=== PATIENT | male | born 1945 | race Caucasian/White ===

== ENCOUNTER → 2019-01-09 | Outpatient (CLI) | payer MEDICARE ==
--- NOTE | 2019-01-09 13:00 | CT ---
EXAMINATION TYPE: CT chest wo con DATE OF EXAM: 01/09/2019 COMPARISON: Chest x-ray December 17, 2018 HISTORY: thoracic aneurysm, cough, abnormal x-ray. CT DLP: 427.2 mGycm. Automated Exposure Control for Dose Reduction was Utilized. TECHNIQUE: CT scan of the thorax is performed without IV contrast. FINDINGS: LUNGS: There is some left basilar linear scarring just above diaphragm. No suspicious peripheral reti culation or fibrosis. No honeycombing. No concerning nodules or masses. No pleural effusion or pneumo thorax. Slightly elevated left hemidiaphragm. No suspicious consolidation. MEDIASTINUM: Lack of IV contrast is noted to limit evaluation for mediastinal and especially hilar a denopathy. There are no definitive greater than 1 cm hilar or mediastinal lymph nodes. No pericardi al effusion is seen. Heart size is upper limits of normal. Main pulmonary artery measures 3.1 cm at b ifurcation axial image 22. CT findings suggesting underlying pulmonary hypertension. Adjacent ascendi ng aorta measures up to 3.5 cm in diameter. Mild calcified plaque in the aortic arch is present. Ther e is fairly moderate to severe three-vessel coronary artery calcification which is noted marked under lying coronary artery disease. OTHER: No additional significant abnormality is seen. IMPRESSION: 1. Slightly elevated left hemidiaphragm with mild to moderate left basilar linear scarring. No additi onal significant fibrosis or acute pulmonary process. 2. Some ectasia to the ascending aorta up to 3.5 cm. No greater than 4.0 cm aneurysmal change. Underl john pulmonary hypertension may be present. Coronary artery calcification is noted.
== END | disposition home or self-care (01) ==
LOC: RADCTMAIN 11:26
PROVIDERS: ATTEND Internal Medicine
DX: I25.10 Atherosclerotic heart disease of native coronary artery without angina pectoris (principal)
CPT/HCPCS: 71250

== ENCOUNTER → 2019-05-05 | Outpatient (CLI) | payer MEDICARE ==
--- NOTE | 2019-05-05 14:41 | XR ---
EXAMINATION TYPE: XR chest 2V DATE OF EXAM: 05/05/2019 COMPARISON: 12/17/2018 HISTORY: 73-year-old male cough and shortness of breath TECHNIQUE: Frontal and lateral views FINDINGS: Heart normal size. Elongation/ectasia of the thoracic aorta. Mild patchy left basilar opacity. No oth er consolidation or pleural effusion. IMPRESSION: 1. Similar tortuous versus ectatic thoracic aorta. 2. Mild patchy left basilar atelectasis versus early infiltrate.
== END | disposition home or self-care (01) ==
LOC: RADXRYALE 10:42
PROVIDERS: ATTEND Physician Assistant Medical
DX: R05 Cough (principal); R06.02 Shortness of breath
CPT/HCPCS: 71046

== ENCOUNTER 2020-05-04 09:24 | Day surgery (SDC) | payer MEDICARE ==
[2020-05-03 09:19] VITALS: BMI 29.0
[~2020-05-04 09:24] MED LIST: ALPRAZolam 0.25 MG TAB PO PRN; ALPRAZolam 0.5 MG TAB PO PRN; ASPIRIN 325 MG TAB PO STA; ATORVASTATIN 80 MG TAB PO STA; NITROGLYCERIN SL TABS 0.4 MG TAB SUBLINGUAL PRN; SODIUM CHLORIDE 0.9% 1,000 ML in EMPTY BAG 1 BAG IV ONE
[2020-05-04 09:58] VITALS: RESP 18; TEMP 97.9
[2020-05-04] MEDS ORDERED: ASPIRIN 81 MG ONE (10:08)
[2020-05-04] MEDS ORDERED: MIDAZOLAM 2 MG/2 ML VIAL IVP ONE (10:41)
[2020-05-04] MEDS ORDERED: LIDOCAINE 1% INJ 10MG/ML (20 ML MDV) SQ ONE (10:46)
[2020-05-04] MEDS ORDERED: BIVALIRUDIN BOLUS 250 MG/50 ML IV ONE (10:54)
[2020-05-04] MEDS ORDERED: BIVALIRUDIN 250 MG in SODIUM CHLORIDE 0.9% 50 ML IV ONE (10:55)
[2020-05-04] MEDS: NITROGLYCERIN 1000MCG/10ML SYRINGE INTRACORON ONE ×2 (11:07→11:21)
[2020-05-04] MEDS ORDERED: CLOPIDOGREL 75 MG TAB PO ONE (11:16)
[2020-05-04] MEDS ORDERED: IOPAMIDOL-370 100ML BTL INJ ONE ×2 (11:16→11:38)
[2020-05-04] MEDS ORDERED: ADENOSINE 90 MG in SODIUM CHLORIDE 0.9% 60 ML IVP ONE (11:33)
[2020-05-04] MEDS ORDERED: HYDROmorphone 1 MG/ML 1 ML SYRINGE IVP ONE (11:35)
[2020-05-04] MEDS ORDERED: SODIUM CHLORIDE 0.9% 1,000 ML IV SCH (12:30)
--- NOTE | 2020-05-04 12:46 | PTCA ---
PERCUTANEOUSTRANS CORORONARY ANGIOGRAPHY TITLE OF PROCEDURE: PTCA and FFR Procedure. 1. PTCA and stenting of mid LAD with a drug-eluting stent. 2. Fractional flow reserve assessment of a circumflex marginal lesion. PERFORMED BY: Dr. Behzad Ramos. Moderate conscious sedation time was 56 minutes. Patient was administered Versed. Oxygen saturation, hemodynamics and EKG were monitored closely. CLINICAL INFORMATION: Mr. Noriega is a 74-year-old gentleman with history of hyperlipidemia, who was recently seen by me with abnormal stress test. Cardiac cath performed at [facility] on 04/26/2020 revealed a mid LAD lesion of about 80%-90% eccentric, calcified. There was also a moderate lesion in the circumflex marginal. Right coronary artery was a dominant vessel, tortuous, no significant disease. He was advised stenting of mid LAD with a drug-eluting stent and assessment of circumflex lesion by FFR and brought in for the procedure electively. PROCEDURE NOTE: Under local anesthesia and strict aseptic precautions, a 6-Khmer introducer was placed in the right femoral artery. A JL3.5 guide catheter was used to cannulate the left coronary artery. I used a run-through wire to cross the lesion. Predilatation was performed with a 2.5 caliber 12 mm NC Trek balloon. The mid LAD was then stented with a 3.25 caliber Xience stent of 12 mm length. Patient did not have much chest discomfort but had precordial ST-segment elevation. Excellent angiographic result without complication was achieved. The attention was then turned to the circumflex vessel. Using a Verrata short wire, after appropriate balancing and normalization, this was advanced and positioned in the circumflex marginal. IFR was obtained. The initial IFR was 0.95. FFR was then obtained as per protocol with adenosine infusion. The patient's FFR on 2 occasion was 0.89 and 0.84. This was considered to be normal and not significant. Details were discussed with the patient. The wire and the guide catheter were taken out. The sheath was taken out and a Perclose device used to secure hemostasis. A FemoStop was applied because of mild amount of oozing. Patient received Angiomax bolus and infusion as per protocol. He also received 600 mg of Plavix. Excellent angiographic result without complication was achieved. The details were discussed with the patient as well as his . I expect he will be discharged later this evening and I will see him in the office on Sunday. MMSTEVE / SHERMANN: [id number] /
[2020-05-04 17:13] VITALS: BP 132/68; PULSE 56
== END 2020-05-04 17:43 | disposition home or self-care (01) ==
LOC: CATHCVL 09:24
PROVIDERS: ATTEND Internal Medicine Interventional Cardiology
DX: I25.10 Atherosclerotic heart disease of native coronary artery without angina pectoris (principal); I10 Essential (primary) hypertension; I35.1 Nonrheumatic aortic (valve) insufficiency; E78.2 Mixed hyperlipidemia; Z79.82 Long term (current) use of aspirin; Z79.899 Other long term (current) drug therapy
CPT/HCPCS: 93571; C9600; C1769 ×4; C1887; C1725; C1894; C1760; C1874; J2250; J2001; J1170; J0583; J0153; Q9967

== ENCOUNTER → 2021-05-24 | Outpatient (CLI) | payer MEDICARE ==
--- NOTE | 2021-05-24 22:33 | XR ---
EXAMINATION TYPE: XR chest 2V DATE OF EXAM: 05/24/2021 COMPARISON: 05/05/2019 INDICATION: Shortness breath, cough TECHNIQUE: Frontal and lateral views of the chest are obtained. FINDINGS: The heart size is mildly prominent. The pulmonary vasculature is normal. Suggestion of minimal linear markings at the cardiac apex remaining present. Atelectasis or scarring could be considered.. IMPRESSION: 1. Consistent mild cardiac apex lung markings could be related atelectasis or scarring. Consider foll ow-up in 3 months.
== END | disposition home or self-care (01) ==
LOC: RADXRYALE 15:59
PROVIDERS: ATTEND Family Medicine
DX: J44.1 Chronic obstructive pulmonary disease with (acute) exacerbation (principal); R06.2 Wheezing
CPT/HCPCS: 71046

== ENCOUNTER → 2021-06-28 | Outpatient (CLI) | payer MEDICARE ==
--- NOTE | 2021-06-28 10:02 | MR ---
EXAMINATION TYPE: MR brain wo/w con DATE OF EXAM: 06/28/2021 COMPARISON: None HISTORY: Mild cognitive impairment TECHNIQUE: Multiplanar, multisequence images of the brain and brainstem is performed without and with IV contras t, utilizing 7.5 mL intravenous Gadavist . FINDINGS: Diffusion weighted images demonstrate no evidence of a recent infarct or other diffusion ab normality. There is mild to moderate generalized degenerative change. There are numerous areas of ab normal signal scattered throughout the white matter bilaterally which are nonspecific but most typica l remote white matter ischemia. No midline shift or mass effect. Midline structures demonstrate normal morphology. The craniocervical junction appears within normal limits. Post contrast images demonstrate no abnormal enhancement. The dural venous sinuses appear pa tent. The visualized sinuses are clear and the globes are intact. IMPRESSION: 1. Inha-lr-btsmbesa degenerative change with more diffuse nonspecific white matter findings most typi frank multifocal remote white matter ischemia.
== END | disposition home or self-care (01) ==
LOC: RADMRIMAIN 08:08
PROVIDERS: ATTEND Family Medicine
DX: G31.84 Mild cognitive impairment of uncertain or unknown etiology (principal)
CPT/HCPCS: 70553; A9585

== ENCOUNTER 2021-11-18 07:24 | Day surgery (SDC) | payer MEDICARE ==
[2021-11-17 09:51] VITALS: BMI 26.6
[~2021-11-18 07:24] MED LIST changes: -ALPRAZolam 0.25 MG TAB PO PRN; -ALPRAZolam 0.5 MG TAB PO PRN; -ASPIRIN 325 MG TAB PO STA; -ATORVASTATIN 80 MG TAB PO STA; +LACTATED RINGERS 1,000 ML IV SCH; -NITROGLYCERIN SL TABS 0.4 MG TAB SUBLINGUAL PRN; -SODIUM CHLORIDE 0.9% 1,000 ML in EMPTY BAG 1 BAG IV ONE
[2021-11-18 08:07] VITALS: TEMP 96.8
[2021-11-18] MEDS ORDERED: PROPOFOL 10 MG/ML 20 ML VIAL IV ONE (08:54)
--- NOTE | 2021-11-18 09:17 | P.PCN ---
Date of Procedure: 11/18/21 Procedure(s) Performed: BRIEF HISTORY: Patient is a 76-year-old pleasant white male scheduled for an elective colonoscopy as a part of evaluation of prior history of colon polyps. Last colonoscopy was 5 years ago. PROCEDURE PERFORMED: Colonoscopy with biopsy. PREOPERATIVE DIAGNOSIS: History of colon polyps. IV sedation per Anesthesia. PROCEDURE: After informed consent was obtained, the patient, was brought into the endoscopy unit. IV sedation was administered by Anesthesia under continuous monitoring. Digital rectal examination was normal. Initially the Olympus CF-160 flexible video colonoscope was then inserted in the rectum, gradually advanced into the cecum without any difficulty. Careful examination was performed as the scope was gradually being withdrawn. Ileocecal valve and the appendiceal orifice were visualized and appeared normal. Prep was excellent. Mucosa of the cecum, ascending colon, transverse colon, descending colon, sigmoid colon, appeared normal. In the rectum there were linear areas of erythema with normal-appearing intervening mucosa and biopsies were done from this area. Scattered sigmoid diverticulosis. Retroflexion was performed in the rectum and no lesions were seen. The patient tolerated the procedure well. IMPRESSION: Scattered sigmoid diverticulosis Linear areas of erythema in the distal rectum status post biopsy to rule out proctitis RECOMMENDATIONS: Findings of this examination were discussed with the patient as well as his family. He was advised to follow with the biopsy results. Recommend repeat colonoscopy in 5 years.
[2021-11-18] MEDS ORDERED: IV FLUID CONTINUATION 750 ML IV ONE (09:19)
[2021-11-18 09:39] VITALS: BP 124/60; PULSE 60; RESP 20
== END 2021-11-18 09:49 | disposition home or self-care (01) ==
LOC: ORWHC2ENDO 07:24
PROVIDERS: ATTEND Internal Medicine Gastroenterology
DX: Z12.11 Encounter for screening for malignant neoplasm of colon (principal); K57.30 Diverticulosis of large intestine without perforation or abscess without bleeding; K62.89 Other specified diseases of anus and rectum; Z86.010 Personal history of colon polyps; I25.10 Atherosclerotic heart disease of native coronary artery without angina pectoris; Z95.5 Presence of coronary angioplasty implant and graft; K21.9 Gastro-esophageal reflux disease without esophagitis; Z96.652 Presence of left artificial knee joint; Z98.890 Other specified postprocedural states; Z79.82 Long term (current) use of aspirin; Z79.02 Long term (current) use of antithrombotics/antiplatelets; Z79.51 Long term (current) use of inhaled steroids; Z79.899 Other long term (current) drug therapy
CPT/HCPCS: 88305; J2704; G0105

== ENCOUNTER → 2023-06-04 | Outpatient (CLI) | payer MEDICARE ==
[2023-06-04 15:36] LABS: T4, Free (Free Thyroxine) 1.26 ng/dL (0.80-1.80)
== END | disposition home or self-care (01) ==
LOC: LABWHC1 08:23
PROVIDERS: ATTEND Internal Medicine Interventional Cardiology
DX: E03.9 Hypothyroidism, unspecified (principal)
CPT/HCPCS: 36415; 84439; 84443

== ENCOUNTER 2023-12-07 06:07 | Day surgery (SDC) | payer MEDICARE ==
[~2023-12-07 06:07] MED LIST changes: +ALPRAZolam 0.25 MG TAB PO PRN; +ALPRAZolam 0.5 MG TAB PO PRN; +HEPARIN SODIUM,PORCINE (1 ML) 2,500 UNIT in SODIUM CHLORIDE 0.9% 250 ML IRRIGATION PRN; +HEPARIN SODIUM,PORCINE 10,000 UNIT in SODIUM CHLORIDE 0.9% 1,000 ML IRRIGATION PRN; -LACTATED RINGERS 1,000 ML IV SCH; +NITROGLYCERIN SL TABS 0.4 MG TAB SUBLINGUAL PRN; +SODIUM CHLORIDE 0.9% 1,000 ML in EMPTY BAG 1 BAG IV SCH
[2023-12-07] MEDS: SODIUM CHLORIDE 0.9% 1,000 ML IV ONE (06:47)
[2023-12-07] MEDS ORDERED: ASPIRIN 325 MG TAB PO ONE (07:00)
[2023-12-07] MEDS ORDERED: ATORVASTATIN 80 MG TAB PO ONE (07:00)
[2023-12-07 07:01] VITALS: RESP 16; TEMP 97.2
[2023-12-07] MEDS: MIDAZOLAM 2 MG/2 ML VIAL IVP ONE (07:28)
[2023-12-07] MEDS: BENZOCAINE SPRAY 1 CAN TOPICAL ONE (07:28)
[2023-12-07] MEDS: fentaNYL (PF) 50 MCG/ML 2 ML AMP IVP ONE (07:28)
[2023-12-07 07:33] LABS: Basophils # (A) 0.1 k/uL (0-0.2); Basophils % (A) 1 %; Eosinophils # (A) 0.3 k/uL (0-0.7); Eosinophils % (A) 5 %; HCT 46.6 % (39.0-53.0); HGB 15.1 gm/dL (13.0-17.5); Lymphocytes # (A) 1.6 k/uL (1.0-4.8); Lymphocytes % (A) 26 %; MCH 29.3 pg (25.0-35.0); MCHC 32.4 g/dL (31.0-37.0); MCV 90.3 fL (80.0-100.0); Mean Platelet Volume 7.5; Monocytes # (A) 0.4 k/uL (0-1.0); Monocytes % (A) 7 %; Neutrophils # (A) 3.5 k/uL (1.3-7.7); Neutrophils % (A) 58 %; Platelet Count 147 k/uL (150-450); RBC 5.16 m/uL (4.30-5.90); RDW 13.4 % (11.5-15.5)
[2023-12-07] MEDS: IV FLUID CONTINUATION 500 ML IV ONE (07:33)
[2023-12-07] MEDS: IV FLUID CONTINUATION 1,000 ML IV ONE (07:33)
--- NOTE | 2023-12-07 07:47 | P.PCN ---
Date of Procedure: 12/07/23 Operative Findings: TRANSESOPHAGEAL ECHOCARDIOGRAM LEADERSHIP PROGRAM INTERNSHIP: GARO ZENDEJAS MD, RPVI INDICATION: Aortic insufficiency SEDATION: Conscious sedation COMPLICATION: None LEVEL OF SEDATION Moderate to sedation length of the 12 minutes PROCEDURE DESCRIPTION: After obtaining an informed consent, the patient was brought to transesophageal echocardiogram room. Pulse oximetry and heart monitors were attached to the patient. The patient throat was sprayed using lidocaine. The patient was turned into le ft lateral position. After that a bite guard was placed. After an appropriate conscious sedation was initiated, the transesophageal echocardiogram was advanced through a bite guard into the mid esophagus. A 2-D echocardiogram images, color Doppler images, continuous wave images, pulse-wave images, of various cardiac structure were performed. After that the transesophageal echocardiogram probe was advanced into the stomach and fixed to obtain transgastric view was. The probe was brought into the mid esophagus. Inter-atrial septum was interrogated using 2D images, color Doppler images, and then contrast study. After that transesophageal echocardiogram was withdrawn out and upon withdrawing the descending thoracic aorta all the way up to the arch was evaluated. CONCLUSION: 1. Mildly impaired LV function with a EF between 40 to 45% and the LV appears to be dilated as well 2. Normal right ventricular dimension and systolic function 3. Thickened and trileaflet aortic valve with evidence of failure of coaptation and severe aortic insufficiency with eccentric jet. There was evidence of reversal of flow in the descending aorta 4. Thickened anterior and posterior mitral leaflet with moderate mitral regurgitation 5. Moderate tricuspid regurgitation 6. Intact left atrial appendage and intact interatrial septum
[2023-12-07 08:29] LABS: O2 Sat Blood Gas 69.8 %
[2023-12-07 08:30] LABS: O2 Sat Blood Gas 70.1 %
[2023-12-07] MEDS: IOPAMIDOL-370 100ML BTL INJ ONE (08:31)
[2023-12-07 08:32] LABS: O2 Sat Blood Gas 99.4 %
[2023-12-07] MEDS: IOPAMIDOL-370 200ML BTL INJ ONE (08:42)
[2023-12-07] MEDS ORDERED: SODIUM CHLORIDE 0.9% 1,000 ML IV SCH (09:00)
--- NOTE | 2023-12-07 09:05 | P.CARDCATH ---
Date of Procedure: 12/07/23 Description of Procedure: History: Patient was referred for cardiac catheterization to evaluate for CAD and valvular disease. This is a 78-year-old gentleman with a known history of CAD with prior stenting of mid LAD performed in April 2020. He also has hypertension hyperlipidemia. He has a decent functional capacity. He has developed progressively worsening aortic regurgitation with a last echo in October revealing ejection fraction in the 35 to 40% with severe aortic regurg. He was brought in for elective coronary angiogram as well as transesophageal echo. At the time I performed a stenting of mid LAD in April 2020, he also had a 55% circumflex marginal lesion which was unremarkable by FFR. Therefore he was treated medically. He is does have exertional shortness of breath but the pattern has been reasonably stable with the recent change that made it more frequent and less activity makes him short of breath. Risk benefits options and rationale were explained. Transesophageal echo revealed severe aortic regurgitation with a trileaflet aortic valve no significant dilatation of the ascending aorta and no shunt or thrombus. Procedure: Right and left heart catheterization, aortography and coronary angiography Procedure Details: The risks, benefits, complications, treatment options, and expected outcomes were discussed with the patient. The patient and/or family concurred with the proposed plan, giving informed consent. Patient was brought to the seed analysis laboratory assistant after IV hydration was begun and oral premedication was given. Procedure was performed right after transesophageal echo patient was already sedated. Patient was prepped and draped in the usual manner. Under strict aseptic precautions and local anesthesia a 6 Greek introducer was placed in the right femoral artery and another 6 Greek introducer in the right femoral vein. Micropuncture needle technique was used. Right heart catheterization was performed with a 6 Greek balloontipped catheter. Saturations and hemodynamics were obtained. Thermodilution cardiac output was obtained. Subsequently coronary angiography was performed using standard Asim catheters and the pigtail catheter was used to check LV pressures and then LV gram was performed in the AUSTRIAN projection. Patient tolerated procedure well without complication. The arterial sheath was taken out an Angio-Seal device used to secure hemostasis. The venous sheath will be pulled manually. Moderate conscious sedation time was 55 minutes. Patient's oxygen saturation hemodynamics and EKG were monitored closely. Findings: Hemodynamics: The right atrial pressure was 7 mmHg, right ventricular pressure was 34/7, pulmonary arterial pressure was 34/12 with a mean of 21. Pulmonary capillary wedge pressure was 10 mmHg. Thermodilution cardiac output was 4.74 L/min, Cristine cardiac output was 5.5 L/min. The femoral arterial saturation was 98% and pulmonary arterial saturation was 70% with no step up. The left ventricle end-diastolic pressure was 15 mmHg without any gradient across the aortic valve Left Main: Patent vessel no significant disease bifurcates into LAD and circumflex LAD: This is a good caliber vessel that was stented in the midportion right after the diagonal branch. The stented area is widely patent with a residual stenosis of less than 25%. Remarkably good flow with rest of the LAD showing minor irregularities, diagonal and septal branches scarves over the apex to supply a fair amount of distal inferoapical area CIRC: Nondominant vessel has a mid lesion of about 55% unchanged from the previous angiogram of April 2020. This lesion at that time had an FFR of 0.95. RCA: Dominant vessel tortuous no significant disease distally bifurcates into PDA and PLV both of which supply a fair amount of myocardium. Minor irregularities no significant disease LV: Not performed Aortogram was performed in AUSTRIAN 30 degree projection revealed severe aortic regurgitation almost 4+. No significant enlargement of the aortic root Closure Device: Angio seal Complications: None Estimated Blood Loss: Minimal Impression: This patient has no significant pulmonary hypertension, fairly normal LV end-diastolic pressure, severe aortic regurgitation, right dominant system with widely patent mid LAD and 55% circumflex lesion. No significant disease in left main or RCA. Pre Procedure Diagnosis: Severe aortic regurgitation with CAD Final Post Procedure Diagnosis: Severe aortic regurgitation with CAD Recommendation: Based on his angiographic picture and clinical picture I will refer him to for cardiac surgery for aortic valve replacement and single-vessel graft to circumflex marginal. The LAD is widely patent at nearly 3-1/2 years and may not need to be grafted. I will however seek input from cardiac surgeon. Dr. Navarrete will hopefully see the patient today a consult has been placed. Discussed my thoughts in detail with the patient as well as his family specifically his . Complications: None; patient tolerated the procedure well. Disposition: Pacu - hemodynamically stable. Condition: Stable Discharge Disposition: Discharge patient home later on today.
--- NOTE | 2023-12-07 12:34 | US ---
EXAMINATION TYPE: US carotid duplex BILAT DATE OF EXAM: 12/07/2023 COMPARISON: NONE CLINICAL INDICATION: Male, 78 years old with history of preop cardiac surgery; open heart TECHNIQUE: Carotid duplex ultrasound examination. Indirect Doppler criteria was utilized. FINDINGS: EXAM MEASUREMENTS: RIGHT: Peak Systolic Velocity (PSV) cm/sec ----- Right CCA: 72.5 ----- Right ICA: 143.8 ----- Right ECA: 98.2 ICA/CCA ratio: 2.0 RIGHT: End Diastole cm/sec ----- Right CCA: 7.9 ----- Right ICA: 13.7 ----- Right ECA: 5.0 LEFT: Peak Systolic Velocity (PSV) cm/sec ----- Left CCA: 98.4 ----- Left ICA: 89.2 ----- Left ECA: 48.7 ICA/CCA ratio: 0.9 LEFT: End Diastole cm/sec ----- Left CCA: 0.0 ----- Left ICA: 11.5 ----- Left ECA: 7.7 VERTEBRALS (direction of flow): Right Vertebral: Antegrade Left Vertebral: Antegrade Rhythm: Arrhythmia MUSHROOM CUTTER NOTES: heavy plaque bilaterally. elevated right ICA/CCA ratio. Elevated velocity right mi d ICA IMPRESSION: 1. Less than 50% stenosis of the left carotid bifurcation. 2. 50-69% stenosis right carotid bifurcation by peak systolic velocity. Criteria for Assigning % of Stenosis / Diameter reduction (Estimation based on the indirect measurements of the internal carotid artery velocities (ICA PSV). 1. Normal (no stenosis)=ICA PSV < 125 cm/s: ratio < 2.0: ICA EDV<40 cm/s. 2. Less than 50% stenosis=ICA PSV < 125 cm/s: ratio < 2.0: ICA EDV<40 cm/s. 3. 50 to 69% stenosis=ICA PSV of 125 to 230 cm/s: ration 2.0 ? 4.0: ICA EDV 40-100 cm/s. 4. Greater than 70% stenosis to near occlusion= ICA PSV > 230 cm/s: ratio > 4.0: ICA EDV > 100 cm/s. 5. Near occlusion= ICA PSV velocities may be low or undetectable: variable ratio and ICA EDV. 6. Total occlusion=unable to detect flow.
--- NOTE | 2023-12-07 12:35 | US ---
EXAMINATION TYPE: US vein mapping BIL DATE OF EXAM: 12/07/2023 12:00 PM COMPARISON: NONE CLINICAL INDICATION: Male, 78 years old with history of preop cardiac surgery; open heart SIDE PERFORMED: Bilateral TECHNIQUE: Lower extremity saphenous vein is examined and measured utilizing real time linear array sonography. Patient History: Smoker: No Heart Disease: No Previous DVT: No Vascular Surgery: No Discoloration: No Hypertension: on meds Diabetes: No Paralysis: No Varicosities: Yes Edema: No DUPLEX FINDINGS: Greater Saphenous: Color flow seen Measurements in mm: Right Greater Saphenous: Groin: 5.4x6.3 mm High Thigh: 3.0x3.5 mm Mid Thigh: 3.5x4.0 mm Above Knee: 2.9x3.7 mm Knee: 2.3x3.0 mm Below Knee: 1.1x1.3 mm Mid Calf: 2.5x2.9 mm At Ankle: 2.4x2.9 mm Left Greater Saphenous: Groin: 4.1x3.9 mm High Thigh: 2.9x3.8 mm Mid Thigh: 3.0x3.2 mm Above Knee: 2.9x3.4 mm Knee: 2.9x3.1 mm Below Knee: 2.3x2.4 mm Mid Calf: 2.6x3.1 mm At Ankle: 2.1x2.1 mm IMPRESSION: 1. Bilateral GSV measurements listed above. 2. Performing surgeon to determine viability as conduit.
--- NOTE | 2023-12-07 13:17 | CT ---
EXAMINATION TYPE: CT chest wo con DATE OF EXAM: 12/07/2023 COMPARISON: None HISTORY: eval aorta for open heart CT DLP: [address] of the chest was performed with lung and mediastinal window settings submitted. The la ck of contrast limits evaluation of the vascular, mediastinal and parenchymal structures including th e upper abdomen. LUNGS: The lungs are clear and free of infiltrate. No atelectasis. No pulmonary nodule or mass is de tected. No pleural effusion. No CT evidence of interstitial lung disease. MEDIASTINUM/JUAREZ: There is evidence of cardiomegaly. Consultations are seen of the mitral valve. The ascending thoracic aorta measures maximal AP dimension of 3.7 cm while the aortic arch measures 3.3 c m and the descending thoracic aorta 2.9 cm. Proximal abdominal aorta is of normal caliber. Mild scatt ered atheromatous changes seen. Coronary artery calcifications and/or stents. No evidence for mediast inal mass. No lymph nodes greater than 1cm. UPPER ABDOMEN: No significant abnormality is seen. OTHER: No significant other abnormality. IMPRESSION: 1. As above.
[2023-12-07 14:55] LABS: INR 1.2 (<1.2); Partial Thromboplastin Time 26.1 sec (22.0-30.0); Prothrombin Time 12.8 sec (10.0-12.5)
[2023-12-07 14:58] LABS: ALT 29 U/L (4-49); AST 32 U/L (17-59); African American GFR (CKD) 87 (>60 ml/min/1.73 sqM); Albumin 3.6 g/dL (3.5-5.0); Alkaline Phosphatase 39 U/L (38-126); Anion Gap 5 mmol/L; Blood Urea Nitrogen 17 mg/dL (9-20); Calcium 8.7 mg/dL (8.4-10.2); Carbon Dioxide 25 mmol/L (22-30); Chloride 102 mmol/L (98-107); Glucose 86 mg/dL (74-99); Non-African American GFR(CKD) 75 (>60 ml/min/1.73 sqM); Potassium 4.2 mmol/L (3.5-5.1); Sodium 132 mmol/L (137-145); Total Bilirubin 1.9 mg/dL (0.2-1.3); Total Protein 5.8 g/dL (6.3-8.2)
[2023-12-07 15:04] LABS: NT-Pro-B-Type Natriuretic Pept 1090 pg/mL
[2023-12-07 15:14] VITALS: BP 129/69; PULSE 63
--- NOTE | 2023-12-07 15:24 | P.GSCN ---
History of Present Illness Consult date: 12/07/23 Reason for Consult: Severe aortic insufficiency, single-vessel CAD Requesting physician: Keith Ramos History of present illness: This is a 78-year-old gentleman who follows with Dr. Saldivar for primary care and Dr. RADHA Ramos for cardiology. He has a previous medical history of coronary artery disease with previous PCI to the mid LAD in April 2020, hypertension, hyperlipidemia, asthma, BPH, occasional marijuana use, and lifelong non-smoker. This is an active gentleman who has been experiencing exertional dyspnea, denies chest pain, denies dizziness or syncope. He had a transthoracic echocardiogram completed at [facility] in October 2023 demonstrating reduced left ventricular systolic function with EF 35 to 40%, grade 2 diastolic dysfunction, severe aortic regurgitation with enlarged aortic root (4.3 cm) and ascending aorta (3.9 cm), moderate mitral regurgitation with mild MAC, and moderate tricuspid regurgitation. Due to this finding he was recommended to undergo heart catheterization and WELLINGTON which were completed today. Heart catheterization was completed by Dr. Ramos which revealed patent mid LAD stent, and circumflex lesion in the range of 55% which is unchanged from previous heart catheterization. Transthoracic echocardiogram was completed by Dr. Britt revealing impaired left ventricular systolic function with EF 40 to 45%, trileaflet aortic valve with evidence of failure of coaptation, severe aortic insufficiency with eccentric jet, evidence of reversal of flow in the descending aorta, thickened anterior and posterior mitral leaflet with moderate mitral regurgitation as well as moderate tricuspid regurgitation. Due to these findings consultation was placed to Dr. Red from cardiothoracic surgery for treatment recommendations. Review of Systems Review of systems was completed and was negative except as noted - Cardiovascular Reports dyspnea on exertion, Reports shortness of breath Past Medical History Past Medical History: Coronary Artery Disease (CAD), COPD, Hyperlipidemia, Hypertension, Prostate Disorder Additional Past Medical History / Comment(s): BPH; severe aortic insufficiency, moderate mitral and tricuspid regurgitation History of Any Multi-Drug Resistant Organisms: None Reported Past Surgical History: Heart Catheterization With Stent, Joint Replacement, Orthopedic Surgery Additional Past Surgical History / Comment(s): neisha shoulder rotator cuff, left knee replacement, rt knee arthrosocpy, one cardiac stent Past Anesthesia/Blood Transfusion Reactions: No Reported Reaction Date of Last Stent Placement:: 2019 Past Psychological History: No Psychological Hx Reported Smoking Status: Never smoker Past Alcohol Use History: None Reported Past Drug Use History: None Reported - Past Family History Mother Family Medical History: No Reported History Medications and Allergies Home Medications Medication Instructions Recorded Confirmed Type Aspirin [Adult Low Dose Aspirin EC] 81 mg PO DAILY 05/03/20 12/07/23 History Atorvastatin [Lipitor] 40 mg PO HS 05/03/20 12/07/23 History Budesonide-Formot 160-4.5 Mcg 2 puff INHALATION BID PRN 05/03/20 12/07/23 History [Symbicort 160-4.5 Mcg Inhaler] Cholecalciferol [Vitamin D3 (25 2,000 unit PO QAM 05/03/20 12/07/23 History Mcg = 1000 Iu)] Losartan [Cozaar] 25 mg PO HS 05/03/20 12/07/23 History Metoprolol Tartrate 12.5 mg PO BID 05/03/20 12/05/23 History Tamsulosin HCl [Flomax] 0.4 mg PO DAILY 12/05/23 12/05/23 History Unk Multi Vitamin 1 tab PO DAILY 12/05/23 12/07/23 History Allergies Allergy/AdvReac Type Severity Reaction Status Date / Time No Known Allergies Allergy Verified 12/07/23 06:57 Surgical - Exam Vital Signs Temp Pulse Resp BP Pulse Ox 97.2 F L 58 L 16 164/72 97 12/07/23 06:59 12/07/23 06:59 12/07/23 06:59 12/07/23 06:59 12/07/23 06:59 CONSTITUTIONAL: Awake and alert, appears comfortable, cooperative, well- developed, well-nourished, no pain, no acute distress EYES: Pupils equal, round, reactive to light, normal ocular movement ENT: Moist mucous membranes without oral lesions present NECK: No masses, no bruits, trachea midline RESPIRATORY: Lungs sounds clear to auscultation bilaterally. Respirations even, nonlabored. Currently on room air with oxygen saturation 94%. Strong cough. No chest wall deformities. No clubbing or cyanosis present CARDIOVASCULAR: S1, S2 present. Regular rate and rhythm, sinus bradycardia on telemetry. Palpable peripheral pulses bilaterally. No edema present. No calf pain or tenderness noted GASTROINTESTINAL: Abdomen soft, nontender, nondistended without masses or organomegaly noted. There is no rebound or guarding present. Active bowel sounds present 4 quadrants. GENITOURINARY: Deferred INTEGUMENTARY: Skin is warm and dry with evidence of good perfusion. NEUROLOGIC: Cranial nerves II through XII intact, normal coordination, no obvio us motor or sensory deficits, speech is normal MUSKULOSKELETAL: Able to move all extremities, strength equal bilaterally, normal posture PSYCHIATRIC: Alert and oriented to person place and time, appropriate affect, intact judgment and insight CLINICAL FRAILTY SCORE 4 Results - Labs 12/07/23 06:50 12/07/23 13:58 Abnormal Lab Results - Last 24 Hours (Table) 12/07/23 Range/Units 06:50 Plt Count 147 L (150-450) k/uL - Imaging Additional studies: Heart catheterization and WELLINGTON results received with Dr. Navarrete Assessment and Plan Assessment: Severe aortic regurgitation with enlarged aortic root (4.3 cm) and ascending aorta (3.9 cm), evidence of failure of coaptation Moderate mitral regurgitation with mild MAC Moderate tricuspid regurgitation Coronary artery disease with previous PCI to the mid LAD in April 2020, patent mid LAD stent and circumflex lesion in the range of 55% on today's heart catheterization Hypertension Hyperlipidemia Asthma BPH Occasional marijuana use Lifelong non-smoker Plan: The patient was seen and examined at the bedside with Dr. Navarrete as he was on[facility]. Chart/diagnostics reviewed, heart cath and echocardiogram films were reviewed. The usual perioperative course of open-heart surgery was discussed in detail with the patient and his , risk and benefits reviewed, all questions were answered. We did just set up the patient to see Dr. Red in the office per Dr. Ramos's wishes on Sunday, December 10, 2023 to further discuss surgical plans. Preoperative testing was initiated. We did discuss the need for dental clearance, patient does see a dentist on a regular basis. Continue current medication therapy. More recommendations to follow. Thank you Dr. Ramos for this consult, we look forward to working with you in the care of this patient. I have personally seen and examined the patient, performed the documentation and the assessment and plan as written. Number of minutes spent on the visit: 30. JUNIOR Canales The patient was seen and examined with the nurse practitioner, I agree with the assessment and plan as documented. The patient is scheduled to follow up with Dr. Red in the office Sunday. Number of minutes spent on visit: 35. Joe Navarrete MD
== END 2023-12-07 15:07 | disposition home or self-care (01) ==
LOC: CATHCVL 06:07
PROVIDERS: ATTEND Internal Medicine Interventional Cardiology
DX: I35.1 Nonrheumatic aortic (valve) insufficiency (principal); I25.10 Atherosclerotic heart disease of native coronary artery without angina pectoris; Z95.5 Presence of coronary angioplasty implant and graft; Z79.51 Long term (current) use of inhaled steroids; N40.0 Benign prostatic hyperplasia without lower urinary tract symptoms; I10 Essential (primary) hypertension; E78.5 Hyperlipidemia, unspecified
CPT/HCPCS: 94150; 93312; 93320; 93325; 83880; 80053; 85018; 82810; 85025; 85610; 85730; 87070; 83036; 93970; 93880; 71250; 93460; J2250; J3010; Q9967 ×2; 93461; 93567

== ENCOUNTER → 2023-12-18 | Outpatient (CLI) | payer MEDICARE ==
--- NOTE | 2023-12-18 11:46 | XR ---
EXAMINATION TYPE: XR chest 2V DATE OF EXAM: 12/18/2023 COMPARISON: 05/24/2021 HISTORY: 78-year-old male preoperative evaluation for tap or TECHNIQUE: Frontal and lateral views FINDINGS: Heart borderline in size. Ectatic/tortuous thoracic aorta. Bilateral nipple shadows. No consolidation or pleural effusion. IMPRESSION: Borderline cardiomegaly and tortuous/ectatic thoracic aorta. No acute process seen. Bilateral nipple shadows.
[2023-12-18 15:26] LABS: Appearance,Urine Clear (Clear); Bilirubin,Urine Negative (Negative); Blood,Urine Negative (Negative); Color,Urine Dark Yellow (Yellow); Ketones,Urine Negative (Negative); Nitrite,Urine Negative (Negative); PH, Urine 6.5
[2023-12-18 15:28] LABS: ALT 33 U/L (10-49); AST 32 U/L (14-35); Albumin 4.3 g/dL (3.8-4.9); Albumin/Globulin Ratio 2.15 Ratio (1.60-3.17); Alkaline Phosphatase 42 U/L (41-126); BUN/Creat Ratio 11.58 Ratio (12.00-20.00); Blood Urea Nitrogen 13.9 mg/dL (9.0-27.0); Calcium 9.8 mg/dL (8.7-10.3); Carbon Dioxide 24.2 mmol/L (21.6-31.8); Chloride 98 mmol/L (96-109); Glucose 109 mg/dL (70-110); Magnesium 1.6 mg/dL (1.5-2.4); Potassium 5.6 mmol/L (3.5-5.5); Sodium 132 mmol/L (135-145); Total Bilirubin 1.8 mg/dL (0.3-1.2); Total Protein 6.3 g/dL (6.2-8.2)
[2023-12-18 15:40] LABS: Hepatitis A Antibody IgM Nonreactive (Nonreactive); Hepatitis B Core IgM Nonreactive (Nonreactive); Hepatitis B Surface Antigen Nonreactive (Nonreactive); Hepatitis C IgG Antibody Nonreactive (Nonreactive)
== END | disposition home or self-care (01) ==
LOC: LABWHC1 10:11
PROVIDERS: ATTEND Thoracic Surgery (Cardiothoracic Vascular Surgery)
DX: Z01.818 Encounter for other preprocedural examination (principal); I51.7 Cardiomegaly; I35.0 Nonrheumatic aortic (valve) stenosis; I25.10 Atherosclerotic heart disease of native coronary artery without angina pectoris
CPT/HCPCS: 36415; 71046; 80053; 80074; 81003; 83735; 86850; 86900; 86901; 86920; 87086

== ENCOUNTER 2023-12-24 05:34 | Inpatient (IN) | payer MEDICARE ==
[2023-12-24] MEDS: IV FLUID CONTINUATION 1,000 ML IV ONE (07:03)
[2023-12-24] MEDS: LACTATED RINGERS 1,000 ML IV ONE (07:08)
[2023-12-24] MEDS ORDERED: WATER FOR INJECTION, STERILE 10 ML VIAL IV ONE (07:50)
[2023-12-24] MEDS ORDERED: PROTAMINE SULFATE 10 MG/ML 25 ML VIAL IV ONE (07:50)
[2023-12-24] MEDS ORDERED: TRANEXAMIC 1,000 MG/100ML-NACL PREMIX BAG ONE (07:50)
[2023-12-24] MEDS ORDERED: MIDAZOLAM HCL 10 MG/10 ML VIAL ONE (07:50)
[2023-12-24] MEDS ORDERED: HEPARIN SODIUM,PORCINE 5,000 UNIT/ML 1 ML VIAL ONE (07:50)
[2023-12-24] MEDS ORDERED: ePHEDrine 50 MG/ML 1 ML VIAL ONE (07:50)
[2023-12-24] MEDS ORDERED: PROPOFOL 10 MG/ML 20 ML VIAL IV ONE (07:50)
[2023-12-24] MEDS ORDERED: VECURONIUM 10 MG VIAL IV ONE (07:50)
[2023-12-24] MEDS ORDERED: HEPARIN SODIUM,PORCINE 10,000 UNIT/ML 1 ML VIAL ONE (07:50)
[2023-12-24] MEDS ORDERED: fentaNYL (PF) 50 MCG/ML 50 ML VIAL ONE (07:50)
[2023-12-24] MEDS ORDERED: CALCIUM CHLORIDE 100 MG/ML 10 ML SYRINGE ONE (07:50)
[2023-12-24 08:40] LABS: ABG Glucose Whole Blood 105 mg/dL (75-99); ABG HCO3 25 mmol/L (21-25); ABG Hematocrit 35 % (34.0-46.0); ABG Ionized Calcium 4.8 mg/dL (4.5-5.3); ABG Lactic Acid Whole Blood 1.2 mmol/L (0.5-1.6); ABG Oxygen Saturation >99.4 % (94-97); ABG PCO2 43 mmHg (35-45); ABG PH 7.36 (7.35-7.45); ABG Potassium Whole Blood 4.7 mmol/L (3.4-4.5); ABG Sodium Whole Blood 133 mmol/L (135-146)
[2023-12-24 09:43] LABS: ABG Base Excess -1.4 mmol/L; ABG Glucose Whole Blood 124 mg/dL (75-99); ABG HCO3 23 mmol/L (21-25); ABG Hematocrit 33 % (34.0-46.0); ABG Ionized Calcium 4.7 mg/dL (4.5-5.3); ABG Oxygen Saturation 98.9 % (94-97); ABG PCO2 37 mmHg (35-45); ABG PH 7.41 (7.35-7.45); ABG PO2 174 mmHg (83-108); ABG Potassium Whole Blood 4.8 mmol/L (3.4-4.5); ABG Sodium Whole Blood 131 mmol/L (135-146); ABG TCO2 21 mmol/L (19-24)
[2023-12-24] MEDS: ceFAZolin 1,000 MG in SODIUM CHLORIDE 0.9% 1,000 ML IRRIGATION ONE (09:56)
[2023-12-24] MEDS: SODIUM CHLORIDE 0.9% 500 ML 500 ML with HEPARIN SODIUM,PORCINE (1 ML) 5,000 UNIT IV ONE (09:56)
[2023-12-24] MEDS: PAPAVERINE 360 MG in SODIUM CHLORIDE 0.9% 90 ML IV ONE (09:56)
[2023-12-24 10:20] LABS: ABG Base Excess -2.4 mmol/L; ABG Glucose Whole Blood 80 mg/dL (75-99); ABG HCO3 20 mmol/L (21-25); ABG Ionized Calcium 3.6 mg/dL (4.5-5.3); ABG Lactic Acid Whole Blood 1.9 mmol/L (0.5-1.6); ABG Oxygen Saturation >99.4 % (94-97); ABG PCO2 24 mmHg (35-45); ABG PH 7.53 (7.35-7.45); ABG Potassium Whole Blood 5.1 mmol/L (3.4-4.5); ABG Sodium Whole Blood 132 mmol/L (135-146)
[2023-12-24 10:34] LABS: ABG PO2 >420 mmHg (83-108)
[2023-12-24 10:35] LABS: ABG Lactic Acid Whole Blood 2.2 mmol/L (0.5-1.6)
[2023-12-24 10:36] LABS: ABG Hematocrit 21 % (34.0-46.0); ABG PO2 >420 mmHg (83-108)
[2023-12-24 10:46] LABS: ABG Base Excess -1.1 mmol/L; ABG Glucose Whole Blood 112 mg/dL (75-99); ABG HCO3 23 mmol/L (21-25); ABG Hematocrit 27 % (34.0-46.0); ABG Ionized Calcium 4.3 mg/dL (4.5-5.3); ABG Oxygen Saturation >99.4 % (94-97); ABG PCO2 33 mmHg (35-45); ABG PH 7.45 (7.35-7.45); ABG Potassium Whole Blood 4.5 mmol/L (3.4-4.5); ABG Sodium Whole Blood 132 mmol/L (135-146)
[2023-12-24 11:03] LABS: ABG Base Excess -1.3 mmol/L; ABG Glucose Whole Blood 119 mg/dL (75-99); ABG HCO3 23 mmol/L (21-25); ABG Hematocrit 26 % (34.0-46.0); ABG Ionized Calcium 4.3 mg/dL (4.5-5.3); ABG Oxygen Saturation >99.4 % (94-97); ABG PCO2 34 mmHg (35-45); ABG PH 7.43 (7.35-7.45); ABG Potassium Whole Blood 4.5 mmol/L (3.4-4.5); ABG Sodium Whole Blood 132 mmol/L (135-146)
[2023-12-24 12:08] LABS: ABG TCO2 22 mmol/L (19-24)
[2023-12-24 12:08] LABS: ABG Lactic Acid Whole Blood 3.2 mmol/L (0.5-1.6); ABG PO2 >420 mmHg (83-108)
[2023-12-24 12:09] LABS: ABG Lactic Acid Whole Blood 3.4 mmol/L (0.5-1.6); ABG PO2 >420 mmHg (83-108)
[2023-12-24] MEDS ORDERED: CALCIUM GLUCONATE IN NACL 2 GM in SALINE 1 100ML.BAG IVPB PRN (12:21)
[2023-12-24] MEDS ORDERED: hydrALAZINE HCL 20 MG/ML 1 ML VIAL IVP PRN (12:21)
[2023-12-24] MEDS ORDERED: Magnesium Replacement Protocol 1 EACH MISC MISCELLANE PRN (12:21)
[2023-12-24] MEDS ORDERED: Potassium Replacement Protocol 1 EACH MISC MISCELLANE PRN (12:21)
[2023-12-24] MEDS ORDERED: DEXMEDETOMIDINE/0.9% NACL(PMX) 400 MCG in EMPTY BAG 1 BAG IV SCH (12:21)
[2023-12-24] MEDS ORDERED: DEXTROSE 50% SYRINGE 50 ML IVP PRN ×2 (12:21)
[2023-12-24] MEDS ORDERED: METOCLOPRAMIDE 5 MG/ML 2 ML VIAL IVP PRN (12:21)
[2023-12-24] MEDS ORDERED: BENZOCAINE/MENTHOL LOZENG 1 EACH LOZENGE MUCOUS MEM PRN (12:21)
--- NOTE | 2023-12-24 12:28 | P.OP ---
Date of Procedure: 12/24/23 Preoperative Diagnosis: Aortic valvular insufficiency, coronary artery disease, declining left ventricular ejection fraction on serial echocardiography. Postoperative Diagnosis: Same Procedure(s) Performed: Aortic valve replacement with 27 mm Medtronic Avallis bovine pericardial valve prosthesis, CABG x 2 with GOETZ to LAD and saphenous vein graft to obtuse marginal, endovascular vein harvest greater saphenous vein from the left thigh, ligation of the left atrial appendage with 35mm AtriCure clip, WELLINGTON by anesthesia. Implants: 27 mm Medtronic Avalis OB and pericardial valve prosthesis, 35 mm AtriCure clip. Anesthesia: GETA Surgeon: Darren Red Frame Expander #1: Joe Navarrete Frame Expander #2: Mateus Woods Estimated Blood Loss (ml): 200 IV fluids (ml): 1,800 Urine output (ml): 300 Pathology: other (Aortic valve) Condition: stable Disposition: ICU Indications for Procedure: 78-year-old male with known aortic insufficiency and declining left ventricular ejection fraction on serial echocardiograms. EF went from 55 a year ago to 45 last fall to 35 this spring. Cardiac catheterization demonstrated significant blockages in both the LAD and circumflex. Patient was referred by Dr. Ramos for consideration of aortic valve replacement and coronary bypass grafting. Patient was seen in the office, elective surgery was scheduled and informed consent was obtained. Operative Findings: Saphenous vein was adequate. GOETZ was good. LVEF was diminished. It improved after revascularization and valve replacement. Aortic valve was tricuspid with essentially no calcifications. There were extensive calcifications in the sinotubular junction and root of the aorta. WELLINGTON at completion of the procedure demonstrated no evidence of valvular insufficiency. Left ventricular function was significantly improved. Description of Procedure: Patient was brought to the OR and placed supine on the operating table. General anesthesia was induced and WELLINGTON was placed. Patient was appropriately positioned in the anterior torso and bilateral lower extremities sterilely prepped and draped. Greater saphenous vein was harvested from the left thigh using endoscopic vein harvest technique. On completion of the procedure the leg was closed with layers of Vicryl suture. The vein was prepared on the back table. It was of somewhat inconsistent diameter but otherwise highly appropriate for coronary bypass conduit. Simultaneous sternotomy was performed. The left hemisternum was retracted upwards. The left internal mammary artery was harvested on a vascularized pedicle and left intact on its origin from the subclavian artery. The left pleural space was drained with a 32 [place] chest tube. Standard sternal retractor was placed. The pericardium was opened in the midline. Heart was exposed with pericardial sutures. Patient was systemically heparinized and cannulated for cardiopulmonary bypass with a 7 mm soft flow cannula in the distal ascending aorta, two-stage venous cannula through the right atrium into the inferior vena cava. Antegrade and retrograde cardioplegia lines were placed in standard fashion. Patient was placed on cardiopulmonary bypass and stabilized. 35 mm AtriCure clip was applied to the base of the left atrial appendage. Pursestring was placed in the right superior pulmonary vein. Aorta was crossclamped and the heart was arrested with cold crystalloid antegrade cardioplegia followed by retrograde cardioplegia. Left atrial vent was placed in the right superior pulmonary vein through the pursestring. The lateral wall of the heart was exposed and the major marginal branch identified. It was opened and easily excepted a 1.5 mm probe proximally and distally. Saphenous vein was anastomosed in end-to-side fashion with running 7- 0 Prolene suture. On completion of the anastomosis it was flushed with cold blood cardioplegia and noted to be hemostatic. The heart was lowered in anatomic position. The vein was of more than adequate length to reach the ascending aorta and was trimmed appropriately. The GOETZ was tunneled the pleural space through the pleura into the pericardium. LAD was anastomosed in its midportion. Calcific lesion was palpable proximally. On opening the vessel, it easily excepted a 2 mm probe to near the apex. GOETZ to the LAD was not anastomosed in a running fashion with 8-0 Prolene suture. On completion of the anastomosis it was probed and noted to be patent. Suture was tied with good result and hemostasis. Inflow was opened briefly and the GOETZ was noted to fill the vessel nicely. Bulldog clamp was reapplied to the GOETZ. The aorta was opened transversely just above the sinotubular junction. There was a fair amount of calcium in this region of the aorta and it was debrided somewhat. The aortic valve was exposed and excised. Circumferential valve sutures of 2-0 Tycron with pledgets on the ventricular side were placed. The annulus was sized and a 27 mm Medtronic Avalis moving the pericardial valve was chosen, washed and brought up on the field. Sutures were placed through the sewing ring of the valve and it was seated without difficulty. Sutures were tied and the valve was noted to seat well. Copious irrigation of the aortic root had been performed during debridement, following valve excision, and now following valve implantation. Aorta was closed with a 2 layer running closure of 4-0 Prolene suture. This was reinforced with some CoSeal. Proximal anastomosis of the vein off the aorta was performed to a 4 mm punch hole with running 6-0 Prolene suture. Left atrial vent was removed and the pursestring tied. The patient was placed in steep Trendelenburg and cross-clamp was removed. The vein graft was de-aired with needle holes in the inflow open. The inflow was opened to the GOETZ to the LAD. Distal anastomoses were checked and noted to be hemostatic. Atrial and ventricular pacing wires were placed. The patient did return to a spontaneous sinus rhythm. Retrograde cardioplegia line was removed. Heart was de-aired under WELLINGTON guidance using a 16-gauge Angiocath in the apex of the left ventricle. The site was closed with a 6-0 Prolene suture. Patient was weaned from cardiopulmonary bypass without the use of inotropic support. He easily. WELLINGTON demonstrated excellent function of the valve with no evidence of paravalvular leak. Left ventricular function appeared significantly improved from preop. Heparin was reversed with protamine and the patient was decannulated in standard fashion. The aortic cannulation site was reinforced with a 4-0 pledgeted Prolene suture. After assuring good hemostasis, 36 [place] straight chest tube was placed in the pericardium and a 32 [place] in the left pleural space. These were brought out through separate stab incisions and secured with 0 Ethibond sutures. Chest was irrigated with antibiotic solution and the sternum closed with 8 sternal wires. Fascia was closed with 0 Ethibond. Subcutaneous and subcuticular layers were closed with layers of Vicryl suture. Skin glue and dry sterile dressings were applied. The patient was transferred to the ICU in stable hemodynamic condition on no inotropic support and having received no blood transfusions.
[2023-12-24] MEDS: NITROGLYCERIN-D5W PMX 50 MG in DEXTROSE/WATER 1 250ML.BAG IV SCH (12:40)
[2023-12-24] MEDS: SODIUM CHLORIDE 0.9% 1,000 ML IV SCH (12:40)
[2023-12-24 12:46] LABS: Glucose,Whole Blood 100 mg/dL (70-110)
[2023-12-24 13:05] LABS: ABG Base Excess -1.8 mmol/L; ABG HCO3 24 mmol/L (21-25); ABG Oxygen Saturation 100.3 % (94-97); ABG PCO2 42 mmHg (35-45); ABG PH 7.36 (7.35-7.45); ABG PO2 267 mmHg (83-108); ABG TCO2 25 mmol/L (19-24); Allen Test Performed? Yes
[2023-12-24 13:07] LABS: Ionized Calcium 4.4 mg/dL (4.5-5.3)
[2023-12-24] MEDS: IPRATROPIUM-ALBUTEROL 3 ML NEB INHALATION SCH ×2 (13:15→20:15)
[2023-12-24 13:20] LABS: INR 1.7 (<1.2); Partial Thromboplastin Time 37.7 sec (22.0-30.0); Prothrombin Time 16.9 sec (10.0-12.5)
[2023-12-24 13:25] LABS: Basophils % (A) 0 %; Eosinophils # (A) 0.1 k/uL (0-0.7); Eosinophils % (A) 1 %; HCT 24.4 % (39.0-53.0); Lymphocytes # (A) 0.8 k/uL (1.0-4.8); Lymphocytes % (A) 14 %; MCH 31.7 pg (25.0-35.0); MCHC 35.5 g/dL (31.0-37.0); MCV 89.5 fL (80.0-100.0); Mean Platelet Volume 8.2; Monocytes # (A) 0.2 k/uL (0-1.0); Monocytes % (A) 4 %; Neutrophils # (A) 4.8 k/uL (1.3-7.7); Neutrophils % (A) 81 %; RBC 2.72 m/uL (4.30-5.90); RDW 13.3 % (11.5-15.5)
[2023-12-24 13:27] LABS: HGB 8.6 gm/dL (13.0-17.5)
--- NOTE | 2023-12-24 13:42 | XR ---
EXAMINATION TYPE: XR chest 1V portable DATE OF EXAM: 12/24/2023 COMPARISON: 12/18/2023 INDICATION: Postop cardiac surgery TECHNIQUE: Single frontal view of the chest is obtained. FINDINGS: The heart size is enlarged. The pulmonary vasculature is normal. Streak opacities are in the left upper lung field likely atelectasis. There is mild increased opacity in the right upper lung field. Hilar region. Correlate for atelectasis or developing pneumonia. Mccormick-Jeremy catheter is present with the tip in the main pulmonary artery region. Right-sided chest tub e is present. No pneumothorax is evident. Mediastinal tube is present. Endotracheal tube tip is 3.8 c m above the lisbeth. Nasogastric tube transverses the thorax tip in the left upper quadrant of the abd omen. Epicardial leads are present. IMPRESSION: 1. Lines and catheters discussed above. 2. Streak atelectasis left upper lobe. 3. Mild infiltrate right suprahilar region. Correlate for atelectasis or developing pneumonia. 4. Cardiomegaly
[2023-12-24 13:44] LABS: Glucose,Whole Blood 97 mg/dL (70-110)
[2023-12-24] MEDS: AMIODARONE 360 MG in DEXTROSE 5% IN WATER 200 ML IV PRN (13:45)
[2023-12-24 13:54] LABS: ALT 16 U/L (4-49); AST 38 U/L (17-59); African American GFR (CKD) >90 (>60 ml/min/1.73 sqM); Albumin 2.5 g/dL (3.5-5.0); Alkaline Phosphatase <20 U/L (38-126); Anion Gap 4 mmol/L; Blood Urea Nitrogen 10 mg/dL (9-20); Calcium 7.7 mg/dL (8.4-10.2); Carbon Dioxide 22 mmol/L (22-30); Chloride 107 mmol/L (98-107); Glucose 92 mg/dL (74-99); Magnesium 3.4 mg/dL (1.6-2.3); Non-African American GFR(CKD) >90 (>60 ml/min/1.73 sqM); Potassium 4.4 mmol/L (3.5-5.1); Sodium 133 mmol/L (137-145); Total Bilirubin 1.3 mg/dL (0.2-1.3)
[2023-12-24 14:41] LABS: Platelet Count 66 k/uL (150-450)
[2023-12-24 14:42] LABS: Poikilocytosis (M) Present
[2023-12-24] MEDS: ACETAMINOPHEN IV (For NPO) 1,000 MG in EMPTY BAG 1 BAG IVPB SCH (14:58)
[2023-12-24] MEDS: HEPARIN SODIUM,PORCINE 5,000 UNIT/ML 1 ML VIAL SQ SCH (14:59)
[2023-12-24 15:04] LABS: Glucose,Whole Blood 132 mg/dL (70-110)
[2023-12-24] MEDS: INSULIN REGULAR 100 UNIT in SODIUM CHLORIDE 0.9% 100 ML IV SCH (15:24)
[2023-12-24] MEDS ORDERED: fentaNYL (PF) 50 MCG/ML 2 ML AMP IVP PRN (15:51)
[2023-12-24 15:59] LABS: Basophils % (A) 0 %; Eosinophils # (A) 0.1 k/uL (0-0.7); Eosinophils % (A) 1 %; HCT 29.2 % (39.0-53.0); HGB 9.7 gm/dL (13.0-17.5); Lymphocytes # (A) 0.8 k/uL (1.0-4.8); Lymphocytes % (A) 12 %; MCH 30.6 pg (25.0-35.0); MCHC 33.4 g/dL (31.0-37.0); MCV 91.7 fL (80.0-100.0); Mean Platelet Volume 7.6; Monocytes # (A) 0.3 k/uL (0-1.0); Monocytes % (A) 5 %; Neutrophils % (A) 81 %; RBC 3.18 m/uL (4.30-5.90); RDW 13.3 % (11.5-15.5); WBC 6.2 k/uL (3.8-10.6)
[2023-12-24 16:16] LABS: Platelet Count 86 k/uL (150-450)
[2023-12-24 16:18] LABS: ABG Base Excess -1.4 mmol/L; ABG HCO3 24 mmol/L (21-25); ABG Oxygen Saturation 98.8 % (94-97); ABG PCO2 43 mmHg (35-45); ABG PH 7.36 (7.35-7.45); ABG PO2 107 mmHg (83-108); ABG TCO2 25 mmol/L (19-24); Allen Test Performed? Yes; Glucose,Whole Blood 155 mg/dL (70-110)
[2023-12-24] MEDS: ALBUMIN HUMAN 5% 250 ML in EMPTY BAG 1 BAG IVPB PRN (16:37)
[2023-12-24 17:13] LABS: Glucose,Whole Blood 149 mg/dL (70-110)
[2023-12-24] MEDS: CLEVIDIPINE BUTYRATE 25 MG in EMPTY BAG 1 BAG IV SCH (17:15)
--- NOTE | 2023-12-24 17:48 | P.ANPRN ---
Procedure Note - Anesthesia - Invasive Line Right Central Line Time Out Performed: Yes Date of Procedure: 12/24/23 Time of Procedure: 07:45 Location of Patient: PreOp Preparation: Sterile Prep, Sterile Dressing Central Line Location: Internal Jugular Ultrasound Used: No Purpose - Visualization and Identification of Vasculature: No Image Stored and Saved: No Narrative: Invasive line placement per sterile protocol utilized.
--- NOTE | 2023-12-24 17:49 | P.ANPRN ---
Procedure Note - Anesthesia - Invasive Line Right [place] Jeremy Time Out Performed: Yes Date of Procedure: 12/24/23 Time of Procedure: 07:49 Location of Patient: PreOp Preparation: Sterile Prep, Sterile Dressing Arterial Line Location: Radial Central Line Location: Internal Jugular Ultrasound Used: No Purpose - Visualization and Identification of Vasculature: No Image Stored and Saved: No Narrative: Invasive line placement per sterile protocol utilized.
--- NOTE | 2023-12-24 18:02 | P.CNPUL ---
History of Present Illness Consult date: 12/24/23 Requesting physician: Darren Red Reason for consult: other (Mechanical ventilator/critical care management) Chief complaint: Exertional dyspnea History of present illness: This is a 78-year-old male patient with a known history of coronary artery disease with previous PCI to the mid LAD, hypertension, hyperlipidemia, benign prostatic hyperplasia, non-smoker. He was also recently found to have severe aortic regurgitation with moderate mitral regurgitation, coronary artery disease and declining left ventricular ejection fraction. He was brought in today electively for surgery. He had undergone aortic valve replacement with a Medtronic Avallis bovine pericardial valve prosthesis, CABG x 2 with a GOETZ to the LAD and SVG to the obtuse marginal. He is seen today in the postoperative period in the intensive care unit. He is not abated on the mechanical ventilator and assist-control mode at a rate of 12, tidal volume 400, FiO2 50% and a PEEP of 5. Arterial blood gases revealed a PaO2 of 267, pCO2 of 42 and a pH of 7.36 on 100% FiO2. White count 6.2. Hemoglobin 9.7. Platelets 86,000. Sodium 133. Potassium 4.4. Bicarb 22. BUN 10. Creatinine 0.69. Glucose 132. Albumin 2.5. He did receive albumin. He is on an insulin drip at 1.5 units/h. Nitroglycerin drip at 5 mcg/min and currently off propofol. He has been transitioned to pressure support of 5 and a PEEP of 5. Will plan for early extubation protocol as tolerated. PA pressures 32/14, CVP of 6 cardiac output 4.4. Cardiac index 2.3. Chest x-ray reveals streaky opacities in the left upper lung field likely atelectasis. Mild increased opacity in the right upper lung field. [place] catheter is present in the main pulmonary artery. Right- sided chest tube present. No evidence of pneumothorax. Mediastinal tube is present. Endotracheal tube and nasogastric tubes in position. Epicardial leads are present. Review of Systems ROS unobtainable: due to endotracheal tube Past Medical History Past Medical History: Coronary Artery Disease (CAD), COPD, Hyperlipidemia, Hypertension, Prostate Disorder Additional Past Medical History / Comment(s): Aortic Valve Regurgitation, BPH History of Any Multi-Drug Resistant Organisms: None Reported Past Surgical History: Heart Catheterization With Stent, Joint Replacement, Orthopedic Surgery Additional Past Surgical History / Comment(s): neisha shoulder rotator cuff, left knee replacement, rt knee arthrosocpy, one cardiac stent Past Anesthesia/Blood Transfusion Reactions: No Reported Reaction Additional Past Anesthesia/Blood Transfusion Reaction / Comment(s): no hx blood transfusions Date of Last Stent Placement:: 2019 Past Psychological History: No Psychological Hx Reported Smoking Status: Never smoker Past Alcohol Use History: Rare Past Drug Use History: Marijuana Additional Drug Use History / Comment(s): gummie occasionally, pt aware not to use 24 hr before procedure - Past Family History Mother Family Medical History: No Reported History Medications and Allergies Home Medications Medication Instructions Recorded Confirmed Type Aspirin [Adult Low Dose Aspirin EC] 81 mg PO DAILY 05/03/20 12/24/23 History Atorvastatin [Lipitor] 40 mg PO HS 05/03/20 12/24/23 History Cholecalciferol [Vitamin D3 (25 2,000 unit PO QAM 05/03/20 12/24/23 History Mcg = 1000 Iu)] Losartan [Cozaar] 25 mg PO HS 05/03/20 12/24/23 History Metoprolol Tartrate 12.5 mg PO BID 05/03/20 12/24/23 History Tamsulosin HCl [Flomax] 0.4 mg PO QAM 12/05/23 12/24/23 History Allergies Allergy/AdvReac Type Severity Reaction Status Date / Time No Known Allergies Allergy Verified 12/24/23 06:13 Physical Exam Vitals: Vital Signs Temp Pulse Pulse Resp BP BP BP 12/24/23 17:00 72 11 L 118/74 12/24/23 16:35 12/24/23 16:30 65 12 118/74 12/24/23 16:02 66 12/24/23 16:00 97.7 F 68 13 113/78 12/24/23 15:52 70 12/24/23 15:48 12/24/23 15:30 67 13 12/24/23 15:15 67 12 113/78 12/24/23 15:00 70 12 105/71 12/24/23 14:45 74 12 12/24/23 14:30 78 12 12/24/23 14:15 80 12 105/71 12/24/23 14:00 80 12 12/24/23 13:45 80 12 12/24/23 13:30 80 12 12/24/23 13:26 79 12/24/23 13:18 80 12/24/23 13:15 79 12 12/24/23 13:00 95.2 F L 80 12 12/24/23 12:52 12/24/23 12:45 26 H 12/24/23 07:03 170/75 12/24/23 07:00 97.2 F L 62 16 182/82 Pulse Ox FiO2 12/24/23 17:00 97 12/24/23 16:35 50 12/24/23 16:30 98 12/24/23 16:02 12/24/23 16:00 99 50 12/24/23 15:52 12/24/23 15:48 50 12/24/23 15:30 99 12/24/23 15:15 97 12/24/23 15:00 100 60 12/24/23 14:45 99 12/24/23 14:30 98 12/24/23 14:15 98 12/24/23 14:00 98 60 12/24/23 13:45 98 12/24/23 13:30 98 12/24/23 13:26 12/24/23 13:18 12/24/23 13:15 98 12/24/23 13:00 100 100 12/24/23 12:52 100 12/24/23 12:45 12/24/23 07:03 12/24/23 07:00 98 Intake and Output 12/24/23 12/24/23 12/24/23 06:59 14:59 22:59 Intake Total 187.950 184.071 Output Total 2405 590 Balance -2217.050 -405.929 Intake: IV 164.0 181.5 Cardiac Output (0.9 40 sodium chloride) Nitroglycerin-D5w Pmx 50 3.0 4.5 mg In Dextrose/Water 1 250ml.bag @ 5 MCG/MIN 1.5 mls/hr IV .Q24H [facility] Rx#: [id number] Pressure Bag (0.9 sodium 18 27 chloride Sodium Chloride 0.9% 1, 100 150 000 ml @ 50 mls/hr IV . Q20H [facility] Rx#:[id number] Intake, IV Titration 23.950 2.571 Amount Insulin Regular 100 unit 0.774 In Sodium Chloride 0.9% 100 ml @ Per Protocol IV .Q0M [facility] Rx#:[id number] propofoL 1,000 mg In 23.950 1.797 Empty Bag 1 bag @ Titrate IV .Q0M [facility] Rx#: [id number] Output: Chest Tube Drainage 420 200 Chest Tube Left Anterior 170 100 Chest Chest Tube Mediastinal 250 100 Urine 1485 390 Estimated Blood Loss 500 Other: Voiding Method Indwelling Catheter Indwelling Catheter Weight 79.83 kg ABP, PAP, CO, CI - Last 8 Hours Arterial Blood Pressure 116/57 Arterial Blood Pressure 118/56 Arterial Blood Pressure 121/61 Arterial Blood Pressure 124/76 Arterial Blood Pressure 118/68 Arterial Blood Pressure 116/67 Arterial Blood Pressure 112/62 Arterial Blood Pressure 109/60 Arterial Blood Pressure 111/62 Arterial Blood Pressure 116/63 Arterial Blood Pressure 122/64 Arterial Blood Pressure 125/65 Arterial Blood Pressure 119/60 Arterial Blood Pressure 118/61 Pulmonary Artery Pressure 32/4 Pulmonary Artery Pressure 35/13 Pulmonary Artery Pressure 35/13 Pulmonary Artery Pressure 38/18 Pulmonary Artery Pressure 43/22 Pulmonary Artery Pressure 38/19 Pulmonary Artery Pressure 36/16 Pulmonary Artery Pressure 35/17 Pulmonary Artery Pressure 32/15 Pulmonary Artery Pressure 35/17 Pulmonary Artery Pressure 36/18 Pulmonary Artery Pressure 35/18 Pulmonary Artery Pressure 37/16 Pulmonary Artery Pressure 43/19 Pulmonary Artery Pressure 37/18 Cardiac Output 4.4 Cardiac Output 4.6 Cardiac Output 4.6 Cardiac Output 4.6 Cardiac Output 4.6 Cardiac Output 6.9 Cardiac Index 2.3 Cardiac Index 2.4 Cardiac Index 2.4 Cardiac Index 2.4 Cardiac Index 2.4 Cardiac Index 3.6 GENERAL EXAM: Intubated, sedated 78-year-old male patient on the mechanical ventilator, in no apparent distress. HEAD: Normocephalic. EYES: Sluggish reaction of pupils, equal size. NOSE: Clear with pink turbinates. THROAT: Oral endotracheal and gastric tube secured in place. No erythema or exudates. NECK: Right IJ [place] catheter in place. No masses, no JVD. CHEST: Sternal dressing dry and intact. Mediastinal and right chest tubes in place. Pacer wires in place. LUNGS: Equal air entry with no crackles, wheeze, rhonchi or dullness. CVS: S1 and S2 normal with no audible murmur, regular rhythm. ABDOMEN: No hepatosplenomegaly, normal bowel sounds, no guarding or rigidity. SPINE: No scoliosis or deformity SKIN: No rashes CENTRAL NERVOUS SYSTEM: Sedated, tone is normal in all 4 extremities. EXTREMITIES: Arterial line in place. SCDs in place. There is no peripheral ed faye. Peripheral pulses are intact. Results - Laboratory Findings CBC and BMP: 12/24/23 15:30 12/24/23 12:18 ABG ABG pH 7.36 (7.35-7.45) 12/24/23 16:17 ABG pCO2 43 mmHg (35-45) 12/24/23 16:17 ABG pO2 107 mmHg (83-108) 12/24/23 16:17 ABG O2 Saturation 98.8 % (94-97) H 12/24/23 16:17 PT/INR, D-dimer PT 16.9 sec (10.0-12.5) H 12/24/23 12:18 INR 1.7 (<1.2) H 12/24/23 12:18 Abnormal lab findings: Abnormal Labs 12/18/23 12/24/23 12/24/23 10:44 08:41 09:45 RBC Hgb Hct Plt Count Lymphocytes # PT INR APTT ABG pH ABG pCO2 ABG pO2 >420 H 174 H ABG HCO3 ABG Total CO2 ABG O2 Saturation >99.4 H 98.9 H ABG Hematocrit 33 L ABG Sodium 133 L 131 L ABG Potassium 4.7 H 4.8 H ABG Ionized Calcium ABG Glucose 105 H 124 H ABG Lactic Acid 2.2 H* Hemoglobin 11.5 L 10.7 L Sodium POC Glucose (mg/dL) Calcium Ionized Calcium Joe Magnesium Alkaline Phosphatase Total Protein Albumin Arterial Blood Potassium 4.7 H 4.8 H Arterial Blood Glucose 105 H 124 H Crossmatch See Detail 12/24/23 12/24/23 12/24/23 10:22 10:49 11:06 RBC Hgb Hct Plt Count Lymphocytes # PT INR APTT ABG pH 7.53 H ABG pCO2 24 L 33 L 34 L ABG pO2 >420 H >420 H >420 H ABG HCO3 20 L ABG Total CO2 ABG O2 Saturation >99.4 H >99.4 H >99.4 H ABG Hematocrit 21 L 27 L 26 L ABG Sodium 132 L 132 L 132 L ABG Potassium 5.1 H ABG Ionized Calcium 3.6 L 4.3 L 4.3 L ABG Glucose 112 H 119 H ABG Lactic Acid 1.9 H 3.2 H* 3.4 H* Hemoglobin 6.8 L* 8.7 L 8.6 L Sodium POC Glucose (mg/dL) Calcium Ionized Calcium Joe Magnesium Alkaline Phosphatase Total Protein Albumin Arterial Blood Potassium 5.1 H Arterial Blood Glucose 112 H 119 H Crossmatch 12/24/23 12/24/23 12/24/23 12:18 12:18 12:18 RBC 2.72 L Hgb 8.6 L D Hct 24.4 L Plt Count 66 L D Lymphocytes # 0.8 L PT 16.9 H INR 1.7 H APTT 37.7 H ABG pH ABG pCO2 ABG pO2 ABG HCO3 ABG Total CO2 ABG O2 Saturation ABG Hematocrit ABG Sodium ABG Potassium ABG Ionized Calcium ABG Glucose ABG Lactic Acid Hemoglobin Sodium 133 L POC Glucose (mg/dL) Calcium 7.7 L Ionized Calcium Joe 4.4 L Magnesium 3.4 H Alkaline Phosphatase <20 L Total Protein 4.0 L Albumin 2.5 L Arterial Blood Potassium Arterial Blood Glucose Crossmatch 12/24/23 12/24/23 12/24/23 13:04 15:03 15:30 RBC 3.18 L Hgb 9.7 L Hct 29.2 L Plt Count 86 L Lymphocytes # 0.8 L PT INR APTT ABG pH ABG pCO2 ABG pO2 267 H ABG HCO3 ABG Total CO2 25 H ABG O2 Saturation 100.3 H ABG Hematocrit ABG Sodium ABG Potassium ABG Ionized Calcium ABG Glucose ABG Lactic Acid Hemoglobin Sodium POC Glucose (mg/dL) 132 H Calcium Ionized Calcium Joe Magnesium Alkaline Phosphatase Total Protein Albumin Arterial Blood Potassium Arterial Blood Glucose Crossmatch 12/24/23 12/24/23 12/24/23 16:17 16:17 17:13 RBC Hgb Hct Plt Count Lymphocytes # PT INR APTT ABG pH ABG pCO2 ABG pO2 ABG HCO3 ABG Total CO2 25 H ABG O2 Saturation 98.8 H ABG Hematocrit ABG Sodium ABG Potassium ABG Ionized Calcium ABG Glucose ABG Lactic Acid Hemoglobin Sodium POC Glucose (mg/dL) 155 H 149 H Calcium Ionized Calcium Joe Magnesium Alkaline Phosphatase Total Protein Albumin Arterial Blood Potassium Arterial Blood Glucose Crossmatch - Diagnostic Findings Chest x-ray: image reviewed Assessment and Plan Assessment: Aortic valvular insufficiency, coronary artery disease, declining left ventricular ejection fraction. Status post aortic valve replacement with 27 mm Medtronic Avallis bovine pericardial valve prosthesis, CABG x 2 with a GOETZ to the LAD and an SVG to the obtuse marginal. Left atrial appendage ligation with a 35 mm AtriCure clip. Postoperative day #0 Progressive dyspnea on exertion secondary to above History of coronary artery disease with previous stent placement to the LAD Hypertension Hyperlipidemia Benign prostatic hyperplasia Lifelong non-smoker Plan: The patient was seen and evaluated Chest x-ray, ABGs, labs and medications reviewed Will plan for early extubation protocol as tolerated Will encourage the increased use of the incentive spirometer Titrate the FiO2 as tolerated Continue bronchodilators Heparin for DVT prophylaxis We will continue to follow and make further recommendations based on his clinical status I have personally seen and examined the patient, performed the documentation and the assessment and plan as written. Number of minutes spent on the visit: 20.
[2023-12-24 18:07] LABS: Glucose,Whole Blood 159 mg/dL (70-110)
--- NOTE | 2023-12-24 18:30 | P.CONS ---
History of Present Illness - Reason for Consult Consult date: 12/24/23 - Chief Complaint Medical management - History of Present Illness 78-year-old male with medical history of CAD with previous PCI to the mid LAD, hypertension, hyperlipidemia, BPH, severe aortic regurgitation who underwent surgical aortic valve replacement with CABG. Medicine was consulted for medical management. Patient is doing well post intubation, he is stable at this time. Blood pressure is 116/57, pulmonary artery pressures 32/4, central venous pressure is 45, he is 97% on 2 L nasal cannula. CBC shows a hemoglobin of 9.7, platelets of 86. ABG shows a pH of 7.36, pCO2 of 43, pO2 of 107. Blood sugars have been 132-159 on insulin drip. The patient is receiving cefazolin, nitrogly cerin drip, IV fluids at 50 cc/h. He has 2 chest tubes and 1 mediastinal tube draining sanguinous fluid. Postoperative chest x-ray shows mild fluid overload, PA catheter, ventilator, OG tube, chest tubes. Review of systems cannot be completed due to patient's medical condition. General: In no apparent distress HEENT: normocephalic, atraumatic, no tracheal deviation Respiratory: symmetric chest rise, no cyanosis, ventilator dependent CVS: perfusing all extremities, no distal gangrene, bilateral pitting edema GI: soft, ND : no SPT, no CVAT, gray is present Neuro: No motor weakness Assessment/plan: Prediabetes with hyperglycemia -Continue insulin drip with strict sugar control, target blood glucose less than 160 and greater than 100 -Every hour glucose checks -A1c from 11/2023 is 6.1% CAD status post PCI and CABG (postop day 0) Hypertension Hyperlipidemia BPH Aortic regurgitation status post aortic valve replacement (postop day 0) -Home medications reviewed and reconciled -Predominantly management primary team, cardiology, ICU consultation Patient is full code Past Medical History Past Medical History: Coronary Artery Disease (CAD), COPD, Hyperlipidemia, Hypertension, Prostate Disorder Additional Past Medical History / Comment(s): Aortic Valve Regurgitation, BPH History of Any Multi-Drug Resistant Organisms: None Reported Past Surgical History: Heart Catheterization With Stent, Joint Replacement, Orthopedic Surgery Additional Past Surgical History / Comment(s): neisha shoulder rotator cuff, left knee replacement, rt knee arthrosocpy, one cardiac stent Past Anesthesia/Blood Transfusion Reactions: No Reported Reaction Additional Past Anesthesia/Blood Transfusion Reaction / Comm: no hx blood transfusions Date of Last Stent Placement:: 2019 Past Psychological History: No Psychological Hx Reported Smoking Status: Never smoker Past Alcohol Use History: Rare Past Drug Use History: Marijuana Additional Drug Use History / Comment(s): gummie occasionally, pt aware not to use 24 hr before procedure - Past Family History Mother Family Medical History: No Reported History Medications and Allergies Home Medications Medication Instructions Recorded Confirmed Type Aspirin [Adult Low Dose Aspirin EC] 81 mg PO DAILY 05/03/20 12/24/23 History Atorvastatin [Lipitor] 40 mg PO HS 05/03/20 12/24/23 History Cholecalciferol [Vitamin D3 (25 2,000 unit PO QAM 05/03/20 12/24/23 History Mcg = 1000 Iu)] Losartan [Cozaar] 25 mg PO HS 05/03/20 12/24/23 History Metoprolol Tartrate 12.5 mg PO BID 05/03/20 12/24/23 History Tamsulosin HCl [Flomax] 0.4 mg PO QAM 12/05/23 12/24/23 History Allergies Allergy/AdvReac Type Severity Reaction Status Date / Time No Known Allergies Allergy Verified 12/24/23 06:13 Physical Exam Osteopathic Statement: *. No significant issues noted on an osteopathic structural exam other than those noted in the History and Physical/Consult. Vitals: Vital Signs Temp Pulse Pulse Resp BP BP BP 12/24/23 17:00 72 11 L 118/74 12/24/23 16:35 12/24/23 16:30 65 12 118/74 12/24/23 16:02 66 12/24/23 16:00 97.7 F 68 13 113/78 12/24/23 15:52 70 12/24/23 15:48 12/24/23 15:30 67 13 12/24/23 15:15 67 12 113/78 12/24/23 15:00 70 12 105/71 12/24/23 14:45 74 12 12/24/23 14:30 78 12 12/24/23 14:15 80 12 105/71 12/24/23 14:00 80 12 12/24/23 13:45 80 12 12/24/23 13:30 80 12 12/24/23 13:26 79 12/24/23 13:18 80 12/24/23 13:15 79 12 12/24/23 13:00 95.2 F L 80 12 12/24/23 12:52 12/24/23 12:45 26 H 12/24/23 07:03 170/75 12/24/23 07:00 97.2 F L 62 16 182/82 Pulse Ox FiO2 12/24/23 17:00 97 12/24/23 16:35 50 12/24/23 16:30 98 12/24/23 16:02 12/24/23 16:00 99 50 12/24/23 15:52 12/24/23 15:48 50 12/24/23 15:30 99 12/24/23 15:15 97 12/24/23 15:00 100 60 12/24/23 14:45 99 12/24/23 14:30 98 12/24/23 14:15 98 12/24/23 14:00 98 60 12/24/23 13:45 98 12/24/23 13:30 98 12/24/23 13:26 12/24/23 13:18 12/24/23 13:15 98 12/24/23 13:00 100 100 12/24/23 12:52 100 12/24/23 12:45 12/24/23 07:03 12/24/23 07:00 98 Intake and Output 12/24/23 12/24/23 12/24/23 06:59 14:59 22:59 Intake Total 187.950 187.000 Output Total 2405 590 Balance -2217.050 -403.000 Intake: IV 164.0 181.5 Cardiac Output (0.9 40 sodium chloride) Nitroglycerin-D5w Pmx 50 3.0 4.5 mg In Dextrose/Water 1 250ml.bag @ 5 MCG/MIN 1.5 mls/hr IV .Q24H [facility] Rx#: [id number] Pressure Bag (0.9 sodium 18 27 chloride Sodium Chloride 0.9% 1, 100 150 000 ml @ 50 mls/hr IV . Q20H [facility]IN Rx#:[id number] Intake, IV Titration 23.950 5.500 Amount Insulin Regular 100 unit 3.703 In Sodium Chloride 0.9% 100 ml @ Per Protocol IV .Q0M JUSTIN Rx#:[id number] propofoL 1,000 mg In 23.950 1.797 Empty Bag 1 bag @ Titrate IV .Q0M [facility] Rx#: [id number] Output: Chest Tube Drainage 420 200 Chest Tube Left Anterior 170 100 Chest Chest Tube Mediastinal 250 100 Urine 1485 390 Estimated Blood Loss 500 Other: Voiding Method Indwelling Catheter Indwelling Catheter Weight 79.83 kg ABP, PAP, CO, CI - Last 8 Hours Arterial Blood Pressure 116/57 Arterial Blood Pressure 118/56 Arterial Blood Pressure 121/61 Arterial Blood Pressure 124/76 Arterial Blood Pressure 118/68 Arterial Blood Pressure 116/67 Arterial Blood Pressure 112/62 Arterial Blood Pressure 109/60 Arterial Blood Pressure 111/62 Arterial Blood Pressure 116/63 Arterial Blood Pressure 122/64 Arterial Blood Pressure 125/65 Arterial Blood Pressure 119/60 Arterial Blood Pressure 118/61 Pulmonary Artery Pressure 32/4 Pulmonary Artery Pressure 35/13 Pulmonary Artery Pressure 35/13 Pulmonary Artery Pressure 38/18 Pulmonary Artery Pressure 43/22 Pulmonary Artery Pressure 38/19 Pulmonary Artery Pressure 36/16 Pulmonary Artery Pressure 35/17 Pulmonary Artery Pressure 32/15 Pulmonary Artery Pressure 35/17 Pulmonary Artery Pressure 36/18 Pulmonary Artery Pressure 35/18 Pulmonary Artery Pressure 37/16 Pulmonary Artery Pressure 43/19 Pulmonary Artery Pressure 37/18 Cardiac Output 4.4 Cardiac Output 4.6 Cardiac Output 4.6 Cardiac Output 4.6 Cardiac Output 4.6 Cardiac Output 6.9 Cardiac Index 2.3 Cardiac Index 2.4 Cardiac Index 2.4 Cardiac Index 2.4 Cardiac Index 2.4 Cardiac Index 3.6 Results CBC & Chem 7: 12/24/23 15:30 12/24/23 12:18 Labs: Abnormal Lab Results - Last 24 Hours (Table) 12/18/23 12/24/23 12/24/23 Range/Units 10:44 08:41 09:45 RBC (4.30-5.90) m/uL Hgb (13.0-17.5) gm/dL Hct (39.0-53.0) % Plt Count (150-450) k/uL Lymphocytes # (1.0-4.8) k/uL PT (10.0-12.5) sec INR (<1.2) APTT (22.0-30.0) sec ABG pH (7.35-7.45) ABG pCO2 (35-45) mmHg ABG pO2 >420 H 174 H (83-108) mmHg ABG HCO3 (21-25) mmol/L ABG Total CO2 (19-24) mmol/L ABG O2 Saturation >99.4 H 98.9 H (94-97) % ABG Hematocrit 33 L (34.0-46.0) % ABG Sodium 133 L 131 L (135-146) mmol/L ABG Potassium 4.7 H 4.8 H (3.4-4.5) mmol/L ABG Ionized Calcium (4.5-5.3) mg/dL ABG Glucose 105 H 124 H (75-99) mg/dL ABG Lactic Acid 2.2 H* (0.5-1.6) mmol/L Hemoglobin 11.5 L 10.7 L (13.0-17.5) gm/dL Sodium (137-145) mmol/L POC Glucose (mg/dL) (70-110) mg/dL Calcium (8.4-10.2) mg/dL Ionized Calcium Joe (4.5-5.3) mg/dL Magnesium (1.6-2.3) mg/dL Alkaline Phosphatase (38-126) U/L Total Protein (6.3-8.2) g/dL Albumin (3.5-5.0) g/dL Arterial Blood Potassium 4.7 H 4.8 H (3.4-4.5) mmol/L Arterial Blood Glucose 105 H 124 H (75-99) mg/dL Crossmatch See Detail 12/24/23 12/24/23 12/24/23 Range/Units 10:22 10:49 11:06 RBC (4.30-5.90) m/uL Hgb (13.0-17.5) gm/dL Hct (39.0-53.0) % Plt Count (150-450) k/uL Lymphocytes # (1.0-4.8) k/uL PT (10.0-12.5) sec INR (<1.2) APTT (22.0-30.0) sec ABG pH 7.53 H (7.35-7.45) ABG pCO2 24 L 33 L 34 L (35-45) mmHg ABG pO2 >420 H >420 H >420 H (83-108) mmHg ABG HCO3 20 L (21-25) mmol/L ABG Total CO2 (19-24) mmol/L ABG O2 Saturation >99.4 H >99.4 H >99.4 H (94-97) % ABG Hematocrit 21 L 27 L 26 L (34.0-46.0) % ABG Sodium 132 L 132 L 132 L (135-146) mmol/L ABG Potassium 5.1 H (3.4-4.5) mmol/L ABG Ionized Calcium 3.6 L 4.3 L 4.3 L (4.5-5.3) mg/dL ABG Glucose 112 H 119 H (75-99) mg/dL ABG Lactic Acid 1.9 H 3.2 H* 3.4 H* (0.5-1.6) mmol/L Hemoglobin 6.8 L* 8.7 L 8.6 L (13.0-17.5) gm/dL Sodium (137-145) mmol/L POC Glucose (mg/dL) (70-110) mg/dL Calcium (8.4-10.2) mg/dL Ionized Calcium Joe (4.5-5.3) mg/dL Magnesium (1.6-2.3) mg/dL Alkaline Phosphatase (38-126) U/L Total Protein (6.3-8.2) g/dL Albumin (3.5-5.0) g/dL Arterial Blood Potassium 5.1 H (3.4-4.5) mmol/L Arterial Blood Glucose 112 H 119 H (75-99) mg/dL Crossmatch 12/24/23 12/24/23 12/24/23 Range/Units 12:18 12:18 12:18 RBC 2.72 L (4.30-5.90) m/uL Hgb 8.6 L D (13.0-17.5) gm/dL Hct 24.4 L (39.0-53.0) % Plt Count 66 L D (150-450) k/uL Lymphocytes # 0.8 L (1.0-4.8) k/uL PT 16.9 H (10.0-12.5) sec INR 1.7 H (<1.2) APTT 37.7 H (22.0-30.0) sec ABG pH (7.35-7.45) ABG pCO2 (35-45) mmHg ABG pO2 (83-108) mmHg ABG HCO3 (21-25) mmol/L ABG Total CO2 (19-24) mmol/L ABG O2 Saturation (94-97) % ABG Hematocrit (34.0-46.0) % ABG Sodium (135-146) mmol/L ABG Potassium (3.4-4.5) mmol/L ABG Ionized Calcium (4.5-5.3) mg/dL ABG Glucose (75-99) mg/dL ABG Lactic Acid (0.5-1.6) mmol/L Hemoglobin (13.0-17.5) gm/dL Sodium 133 L (137-145) mmol/L POC Glucose (mg/dL) (70-110) mg/dL Calcium 7.7 L (8.4-10.2) mg/dL Ionized Calcium Joe 4.4 L (4.5-5.3) mg/dL Magnesium 3.4 H (1.6-2.3) mg/dL Alkaline Phosphatase <20 L (38-126) U/L Total Protein 4.0 L (6.3-8.2) g/dL Albumin 2.5 L (3.5-5.0) g/dL Arterial Blood Potassium (3.4-4.5) mmol/L Arterial Blood Glucose (75-99) mg/dL Crossmatch 12/24/23 12/24/23 12/24/23 Range/Units 13:04 15:03 15:30 RBC 3.18 L (4.30-5.90) m/uL Hgb 9.7 L (13.0-17.5) gm/dL Hct 29.2 L (39.0-53.0) % Plt Count 86 L (150-450) k/uL Lymphocytes # 0.8 L (1.0-4.8) k/uL PT (10.0-12.5) sec INR (<1.2) APTT (22.0-30.0) sec ABG pH (7.35-7.45) ABG pCO2 (35-45) mmHg ABG pO2 267 H (83-108) mmHg ABG HCO3 (21-25) mmol/L ABG Total CO2 25 H (19-24) mmol/L ABG O2 Saturation 100.3 H (94-97) % ABG Hematocrit (34.0-46.0) % ABG Sodium (135-146) mmol/L ABG Potassium (3.4-4.5) mmol/L ABG Ionized Calcium (4.5-5.3) mg/dL ABG Glucose (75-99) mg/dL ABG Lactic Acid (0.5-1.6) mmol/L Hemoglobin (13.0-17.5) gm/dL Sodium (137-145) mmol/L POC Glucose (mg/dL) 132 H (70-110) mg/dL Calcium (8.4-10.2) mg/dL Ionized Calcium Joe (4.5-5.3) mg/dL Magnesium (1.6-2.3) mg/dL Alkaline Phosphatase (38-126) U/L Total Protein (6.3-8.2) g/dL Albumin (3.5-5.0) g/dL Arterial Blood Potassium (3.4-4.5) mmol/L Arterial Blood Glucose (75-99) mg/dL Crossmatch 12/24/23 12/24/23 12/24/23 Range/Units 16:17 16:17 17:13 RBC (4.30-5.90) m/uL Hgb (13.0-17.5) gm/dL Hct (39.0-53.0) % Plt Count (150-450) k/uL Lymphocytes # (1.0-4.8) k/uL PT (10.0-12.5) sec INR (<1.2) APTT (22.0-30.0) sec ABG pH (7.35-7.45) ABG pCO2 (35-45) mmHg ABG pO2 (83-108) mmHg ABG HCO3 (21-25) mmol/L ABG Total CO2 25 H (19-24) mmol/L ABG O2 Saturation 98.8 H (94-97) % ABG Hematocrit (34.0-46.0) % ABG Sodium (135-146) mmol/L ABG Potassium (3.4-4.5) mmol/L ABG Ionized Calcium (4.5-5.3) mg/dL ABG Glucose (75-99) mg/dL ABG Lactic Acid (0.5-1.6) mmol/L Hemoglobin (13.0-17.5) gm/dL Sodium (137-145) mmol/L POC Glucose (mg/dL) 155 H 149 H (70-110) mg/dL Calcium (8.4-10.2) mg/dL Ionized Calcium Joe (4.5-5.3) mg/dL Magnesium (1.6-2.3) mg/dL Alkaline Phosphatase (38-126) U/L Total Protein (6.3-8.2) g/dL Albumin (3.5-5.0) g/dL Arterial Blood Potassium (3.4-4.5) mmol/L Arterial Blood Glucose (75-99) mg/dL Crossmatch 12/24/23 Range/Units 18:04 RBC (4.30-5.90) m/uL Hgb (13.0-17.5) gm/dL Hct (39.0-53.0) % Plt Count (150-450) k/uL Lymphocytes # (1.0-4.8) k/uL PT (10.0-12.5) sec INR (<1.2) APTT (22.0-30.0) sec ABG pH (7.35-7.45) ABG pCO2 (35-45) mmHg ABG pO2 (83-108) mmHg ABG HCO3 (21-25) mmol/L ABG Total CO2 (19-24) mmol/L ABG O2 Saturation (94-97) % ABG Hematocrit (34.0-46.0) % ABG Sodium (135-146) mmol/L ABG Potassium (3.4-4.5) mmol/L ABG Ionized Calcium (4.5-5.3) mg/dL ABG Glucose (75-99) mg/dL ABG Lactic Acid (0.5-1.6) mmol/L Hemoglobin (13.0-17.5) gm/dL Sodium (137-145) mmol/L POC Glucose (mg/dL) 159 H (70-110) mg/dL Calcium (8.4-10.2) mg/dL Ionized Calcium Joe (4.5-5.3) mg/dL Magnesium (1.6-2.3) mg/dL Alkaline Phosphatase (38-126) U/L Total Protein (6.3-8.2) g/dL Albumin (3.5-5.0) g/dL Arterial Blood Potassium (3.4-4.5) mmol/L Arterial Blood Glucose (75-99) mg/dL Crossmatch
[2023-12-24 19:02] LABS: Glucose,Whole Blood 164 mg/dL (70-110)
[2023-12-24 19:13] LABS: Basophils % (A) 0 %; Eosinophils # (A) 0.1 k/uL (0-0.7); Eosinophils % (A) 1 %; HCT 28.3 % (39.0-53.0); HGB 9.3 gm/dL (13.0-17.5); Lymphocytes # (A) 0.5 k/uL (1.0-4.8); Lymphocytes % (A) 6 %; MCHC 32.9 g/dL (31.0-37.0); MCV 91.2 fL (80.0-100.0); Mean Platelet Volume 7.6; Monocytes # (A) 0.4 k/uL (0-1.0); Monocytes % (A) 5 %; Neutrophils # (A) 7.3 k/uL (1.3-7.7); Neutrophils % (A) 88 %; RDW 13.2 % (11.5-15.5); WBC 8.3 k/uL (3.8-10.6)
[2023-12-24 19:18] LABS: Platelet Count 96 k/uL (150-450)
[2023-12-24] MEDS: AMIODARONE 450 MG in DEXTROSE 5% IN WATER 250 ML IV PRN (19:34)
[2023-12-24 20:01] LABS: Glucose,Whole Blood 168 mg/dL (70-110)
[2023-12-24] MEDS: ATORVASTATIN 40 MG TAB PO SCH (20:01)
[2023-12-24] MEDS: SENNOSIDES-DOCUSATE SODIUM 1 EACH TAB PO SCH (20:01)
[2023-12-24 20:52] LABS: Glucose,Whole Blood 154 mg/dL (70-110)
[2023-12-24 22:02] LABS: Glucose,Whole Blood 144 mg/dL (70-110)
[2023-12-24 22:17] LABS: Basophils % (A) 0 %; Eosinophils # (A) 0.1 k/uL (0-0.7); Eosinophils % (A) 1 %; HCT 25.4 % (39.0-53.0); HGB 8.5 gm/dL (13.0-17.5); Lymphocytes # (A) 0.3 k/uL (1.0-4.8); Lymphocytes % (A) 4 %; MCH 30.1 pg (25.0-35.0); MCHC 33.2 g/dL (31.0-37.0); MCV 90.5 fL (80.0-100.0); Mean Platelet Volume 9.8; Monocytes # (A) 0.4 k/uL (0-1.0); Monocytes % (A) 5 %; Neutrophils # (A) 6.4 k/uL (1.3-7.7); Neutrophils % (A) 89 %; RBC 2.81 m/uL (4.30-5.90); RDW 13.6 % (11.5-15.5); WBC 7.1 k/uL (3.8-10.6)
[2023-12-24 22:19] LABS: Ionized Calcium 4.6 mg/dL (4.5-5.3)
[2023-12-24 22:29] LABS: African American GFR (CKD) >90 (>60 ml/min/1.73 sqM); Anion Gap 7 mmol/L; Blood Urea Nitrogen 11 mg/dL (9-20); Calcium 7.8 mg/dL (8.4-10.2); Carbon Dioxide 20 mmol/L (22-30); Chloride 106 mmol/L (98-107); Glucose 133 mg/dL (74-99); Non-African American GFR(CKD) >90 (>60 ml/min/1.73 sqM); Potassium 4.9 mmol/L (3.5-5.1); Sodium 133 mmol/L (137-145)
[2023-12-24 23:10] LABS: Platelet Count 72 k/uL (150-450)
[2023-12-24 23:49] LABS: Glucose,Whole Blood 141 mg/dL (70-110)
[2023-12-25 00:57] LABS: Glucose,Whole Blood 143 mg/dL (70-110)
[2023-12-25 01:55] LABS: Glucose,Whole Blood 141 mg/dL (70-110)
[2023-12-25] MEDS: ONDANSETRON 4 MG/2 ML VIAL IVP PRN (02:02)
[2023-12-25 02:45] LABS: Glucose,Whole Blood 141 mg/dL (70-110)
[2023-12-25 03:59] LABS: Glucose,Whole Blood 140 mg/dL (70-110)
[2023-12-25 04:25] LABS: Basophils % (A) 0 %; Eosinophils % (A) 0 %; HCT 22.5 % (39.0-53.0); HGB 7.4 gm/dL (13.0-17.5); Lymphocytes # (A) 0.4 k/uL (1.0-4.8); Lymphocytes % (A) 6 %; MCH 30.1 pg (25.0-35.0); MCHC 32.8 g/dL (31.0-37.0); MCV 91.8 fL (80.0-100.0); Monocytes # (A) 0.3 k/uL (0-1.0); Monocytes % (A) 4 %; Neutrophils # (A) 5.9 k/uL (1.3-7.7); Neutrophils % (A) 89 %; RBC 2.46 m/uL (4.30-5.90); RDW 13.5 % (11.5-15.5); WBC 6.6 k/uL (3.8-10.6)
[2023-12-25 04:27] LABS: Platelet Count 85 k/uL (150-450)
[2023-12-25 04:36] LABS: Ionized Calcium 4.6 mg/dL (4.5-5.3)
[2023-12-25 04:48] LABS: ALT 16 U/L (4-49); AST 57 U/L (17-59); African American GFR (CKD) >90 (>60 ml/min/1.73 sqM); Albumin 3.1 g/dL (3.5-5.0); Alkaline Phosphatase <20 U/L (38-126); Anion Gap 7 mmol/L; Blood Urea Nitrogen 13 mg/dL (9-20); Carbon Dioxide 21 mmol/L (22-30); Chloride 104 mmol/L (98-107); Glucose 125 mg/dL (74-99); Magnesium 2.5 mg/dL (1.6-2.3); Non-African American GFR(CKD) 90 (>60 ml/min/1.73 sqM); Sodium 132 mmol/L (137-145); Total Bilirubin 1.7 mg/dL (0.2-1.3); Total Protein 4.6 g/dL (6.3-8.2)
[2023-12-25 05:48] LABS: Glucose,Whole Blood 133 mg/dL (70-110)
[2023-12-25 07:02] LABS: Glucose,Whole Blood 138 mg/dL (70-110)
--- NOTE | 2023-12-25 08:02 | XR ---
EXAMINATION TYPE: XR chest 1V portable DATE OF EXAM: 12/25/2023 COMPARISON: 12/24/2023 INDICATION: Postop cardiac surgery TECHNIQUE: Single frontal view of the chest is obtained. FINDINGS: The heart size is enlarged. The pulmonary vasculature is normal. There is increased opacity over the right lung base. Atelectasis and pleural effusion could be consid ered. [place] catheter tip is in the main pulmonary artery region. Endotracheal tube and nasogastric tube removed. Mediastinal tube is in the midline. Left-sided chest tube is present. No pneumothorax is ev ident. IMPRESSION: 1. Increasing lung opacity on the right. Correlate for atelectasis or pleural effusion.
[2023-12-25] MEDS: PANTOPRAZOLE 40 MG/10 ML VIAL IVP SCH (08:46)
[2023-12-25] MEDS: ASPIRIN 81 MG PO SCH (08:47)
[2023-12-25] MEDS: CHOLECALCIFEROL 25 MCG (1000 IU) TABLET PO SCH (08:47)
[2023-12-25] MEDS: METOPROLOL TARTRATE 12.5 MG TAB PO SCH (08:48)
[2023-12-25] MEDS: CLOPIDOGREL 75 MG TAB PO SCH (08:48)
[2023-12-25] MEDS ORDERED: ASPIRIN 325 MG TAB PO SCH (09:00)
[2023-12-25 09:04] LABS: Glucose,Whole Blood 117 mg/dL (70-110)
[2023-12-25 10:03] LABS: Glucose,Whole Blood 148 mg/dL (70-110)
--- NOTE | 2023-12-25 10:17 | P.PN ---
Subjective Progress Note Date: 12/25/23 No new complaints. Pt denies pain. He has been stable. Mediastinal tube is still pulling out sanguinous fluid, but otherwise patient has been progressing well post-op. Plan is to ambulate today. Sugars well controlled. General: In no apparent distress HEENT: normocephalic, atraumatic, no tracheal deviation Respiratory: symmetric chest rise, no cyanosis, ventilator dependent CVS: perfusing all extremities, no distal gangrene, bilateral pitting edema GI: soft, ND : no SPT, no CVAT, gray is present Neuro: No motor weakness Hospital Course: 78-year-old male with medical history of CAD with previous PCI to the mid LAD, hypertension, hyperlipidemia, BPH, severe aortic regurgitation who underwent surgical aortic valve replacement with CABG. Medicine was consulted for medical management. Patient is doing well post intubation, he is stable at this time. Blood pressure is 116/57, pulmonary artery pressures 32/4, central venous pressure is 45, he is 97% on 2 L nasal cannula. CBC shows a hemoglobin of 9.7, platelets of 86. ABG shows a pH of 7.36, pCO2 of 43, pO2 of 107. Blood sugars have been 132-159 on insulin drip. The patient is receiving cefazolin, nitroglycerin drip, IV fluids at 50 cc/h. He has 2 chest tubes and 1 mediastinal tube draining sanguinous fluid. Postoperative chest x-ray shows mild fluid overload, PA catheter, ventilator, OG tube, chest tubes. Assessment/plan: Prediabetes with hyperglycemia -Continue insulin drip with strict sugar control, target blood glucose less than 160 and greater than 100 -Every hour glucose checks -A1c from 11/2023 is 6.1% Acute Blood Loss Anemia, expected outcome of surgery -start daily oral iron CAD status post PCI and CABG (postop day 0) Hypertension Hyperlipidemia BPH Aortic regurgitation status post aortic valve replacement (postop day 0) -Home medications reviewed and reconciled -Predominantly management primary team, cardiology, ICU consultation Patient is full code Objective - Vital Signs Vital signs: Vital Signs Temp 97.9 F 12/25/23 04:00 Pulse 80 12/25/23 09:08 Resp 16 12/25/23 08:58 BP 114/64 12/25/23 08:00 Pulse Ox 96 12/25/23 08:58 FiO2 50 12/24/23 16:35 Intake & Output 12/24/23 12/25/23 12/25/23 18:59 06:59 18:59 Intake Total 277.785 0792.514 149.716 Output Total 3120 1370 135 Balance -2434.550 121.514 14.716 Weight 79.83 kg 81.6 kg Intake: IV 656.0 1459.5 138 Albumin Human 5% 250 ml 250 750 In Empty Bag 1 bag @ 250 mls/hr IVPB Q1HR PRN Rx#: [id number] Cardiac Output (0.9 40 20 sodium chloride) Nitroglycerin-D5w Pmx 50 9.0 1.5 mg In Dextrose/Water 1 250ml.bag @ 5 MCG/MIN 1.5 mls/hr IV .Q24H JUSTIN Rx#: [id number] Pressure Bag (0.9 sodium 54 108 18 chloride Sodium Chloride 0.9% 1, 300 600 100 000 ml @ 50 mls/hr IV . Q20H JUSTIN Rx#:[id number] Intake, IV Titration 29.450 32.014 11.716 Amount Insulin Regular 100 unit 3.703 32.014 11.716 In Sodium Chloride 0.9% 100 ml @ Per Protocol IV .Q0M JUSTIN Rx#:[id number] propofoL 1,000 mg In 25.747 Empty Bag 1 bag @ Titrate IV .Q0M JUSTIN Rx#: [id number] Output: Chest Tube Drainage 670 750 90 Chest Tube Left Anterior 290 290 70 Chest Chest Tube Mediastinal 380 460 20 Urine 1950 620 45 Estimated Blood Loss 500 Other: Voiding Method Indwelling Catheter Indwelling Catheter ABP, PAP, CO, CI - Last Documented Arterial Blood Pressure 114/65 Pulmonary Artery Pressure 32/19 Cardiac Output 4.4 Cardiac Index 2.3 - Labs CBC & Chem 7: 12/25/23 04:00 12/25/23 04:00 Labs: Abnormal Lab Results - Last 24 Hours (Table) 12/18/23 12/24/23 12/24/23 Range/Units 10:44 08:41 09:45 RBC (4.30-5.90) m/uL Hgb (13.0-17.5) gm/dL Hct (39.0-53.0) % Plt Count (150-450) k/uL Lymphocytes # (1.0-4.8) k/uL PT (10.0-12.5) sec INR (<1.2) APTT (22.0-30.0) sec ABG pH (7.35-7.45) ABG pCO2 (35-45) mmHg ABG pO2 >420 H 174 H (83-108) mmHg ABG HCO3 (21-25) mmol/L ABG Total CO2 (19-24) mmol/L ABG O2 Saturation >99.4 H 98.9 H (94-97) % ABG Hematocrit 33 L (34.0-46.0) % ABG Sodium 133 L 131 L (135-146) mmol/L ABG Potassium 4.7 H 4.8 H (3.4-4.5) mmol/L ABG Ionized Calcium (4.5-5.3) mg/dL ABG Glucose 105 H 124 H (75-99) mg/dL ABG Lactic Acid 2.2 H* (0.5-1.6) mmol/L Hemoglobin 11.5 L 10.7 L (13.0-17.5) gm/dL Sodium (137-145) mmol/L Carbon Dioxide (22-30) mmol/L Glucose (74-99) mg/dL POC Glucose (mg/dL) (70-110) mg/dL Calcium (8.4-10.2) mg/dL Ionized Calcium Joe (4.5-5.3) mg/dL Magnesium (1.6-2.3) mg/dL Total Bilirubin (0.2-1.3) mg/dL Alkaline Phosphatase (38-126) U/L Total Protein (6.3-8.2) g/dL Albumin (3.5-5.0) g/dL Arterial Blood Potassium 4.7 H 4.8 H (3.4-4.5) mmol/L Arterial Blood Glucose 105 H 124 H (75-99) mg/dL Crossmatch See Detail 12/24/23 12/24/23 12/24/23 Range/Units 10:22 10:49 11:06 RBC (4.30-5.90) m/uL Hgb (13.0-17.5) gm/dL Hct (39.0-53.0) % Plt Count (150-450) k/uL Lymphocytes # (1.0-4.8) k/uL PT (10.0-12.5) sec INR (<1.2) APTT (22.0-30.0) sec ABG pH 7.53 H (7.35-7.45) ABG pCO2 24 L 33 L 34 L (35-45) mmHg ABG pO2 >420 H >420 H >420 H (83-108) mmHg ABG HCO3 20 L (21-25) mmol/L ABG Total CO2 (19-24) mmol/L ABG O2 Saturation >99.4 H >99.4 H >99.4 H (94-97) % ABG Hematocrit 21 L 27 L 26 L (34.0-46.0) % ABG Sodium 132 L 132 L 132 L (135-146) mmol/L ABG Potassium 5.1 H (3.4-4.5) mmol/L ABG Ionized Calcium 3.6 L 4.3 L 4.3 L (4.5-5.3) mg/dL ABG Glucose 112 H 119 H (75-99) mg/dL ABG Lactic Acid 1.9 H 3.2 H* 3.4 H* (0.5-1.6) mmol/L Hemoglobin 6.8 L* 8.7 L 8.6 L (13.0-17.5) gm/dL Sodium (137-145) mmol/L Carbon Dioxide (22-30) mmol/L Glucose (74-99) mg/dL POC Glucose (mg/dL) (70-110) mg/dL Calcium (8.4-10.2) mg/dL Ionized Calcium Joe (4.5-5.3) mg/dL Magnesium (1.6-2.3) mg/dL Total Bilirubin (0.2-1.3) mg/dL Alkaline Phosphatase (38-126) U/L Total Protein (6.3-8.2) g/dL Albumin (3.5-5.0) g/dL Arterial Blood Potassium 5.1 H (3.4-4.5) mmol/L Arterial Blood Glucose 112 H 119 H (75-99) mg/dL Crossmatch 12/24/23 12/24/23 12/24/23 Range/Units 12:18 12:18 12:18 RBC 2.72 L (4.30-5.90) m/uL Hgb 8.6 L D (13.0-17.5) gm/dL Hct 24.4 L (39.0-53.0) % Plt Count 66 L D (150-450) k/uL Lymphocytes # 0.8 L (1.0-4.8) k/uL PT 16.9 H (10.0-12.5) sec INR 1.7 H (<1.2) APTT 37.7 H (22.0-30.0) sec ABG pH (7.35-7.45) ABG pCO2 (35-45) mmHg ABG pO2 (83-108) mmHg ABG HCO3 (21-25) mmol/L ABG Total CO2 (19-24) mmol/L ABG O2 Saturation (94-97) % ABG Hematocrit (34.0-46.0) % ABG Sodium (135-146) mmol/L ABG Potassium (3.4-4.5) mmol/L ABG Ionized Calcium (4.5-5.3) mg/dL ABG Glucose (75-99) mg/dL ABG Lactic Acid (0.5-1.6) mmol/L Hemoglobin (13.0-17.5) gm/dL Sodium 133 L (137-145) mmol/L Carbon Dioxide (22-30) mmol/L Glucose (74-99) mg/dL POC Glucose (mg/dL) (70-110) mg/dL Calcium 7.7 L (8.4-10.2) mg/dL Ionized Calcium Joe 4.4 L (4.5-5.3) mg/dL Magnesium 3.4 H (1.6-2.3) mg/dL Total Bilirubin (0.2-1.3) mg/dL Alkaline Phosphatase <20 L (38-126) U/L Total Protein 4.0 L (6.3-8.2) g/dL Albumin 2.5 L (3.5-5.0) g/dL Arterial Blood Potassium (3.4-4.5) mmol/L Arterial Blood Glucose (75-99) mg/dL Crossmatch 12/24/23 12/24/23 12/24/23 Range/Units 13:04 15:03 15:30 RBC 3.18 L (4.30-5.90) m/uL Hgb 9.7 L (13.0-17.5) gm/dL Hct 29.2 L (39.0-53.0) % Plt Count 86 L (150-450) k/uL Lymphocytes # 0.8 L (1.0-4.8) k/uL PT (10.0-12.5) sec INR (<1.2) APTT (22.0-30.0) sec ABG pH (7.35-7.45) ABG pCO2 (35-45) mmHg ABG pO2 267 H (83-108) mmHg ABG HCO3 (21-25) mmol/L ABG Total CO2 25 H (19-24) mmol/L ABG O2 Saturation 100.3 H (94-97) % ABG Hematocrit (34.0-46.0) % ABG Sodium (135-146) mmol/L ABG Potassium (3.4-4.5) mmol/L ABG Ionized Calcium (4.5-5.3) mg/dL ABG Glucose (75-99) mg/dL ABG Lactic Acid (0.5-1.6) mmol/L Hemoglobin (13.0-17.5) gm/dL Sodium (137-145) mmol/L Carbon Dioxide (22-30) mmol/L Glucose (74-99) mg/dL POC Glucose (mg/dL) 132 H (70-110) mg/dL Calcium (8.4-10.2) mg/dL Ionized Calcium Joe (4.5-5.3) mg/dL Magnesium (1.6-2.3) mg/dL Total Bilirubin (0.2-1.3) mg/dL Alkaline Phosphatase (38-126) U/L Total Protein (6.3-8.2) g/dL Albumin (3.5-5.0) g/dL Arterial Blood Potassium (3.4-4.5) mmol/L Arterial Blood Glucose (75-99) mg/dL Crossmatch 12/24/23 12/24/23 12/24/23 Range/Units 16:17 16:17 17:13 RBC (4.30-5.90) m/uL Hgb (13.0-17.5) gm/dL Hct (39.0-53.0) % Plt Count (150-450) k/uL Lymphocytes # (1.0-4.8) k/uL PT (10.0-12.5) sec INR (<1.2) APTT (22.0-30.0) sec ABG pH (7.35-7.45) ABG pCO2 (35-45) mmHg ABG pO2 (83-108) mmHg ABG HCO3 (21-25) mmol/L ABG Total CO2 25 H (19-24) mmol/L ABG O2 Saturation 98.8 H (94-97) % ABG Hematocrit (34.0-46.0) % ABG Sodium (135-146) mmol/L ABG Potassium (3.4-4.5) mmol/L ABG Ionized Calcium (4.5-5.3) mg/dL ABG Glucose (75-99) mg/dL ABG Lactic Acid (0.5-1.6) mmol/L Hemoglobin (13.0-17.5) gm/dL Sodium (137-145) mmol/L Carbon Dioxide (22-30) mmol/L Glucose (74-99) mg/dL POC Glucose (mg/dL) 155 H 149 H (70-110) mg/dL Calcium (8.4-10.2) mg/dL Ionized Calcium Joe (4.5-5.3) mg/dL Magnesium (1.6-2.3) mg/dL Total Bilirubin (0.2-1.3) mg/dL Alkaline Phosphatase (38-126) U/L Total Protein (6.3-8.2) g/dL Albumin (3.5-5.0) g/dL Arterial Blood Potassium (3.4-4.5) mmol/L Arterial Blood Glucose (75-99) mg/dL Crossmatch 12/24/23 12/24/23 12/24/23 Range/Units 18:04 18:30 19:01 RBC 3.10 L (4.30-5.90) m/uL Hgb 9.3 L (13.0-17.5) gm/dL Hct 28.3 L (39.0-53.0) % Plt Count 96 L (150-450) k/uL Lymphocytes # 0.5 L (1.0-4.8) k/uL PT (10.0-12.5) sec INR (<1.2) APTT (22.0-30.0) sec ABG pH (7.35-7.45) ABG pCO2 (35-45) mmHg ABG pO2 (83-108) mmHg ABG HCO3 (21-25) mmol/L ABG Total CO2 (19-24) mmol/L ABG O2 Saturation (94-97) % ABG Hematocrit (34.0-46.0) % ABG Sodium (135-146) mmol/L ABG Potassium (3.4-4.5) mmol/L ABG Ionized Calcium (4.5-5.3) mg/dL ABG Glucose (75-99) mg/dL ABG Lactic Acid (0.5-1.6) mmol/L Hemoglobin (13.0-17.5) gm/dL Sodium (137-145) mmol/L Carbon Dioxide (22-30) mmol/L Glucose (74-99) mg/dL POC Glucose (mg/dL) 159 H 164 H (70-110) mg/dL Calcium (8.4-10.2) mg/dL Ionized Calcium Joe (4.5-5.3) mg/dL Magnesium (1.6-2.3) mg/dL Total Bilirubin (0.2-1.3) mg/dL Alkaline Phosphatase (38-126) U/L Total Protein (6.3-8.2) g/dL Albumin (3.5-5.0) g/dL Arterial Blood Potassium (3.4-4.5) mmol/L Arterial Blood Glucose (75-99) mg/dL Crossmatch 12/24/23 12/24/23 12/24/23 Range/Units 19:59 20:51 22:01 RBC (4.30-5.90) m/uL Hgb (13.0-17.5) gm/dL Hct (39.0-53.0) % Plt Count (150-450) k/uL Lymphocytes # (1.0-4.8) k/uL PT (10.0-12.5) sec INR (<1.2) APTT (22.0-30.0) sec ABG pH (7.35-7.45) ABG pCO2 (35-45) mmHg ABG pO2 (83-108) mmHg ABG HCO3 (21-25) mmol/L ABG Total CO2 (19-24) mmol/L ABG O2 Saturation (94-97) % ABG Hematocrit (34.0-46.0) % ABG Sodium (135-146) mmol/L ABG Potassium (3.4-4.5) mmol/L ABG Ionized Calcium (4.5-5.3) mg/dL ABG Glucose (75-99) mg/dL ABG Lactic Acid (0.5-1.6) mmol/L Hemoglobin (13.0-17.5) gm/dL Sodium (137-145) mmol/L Carbon Dioxide (22-30) mmol/L Glucose (74-99) mg/dL POC Glucose (mg/dL) 168 H 154 H 144 H (70-110) mg/dL Calcium (8.4-10.2) mg/dL Ionized Calcium Joe (4.5-5.3) mg/dL Magnesium (1.6-2.3) mg/dL Total Bilirubin (0.2-1.3) mg/dL Alkaline Phosphatase (38-126) U/L Total Protein (6.3-8.2) g/dL Albumin (3.5-5.0) g/dL Arterial Blood Potassium (3.4-4.5) mmol/L Arterial Blood Glucose (75-99) mg/dL Crossmatch 12/24/23 12/24/23 12/24/23 Range/Units 22:07 22:07 22:37 RBC 2.81 L (4.30-5.90) m/uL Hgb 8.5 L (13.0-17.5) gm/dL Hct 25.4 L (39.0-53.0) % Plt Count 72 L (150-450) k/uL Lymphocytes # 0.3 L (1.0-4.8) k/uL PT (10.0-12.5) sec INR (<1.2) APTT (22.0-30.0) sec ABG pH (7.35-7.45) ABG pCO2 (35-45) mmHg ABG pO2 (83-108) mmHg ABG HCO3 (21-25) mmol/L ABG Total CO2 (19-24) mmol/L ABG O2 Saturation (94-97) % ABG Hematocrit (34.0-46.0) % ABG Sodium (135-146) mmol/L ABG Potassium (3.4-4.5) mmol/L ABG Ionized Calcium (4.5-5.3) mg/dL ABG Glucose (75-99) mg/dL ABG Lactic Acid (0.5-1.6) mmol/L Hemoglobin (13.0-17.5) gm/dL Sodium 133 L (137-145) mmol/L Carbon Dioxide 20 L (22-30) mmol/L Glucose 133 H (74-99) mg/dL POC Glucose (mg/dL) (70-110) mg/dL Calcium 7.8 L (8.4-10.2) mg/dL Ionized Calcium Joe (4.5-5.3) mg/dL Magnesium 2.6 H (1.6-2.3) mg/dL Total Bilirubin (0.2-1.3) mg/dL Alkaline Phosphatase (38-126) U/L Total Protein (6.3-8.2) g/dL Albumin (3.5-5.0) g/dL Arterial Blood Potassium (3.4-4.5) mmol/L Arterial Blood Glucose (75-99) mg/dL Crossmatch 12/24/23 12/25/23 12/25/23 Range/Units 23:47 00:54 01:54 RBC (4.30-5.90) m/uL Hgb (13.0-17.5) gm/dL Hct (39.0-53.0) % Plt Count (150-450) k/uL Lymphocytes # (1.0-4.8) k/uL PT (10.0-12.5) sec INR (<1.2) APTT (22.0-30.0) sec ABG pH (7.35-7.45) ABG pCO2 (35-45) mmHg ABG pO2 (83-108) mmHg ABG HCO3 (21-25) mmol/L ABG Total CO2 (19-24) mmol/L ABG O2 Saturation (94-97) % ABG Hematocrit (34.0-46.0) % ABG Sodium (135-146) mmol/L ABG Potassium (3.4-4.5) mmol/L ABG Ionized Calcium (4.5-5.3) mg/dL ABG Glucose (75-99) mg/dL ABG Lactic Acid (0.5-1.6) mmol/L Hemoglobin (13.0-17.5) gm/dL Sodium (137-145) mmol/L Carbon Dioxide (22-30) mmol/L Glucose (74-99) mg/dL POC Glucose (mg/dL) 141 H 143 H 141 H (70-110) mg/dL Calcium (8.4-10.2) mg/dL Ionized Calcium Joe (4.5-5.3) mg/dL Magnesium (1.6-2.3) mg/dL Total Bilirubin (0.2-1.3) mg/dL Alkaline Phosphatase (38-126) U/L Total Protein (6.3-8.2) g/dL Albumin (3.5-5.0) g/dL Arterial Blood Potassium (3.4-4.5) mmol/L Arterial Blood Glucose (75-99) mg/dL Crossmatch 12/25/23 12/25/23 12/25/23 Range/Units 02:43 03:57 04:00 RBC 2.46 L (4.30-5.90) m/uL Hgb 7.4 L (13.0-17.5) gm/dL Hct 22.5 L (39.0-53.0) % Plt Count 85 L (150-450) k/uL Lymphocytes # 0.4 L (1.0-4.8) k/uL PT (10.0-12.5) sec INR (<1.2) APTT (22.0-30.0) sec ABG pH (7.35-7.45) ABG pCO2 (35-45) mmHg ABG pO2 (83-108) mmHg ABG HCO3 (21-25) mmol/L ABG Total CO2 (19-24) mmol/L ABG O2 Saturation (94-97) % ABG Hematocrit (34.0-46.0) % ABG Sodium (135-146) mmol/L ABG Potassium (3.4-4.5) mmol/L ABG Ionized Calcium (4.5-5.3) mg/dL ABG Glucose (75-99) mg/dL ABG Lactic Acid (0.5-1.6) mmol/L Hemoglobin (13.0-17.5) gm/dL Sodium (137-145) mmol/L Carbon Dioxide (22-30) mmol/L Glucose (74-99) mg/dL POC Glucose (mg/dL) 141 H 140 H (70-110) mg/dL Calcium (8.4-10.2) mg/dL Ionized Calcium Joe (4.5-5.3) mg/dL Magnesium (1.6-2.3) mg/dL Total Bilirubin (0.2-1.3) mg/dL Alkaline Phosphatase (38-126) U/L Total Protein (6.3-8.2) g/dL Albumin (3.5-5.0) g/dL Arterial Blood Potassium (3.4-4.5) mmol/L Arterial Blood Glucose (75-99) mg/dL Crossmatch 12/25/23 12/25/23 12/25/23 Range/Units 04:00 05:47 07:01 RBC (4.30-5.90) m/uL Hgb (13.0-17.5) gm/dL Hct (39.0-53.0) % Plt Count (150-450) k/uL Lymphocytes # (1.0-4.8) k/uL PT (10.0-12.5) sec INR (<1.2) APTT (22.0-30.0) sec ABG pH (7.35-7.45) ABG pCO2 (35-45) mmHg ABG pO2 (83-108) mmHg ABG HCO3 (21-25) mmol/L ABG Total CO2 (19-24) mmol/L ABG O2 Saturation (94-97) % ABG Hematocrit (34.0-46.0) % ABG Sodium (135-146) mmol/L ABG Potassium (3.4-4.5) mmol/L ABG Ionized Calcium (4.5-5.3) mg/dL ABG Glucose (75-99) mg/dL ABG Lactic Acid (0.5-1.6) mmol/L Hemoglobin (13.0-17.5) gm/dL Sodium 132 L (137-145) mmol/L Carbon Dioxide 21 L (22-30) mmol/L Glucose 125 H (74-99) mg/dL POC Glucose (mg/dL) 133 H 138 H (70-110) mg/dL Calcium 8.0 L (8.4-10.2) mg/dL Ionized Calcium Joe (4.5-5.3) mg/dL Magnesium 2.5 H (1.6-2.3) mg/dL Total Bilirubin 1.7 H (0.2-1.3) mg/dL Alkaline Phosphatase <20 L (38-126) U/L Total Protein 4.6 L (6.3-8.2) g/dL Albumin 3.1 L (3.5-5.0) g/dL Arterial Blood Potassium (3.4-4.5) mmol/L Arterial Blood Glucose (75-99) mg/dL Crossmatch 12/25/23 12/25/23 Range/Units 09:03 10:01 RBC (4.30-5.90) m/uL Hgb (13.0-17.5) gm/dL Hct (39.0-53.0) % Plt Count (150-450) k/uL Lymphocytes # (1.0-4.8) k/uL PT (10.0-12.5) sec INR (<1.2) APTT (22.0-30.0) sec ABG pH (7.35-7.45) ABG pCO2 (35-45) mmHg ABG pO2 (83-108) mmHg ABG HCO3 (21-25) mmol/L ABG Total CO2 (19-24) mmol/L ABG O2 Saturation (94-97) % ABG Hematocrit (34.0-46.0) % ABG Sodium (135-146) mmol/L ABG Potassium (3.4-4.5) mmol/L ABG Ionized Calcium (4.5-5.3) mg/dL ABG Glucose (75-99) mg/dL ABG Lactic Acid (0.5-1.6) mmol/L Hemoglobin (13.0-17.5) gm/dL Sodium (137-145) mmol/L Carbon Dioxide (22-30) mmol/L Glucose (74-99) mg/dL POC Glucose (mg/dL) 117 H 148 H (70-110) mg/dL Calcium (8.4-10.2) mg/dL Ionized Calcium Joe (4.5-5.3) mg/dL Magnesium (1.6-2.3) mg/dL Total Bilirubin (0.2-1.3) mg/dL Alkaline Phosphatase (38-126) U/L Total Protein (6.3-8.2) g/dL Albumin (3.5-5.0) g/dL Arterial Blood Potassium (3.4-4.5) mmol/L Arterial Blood Glucose (75-99) mg/dL Crossmatch
[2023-12-25 11:11] LABS: Glucose,Whole Blood 123 mg/dL (70-110)
--- NOTE | 2023-12-25 11:32 | P.PN ---
Subjective Progress Note Date: 12/25/23 Principal diagnosis: Aortic valvular insufficiency, coronary artery disease, declining left ventricular ejection fraction on serial echocardiography. Past medical history significant for coronary artery disease with previous PCI to his mid LAD in April 2020, hypertension, hyperlipidemia, asthma with a preoperative FEV1 2.05 which is a predicted value of 75%, benign prostatic hypertrophy, osteoarthritis, occasional marijuana use and is a lifetime non-smoker. POD #1 Aortic valve replacement with 27 mm Medtronic Avalus bovine pericardial valve prosthesis, CABG x 2 with GOETZ to LAD and saphenous vein graft to obtuse marginal, endovascular vein harvest greater saphenous vein from the left thigh, ligation of the left atrial appendage with 35mm AtriCure clip, WELLINGTON by julian manzanares. Postoperative acute blood loss anemia and thrombocytopenia, expected given hemodilution, cardiopulmonary bypass and his preoperative thrombocytopenia. The patient was seen and examined in follow-up today December 25, 2023 at his bedside in the intensive care unit. He was successfully extubated at 4:35 PM yesterday, is currently sitting up to the bedside chair, is awake, alert, oriented x 3 and is in no acute apparent distress. Oxygen saturations are 97% on 2 L nasal cannula and he is achieving 1000 mL on his incentive spirometry with encouragement. Bedside telemetry is showing atrial paced rhythm heart rate 80 bpm with occasional PVC, underlying rhythm is showing sinus bradycardia with first-degree heart block heart rate 56 bpm. Right IJ cordis and [employer]Jeremy catheter remains in place with current hemodynamics showing a cardiac output of 5.1, cardiac index 2.7, PA pressures 29/12, CVP 6 mmHg and an SVR of 1191. Mediastinal and left pleural chest tubes remain in place to low continuous wall suction -20 cm H2O. No air leak is present. Draining thin serosanguineous drainage. Mediastinal chest tube drained 310 mL output in the last 8 hours and 850 mL since surgery. Left pleural chest tube drained 210 mL output in the last 8 hours and 550 mL output since surgery. The patient remains on amiodarone protocol at 0.5 mg/min. Nitroglycerin remains infusing at 5 mcg/min. L aboratory and chest x-ray results reviewed. Objective - Vital Signs Vital signs: Vital Signs Temp 97.9 F 12/25/23 04:00 Pulse 71 12/25/23 06:30 Resp 14 12/25/23 06:30 BP 132/81 12/25/23 06:30 Pulse Ox 96 12/25/23 06:30 FiO2 50 12/24/23 16:35 Intake & Output 12/24/23 12/25/23 12/25/23 18:59 06:59 18:59 Intake Total 198.058 0875.514 Output Total 3120 1370 Balance -2434.550 121.514 Weight 79.83 kg 81.6 kg Intake: IV 656.0 1459.5 Albumin Human 5% 250 ml 250 750 In Empty Bag 1 bag @ 250 mls/hr IVPB Q1HR PRN Rx#: [id number] Cardiac Output (0.9 40 sodium chloride) Nitroglycerin-D5w Pmx 50 9.0 1.5 mg In Dextrose/Water 1 250ml.bag @ 5 MCG/MIN 1.5 mls/hr IV .Q24H JUSTIN Rx#: [id number] Pressure Bag (0.9 sodium 54 108 chloride Sodium Chloride 0.9% 1, 300 600 000 ml @ 50 mls/hr IV . Q20H JUSTIN Rx#:[id number] Intake, IV Titration 29.450 32.014 Amount Insulin Regular 100 unit 3.703 32.014 In Sodium Chloride 0.9% 100 ml @ Per Protocol IV .Q0M JUSTIN Rx#:[id number] propofoL 1,000 mg In 25.747 Empty Bag 1 bag @ Titrate IV .Q0M JUSTIN Rx#: [id number] Output: Chest Tube Drainage 670 750 Chest Tube Left Anterior 290 290 Chest Chest Tube Mediastinal 380 460 Urine 1950 620 Estimated Blood Loss 500 Other: Voiding Method Indwelling Catheter Indwelling Catheter ABP, PAP, CO, CI - Last Documented Arterial Blood Pressure 107/45 Pulmonary Artery Pressure 29/5 Cardiac Output 4.8 Cardiac Index 2.5 - Exam CONSTITUTIONAL: Sitting up to the bedside chair in the intensive care unit, appe ars comfortable, cooperative, no apparent acute distress. HEENT: Neck is supple, no JVD, no lymphadenopathy. Right IJ Cordis and [employer] Jeremy catheter in place and functioning. RESPIRATORY: Lungs sounds essentially clear throughout, diminished to his bilateral bases, right greater than left. Respirations are symmetrical and nonlabored. Currently on 2 L nasal cannula with oxygen saturations 97%. Able to achieve 1000 mL on his incentive spirometry. Strong cough. CARDIOVASCULAR: Regular rhythm and rate. S1 and S2 present, negative for S3, gallop or murmur. Bedside telemetry is showing atrial paced rhythm heart rate 80 bpm with occasional PVCs, underlying rhythm is sinus bradycardia heart rate 56 bpm with a first-degree heart block. Sternum is stable. Palpable peripheral pulses bilaterally. No calf pain or tenderness noted. Heart hugger in place with patient demonstrating appropriate use. Knee-high FAITH hose and sequential compression devices in place to his bilateral lower extremities. GASTROINTESTINAL: Abdomen soft, nontender, nondistended. Hypoactive bowel sounds present 4 quadrants. Tolerating clear liquid diet. Denies passing flatus. No guarding or rigidity. GENITOURINARY: Kramer present draining clear, yellow urine. Urine output 400 mL in the last 8 hours. INTEGUMENTARY: Skin is warm and dry with no evidence of clubbing or cyanosis. Midline sternal incision clean dry and well approximated, covered with dry intact dressing. Left lower extremity EVH sites well approximated without redness or drainage. NEUROLOGIC: Cranial nerves II through XII intact. No focal deficits. MUSKULOSKELETAL: Able to move all extremities, strength equal bilaterally, gene ralized weakness. PSYCHIATRIC: Alert and oriented to person place and time, appropriate affect, intact judgment and insight. INVASIVE LINES AND TUBES: Mediastinal/left pleural chest tubes present and connected to low continuous wall suction, no air leaks present. Mediastinal tube with 310 mL of thin serosanguineous drainage overnight, 850 mL output in the last 24 hours. Left pleural chest tube with 210 mL of thin serosanguineous drainage overnight, 550 mL output in the last 24 hours. Atrial and ventricular epicardial pacemaker wires present, connected to generator, AAI mode of 80 bpm. Right internal jugular [employer]/Cordis, right radial arterial line present. Last CO 5.1, CI 2.7, PA 29/12, CVP 6 mmHg and SVR 1191. - Allied health notes Allied health notes reviewed: nursing - Labs CBC & Chem 7: 12/25/23 04:00 12/25/23 04:00 Labs: Abnormal Lab Results - Last 24 Hours (Table) 12/18/23 12/24/23 12/24/23 Range/Units 10:44 08:41 09:45 RBC (4.30-5.90) m/uL Hgb (13.0-17.5) gm/dL Hct (39.0-53.0) % Plt Count (150-450) k/uL Lymphocytes # (1.0-4.8) k/uL PT (10.0-12.5) sec INR (<1.2) APTT (22.0-30.0) sec ABG pH (7.35-7.45) ABG pCO2 (35-45) mmHg ABG pO2 >420 H 174 H (83-108) mmHg ABG HCO3 (21-25) mmol/L ABG Total CO2 (19-24) mmol/L ABG O2 Saturation >99.4 H 98.9 H (94-97) % ABG Hematocrit 33 L (34.0-46.0) % ABG Sodium 133 L 131 L (135-146) mmol/L ABG Potassium 4.7 H 4.8 H (3.4-4.5) mmol/L ABG Ionized Calcium (4.5-5.3) mg/dL ABG Glucose 105 H 124 H (75-99) mg/dL ABG Lactic Acid 2.2 H* (0.5-1.6) mmol/L Hemoglobin 11.5 L 10.7 L (13.0-17.5) gm/dL Sodium (137-145) mmol/L Carbon Dioxide (22-30) mmol/L Glucose (74-99) mg/dL POC Glucose (mg/dL) (70-110) mg/dL Calcium (8.4-10.2) mg/dL Ionized Calcium Joe (4.5-5.3) mg/dL Magnesium (1.6-2.3) mg/dL Total Bilirubin (0.2-1.3) mg/dL Alkaline Phosphatase (38-126) U/L Total Protein (6.3-8.2) g/dL Albumin (3.5-5.0) g/dL Arterial Blood Potassium 4.7 H 4.8 H (3.4-4.5) mmol/L Arterial Blood Glucose 105 H 124 H (75-99) mg/dL Crossmatch See Detail 12/24/23 12/24/23 12/24/23 Range/Units 10:22 10:49 11:06 RBC (4.30-5.90) m/uL Hgb (13.0-17.5) gm/dL Hct (39.0-53.0) % Plt Count (150-450) k/uL Lymphocytes # (1.0-4.8) k/uL PT (10.0-12.5) sec INR (<1.2) APTT (22.0-30.0) sec ABG pH 7.53 H (7.35-7.45) ABG pCO2 24 L 33 L 34 L (35-45) mmHg ABG pO2 >420 H >420 H >420 H (83-108) mmHg ABG HCO3 20 L (21-25) mmol/L ABG Total CO2 (19-24) mmol/L ABG O2 Saturation >99.4 H >99.4 H >99.4 H (94-97) % ABG Hematocrit 21 L 27 L 26 L (34.0-46.0) % ABG Sodium 132 L 132 L 132 L (135-146) mmol/L ABG Potassium 5.1 H (3.4-4.5) mmol/L ABG Ionized Calcium 3.6 L 4.3 L 4.3 L (4.5-5.3) mg/dL ABG Glucose 112 H 119 H (75-99) mg/dL ABG Lactic Acid 1.9 H 3.2 H* 3.4 H* (0.5-1.6) mmol/L Hemoglobin 6.8 L* 8.7 L 8.6 L (13.0-17.5) gm/dL Sodium (137-145) mmol/L Carbon Dioxide (22-30) mmol/L Glucose (74-99) mg/dL POC Glucose (mg/dL) (70-110) mg/dL Calcium (8.4-10.2) mg/dL Ionized Calcium Joe (4.5-5.3) mg/dL Magnesium (1.6-2.3) mg/dL Total Bilirubin (0.2-1.3) mg/dL Alkaline Phosphatase (38-126) U/L Total Protein (6.3-8.2) g/dL Albumin (3.5-5.0) g/dL Arterial Blood Potassium 5.1 H (3.4-4.5) mmol/L Arterial Blood Glucose 112 H 119 H (75-99) mg/dL Crossmatch 12/24/23 12/24/23 12/24/23 Range/Units 12:18 12:18 12:18 RBC 2.72 L (4.30-5.90) m/uL Hgb 8.6 L D (13.0-17.5) gm/dL Hct 24.4 L (39.0-53.0) % Plt Count 66 L D (150-450) k/uL Lymphocytes # 0.8 L (1.0-4.8) k/uL PT 16.9 H (10.0-12.5) sec INR 1.7 H (<1.2) APTT 37.7 H (22.0-30.0) sec ABG pH (7.35-7.45) ABG pCO2 (35-45) mmHg ABG pO2 (83-108) mmHg ABG HCO3 (21-25) mmol/L ABG Total CO2 (19-24) mmol/L ABG O2 Saturation (94-97) % ABG Hematocrit (34.0-46.0) % ABG Sodium (135-146) mmol/L ABG Potassium (3.4-4.5) mmol/L ABG Ionized Calcium (4.5-5.3) mg/dL ABG Glucose (75-99) mg/dL ABG Lactic Acid (0.5-1.6) mmol/L Hemoglobin (13.0-17.5) gm/dL Sodium 133 L (137-145) mmol/L Carbon Dioxide (22-30) mmol/L Glucose (74-99) mg/dL POC Glucose (mg/dL) (70-110) mg/dL Calcium 7.7 L (8.4-10.2) mg/dL Ionized Calcium Joe 4.4 L (4.5-5.3) mg/dL Magnesium 3.4 H (1.6-2.3) mg/dL Total Bilirubin (0.2-1.3) mg/dL Alkaline Phosphatase <20 L (38-126) U/L Total Protein 4.0 L (6.3-8.2) g/dL Albumin 2.5 L (3.5-5.0) g/dL Arterial Blood Potassium (3.4-4.5) mmol/L Arterial Blood Glucose (75-99) mg/dL Crossmatch 12/24/23 12/24/23 12/24/23 Range/Units 13:04 15:03 15:30 RBC 3.18 L (4.30-5.90) m/uL Hgb 9.7 L (13.0-17.5) gm/dL Hct 29.2 L (39.0-53.0) % Plt Count 86 L (150-450) k/uL Lymphocytes # 0.8 L (1.0-4.8) k/uL PT (10.0-12.5) sec INR (<1.2) APTT (22.0-30.0) sec ABG pH (7.35-7.45) ABG pCO2 (35-45) mmHg ABG pO2 267 H (83-108) mmHg ABG HCO3 (21-25) mmol/L ABG Total CO2 25 H (19-24) mmol/L ABG O2 Saturation 100.3 H (94-97) % ABG Hematocrit (34.0-46.0) % ABG Sodium (135-146) mmol/L ABG Potassium (3.4-4.5) mmol/L ABG Ionized Calcium (4.5-5.3) mg/dL ABG Glucose (75-99) mg/dL ABG Lactic Acid (0.5-1.6) mmol/L Hemoglobin (13.0-17.5) gm/dL Sodium (137-145) mmol/L Carbon Dioxide (22-30) mmol/L Glucose (74-99) mg/dL POC Glucose (mg/dL) 132 H (70-110) mg/dL Calcium (8.4-10.2) mg/dL Ionized Calcium Joe (4.5-5.3) mg/dL Magnesium (1.6-2.3) mg/dL Total Bilirubin (0.2-1.3) mg/dL Alkaline Phosphatase (38-126) U/L Total Protein (6.3-8.2) g/dL Albumin (3.5-5.0) g/dL Arterial Blood Potassium (3.4-4.5) mmol/L Arterial Blood Glucose (75-99) mg/dL Crossmatch 12/24/23 12/24/23 12/24/23 Range/Units 16:17 16:17 17:13 RBC (4.30-5.90) m/uL Hgb (13.0-17.5) gm/dL Hct (39.0-53.0) % Plt Count (150-450) k/uL Lymphocytes # (1.0-4.8) k/uL PT (10.0-12.5) sec INR (<1.2) APTT (22.0-30.0) sec ABG pH (7.35-7.45) ABG pCO2 (35-45) mmHg ABG pO2 (83-108) mmHg ABG HCO3 (21-25) mmol/L ABG Total CO2 25 H (19-24) mmol/L ABG O2 Saturation 98.8 H (94-97) % ABG Hematocrit (34.0-46.0) % ABG Sodium (135-146) mmol/L ABG Potassium (3.4-4.5) mmol/L ABG Ionized Calcium (4.5-5.3) mg/dL ABG Glucose (75-99) mg/dL ABG Lactic Acid (0.5-1.6) mmol/L Hemoglobin (13.0-17.5) gm/dL Sodium (137-145) mmol/L Carbon Dioxide (22-30) mmol/L Glucose (74-99) mg/dL POC Glucose (mg/dL) 155 H 149 H (70-110) mg/dL Calcium (8.4-10.2) mg/dL Ionized Calcium Joe (4.5-5.3) mg/dL Magnesium (1.6-2.3) mg/dL Total Bilirubin (0.2-1.3) mg/dL Alkaline Phosphatase (38-126) U/L Total Protein (6.3-8.2) g/dL Albumin (3.5-5.0) g/dL Arterial Blood Potassium (3.4-4.5) mmol/L Arterial Blood Glucose (75-99) mg/dL Crossmatch 12/24/23 12/24/23 12/24/23 Range/Units 18:04 18:30 19:01 RBC 3.10 L (4.30-5.90) m/uL Hgb 9.3 L (13.0-17.5) gm/dL Hct 28.3 L (39.0-53.0) % Plt Count 96 L (150-450) k/uL Lymphocytes # 0.5 L (1.0-4.8) k/uL PT (10.0-12.5) sec INR (<1.2) APTT (22.0-30.0) sec ABG pH (7.35-7.45) ABG pCO2 (35-45) mmHg ABG pO2 (83-108) mmHg ABG HCO3 (21-25) mmol/L ABG Total CO2 (19-24) mmol/L ABG O2 Saturation (94-97) % ABG Hematocrit (34.0-46.0) % ABG Sodium (135-146) mmol/L ABG Potassium (3.4-4.5) mmol/L ABG Ionized Calcium (4.5-5.3) mg/dL ABG Glucose (75-99) mg/dL ABG Lactic Acid (0.5-1.6) mmol/L Hemoglobin (13.0-17.5) gm/dL Sodium (137-145) mmol/L Carbon Dioxide (22-30) mmol/L Glucose (74-99) mg/dL POC Glucose (mg/dL) 159 H 164 H (70-110) mg/dL Calcium (8.4-10.2) mg/dL Ionized Calcium Joe (4.5-5.3) mg/dL Magnesium (1.6-2.3) mg/dL Total Bilirubin (0.2-1.3) mg/dL Alkaline Phosphatase (38-126) U/L Total Protein (6.3-8.2) g/dL Albumin (3.5-5.0) g/dL Arterial Blood Potassium (3.4-4.5) mmol/L Arterial Blood Glucose (75-99) mg/dL Crossmatch 12/24/23 12/24/23 12/24/23 Range/Units 19:59 20:51 22:01 RBC (4.30-5.90) m/uL Hgb (13.0-17.5) gm/dL Hct (39.0-53.0) % Plt Count (150-450) k/uL Lymphocytes # (1.0-4.8) k/uL PT (10.0-12.5) sec INR (<1.2) APTT (22.0-30.0) sec ABG pH (7.35-7.45) ABG pCO2 (35-45) mmHg ABG pO2 (83-108) mmHg ABG HCO3 (21-25) mmol/L ABG Total CO2 (19-24) mmol/L ABG O2 Saturation (94-97) % ABG Hematocrit (34.0-46.0) % ABG Sodium (135-146) mmol/L ABG Potassium (3.4-4.5) mmol/L ABG Ionized Calcium (4.5-5.3) mg/dL ABG Glucose (75-99) mg/dL ABG Lactic Acid (0.5-1.6) mmol/L Hemoglobin (13.0-17.5) gm/dL Sodium (137-145) mmol/L Carbon Dioxide (22-30) mmol/L Glucose (74-99) mg/dL POC Glucose (mg/dL) 168 H 154 H 144 H (70-110) mg/dL Calcium (8.4-10.2) mg/dL Ionized Calcium Joe (4.5-5.3) mg/dL Magnesium (1.6-2.3) mg/dL Total Bilirubin (0.2-1.3) mg/dL Alkaline Phosphatase (38-126) U/L Total Protein (6.3-8.2) g/dL Albumin (3.5-5.0) g/dL Arterial Blood Potassium (3.4-4.5) mmol/L Arterial Blood Glucose (75-99) mg/dL Crossmatch 12/24/23 12/24/23 12/24/23 Range/Units 22:07 22:07 22:37 RBC 2.81 L (4.30-5.90) m/uL Hgb 8.5 L (13.0-17.5) gm/dL Hct 25.4 L (39.0-53.0) % Plt Count 72 L (150-450) k/uL Lymphocytes # 0.3 L (1.0-4.8) k/uL PT (10.0-12.5) sec INR (<1.2) APTT (22.0-30.0) sec ABG pH (7.35-7.45) ABG pCO2 (35-45) mmHg ABG pO2 (83-108) mmHg ABG HCO3 (21-25) mmol/L ABG Total CO2 (19-24) mmol/L ABG O2 Saturation (94-97) % ABG Hematocrit (34.0-46.0) % ABG Sodium (135-146) mmol/L ABG Potassium (3.4-4.5) mmol/L ABG Ionized Calcium (4.5-5.3) mg/dL ABG Glucose (75-99) mg/dL ABG Lactic Acid (0.5-1.6) mmol/L Hemoglobin (13.0-17.5) gm/dL Sodium 133 L (137-145) mmol/L Carbon Dioxide 20 L (22-30) mmol/L Glucose 133 H (74-99) mg/dL POC Glucose (mg/dL) (70-110) mg/dL Calcium 7.8 L (8.4-10.2) mg/dL Ionized Calcium Joe (4.5-5.3) mg/dL Magnesium 2.6 H (1.6-2.3) mg/dL Total Bilirubin (0.2-1.3) mg/dL Alkaline Phosphatase (38-126) U/L Total Protein (6.3-8.2) g/dL Albumin (3.5-5.0) g/dL Arterial Blood Potassium (3.4-4.5) mmol/L Arterial Blood Glucose (75-99) mg/dL Crossmatch 12/24/23 12/25/23 12/25/23 Range/Units 23:47 00:54 01:54 RBC (4.30-5.90) m/uL Hgb (13.0-17.5) gm/dL Hct (39.0-53.0) % Plt Count (150-450) k/uL Lymphocytes # (1.0-4.8) k/uL PT (10.0-12.5) sec INR (<1.2) APTT (22.0-30.0) sec ABG pH (7.35-7.45) ABG pCO2 (35-45) mmHg ABG pO2 (83-108) mmHg ABG HCO3 (21-25) mmol/L ABG Total CO2 (19-24) mmol/L ABG O2 Saturation (94-97) % ABG Hematocrit (34.0-46.0) % ABG Sodium (135-146) mmol/L ABG Potassium (3.4-4.5) mmol/L ABG Ionized Calcium (4.5-5.3) mg/dL ABG Glucose (75-99) mg/dL ABG Lactic Acid (0.5-1.6) mmol/L Hemoglobin (13.0-17.5) gm/dL Sodium (137-145) mmol/L Carbon Dioxide (22-30) mmol/L Glucose (74-99) mg/dL POC Glucose (mg/dL) 141 H 143 H 141 H (70-110) mg/dL Calcium (8.4-10.2) mg/dL Ionized Calcium Joe (4.5-5.3) mg/dL Magnesium (1.6-2.3) mg/dL Total Bilirubin (0.2-1.3) mg/dL Alkaline Phosphatase (38-126) U/L Total Protein (6.3-8.2) g/dL Albumin (3.5-5.0) g/dL Arterial Blood Potassium (3.4-4.5) mmol/L Arterial Blood Glucose (75-99) mg/dL Crossmatch 12/25/23 12/25/23 12/25/23 Range/Units 02:43 03:57 04:00 RBC 2.46 L (4.30-5.90) m/uL Hgb 7.4 L (13.0-17.5) gm/dL Hct 22.5 L (39.0-53.0) % Plt Count 85 L (150-450) k/uL Lymphocytes # 0.4 L (1.0-4.8) k/uL PT (10.0-12.5) sec INR (<1.2) APTT (22.0-30.0) sec ABG pH (7.35-7.45) ABG pCO2 (35-45) mmHg ABG pO2 (83-108) mmHg ABG HCO3 (21-25) mmol/L ABG Total CO2 (19-24) mmol/L ABG O2 Saturation (94-97) % ABG Hematocrit (34.0-46.0) % ABG Sodium (135-146) mmol/L ABG Potassium (3.4-4.5) mmol/L ABG Ionized Calcium (4.5-5.3) mg/dL ABG Glucose (75-99) mg/dL ABG Lactic Acid (0.5-1.6) mmol/L Hemoglobin (13.0-17.5) gm/dL Sodium (137-145) mmol/L Carbon Dioxide (22-30) mmol/L Glucose (74-99) mg/dL POC Glucose (mg/dL) 141 H 140 H (70-110) mg/dL Calcium (8.4-10.2) mg/dL Ionized Calcium Joe (4.5-5.3) mg/dL Magnesium (1.6-2.3) mg/dL Total Bilirubin (0.2-1.3) mg/dL Alkaline Phosphatase (38-126) U/L Total Protein (6.3-8.2) g/dL Albumin (3.5-5.0) g/dL Arterial Blood Potassium (3.4-4.5) mmol/L Arterial Blood Glucose (75-99) mg/dL Crossmatch 12/25/23 12/25/23 12/25/23 Range/Units 04:00 05:47 07:01 RBC (4.30-5.90) m/uL Hgb (13.0-17.5) gm/dL Hct (39.0-53.0) % Plt Count (150-450) k/uL Lymphocytes # (1.0-4.8) k/uL PT (10.0-12.5) sec INR (<1.2) APTT (22.0-30.0) sec ABG pH (7.35-7.45) ABG pCO2 (35-45) mmHg ABG pO2 (83-108) mmHg ABG HCO3 (21-25) mmol/L ABG Total CO2 (19-24) mmol/L ABG O2 Saturation (94-97) % ABG Hematocrit (34.0-46.0) % ABG Sodium (135-146) mmol/L ABG Potassium (3.4-4.5) mmol/L ABG Ionized Calcium (4.5-5.3) mg/dL ABG Glucose (75-99) mg/dL ABG Lactic Acid (0.5-1.6) mmol/L Hemoglobin (13.0-17.5) gm/dL Sodium 132 L (137-145) mmol/L Carbon Dioxide 21 L (22-30) mmol/L Glucose 125 H (74-99) mg/dL POC Glucose (mg/dL) 133 H 138 H (70-110) mg/dL Calcium 8.0 L (8.4-10.2) mg/dL Ionized Calcium Joe (4.5-5.3) mg/dL Magnesium 2.5 H (1.6-2.3) mg/dL Total Bilirubin 1.7 H (0.2-1.3) mg/dL Alkaline Phosphatase <20 L (38-126) U/L Total Protein 4.6 L (6.3-8.2) g/dL Albumin 3.1 L (3.5-5.0) g/dL Arterial Blood Potassium (3.4-4.5) mmol/L Arterial Blood Glucose (75-99) mg/dL Crossmatch - Imaging and Cardiology Chest x-ray: report reviewed, image reviewed Assessment and Plan Assessment: Severe aortic regurgitation status post aortic valve replacement with 27 mm Medtronic Avalus bovine pericardial valve prosthesis Coronary artery disease with previous PCI to the mid LAD in April 2020, patent mid LAD stent and circumflex lesion in the range of 55% on today's heart catheterization, status post coronary artery bypass grafting x 2 vessels, left internal mammary artery to the left anterior descending coronary artery and a saphenous vein graft to the obtuse marginal coronary artery Hypertension Hyperlipidemia, treated preoperative LDL 49.1, HDL 54.0, cholesterol 118 Asthma, with a preoperative FEV1 2.05 75% of predicted value Benign prostatic hypertrophy occasional marijuana use Lifelong non-smoker Postoperative acute blood loss anemia and thrombocytopenia, expected given hemodilution and cardiopulmonary bypass and preoperative thrombocytopenia Plan: Continue to maximize medical therapy with low-dose aspirin, statin, Plavix and beta-aimee. Will increase metoprolol as tolerated with hold parameters. Continue amiodarone drip per protocol for atrial fibrillation prophylaxis. No atrial fibrillation reported, currently running at 0.5 mg/min. Will start amiodarone 200 mg p.o. twice daily. Discontinue nitroglycerin drip. Wean oxygen as tolerated. Bronchodilator management per pulmonary/critical care medicine recommendations. Encourage incentive spirometry use 10 times every hour while awake. Increase activity, ambulate as tolerated. PT/OT/cardiac rehab consulted. Will monitor daily labs and chest x-rays. Electrolyte replacement per protocol. GI/DVT prophylaxis. Insulin management per internal medicine, patient should remain on continuous IV insulin for 48 hours, then may transition to subcutaneous per protocol. The patient is a not diabetic, with a preoperative hemoglobin A1c 6.1% Pain control with current medication regimen. Remove right IJ [employer] Morgan catheter, keep right IJ cordis in place with continuous CVP monitoring, continue arterial line for now. Continue chest tubes for another 24 hours, monitor output. Continue Kramer catheter for another 24 hours, continue to monitor strict accurate intake and output. Home dose of Flomax has been restarted. Continue pacer on a AAI mode of 80 bpm. More recommendations to follow based on patient's clinical course Time with Patient: Greater than 30
[2023-12-25] MEDS: FERROUS SULFATE 325 MG TAB PO SCH (12:12)
[2023-12-25 12:23] LABS: Glucose,Whole Blood 130 mg/dL (70-110)
--- NOTE | 2023-12-25 13:34 | CONS ---
CONSULTATION SUBJECTIVE: This is a 78-year-old gentleman who is status post aortic valve replacement, postop day #1. He has history of coronary artery disease and prior intervention for LAD, hypertension, dyslipidemia, and asthma. His recent evaluation revealed severe aortic regurgitation with enlarged aortic root at 4.3 cm. Ejection fraction of about 35% to 40%, and he underwent Medtronic bovine pericardial aortic valve prosthetic replacement and bypass surgery with GOETZ to LAD and venous graft to OM and also had ligation of the left atrial appendage with an clip. PAST MEDICAL HISTORY: Significant for coronary artery disease and aortic regurgitation with cardiomyopathy. MEDICATIONS: At home included, 1. Flomax. 2. Metoprolol. 3. Cozaar. 4. Lipitor. 5. Aspirin. ALLERGIES: No known drug allergies. FAMILY HISTORY: Negative for premature coronary artery disease. SOCIAL HISTORY: Negative for current smoking issues or drug abuse. REVIEW OF SYSTEMS: HEENT: Unremarkable. CARDIAC: As described above. RESPIRATORY: Negative. GI: Negative. GENITOURINARY: Negative. ALLERGY/IMMUNOLOGY: Negative. SKIN: Negative. MUSCULOSKELETAL: Negative for arthritis. PSYCHOSOCIAL: Negative. DERM: Negative. CONSTITUTIONAL: Negative. Rest of the system review is not relevant. PHYSICAL EXAMINATION: GENERAL: Comfortable at rest. VITAL SIGNS: Stable. CHEST: Reveals diminished air entry at the bases. HEART: Reveals first and second heart sounds. No gallop, no murmur. ABDOMEN: Soft. EXTREMITIES: Did not reveal any edema. Peripheral pulses are felt. LABORATORY DATA: Show that potassium is 5, creatinine is 0.7, hemoglobin is 7.4. His baseline hemoglobin was 15. ASSESSMENT: Aortic regurgitation, status post aortic valve replacement, coronary artery disease status post CABG with GOETZ to LAD and venous graft to OM. PLAN: Continue with supportive care. The patient has been doing well so far. Remains in sinus rhythm, extubated, making good progress. MMODL / IJN: [id number] /
--- NOTE | 2023-12-25 13:48 | P.PN ---
Subjective Progress Note Date: 12/25/23 Principal diagnosis: POD #1 Aortic valve replacement with 27 mm Medtronic Avalus bovine pericardial valve prosthesis, CABG x 2 with GOETZ to LAD and saphenous vein graft to obtuse marginal, endovascular vein harvest greater saphenous vein from the left thigh, ligation of the left atrial appendage with 35mm AtriCure clip, WELLINGTON by anesthesia. This is a 78-year-old male patient with a known history of coronary artery disease with previous PCI to the mid LAD, hypertension, hyperlipidemia, benign prostatic hyperplasia, non-smoker. He was also recently found to have severe aortic regurgitation with moderate mitral regurgitation, coronary artery disease and declining left ventricular ejection fraction. He was brought in today electively for surgery. He had undergone aortic valve replacement with a Medtronic Avallis bovine pericardial valve prosthesis, CABG x 2 with a GOETZ to the LAD and SVG to the obtuse marginal. He is seen today in the postoperative period in the intensive care unit. He is not abated on the mechanical ventilator and assist-control mode at a rate of 12, tidal volume 400, FiO2 50% and a PEEP of 5. Arterial blood gases revealed a PaO2 of 267, pCO2 of 42 and a pH of 7.36 on 100% FiO2. White count 6.2. Hemoglobin 9.7. Platelets 86,000. Sodium 133. Potassium 4.4. Bicarb 22. BUN 10. Creatinine 0.69. Glucose 132. Albumin 2.5. He did receive albumin. He is on an insulin drip at 1.5 units/h. Nitroglycerin drip at 5 mcg/min and currently off propofol. He has been transitioned to pressure support of 5 and a PEEP of 5. Will plan for early extubation protocol as tolerated. PA pressures 32/14, CVP of 6 cardiac output 4.4. Cardiac index 2.3. Chest x-ray reveals streaky opacities in the left upper lung field likely atelectasis. Mild increased opacity in the right upper lung field. Man-Jeremy catheter is present in the main pulmonary artery. Right- sided chest tube present. No evidence of pneumothorax. Mediastinal tube is p resent. Endotracheal tube and nasogastric tubes in position. Epicardial leads are present. Patient was evaluated today on 12/25/2023, patient is on 2 L nasal cannula, extubated yesterday at 4:35 PM, tolerated the extubation well. Patient is now on 2 L nasal cannula, he is on amiodarone at 0.5 mg/min, he is also on insulin at 1.5 units/h, IV fluid 0.9 normal saline at 50 cc/h. Patient is sitting at the bedside chair, awake oriented x 3, not in any distress, not requiring any pressors not requiring any inotropes. Cardiac output is 5.1 cardiac index is 2.7 PA pressure 29/12 CVP is 6 SVR is 1191. Mediastinal and left pleural chest tubes remain in place to low suction. No air leak noted and no evidence of pneumothorax on the chest x-ray, there is evidence however of right basilar atelectasis.WBC count is 6.6 hemoglobin 7.4. Basic metabolic profile is normal renal profile is normal Objective - Vital Signs Vital signs: Vital Signs Temp 97.7 F 12/25/23 12:00 Pulse 80 12/25/23 13:00 Resp 13 12/25/23 13:00 BP 120/72 12/25/23 12:30 Pulse Ox 96 12/25/23 13:00 FiO2 50 12/24/23 16:35 Intake & Output 12/24/23 12/25/23 12/25/23 18:59 06:59 18:59 Intake Total 388.704 9172.514 328.522 Output Total 3120 1370 345 Balance -2434.550 121.514 -16.478 Weight 79.83 kg 81.6 kg 81.6 kg Intake: IV 656.0 1459.5 312 Albumin Human 5% 250 ml 250 750 In Empty Bag 1 bag @ 250 mls/hr IVPB Q1HR PRN Rx#: [id number] Cardiac Output (0.9 40 20 sodium chloride) Nitroglycerin-D5w Pmx 50 9.0 1.5 mg In Dextrose/Water 1 250ml.bag @ 5 MCG/MIN 1.5 mls/hr IV .Q24H JUSTIN Rx#: [id number] Pressure Bag (0.9 sodium 54 108 42 chloride Sodium Chloride 0.9% 1, 300 600 250 000 ml @ 50 mls/hr IV . Q20H JUSTIN Rx#:[id number] Intake, IV Titration 29.450 32.014 16.522 Amount Insulin Regular 100 unit 3.703 32.014 16.522 In Sodium Chloride 0.9% 100 ml @ Per Protocol IV .Q0M JUSTIN Rx#:[id number] propofoL 1,000 mg In 25.747 Empty Bag 1 bag @ Titrate IV .Q0M JUSTIN Rx#: [id number] Output: Chest Tube Drainage 670 750 200 Chest Tube Left Anterior 290 290 170 Chest Chest Tube Mediastinal 380 460 30 Urine 1950 620 145 Estimated Blood Loss 500 Other: Voiding Method Indwelling Catheter Indwelling Catheter Indwelling Catheter ABP, PAP, CO, CI - Last Documented Arterial Blood Pressure 116/55 Pulmonary Artery Pressure 41/7 Cardiac Output 4.4 Cardiac Index 2.3 - Exam CONSTITUTIONAL: 78-year-old in no apparent distress on 2 L nasal cannula HEENT: Right IJ Cordis and Man-Jeremy catheter in place RESPIRATORY: Diminished breath sound bilaterally no crackles rhonchi or wheezes CARDIOVASCULAR: Normal S1-S2, 2/6 systolic murmur throughout the precordium, positive pericardial rub GASTROINTESTINAL: Soft nontender no megaly no rebound no guarding. INTEGUMENTARY: No rashes NEUROLOGIC: Alert oriented x 3 no gross focal deficit MUSKULOSKELETAL: No deformities and no limitation range of motion PSYCHIATRIC: Normal mood affect and no mental status examination - Labs CBC & Chem 7: 12/25/23 04:00 12/25/23 04:00 Labs: Abnormal Lab Results - Last 24 Hours (Table) 12/18/23 12/24/23 12/24/23 Range/Units 10:44 12:18 12:18 RBC (4.30-5.90) m/uL Hgb (13.0-17.5) gm/dL Hct (39.0-53.0) % Plt Count 66 L D (150-450) k/uL Lymphocytes # 0.8 L (1.0-4.8) k/uL ABG Total CO2 (19-24) mmol/L ABG O2 Saturation (94-97) % Sodium 133 L (137-145) mmol/L Carbon Dioxide (22-30) mmol/L Glucose (74-99) mg/dL POC Glucose (mg/dL) (70-110) mg/dL Calcium 7.7 L (8.4-10.2) mg/dL Magnesium 3.4 H (1.6-2.3) mg/dL Total Bilirubin (0.2-1.3) mg/dL Alkaline Phosphatase <20 L (38-126) U/L Total Protein 4.0 L (6.3-8.2) g/dL Albumin 2.5 L (3.5-5.0) g/dL Crossmatch See Detail 12/24/23 12/24/23 12/24/23 Range/Units 15:03 15:30 16:17 RBC 3.18 L (4.30-5.90) m/uL Hgb 9.7 L (13.0-17.5) gm/dL Hct 29.2 L (39.0-53.0) % Plt Count 86 L (150-450) k/uL Lymphocytes # 0.8 L (1.0-4.8) k/uL ABG Total CO2 25 H (19-24) mmol/L ABG O2 Saturation 98.8 H (94-97) % Sodium (137-145) mmol/L Carbon Dioxide (22-30) mmol/L Glucose (74-99) mg/dL POC Glucose (mg/dL) 132 H (70-110) mg/dL Calcium (8.4-10.2) mg/dL Magnesium (1.6-2.3) mg/dL Total Bilirubin (0.2-1.3) mg/dL Alkaline Phosphatase (38-126) U/L Total Protein (6.3-8.2) g/dL Albumin (3.5-5.0) g/dL Crossmatch 12/24/23 12/24/23 12/24/23 Range/Units 16:17 17:13 18:04 RBC (4.30-5.90) m/uL Hgb (13.0-17.5) gm/dL Hct (39.0-53.0) % Plt Count (150-450) k/uL Lymphocytes # (1.0-4.8) k/uL ABG Total CO2 (19-24) mmol/L ABG O2 Saturation (94-97) % Sodium (137-145) mmol/L Carbon Dioxide (22-30) mmol/L Glucose (74-99) mg/dL POC Glucose (mg/dL) 155 H 149 H 159 H (70-110) mg/dL Calcium (8.4-10.2) mg/dL Magnesium (1.6-2.3) mg/dL Total Bilirubin (0.2-1.3) mg/dL Alkaline Phosphatase (38-126) U/L Total Protein (6.3-8.2) g/dL Albumin (3.5-5.0) g/dL Crossmatch 12/24/23 12/24/23 12/24/23 Range/Units 18:30 19:01 19:59 RBC 3.10 L (4.30-5.90) m/uL Hgb 9.3 L (13.0-17.5) gm/dL Hct 28.3 L (39.0-53.0) % Plt Count 96 L (150-450) k/uL Lymphocytes # 0.5 L (1.0-4.8) k/uL ABG Total CO2 (19-24) mmol/L ABG O2 Saturation (94-97) % Sodium (137-145) mmol/L Carbon Dioxide (22-30) mmol/L Glucose (74-99) mg/dL POC Glucose (mg/dL) 164 H 168 H (70-110) mg/dL Calcium (8.4-10.2) mg/dL Magnesium (1.6-2.3) mg/dL Total Bilirubin (0.2-1.3) mg/dL Alkaline Phosphatase (38-126) U/L Total Protein (6.3-8.2) g/dL Albumin (3.5-5.0) g/dL Crossmatch 12/24/23 12/24/23 12/24/23 Range/Units 20:51 22:01 22:07 RBC 2.81 L (4.30-5.90) m/uL Hgb 8.5 L (13.0-17.5) gm/dL Hct 25.4 L (39.0-53.0) % Plt Count 72 L (150-450) k/uL Lymphocytes # 0.3 L (1.0-4.8) k/uL ABG Total CO2 (19-24) mmol/L ABG O2 Saturation (94-97) % Sodium (137-145) mmol/L Carbon Dioxide (22-30) mmol/L Glucose (74-99) mg/dL POC Glucose (mg/dL) 154 H 144 H (70-110) mg/dL Calcium (8.4-10.2) mg/dL Magnesium (1.6-2.3) mg/dL Total Bilirubin (0.2-1.3) mg/dL Alkaline Phosphatase (38-126) U/L Total Protein (6.3-8.2) g/dL Albumin (3.5-5.0) g/dL Crossmatch 12/24/23 12/24/23 12/24/23 Range/Units 22:07 22:37 23:47 RBC (4.30-5.90) m/uL Hgb (13.0-17.5) gm/dL Hct (39.0-53.0) % Plt Count (150-450) k/uL Lymphocytes # (1.0-4.8) k/uL ABG Total CO2 (19-24) mmol/L ABG O2 Saturation (94-97) % Sodium 133 L (137-145) mmol/L Carbon Dioxide 20 L (22-30) mmol/L Glucose 133 H (74-99) mg/dL POC Glucose (mg/dL) 141 H (70-110) mg/dL Calcium 7.8 L (8.4-10.2) mg/dL Magnesium 2.6 H (1.6-2.3) mg/dL Total Bilirubin (0.2-1.3) mg/dL Alkaline Phosphatase (38-126) U/L Total Protein (6.3-8.2) g/dL Albumin (3.5-5.0) g/dL Crossmatch 12/25/23 12/25/23 12/25/23 Range/Units 00:54 01:54 02:43 RBC (4.30-5.90) m/uL Hgb (13.0-17.5) gm/dL Hct (39.0-53.0) % Plt Count (150-450) k/uL Lymphocytes # (1.0-4.8) k/uL ABG Total CO2 (19-24) mmol/L ABG O2 Saturation (94-97) % Sodium (137-145) mmol/L Carbon Dioxide (22-30) mmol/L Glucose (74-99) mg/dL POC Glucose (mg/dL) 143 H 141 H 141 H (70-110) mg/dL Calcium (8.4-10.2) mg/dL Magnesium (1.6-2.3) mg/dL Total Bilirubin (0.2-1.3) mg/dL Alkaline Phosphatase (38-126) U/L Total Protein (6.3-8.2) g/dL Albumin (3.5-5.0) g/dL Crossmatch 12/25/23 12/25/23 12/25/23 Range/Units 03:57 04:00 04:00 RBC 2.46 L (4.30-5.90) m/uL Hgb 7.4 L (13.0-17.5) gm/dL Hct 22.5 L (39.0-53.0) % Plt Count 85 L (150-450) k/uL Lymphocytes # 0.4 L (1.0-4.8) k/uL ABG Total CO2 (19-24) mmol/L ABG O2 Saturation (94-97) % Sodium 132 L (137-145) mmol/L Carbon Dioxide 21 L (22-30) mmol/L Glucose 125 H (74-99) mg/dL POC Glucose (mg/dL) 140 H (70-110) mg/dL Calcium 8.0 L (8.4-10.2) mg/dL Magnesium 2.5 H (1.6-2.3) mg/dL Total Bilirubin 1.7 H (0.2-1.3) mg/dL Alkaline Phosphatase <20 L (38-126) U/L Total Protein 4.6 L (6.3-8.2) g/dL Albumin 3.1 L (3.5-5.0) g/dL Crossmatch 12/25/23 12/25/23 12/25/23 Range/Units 05:47 07:01 09:03 RBC (4.30-5.90) m/uL Hgb (13.0-17.5) gm/dL Hct (39.0-53.0) % Plt Count (150-450) k/uL Lymphocytes # (1.0-4.8) k/uL ABG Total CO2 (19-24) mmol/L ABG O2 Saturation (94-97) % Sodium (137-145) mmol/L Carbon Dioxide (22-30) mmol/L Glucose (74-99) mg/dL POC Glucose (mg/dL) 133 H 138 H 117 H (70-110) mg/dL Calcium (8.4-10.2) mg/dL Magnesium (1.6-2.3) mg/dL Total Bilirubin (0.2-1.3) mg/dL Alkaline Phosphatase (38-126) U/L Total Protein (6.3-8.2) g/dL Albumin (3.5-5.0) g/dL Crossmatch 12/25/23 12/25/23 12/25/23 Range/Units 10:01 11:09 12:20 RBC (4.30-5.90) m/uL Hgb (13.0-17.5) gm/dL Hct (39.0-53.0) % Plt Count (150-450) k/uL Lymphocytes # (1.0-4.8) k/uL ABG Total CO2 (19-24) mmol/L ABG O2 Saturation (94-97) % Sodium (137-145) mmol/L Carbon Dioxide (22-30) mmol/L Glucose (74-99) mg/dL POC Glucose (mg/dL) 148 H 123 H 130 H (70-110) mg/dL Calcium (8.4-10.2) mg/dL Magnesium (1.6-2.3) mg/dL Total Bilirubin (0.2-1.3) mg/dL Alkaline Phosphatase (38-126) U/L Total Protein (6.3-8.2) g/dL Albumin (3.5-5.0) g/dL Crossmatch Assessment and Plan Assessment: Impression: Severe aortic regurgitation status post aortic valve replacement with 27 mm Medtronic Avalus bovine pericardial valve prosthesis Coronary artery disease status post coronary artery bypass grafting x 2 vessels, left internal mammary artery to the left anterior descending coronary artery and a saphenous vein graft to the obtuse marginal coronary artery Benign essential hypertension Dyslipidemia History of mild asthma with preoperative FEV1 of 75% BPH Non-smoker Postoperative atelectasis/expected Recommendation: Continue maximal medical therapy including Plavix beta-aimee aspirin and statin Continue amiodarone/atrial fibrillation prophylaxis Incentive spirometry Ambulate Advance diet as tolerated, patient is on ADA diet Continue insulin management as per medicine on the case. Continue pain control Discontinue unnecessary lines and catheters Will continue to follow Time with Patient: Less than 30
[2023-12-25 14:58] LABS: Glucose,Whole Blood 132 mg/dL (70-110)
[2023-12-25 16:20] LABS: Glucose,Whole Blood 131 mg/dL (70-110)
[2023-12-25] MEDS: ACETAMINOPHEN TAB 500 MG TAB PO PRN (16:47)
[2023-12-25 17:05] LABS: Glucose,Whole Blood 150 mg/dL (70-110)
[2023-12-25] MEDS: TAMSULOSIN 0.4 MG CAP.ER.24H PO SCH (18:24)
[2023-12-25 19:05] LABS: Glucose,Whole Blood 138 mg/dL (70-110)
[2023-12-25] MEDS: MELATONIN 5 MG TABLET PO SCH (20:13)
[2023-12-25] MEDS: AMIODARONE 200 MG TAB PO SCH (20:13)
[2023-12-25 20:24] LABS: Glucose,Whole Blood 134 mg/dL (70-110)
[2023-12-25 21:06] LABS: Glucose,Whole Blood 140 mg/dL (70-110)
[2023-12-25 21:52] LABS: Glucose,Whole Blood 134 mg/dL (70-110)
[2023-12-25 23:04] LABS: Glucose,Whole Blood 117 mg/dL (70-110)
[2023-12-25 23:58] LABS: Glucose,Whole Blood 115 mg/dL (70-110)
[2023-12-26] MEDS: IPRATROPIUM-ALBUTEROL 3 ML NEB INHALATION PRN (00:28)
[2023-12-26 01:04] LABS: Glucose,Whole Blood 95 mg/dL (70-110)
[2023-12-26 01:56] LABS: Glucose,Whole Blood 114 mg/dL (70-110)
[2023-12-26 03:00] LABS: Glucose,Whole Blood 96 mg/dL (70-110)
[2023-12-26 04:21] LABS: Ionized Calcium 4.9 mg/dL (4.5-5.3)
[2023-12-26 04:30] LABS: ALT 14 U/L (4-49); AST 58 U/L (17-59); African American GFR (CKD) >90 (>60 ml/min/1.73 sqM); Albumin 3.1 g/dL (3.5-5.0); Alkaline Phosphatase 22 U/L (38-126); Anion Gap 2 mmol/L; Blood Urea Nitrogen 20 mg/dL (9-20); Calcium 8.3 mg/dL (8.4-10.2); Carbon Dioxide 25 mmol/L (22-30); Chloride 102 mmol/L (98-107); Glucose 130 mg/dL (74-99); Non-African American GFR(CKD) 84 (>60 ml/min/1.73 sqM); Potassium 5.5 mmol/L (3.5-5.1); Sodium 129 mmol/L (137-145); Total Bilirubin 2.5 mg/dL (0.2-1.3); Total Protein 4.8 g/dL (6.3-8.2)
[2023-12-26 04:34] LABS: Basophils % (A) 0 %; Eosinophils % (A) 1 %; Lymphocytes # (A) 0.5 k/uL (1.0-4.8); Lymphocytes % (A) 5 %; MCHC 33.5 g/dL (31.0-37.0); MCV 92.4 fL (80.0-100.0); Mean Platelet Volume 8.4; Monocytes # (A) 0.5 k/uL (0-1.0); Monocytes % (A) 5 %; Neutrophils # (A) 7.8 k/uL (1.3-7.7); Neutrophils % (A) 87 %; RBC 2.08 m/uL (4.30-5.90); RDW 13.9 % (11.5-15.5); WBC 8.9 k/uL (3.8-10.6)
[2023-12-26 04:40] LABS: HCT 19.2 % (39.0-53.0); HGB 6.4 gm/dL (13.0-17.5)
[2023-12-26 04:43] LABS: Platelet Count 63 k/uL (150-450)
[2023-12-26 05:09] LABS: Glucose,Whole Blood 145 mg/dL (70-110)
[2023-12-26] MEDS: FUROSEMIDE 10 MG/ML 4 ML VIAL IV STA (05:34)
[2023-12-26 06:11] LABS: Glucose,Whole Blood 142 mg/dL (70-110)
[2023-12-26 07:00] LABS: MCH 31.3 pg (25.0-35.0); MCHC 33.9 g/dL (31.0-37.0); MCV 92.1 fL (80.0-100.0); Mean Platelet Volume 8.6; RBC 2.07 m/uL (4.30-5.90); RDW 13.8 % (11.5-15.5); WBC 9.9 k/uL (3.8-10.6)
[2023-12-26 07:04] LABS: HCT 19.1 % (39.0-53.0); HGB 6.5 gm/dL (13.0-17.5)
[2023-12-26 07:07] LABS: Platelet Count 62 k/uL (150-450)
--- NOTE | 2023-12-26 07:46 | XR ---
EXAMINATION TYPE: XR chest 1V portable DATE OF EXAM: 12/26/2023 COMPARISON: 12/25/2023 INDICATION: Postop cardiac surgery TECHNIQUE: Single frontal view of the chest is obtained. FINDINGS: The heart size is mildly prominent. The pulmonary vasculature is normal. Right lower lobe infiltrate is present. This worsening comparison. Underlying pleural effusion may be present on the right. There is a left-sided chest tube present. No pneumothorax is evident. However, Subcutaneous emphysema is present which is a changed. Mediastinal tube is present. Remaining lines and catheters have been removed. IMPRESSION: 1. Worsening right lower lobe infiltrate and/or pleural effusion. 2. Left-sided chest tube remains present. There is some developing cutaneous seen on the left without visualization of a current pneumothorax.
[2023-12-26] MEDS: PANTOPRAZOLE 40 MG TABLET PO SCH (08:05)
[2023-12-26] MEDS: MAGNESIUM HYDROXIDE 2,400 MG/30 ML CUP PO PRN (08:18)
[2023-12-26 08:41] LABS: Glucose,Whole Blood 161 mg/dL (70-110)
--- NOTE | 2023-12-26 08:49 | P.PN ---
Subjective Progress Note Date: 12/26/23 Principal diagnosis: Aortic valvular insufficiency, coronary artery disease, declining left ventricular ejection fraction on serial echocardiography. Previous medical history of coronary artery disease with previous PCI to the mid LAD in April 2020, hypertension, hyperlipidemia, asthma, benign prostatic hypertrophy, osteoarthritis, occasional marijuana use and lifetime non-smoker POD #2 Aortic valve replacement with 27 mm Medtronic Avalus bovine pericardial valve prosthesis, CABG x 2 with GOETZ to LAD and saphenous vein graft to obtuse marginal, endovascular vein harvest greater saphenous vein from the left thigh, ligation of the left atrial appendage with 35mm AtriCure clip, WELLINGTON by anesthesia. Postoperative acute blood loss anemia and thrombocytopenia, expected given hemodilution, cardiopulmonary bypass and his preoperative thrombocytopenia. The patient was seen and examined this morning with Dr. Red, sitting up in the recliner in no acute distress. Remains in sinus rhythm with PVCs, hemodynamically stable on no inotropes or pressors. He does complain of some post surgical pain which is controlled on current medication regimen, denies shortness of breath. His main complaint is no sleep last night. Currently on 2 LPM nasal cannula with oxygen saturation in the high 90s. CXR/labs reviewed, hemaglobin 6.5 with platelet 63,000. Heparin SQ being held. Anemia felt mostly to be from hemodilution/volume overload as patient is not symptomatic. Given IV lasix, will anie and recheck CBC, no blood transfusion at this time. Right internal jugular cordis, right radial arterial line, mediastinal/left chest tube remain. No other new concerns. Objective - Vital Signs Vital signs: Vital Signs Temp 98.1 F 12/26/23 04:00 Pulse 83 12/26/23 07:00 Resp 14 12/26/23 07:00 BP 134/77 12/26/23 06:00 Pulse Ox 97 12/26/23 07:00 FiO2 50 12/24/23 16:35 Intake & Output 12/25/23 12/26/23 12/26/23 18:59 06:59 18:59 Intake Total 1230.050 468.413 36 Output Total 600 615 20 Balance 630.050 -146.587 16 Weight 81.6 kg 89.7 kg Intake: IV 704 452 36 Cardiac Output (0.9 20 sodium chloride) Pressure Bag (0.9 sodium 84 72 6 chloride Sodium Chloride 0.9% 1, 600 380 30 000 ml @ 20 mls/hr IV . Q24H JUSTIN Rx#:[id number] Intake, IV Titration 26.050 16.413 Amount Insulin Regular 100 unit 26.050 16.413 In Sodium Chloride 0.9% 100 ml @ Per Protocol IV .Q0M JUSTIN Rx#:[id number] Oral 500 Output: Chest Tube Drainage 270 260 20 Chest Tube Left Anterior 220 160 20 Chest Chest Tube Mediastinal 50 100 Urine 330 355 Other: Voiding Method Indwelling Catheter Indwelling Catheter ABP, PAP, CO, CI - Last Documented Arterial Blood Pressure 119/54 Pulmonary Artery Pressure 41/7 Cardiac Output 4.4 Cardiac Index 2.3 - Exam CONSTITUTIONAL: Sitting up in a recliner in the intensive care unit, appears comfortable, cooperative, no apparent acute distress. HEENT: Neck is supple, no JVD, no lymphadenopathy. Right IJ Cordis in place and functioning. RESPIRATORY: Lungs clear but diminished in the bases. Respirations even, nonlabored. Currently on 2 L nasal cannula with oxygen saturations 98%. Able to achieve 500-750 mL on his incentive spirometry. Weak cough. CARDIOVASCULAR: S1 and S2 present, regular rate and rhythm. Sinus rhythm with PVCs on telemetry. Sternum is stable. Palpable peripheral pulses bilaterally, no edema present. No calf pain or tenderness noted. Heart hugger in place with patient demonstrating appropriate use. Antiembolism stockings and SCDs present GASTROINTESTINAL: Abdomen soft, nontender, nondistended. Hypoactive bowel sounds present 4 quadrants. Tolerating minimal diet. Denies passing flatus. GENITOURINARY: Kramer present draining clear, yellow urine. Urine output 10-40 mL overnight, 685 mL in the last 24 hours INTEGUMENTARY: Skin is warm and dry. Midline sternal incision clean dry and well approximated, covered with dry intact dressing. Left lower extremity EVH site well approximated without redness or drainage. NEUROLOGIC: Cranial nerves II through XII intact. No focal deficits. MUSKULOSKELETAL: Able to move all extremities, strength equal bilaterally, generalized weakness. PSYCHIATRIC: Alert and oriented to person place and time, appropriate affect, intact judgment and insight. INVASIVE LINES AND TUBES: Mediastinal/left pleural chest tubes present and connected to low continuous wall suction, no air leaks present. Mediastinal tube with 50 mL serosanguineous drainage overnight, 100 mL output in the last 24 hours. Left pleural chest tube with 140 mL serosanguineous drainage overnight, 550 mL output in the last 24 hours. Atrial and ventricular epicardial pacemaker wires present, connected to generator, AAI mode of 50 bpm. Right internal jugular cordis, right radial arterial line present. - Allied health notes Allied health notes reviewed: nursing - Labs CBC & Chem 7: 12/26/23 06:41 12/26/23 04:00 Labs: Abnormal Lab Results - Last 24 Hours (Table) 12/18/23 12/25/23 12/25/23 Range/Units 10:44 09:03 10:01 RBC (4.30-5.90) m/uL Hgb (13.0-17.5) gm/dL Hct (39.0-53.0) % Plt Count (150-450) k/uL Neutrophils # (1.3-7.7) k/uL Lymphocytes # (1.0-4.8) k/uL Sodium (137-145) mmol/L Potassium (3.5-5.1) mmol/L Glucose (74-99) mg/dL POC Glucose (mg/dL) 117 H 148 H (70-110) mg/dL Calcium (8.4-10.2) mg/dL Total Bilirubin (0.2-1.3) mg/dL Alkaline Phosphatase (38-126) U/L Total Protein (6.3-8.2) g/dL Albumin (3.5-5.0) g/dL Crossmatch See Detail 12/25/23 12/25/23 12/25/23 Range/Units 11:09 12:20 14:57 RBC (4.30-5.90) m/uL Hgb (13.0-17.5) gm/dL Hct (39.0-53.0) % Plt Count (150-450) k/uL Neutrophils # (1.3-7.7) k/uL Lymphocytes # (1.0-4.8) k/uL Sodium (137-145) mmol/L Potassium (3.5-5.1) mmol/L Glucose (74-99) mg/dL POC Glucose (mg/dL) 123 H 130 H 132 H (70-110) mg/dL Calcium (8.4-10.2) mg/dL Total Bilirubin (0.2-1.3) mg/dL Alkaline Phosphatase (38-126) U/L Total Protein (6.3-8.2) g/dL Albumin (3.5-5.0) g/dL Crossmatch 12/25/23 12/25/23 12/25/23 Range/Units 16:19 17:04 19:03 RBC (4.30-5.90) m/uL Hgb (13.0-17.5) gm/dL Hct (39.0-53.0) % Plt Count (150-450) k/uL Neutrophils # (1.3-7.7) k/uL Lymphocytes # (1.0-4.8) k/uL Sodium (137-145) mmol/L Potassium (3.5-5.1) mmol/L Glucose (74-99) mg/dL POC Glucose (mg/dL) 131 H 150 H 138 H (70-110) mg/dL Calcium (8.4-10.2) mg/dL Total Bilirubin (0.2-1.3) mg/dL Alkaline Phosphatase (38-126) U/L Total Protein (6.3-8.2) g/dL Albumin (3.5-5.0) g/dL Crossmatch 12/25/23 12/25/23 12/25/23 Range/Units 20:23 21:02 21:51 RBC (4.30-5.90) m/uL Hgb (13.0-17.5) gm/dL Hct (39.0-53.0) % Plt Count (150-450) k/uL Neutrophils # (1.3-7.7) k/uL Lymphocytes # (1.0-4.8) k/uL Sodium (137-145) mmol/L Potassium (3.5-5.1) mmol/L Glucose (74-99) mg/dL POC Glucose (mg/dL) 134 H 140 H 134 H (70-110) mg/dL Calcium (8.4-10.2) mg/dL Total Bilirubin (0.2-1.3) mg/dL Alkaline Phosphatase (38-126) U/L Total Protein (6.3-8.2) g/dL Albumin (3.5-5.0) g/dL Crossmatch 07/03/1112/25/23 12/26/23 Range/Units 23:03 23:56 01:54 RBC (4.30-5.90) m/uL Hgb (13.0-17.5) gm/dL Hct (39.0-53.0) % Plt Count (150-450) k/uL Neutrophils # (1.3-7.7) k/uL Lymphocytes # (1.0-4.8) k/uL Sodium (137-145) mmol/L Potassium (3.5-5.1) mmol/L Glucose (74-99) mg/dL POC Glucose (mg/dL) 117 H 115 H 114 H (70-110) mg/dL Calcium (8.4-10.2) mg/dL Total Bilirubin (0.2-1.3) mg/dL Alkaline Phosphatase (38-126) U/L Total Protein (6.3-8.2) g/dL Albumin (3.5-5.0) g/dL Crossmatch 12/26/23 12/26/23 12/26/23 Range/Units 04:00 04:00 05:07 RBC 2.08 L (4.30-5.90) m/uL Hgb 6.4 L* (13.0-17.5) gm/dL Hct 19.2 L* (39.0-53.0) % Plt Count 63 L (150-450) k/uL Neutrophils # 7.8 H (1.3-7.7) k/uL Lymphocytes # 0.5 L (1.0-4.8) k/uL Sodium 129 L (137-145) mmol/L Potassium 5.5 H (3.5-5.1) mmol/L Glucose 130 H (74-99) mg/dL POC Glucose (mg/dL) 145 H (70-110) mg/dL Calcium 8.3 L (8.4-10.2) mg/dL Total Bilirubin 2.5 H (0.2-1.3) mg/dL Alkaline Phosphatase 22 L (38-126) U/L Total Protein 4.8 L (6.3-8.2) g/dL Albumin 3.1 L (3.5-5.0) g/dL Crossmatch 12/26/23 12/26/23 Range/Units 06:10 06:41 RBC 2.07 L (4.30-5.90) m/uL Hgb 6.5 L* (13.0-17.5) gm/dL Hct 19.1 L* (39.0-53.0) % Plt Count 62 L (150-450) k/uL Neutrophils # (1.3-7.7) k/uL Lymphocytes # (1.0-4.8) k/uL Sodium (137-145) mmol/L Potassium (3.5-5.1) mmol/L Glucose (74-99) mg/dL POC Glucose (mg/dL) 142 H (70-110) mg/dL Calcium (8.4-10.2) mg/dL Total Bilirubin (0.2-1.3) mg/dL Alkaline Phosphatase (38-126) U/L Total Protein (6.3-8.2) g/dL Albumin (3.5-5.0) g/dL Crossmatch - Imaging and Cardiology Chest x-ray: image reviewed Assessment and Plan Assessment: Severe aortic regurgitation, status post aortic valve replacement Coronary artery disease with previous PCI to the mid LAD in April 2020, status post 2V CABG Hypertension Hyperlipidemia, treated, preoperative LDL 49.1, HDL 54.0, cholesterol 118 Asthma, preoperative FEV1 75% of predicted value Benign prostatic hypertrophy Occasional marijuana use Lifelong non-smoker Postoperative acute blood loss anemia and thrombocytopenia, expected given hemod ilution and cardiopulmonary bypass and preoperative thrombocytopenia Plan: Continue to maximize medical therapy with low-dose aspirin, statin, Plavix and beta-aimee. Will increase metoprolol as tolerated Continue amiodarone per protocol for atrial fibrillation prophylaxis, no atrial fibrillation reported Wean oxygen as tolerated. Encourage incentive spirometry 10x every hour while awake. Bronchodilators per pulmonology Increase activity, ambulate as tolerated. PT/OT/cardiac rehab consulted. Will monitor daily labs and chest x-rays. Electrolyte replacement per protocol. IV lasix given, will redraw CBC, BMP, Mg after diuresis GI/DVT prophylaxis. Insulin management per internal medicine. The patient is a not diabetic, with a preoperative hemoglobin A1c 6.1% Pain control with current medication regimen. Keep right IJ cordis in place with continuous CVP monitoring, continue arterial line for now. Will discontinue mediastinal chest tube, continue left pleural chest tubes for another 24 hours, monitor output. Continue Kramer catheter for another 24 hours, continue to monitor strict accurate intake and output. Continue home dose of Flomax Keep epicardial pacer at backup rate 50 BPM Fluid restrictions placed Will give suppository More recommendations to follow
--- NOTE | 2023-12-26 09:04 | P.PN ---
Subjective Progress Note Date: 12/26/23 Patient reports feeling more fatigued today. Hemoglobin is 6.4, repeat hemoglobin 6.5, patient is going to receive some diuretics and then have a repeat before determining need for blood transfusion. General: In no apparent distress HEENT: normocephalic, atraumatic, no tracheal deviation Respiratory: symmetric chest rise, no cyanosis, ventilator dependent CVS: perfusing all extremities, no distal gangrene, bilateral pitting edema GI: soft, ND : no SPT, no CVAT, gray is present Neuro: No motor weakness Hospital Course: 78-year-old male with medical history of CAD with previous PCI to the mid LAD, hypertension, hyperlipidemia, BPH, severe aortic regurgitation who underwent surgical aortic valve replacement with CABG. Medicine was consulted for medical management. Patient is doing well post intubation, he is stable at this time. Blood pressure is 116/57, pulmonary artery pressures 32/4, central venous pressure is 45, he is 97% on 2 L nasal cannula. CBC shows a hemoglobin of 9.7, platelets of 86. ABG shows a pH of 7.36, pCO2 of 43, pO2 of 107. Blood sugars have been 132-159 on insulin drip. The patient is receiving cefazolin, nitroglycerin drip, IV fluids at 50 cc/h. He has 2 chest tubes and 1 mediastinal tube draining sanguinous fluid. Postoperative chest x-ray shows mild fluid overload, PA catheter, ventilator, OG tube, chest tubes. Assessment/plan: Prediabetes with hyperglycemia -Transition insulin drip to 5 units of Levemir with low-dose sliding scale insulin, on outpatient will need metformin twice daily -Every hour glucose checks -A1c from 11/2023 is 6.1% Acute Blood Loss Anemia, expected outcome of surgery -Continue daily oral iron -Recommend transfusing 1 to 2 units of packed red blood cells per surgery CAD status post PCI and CABG (postop day 1) Hypertension Hyperlipidemia BPH Aortic regurgitation status post aortic valve replacement (postop day 0) -Home medications reviewed and reconciled -Predominantly management primary team, cardiology, ICU consultation Patient is full code Objective - Vital Signs Vital signs: Vital Signs Temp 97.7 F 12/26/23 08:00 Pulse 77 12/26/23 08:30 Resp 16 12/26/23 08:30 BP 134/77 12/26/23 06:00 Pulse Ox 100 12/26/23 08:30 FiO2 50 12/24/23 16:35 Intake & Output 12/25/23 12/26/23 12/26/23 18:59 06:59 18:59 Intake Total 1230.050 468.413 187.609 Output Total 600 615 320 Balance 630.050 -146.587 -132.391 Weight 81.6 kg 89.7 kg Intake: IV 704 452 62 Cardiac Output (0.9 20 sodium chloride) Pressure Bag (0.9 sodium 84 72 12 chloride Sodium Chloride 0.9% 1, 600 380 50 000 ml @ 20 mls/hr IV . Q24H JUSTIN Rx#:[id number] Intake, IV Titration 26.050 16.413 7.609 Amount Insulin Regular 100 unit 26.050 16.413 7.609 In Sodium Chloride 0.9% 100 ml @ Per Protocol IV .Q0M JUSTIN Rx#:[id number] Oral 500 118 Output: Chest Tube Drainage 270 260 20 Chest Tube Left Anterior 220 160 20 Chest Chest Tube Mediastinal 50 100 Urine 330 355 300 Other: Voiding Method Indwelling Catheter Indwelling Catheter ABP, PAP, CO, CI - Last Documented Arterial Blood Pressure 90/40 Pulmonary Artery Pressure 41/7 Cardiac Output 4.4 Cardiac Index 2.3 - Labs CBC & Chem 7: 12/26/23 06:41 12/26/23 04:00 Labs: Abnormal Lab Results - Last 24 Hours (Table) 12/18/23 12/25/23 12/25/23 Range/Units 10:44 09:03 10:01 RBC (4.30-5.90) m/uL Hgb (13.0-17.5) gm/dL Hct (39.0-53.0) % Plt Count (150-450) k/uL Neutrophils # (1.3-7.7) k/uL Lymphocytes # (1.0-4.8) k/uL Sodium (137-145) mmol/L Potassium (3.5-5.1) mmol/L Glucose (74-99) mg/dL POC Glucose (mg/dL) 117 H 148 H (70-110) mg/dL Calcium (8.4-10.2) mg/dL Total Bilirubin (0.2-1.3) mg/dL Alkaline Phosphatase (38-126) U/L Total Protein (6.3-8.2) g/dL Albumin (3.5-5.0) g/dL Crossmatch See Detail 12/25/23 12/25/23 12/25/23 Range/Units 11:09 12:20 14:57 RBC (4.30-5.90) m/uL Hgb (13.0-17.5) gm/dL Hct (39.0-53.0) % Plt Count (150-450) k/uL Neutrophils # (1.3-7.7) k/uL Lymphocytes # (1.0-4.8) k/uL Sodium (137-145) mmol/L Potassium (3.5-5.1) mmol/L Glucose (74-99) mg/dL POC Glucose (mg/dL) 123 H 130 H 132 H (70-110) mg/dL Calcium (8.4-10.2) mg/dL Total Bilirubin (0.2-1.3) mg/dL Alkaline Phosphatase (38-126) U/L Total Protein (6.3-8.2) g/dL Albumin (3.5-5.0) g/dL Crossmatch 12/25/23 12/25/23 12/25/23 Range/Units 16:19 17:04 19:03 RBC (4.30-5.90) m/uL Hgb (13.0-17.5) gm/dL Hct (39.0-53.0) % Plt Count (150-450) k/uL Neutrophils # (1.3-7.7) k/uL Lymphocytes # (1.0-4.8) k/uL Sodium (137-145) mmol/L Potassium (3.5-5.1) mmol/L Glucose (74-99) mg/dL POC Glucose (mg/dL) 131 H 150 H 138 H (70-110) mg/dL Calcium (8.4-10.2) mg/dL Total Bilirubin (0.2-1.3) mg/dL Alkaline Phosphatase (38-126) U/L Total Protein (6.3-8.2) g/dL Albumin (3.5-5.0) g/dL Crossmatch 12/25/23 12/25/23 12/25/23 Range/Units 20:23 21:02 21:51 RBC (4.30-5.90) m/uL Hgb (13.0-17.5) gm/dL Hct (39.0-53.0) % Plt Count (150-450) k/uL Neutrophils # (1.3-7.7) k/uL Lymphocytes # (1.0-4.8) k/uL Sodium (137-145) mmol/L Potassium (3.5-5.1) mmol/L Glucose (74-99) mg/dL POC Glucose (mg/dL) 134 H 140 H 134 H (70-110) mg/dL Calcium (8.4-10.2) mg/dL Total Bilirubin (0.2-1.3) mg/dL Alkaline Phosphatase (38-126) U/L Total Protein (6.3-8.2) g/dL Albumin (3.5-5.0) g/dL Crossmatch 12/25/23 12/25/23 12/26/23 Range/Units 23:03 23:56 01:54 RBC (4.30-5.90) m/uL Hgb (13.0-17.5) gm/dL Hct (39.0-53.0) % Plt Count (150-450) k/uL Neutrophils # (1.3-7.7) k/uL Lymphocytes # (1.0-4.8) k/uL Sodium (137-145) mmol/L Potassium (3.5-5.1) mmol/L Glucose (74-99) mg/dL POC Glucose (mg/dL) 117 H 115 H 114 H (70-110) mg/dL Calcium (8.4-10.2) mg/dL Total Bilirubin (0.2-1.3) mg/dL Alkaline Phosphatase (38-126) U/L Total Protein (6.3-8.2) g/dL Albumin (3.5-5.0) g/dL Crossmatch 12/26/23 12/26/23 12/26/23 Range/Units 04:00 04:00 05:07 RBC 2.08 L (4.30-5.90) m/uL Hgb 6.4 L* (13.0-17.5) gm/dL Hct 19.2 L* (39.0-53.0) % Plt Count 63 L (150-450) k/uL Neutrophils # 7.8 H (1.3-7.7) k/uL Lymphocytes # 0.5 L (1.0-4.8) k/uL Sodium 129 L (137-145) mmol/L Potassium 5.5 H (3.5-5.1) mmol/L Glucose 130 H (74-99) mg/dL POC Glucose (mg/dL) 145 H (70-110) mg/dL Calcium 8.3 L (8.4-10.2) mg/dL Total Bilirubin 2.5 H (0.2-1.3) mg/dL Alkaline Phosphatase 22 L (38-126) U/L Total Protein 4.8 L (6.3-8.2) g/dL Albumin 3.1 L (3.5-5.0) g/dL Crossmatch 12/26/23 12/26/23 12/26/23 Range/Units 06:10 06:41 08:40 RBC 2.07 L (4.30-5.90) m/uL Hgb 6.5 L* (13.0-17.5) gm/dL Hct 19.1 L* (39.0-53.0) % Plt Count 62 L (150-450) k/uL Neutrophils # (1.3-7.7) k/uL Lymphocytes # (1.0-4.8) k/uL Sodium (137-145) mmol/L Potassium (3.5-5.1) mmol/L Glucose (74-99) mg/dL POC Glucose (mg/dL) 142 H 161 H (70-110) mg/dL Calcium (8.4-10.2) mg/dL Total Bilirubin (0.2-1.3) mg/dL Alkaline Phosphatase (38-126) U/L Total Protein (6.3-8.2) g/dL Albumin (3.5-5.0) g/dL Crossmatch
[2023-12-26 09:14] LABS: MCH 31.1 pg (25.0-35.0); MCHC 34.1 g/dL (31.0-37.0); MCV 91.1 fL (80.0-100.0); Mean Platelet Volume 8.4; Platelet Count 61 k/uL (150-450); RBC 2.03 m/uL (4.30-5.90); RDW 14.1 % (11.5-15.5); WBC 10.2 k/uL (3.8-10.6)
[2023-12-26 09:18] LABS: African American GFR (CKD) >90 (>60 ml/min/1.73 sqM); Anion Gap 4 mmol/L; Blood Urea Nitrogen 22 mg/dL (9-20); Calcium 8.6 mg/dL (8.4-10.2); Carbon Dioxide 24 mmol/L (22-30); Chloride 100 mmol/L (98-107); Glucose 139 mg/dL (74-99); Magnesium 1.9 mg/dL (1.6-2.3); Non-African American GFR(CKD) 80 (>60 ml/min/1.73 sqM); Potassium 5.2 mmol/L (3.5-5.1); Sodium 128 mmol/L (137-145)
[2023-12-26 09:19] LABS: HCT 18.5 % (39.0-53.0); HGB 6.3 gm/dL (13.0-17.5)
[2023-12-26] MEDS: INSULIN DETEMIR (LEVEMIR) 100 UNIT/ML SYR SQ SCH (09:55)
[2023-12-26] MEDS: MAGNESIUM SULFATE-D5W PMX 1 GM in DEXTROSE/WATER 1 100ML.BAG IVPB SCH (09:55)
[2023-12-26] MEDS: SODIUM CHLORIDE TAB 1 GM TAB PO SCH (10:05)
[2023-12-26 11:04] LABS: Glucose,Whole Blood 181 mg/dL (70-110)
--- NOTE | 2023-12-26 11:30 | PN ---
PROGRESS NOTE SUBJECTIVE: This is a 78-year-old gentleman who is status post aortic valve replacement and bypass surgery postop day #2. His predominant problem at the moment is severe anemia with a hemoglobin of 6.3 and he has thrombocytopenia with a platelet count of 61. These are currently being addressed by the cardiothoracic surgery. From cardiac standpoint, the patient remains in sinus rhythm, stable hemodynamically. His renal functions are normal. OBJECTIVE: GENERAL: Comfortable at rest. VITAL SIGNS: Stable. CHEST: Reveals diminished air entry bilaterally. HEART: Reveals first and second heart sounds. No gallop. EXTREMITIES: Did not reveal any edema. CURRENT MEDICATIONS: 1. Amiodarone. 2. Lipitor. 3. Aspirin. 4. Lopressor. ASSESSMENT: 1. Aortic regurgitation, status post aortic valve replacement. 2. Coronary artery disease, status post bypass surgery. 3. Severe postoperative anemia with thrombocytopenia. The patient will probably benefit from blood transfusion. PLAN: The patient will work on incentive spirometry. Rest of his medications were continued. Anemia and thrombocytopenia are being addressed by CT surgery. MMODL / IJN: [id number] /
[2023-12-26 12:13] LABS: Glucose,Whole Blood 154 mg/dL (70-110)
[2023-12-26] MEDS: INSULIN ASPART (NovoLOG) 100 UNIT/ML VIAL SQ SCH (12:18)
[2023-12-26] MEDS: FUROSEMIDE 10 MG/ML 2 ML VIAL IV ONE (13:18)
--- NOTE | 2023-12-26 14:55 | P.PN ---
Subjective Progress Note Date: 12/26/23 Principal diagnosis: POD #2 aortic valve replacement with 27 mm Medtronic Avalus bovine pericardial valve prosthesis, CABG x 2 with GOETZ to LAD and saphenous vein graft to obtuse marginal, endovascular vein harvest greater saphenous vein from the left thigh, ligation of the left atrial appendage with 35mm AtriCure clip, [place] by anesthesia. This is a 78-year-old male patient with a known history of coronary artery disease with previous PCI to the mid LAD, hypertension, hyperlipidemia, benign prostatic hyperplasia, non-smoker. He was also recently found to have severe aortic regurgitation with moderate mitral regurgitation, coronary artery disease and declining left ventricular ejection fraction. He was brought in today electively for surgery. He had undergone aortic valve replacement with a Medtronic Avallis bovine pericardial valve prosthesis, CABG x 2 with a GOETZ to the LAD and SVG to the obtuse marginal. He is seen today in the postoperative period in the intensive care unit. He is not abated on the mechanical ventilator and assist-control mode at a rate of 12, tidal volume 400, FiO2 50% and a PEEP of 5. Arterial blood gases revealed a PaO2 of 267, pCO2 of 42 and a pH of 7.36 on 100% FiO2. White count 6.2. Hemoglobin 9.7. Platelets 86,000. Sodium 133. Potassium 4.4. Bicarb 22. BUN 10. Creatinine 0.69. Glucose 132. Albumin 2.5. He did receive albumin. He is on an insulin drip at 1.5 units/h. Nitroglycerin drip at 5 mcg/min and currently off propofol. He has been transitioned to pressure support of 5 and a PEEP of 5. Will plan for early extubation protocol as tolerated. PA pressures 32/14, CVP of 6 cardiac output 4.4. Cardiac index 2.3. Chest x-ray reveals streaky opacities in the left upper lung field likely atelectasis. Mild increased opacity in the right upper lung field. [place]-Jeremy catheter is present in the main pulmonary artery. Right- sided chest tube present. No evidence of pneumothorax. Mediastinal tube is p resent. Endotracheal tube and nasogastric tubes in position. Epicardial leads are present. Patient was evaluated today on 12/25/2023, patient is on 2 L nasal cannula, extubated yesterday at 4:35 PM, tolerated the extubation well. Patient is now on 2 L nasal cannula, he is on amiodarone at 0.5 mg/min, he is also on insulin at 1.5 units/h, IV fluid 0.9 normal saline at 50 cc/h. Patient is sitting at the bedside chair, awake oriented x 3, not in any distress, not requiring any pressors not requiring any inotropes. Cardiac output is 5.1 cardiac index is 2.7 PA pressure 29/12 CVP is 6 SVR is 1191. Mediastinal and left pleural chest tubes remain in place to low suction. No air leak noted and no evidence of pneumothorax on the chest x-ray, there is evidence however of right basilar atelectasis.WBC count is 6.6 hemoglobin 7.4. Basic metabolic profile is normal renal profile is normal Patient was evaluated today on 12/26/2023, patient is now postoperative day #2. Patient is receiving a unit of packed RBCs for low hemoglobin of 6.3, pulmonary casey does not seem to be in any distress, he is on 2 L nasal cannula and his O2 saturation is in the 90s. Chest x-ray is showing evidence of fluid overload/pulmonary edema and pleural effusions, hence the patient is receiving Lasix by thoracic surgery ordered today. Continues to have right internal jugular Cordis with right radial arterial line, mediastinal/left chest tubes remain in place. Clinically the patient is doing well, he is not requiring any inotropes or any pressors. Objective - Vital Signs Vital signs: Vital Signs Temp 98.0 F 12/26/23 12:00 Pulse 86 12/26/23 14:00 Resp 20 12/26/23 14:00 BP 111/55 12/26/23 12:00 Pulse Ox 99 12/26/23 14:00 FiO2 50 12/24/23 16:35 Intake & Output 12/25/23 12/26/23 12/26/23 18:59 06:59 18:59 Intake Total 1230.050 468.413 821.609 Output Total 467 271 0122 Balance 630.050 -146.587 -308.391 Weight 81.6 kg 89.7 kg Intake: IV 704 452 218 Cardiac Output (0.9 20 sodium chloride) Pressure Bag (0.9 sodium 84 72 48 chloride Sodium Chloride 0.9% 1, 600 380 170 000 ml @ 20 mls/hr IV . Q24H [facility] Rx#:[id number] Intake, IV Titration 26.050 16.413 7.609 Amount Insulin Regular 100 unit 26.050 16.413 7.609 In Sodium Chloride 0.9% 100 ml @ Per Protocol IV .Q0M JUSTIN Rx#:[id number] Oral 500 236 Blood Product 310 Rc As-1 Unit 310 [id number] Other 50 Rc As-1 Unit 50 [id number] Output: Chest Tube Drainage 270 260 90 Chest Tube Left Anterior 220 160 80 Chest Chest Tube Mediastinal 50 100 10 Urine 238 527 5809 Other: Voiding Method Indwelling Catheter Indwelling Catheter Indwelling Catheter ABP, PAP, CO, CI - Last Documented Arterial Blood Pressure 112/59 Pulmonary Artery Pressure 41/7 Cardiac Output 4.4 Cardiac Index 2.3 - Exam CONSTITUTIONAL: 78-year-old in no apparent distress on 2 L nasal cannula HEENT: Right IJ Cordis noted in place. RESPIRATORY: Diminished breath sound bilaterally no crackles rhonchi or wheezes CARDIOVASCULAR: Normal S1-S2, 2/6 systolic murmur throughout the precordium, positive pericardial rub GASTROINTESTINAL: Soft nontender no megaly no rebound no guarding. INTEGUMENTARY: No rashes NEUROLOGIC: Alert oriented x 3 no gross focal deficit MUSKULOSKELETAL: No deformities and no limitation range of motion PSYCHIATRIC: Normal mood affect and no mental status examination - Labs CBC & Chem 7: 12/26/23 09:01 12/26/23 09:01 Labs: Abnormal Lab Results - Last 24 Hours (Table) 12/18/23 12/25/23 12/25/23 Range/Units 10:44 14:57 16:19 RBC (4.30-5.90) m/uL Hgb (13.0-17.5) gm/dL Hct (39.0-53.0) % Plt Count (150-450) k/uL Neutrophils # (1.3-7.7) k/uL Lymphocytes # (1.0-4.8) k/uL Sodium (137-145) mmol/L Potassium (3.5-5.1) mmol/L BUN (9-20) mg/dL Glucose (74-99) mg/dL POC Glucose (mg/dL) 132 H 131 H (70-110) mg/dL Calcium (8.4-10.2) mg/dL Total Bilirubin (0.2-1.3) mg/dL Alkaline Phosphatase (38-126) U/L Total Protein (6.3-8.2) g/dL Albumin (3.5-5.0) g/dL Crossmatch See Detail 12/25/23 12/25/23 12/25/23 Range/Units 17:04 19:03 20:23 RBC (4.30-5.90) m/uL Hgb (13.0-17.5) gm/dL Hct (39.0-53.0) % Plt Count (150-450) k/uL Neutrophils # (1.3-7.7) k/uL Lymphocytes # (1.0-4.8) k/uL Sodium (137-145) mmol/L Potassium (3.5-5.1) mmol/L BUN (9-20) mg/dL Glucose (74-99) mg/dL POC Glucose (mg/dL) 150 H 138 H 134 H (70-110) mg/dL Calcium (8.4-10.2) mg/dL Total Bilirubin (0.2-1.3) mg/dL Alkaline Phosphatase (38-126) U/L Total Protein (6.3-8.2) g/dL Albumin (3.5-5.0) g/dL Crossmatch 12/25/23 12/25/23 12/25/23 Range/Units 21:02 21:51 23:03 RBC (4.30-5.90) m/uL Hgb (13.0-17.5) gm/dL Hct (39.0-53.0) % Plt Count (150-450) k/uL Neutrophils # (1.3-7.7) k/uL Lymphocytes # (1.0-4.8) k/uL Sodium (137-145) mmol/L Potassium (3.5-5.1) mmol/L BUN (9-20) mg/dL Glucose (74-99) mg/dL POC Glucose (mg/dL) 140 H 134 H 117 H (70-110) mg/dL Calcium (8.4-10.2) mg/dL Total Bilirubin (0.2-1.3) mg/dL Alkaline Phosphatase (38-126) U/L Total Protein (6.3-8.2) g/dL Albumin (3.5-5.0) g/dL Crossmatch 12/25/23 12/26/23 12/26/23 Range/Units 23:56 01:54 04:00 RBC 2.08 L (4.30-5.90) m/uL Hgb 6.4 L* (13.0-17.5) gm/dL Hct 19.2 L* (39.0-53.0) % Plt Count 63 L (150-450) k/uL Neutrophils # 7.8 H (1.3-7.7) k/uL Lymphocytes # 0.5 L (1.0-4.8) k/uL Sodium (137-145) mmol/L Potassium (3.5-5.1) mmol/L BUN (9-20) mg/dL Glucose (74-99) mg/dL POC Glucose (mg/dL) 115 H 114 H (70-110) mg/dL Calcium (8.4-10.2) mg/dL Total Bilirubin (0.2-1.3) mg/dL Alkaline Phosphatase (38-126) U/L Total Protein (6.3-8.2) g/dL Albumin (3.5-5.0) g/dL Crossmatch 12/26/23 12/26/23 12/26/23 Range/Units 04:00 05:07 06:10 RBC (4.30-5.90) m/uL Hgb (13.0-17.5) gm/dL Hct (39.0-53.0) % Plt Count (150-450) k/uL Neutrophils # (1.3-7.7) k/uL Lymphocytes # (1.0-4.8) k/uL Sodium 129 L (137-145) mmol/L Potassium 5.5 H (3.5-5.1) mmol/L BUN (9-20) mg/dL Glucose 130 H (74-99) mg/dL POC Glucose (mg/dL) 145 H 142 H (70-110) mg/dL Calcium 8.3 L (8.4-10.2) mg/dL Total Bilirubin 2.5 H (0.2-1.3) mg/dL Alkaline Phosphatase 22 L (38-126) U/L Total Protein 4.8 L (6.3-8.2) g/dL Albumin 3.1 L (3.5-5.0) g/dL Crossmatch 12/26/23 12/26/23 12/26/23 Range/Units 06:41 08:40 09:01 RBC 2.07 L 2.03 L (4.30-5.90) m/uL Hgb 6.5 L* 6.3 L* (13.0-17.5) gm/dL Hct 19.1 L* 18.5 L* (39.0-53.0) % Plt Count 62 L 61 L (150-450) k/uL Neutrophils # (1.3-7.7) k/uL Lymphocytes # (1.0-4.8) k/uL Sodium (137-145) mmol/L Potassium (3.5-5.1) mmol/L BUN (9-20) mg/dL Glucose (74-99) mg/dL POC Glucose (mg/dL) 161 H (70-110) mg/dL Calcium (8.4-10.2) mg/dL Total Bilirubin (0.2-1.3) mg/dL Alkaline Phosphatase (38-126) U/L Total Protein (6.3-8.2) g/dL Albumin (3.5-5.0) g/dL Crossmatch 12/26/23 12/26/23 12/26/23 Range/Units 09:01 11:02 12:12 RBC (4.30-5.90) m/uL Hgb (13.0-17.5) gm/dL Hct (39.0-53.0) % Plt Count (150-450) k/uL Neutrophils # (1.3-7.7) k/uL Lymphocytes # (1.0-4.8) k/uL Sodium 128 L (137-145) mmol/L Potassium 5.2 H (3.5-5.1) mmol/L BUN 22 H (9-20) mg/dL Glucose 139 H (74-99) mg/dL POC Glucose (mg/dL) 181 H 154 H (70-110) mg/dL Calcium (8.4-10.2) mg/dL Total Bilirubin (0.2-1.3) mg/dL Alkaline Phosphatase (38-126) U/L Total Protein (6.3-8.2) g/dL Albumin (3.5-5.0) g/dL Crossmatch Assessment and Plan Assessment: Impression: Severe aortic regurgitation status post aortic valve replacement with 27 mm Medtronic Avalus bovine pericardial valve prosthesis Coronary artery disease status post coronary artery bypass grafting x 2 vessels, left internal mammary artery to the left anterior descending coronary artery and a saphenous vein graft to the obtuse marginal coronary artery, postoperative day #2 Benign essential hypertension Dyslipidemia History of mild asthma with preoperative FEV1 of 75% BPH Non-smoker Postoperative atelectasis/expected Acute blood loss anemia requiring a unit of packed RBCs today Acute diastolic congestive heart failure requiring diuretics Recommendation: Continue maximal medical therapy including Plavix beta-aimee aspirin and statin Continue amiodarone/atrial fibrillation prophylaxis Incentive spirometry Ambulate Continue Lasix as ordered by cardiothoracic surgery Continue insulin management Continue pain control Will continue to follow Time with Patient: Less than 30
[2023-12-26 16:29] LABS: Glucose,Whole Blood 137 mg/dL (70-110)
[2023-12-26] MEDS: bisacodyL 10 MG SUPP RECTAL PRN (18:29)
[2023-12-26 20:22] LABS: Glucose,Whole Blood 134 mg/dL (70-110)
[2023-12-27] MEDS: DEXTROSE 5% IN WATER 100 ML with AMIODARONE 150 MG IV PRN
[2023-12-27] MEDS: AMIODARONE 360 MG in DEXTROSE 5% IN WATER 200 ML IV ONE (00:57)
[2023-12-27] MEDS: FUROSEMIDE 10 MG/ML 4 ML VIAL IV STA (00:58)
[2023-12-27 05:21] LABS: Basophils % (A) 0 %; Eosinophils # (A) 0.1 k/uL (0-0.7); Eosinophils % (A) 1 %; HCT 20.8 % (39.0-53.0); HGB 7.3 gm/dL (13.0-17.5); Lymphocytes # (A) 0.7 k/uL (1.0-4.8); Lymphocytes % (A) 7 %; MCH 31.5 pg (25.0-35.0); MCHC 35.3 g/dL (31.0-37.0); MCV 89.2 fL (80.0-100.0); Monocytes # (A) 0.6 k/uL (0-1.0); Monocytes % (A) 6 %; Neutrophils # (A) 8.3 k/uL (1.3-7.7); Neutrophils % (A) 84 %; RBC 2.33 m/uL (4.30-5.90); RDW 14.7 % (11.5-15.5); WBC 9.9 k/uL (3.8-10.6)
[2023-12-27 05:26] LABS: Platelet Count 62 k/uL (150-450)
[2023-12-27 05:34] LABS: ALT 15 U/L (4-49); AST 46 U/L (17-59); African American GFR (CKD) >90 (>60 ml/min/1.73 sqM); Albumin 2.9 g/dL (3.5-5.0); Alkaline Phosphatase 25 U/L (38-126); Anion Gap 4 mmol/L; Blood Urea Nitrogen 23 mg/dL (9-20); Calcium 8.5 mg/dL (8.4-10.2); Carbon Dioxide 25 mmol/L (22-30); Chloride 99 mmol/L (98-107); Glucose 143 mg/dL (74-99); Non-African American GFR(CKD) 83 (>60 ml/min/1.73 sqM); Potassium 4.6 mmol/L (3.5-5.1); Sodium 128 mmol/L (137-145); Total Bilirubin 3.3 mg/dL (0.2-1.3); Total Protein 4.8 g/dL (6.3-8.2)
[2023-12-27 06:12] LABS: Glucose,Whole Blood 54 mg/dL (70-110)
[2023-12-27 06:14] LABS: Glucose,Whole Blood 164 mg/dL (70-110)
[2023-12-27] MEDS: AMIODARONE 450 MG in DEXTROSE 5% IN WATER 250 ML IV SCH (06:16)
[2023-12-27] MEDS: FUROSEMIDE 10 MG/ML 4 ML VIAL IV SCH (08:52)
[2023-12-27] MEDS: AMIODARONE 200 MG TAB PO SCH (08:53)
--- NOTE | 2023-12-27 09:21 | P.PN ---
Subjective Progress Note Date: 12/27/23 Principal diagnosis: Aortic valvular insufficiency, coronary artery disease, declining left ventricular ejection fraction on serial echocardiography. Previous medical history of coronary artery disease with previous PCI to the mid LAD in April 2020, hypertension, hyperlipidemia, asthma, benign prostatic hypertrophy, osteoarthritis, occasional marijuana use and lifetime non-smoker POD #3 Aortic valve replacement with 27 mm Medtronic Avalus bovine pericardial valve prosthesis, CABG x 2 with GOETZ to LAD and saphenous vein graft to obtuse marginal, endovascular vein harvest greater saphenous vein from the left thigh, ligation of the left atrial appendage with 35mm AtriCure clip, [place] by anesthesia. Postoperative acute blood loss anemia and thrombocytopenia, expected given hemodilution, cardiopulmonary bypass and his preoperative thrombocytopenia. Paroxysmal atrial fibrillation, known common occurrence after open heart surgery, not a complication The patient was seen and examined this morning sitting up in the recliner in no acute distress. Patient went into rapid atrial fibrillation last night and was restarted on IV amiodarone, currently in atrial fibrillation with heart rate in the low 100s. Hemodynamically stable. He was also given IV Lasix last night by Dr. Red. He does complain of some post surgical pain which is controlled on current medication regimen, denies shortness of breath. Currently on 2 LPM nasal cannula with oxygen saturation in the high 90s. CXR/labs reviewed, patient did receive 1 unit packed red blood cells yesterday, hemoglobin 7.3 this morning, platelet 62,000. Heparin SQ being held, HIT panel negative. Right internal jugular cordis, right radial arterial line, left chest tube remain. Patient did ambulate in the hallway yesterday with therapy and nursing, tolerated well. No other new concerns. Objective - Vital Signs Vital signs: Vital Signs Temp 98.3 F 12/27/23 04:00 Pulse 112 H 12/27/23 07:00 Resp 16 12/27/23 07:00 BP 101/79 12/27/23 07:00 Pulse Ox 97 12/27/23 07:00 FiO2 50 12/24/23 16:35 Intake & Output 12/26/23 12/27/23 12/27/23 18:59 06:59 18:59 Intake Total 1051.609 312 Output Total 1720 1215 Balance -668.391 -903 Weight 88.9 kg Intake: IV 348 312 Pressure Bag (0.9 sodium 78 72 chloride Sodium Chloride 0.9% 1, 270 240 000 ml @ 20 mls/hr IV . Q24H [facility] Rx#:[id number] Intake, IV Titration 7.609 Amount Insulin Regular 100 unit 7.609 In Sodium Chloride 0.9% 100 ml @ Per Protocol IV .Q0M [facility] Rx#:[id number] Oral 336 Blood Product 310 Rc As-1 Unit 310 [id number] Other 50 Rc As-1 Unit 50 [id number] Output: Chest Tube Drainage 130 240 Chest Tube Left Anterior 120 240 Chest Chest Tube Mediastinal 10 Urine 1590 975 Other: Voiding Method Indwelling Catheter Urinal ABP, PAP, CO, CI - Last Documented Arterial Blood Pressure 109/60 Pulmonary Artery Pressure 41/7 Cardiac Output 4.4 Cardiac Index 2.3 - Exam CONSTITUTIONAL: Appears comfortable, cooperative, no acute distress RESPIRATORY: Lungs sounds diminished in the bases bilaterally. Respirations even, nonlabored. Currently on 2 L nasal cannula with oxygen saturation 97 %. Able to achieve 500-750 mL on incentive spirometry. Weak cough. CARDIOVASCULAR: S1, S2 present. Irregular rate and rhythm, atrial fibrillation on telemetry. Sternum stable. Palpable peripheral pulses bilaterally. Trace generalized edema present. No calf pain or tenderness noted. Heart hugger in place with patient demonstrating appropriate use. Antiembolism stockings, SCDs present. GASTROINTESTINAL: Abdomen soft, nontender, nondistended. Active bowel sounds present 4 quadrants. Tolerating diet. Positive flatus GENITOURINARY: Voiding clear, yellow urine. Output 2565 mL in the last 24 hours INTEGUMENTARY: Skin is warm and dry with evidence of good perfusion. Anterior chest incision well approximated and covered with dry intact dressing. Left lower extremity EVH site well approximated without redness or drainage. NEUROLOGIC: Cranial nerves II through XII intact MUSKULOSKELETAL: Able to move all extremities, strength equal bilaterally, gait normal PSYCHIATRIC: Alert and oriented to person place and time, appropriate affect, intact judgment and insight INVASIVE LINES AND TUBES: Left pleural chest tube present and connected to wall suction, no air leaks present, 140 mL serosanguineous drainage overnight, 300 mL in the last 24 hours. A/V epicardial pacemaker wires present, connected to generator, backup rate 50 bpm. Right internal jugular cordis, right radial arterial line present. - Allied health notes Allied health notes reviewed: nursing - Labs CBC & Chem 7: 12/27/23 04:25 12/27/23 04:25 Labs: Abnormal Lab Results - Last 24 Hours (Table) 12/18/23 12/26/23 12/26/23 Range/Units 10:44 08:40 09:01 RBC 2.03 L (4.30-5.90) m/uL Hgb 6.3 L* (13.0-17.5) gm/dL Hct 18.5 L* (39.0-53.0) % Plt Count 61 L (150-450) k/uL Neutrophils # (1.3-7.7) k/uL Lymphocytes # (1.0-4.8) k/uL Sodium (137-145) mmol/L Potassium (3.5-5.1) mmol/L BUN (9-20) mg/dL Glucose (74-99) mg/dL POC Glucose (mg/dL) 161 H (70-110) mg/dL Total Bilirubin (0.2-1.3) mg/dL Alkaline Phosphatase (38-126) U/L Total Protein (6.3-8.2) g/dL Albumin (3.5-5.0) g/dL Crossmatch See Detail 12/26/23 12/26/23 12/26/23 Range/Units 09:01 11:02 12:12 RBC (4.30-5.90) m/uL Hgb (13.0-17.5) gm/dL Hct (39.0-53.0) % Plt Count (150-450) k/uL Neutrophils # (1.3-7.7) k/uL Lymphocytes # (1.0-4.8) k/uL Sodium 128 L (137-145) mmol/L Potassium 5.2 H (3.5-5.1) mmol/L BUN 22 H (9-20) mg/dL Glucose 139 H (74-99) mg/dL POC Glucose (mg/dL) 181 H 154 H (70-110) mg/dL Total Bilirubin (0.2-1.3) mg/dL Alkaline Phosphatase (38-126) U/L Total Protein (6.3-8.2) g/dL Albumin (3.5-5.0) g/dL Crossmatch 12/26/23 12/26/23 12/27/23 Range/Units 16:28 20:21 04:25 RBC 2.33 L (4.30-5.90) m/uL Hgb 7.3 L (13.0-17.5) gm/dL Hct 20.8 L (39.0-53.0) % Plt Count 62 L (150-450) k/uL Neutrophils # 8.3 H (1.3-7.7) k/uL Lymphocytes # 0.7 L (1.0-4.8) k/uL Sodium (137-145) mmol/L Potassium (3.5-5.1) mmol/L BUN (9-20) mg/dL Glucose (74-99) mg/dL POC Glucose (mg/dL) 137 H 134 H (70-110) mg/dL Total Bilirubin (0.2-1.3) mg/dL Alkaline Phosphatase (38-126) U/L Total Protein (6.3-8.2) g/dL Albumin (3.5-5.0) g/dL Crossmatch 12/27/23 12/27/23 12/27/23 Range/Units 04:25 06:11 06:13 RBC (4.30-5.90) m/uL Hgb (13.0-17.5) gm/dL Hct (39.0-53.0) % Plt Count (150-450) k/uL Neutrophils # (1.3-7.7) k/uL Lymphocytes # (1.0-4.8) k/uL Sodium 128 L (137-145) mmol/L Potassium (3.5-5.1) mmol/L BUN 23 H (9-20) mg/dL Glucose 143 H (74-99) mg/dL POC Glucose (mg/dL) 54 L 164 H (70-110) mg/dL Total Bilirubin 3.3 H (0.2-1.3) mg/dL Alkaline Phosphatase 25 L (38-126) U/L Total Protein 4.8 L (6.3-8.2) g/dL Albumin 2.9 L (3.5-5.0) g/dL Crossmatch - Imaging and Cardiology Chest x-ray: image reviewed Assessment and Plan Assessment: Severe aortic regurgitation, status post aortic valve replacement Coronary artery disease with previous PCI to the mid LAD in April 2020, stat us post 2V CABG Hypertension Hyperlipidemia, treated, preoperative LDL 49.1, HDL 54.0, cholesterol 118 Right internal carotid artery stenosis 50-79% Asthma, preoperative FEV1 75% of predicted value Benign prostatic hypertrophy Occasional marijuana use Lifelong non-smoker Postoperative acute blood loss anemia and thrombocytopenia, expected given hemodilution and cardiopulmonary bypass and preoperative thrombocytopenia Paroxysmal atrial fibrillation, status post ligation of the left atrial appenda ge Plan: Continue to maximize medical therapy with low-dose aspirin, statin, Plavix and beta-aimee. Will increase metoprolol as tolerated, increased to 12.5 mg every 8 hours today Continue amiodarone per protocol for atrial fibrillation prophylaxis, will transition to oral. No anticoagulation unless in atrial fibrillation greater than 24 hours or intermittently going in and out Wean oxygen as tolerated. Encourage incentive spirometry 10x every hour while awake. Bronchodilators per pulmonology Increase activity, ambulate as tolerated. PT/OT/cardiac rehab consulted. Will monitor daily labs and chest x-rays. Electrolyte replacement per protocol. Will give IV Lasix twice daily for 2 days. No blood transfusion today GI/DVT prophylaxis. Insulin management per internal medicine. The patient is a not diabetic, with a preoperative hemoglobin A1c 6.1% Pain control with current medication regimen. DC Cordis, arterial line Will discontinue left pleural chest tube Continue to monitor strict accurate intake and output. Continue home dose of Flomax Keep epicardial pacer at backup rate 50 BPM Continue fluid restrictions Keep in the intensive care unit for another 24 hours due to connection to the epicardial pacemaker More recommendations to follow
[2023-12-27 11:07] LABS: Glucose,Whole Blood 152 mg/dL (70-110)
--- NOTE | 2023-12-27 13:32 | P.PN ---
Subjective Progress Note Date: 12/27/23 Principal diagnosis: POD #3 aortic valve replacement with 27 mm Medtronic Avalus bovine pericardial valve prosthesis, CABG x 2 with GOETZ to LAD and saphenous vein graft to obtuse marginal, endovascular vein harvest greater saphenous vein from the left thigh, ligation of the left atrial appendage with 35mm AtriCure clip, [place] by anesthesia. This is a 78-year-old male patient with a known history of coronary artery disease with previous PCI to the mid LAD, hypertension, hyperlipidemia, benign prostatic hyperplasia, non-smoker. He was also recently found to have severe aortic regurgitation with moderate mitral regurgitation, coronary artery disease and declining left ventricular ejection fraction. He was brought in today electively for surgery. He had undergone aortic valve replacement with a Medtronic Avallis bovine pericardial valve prosthesis, CABG x 2 with a GOETZ to the LAD and SVG to the obtuse marginal. He is seen today in the postoperative period in the intensive care unit. He is not abated on the mechanical ventilator and assist-control mode at a rate of 12, tidal volume 400, FiO2 50% and a PEEP of 5. Arterial blood gases revealed a PaO2 of 267, pCO2 of 42 and a pH of 7.36 on 100% FiO2. White count 6.2. Hemoglobin 9.7. Platelets 86,000. Sodium 133. Potassium 4.4. Bicarb 22. BUN 10. Creatinine 0.69. Glucose 132. Albumin 2.5. He did receive albumin. He is on an insulin drip at 1.5 units/h. Nitroglycerin drip at 5 mcg/min and currently off propofol. He has been transitioned to pressure support of 5 and a PEEP of 5. Will plan for early extubation protocol as tolerated. PA pressures 32/14, CVP of 6 cardiac output 4.4. Cardiac index 2.3. Chest x-ray reveals streaky opacities in the left upper lung field likely atelectasis. Mild increased opacity in the right upper lung field. [place] catheter is present in the main pulmonary artery. Right- sided chest tube present. No evidence of pneumothorax. Mediastinal tube is p resent. Endotracheal tube and nasogastric tubes in position. Epicardial leads are present. Patient was evaluated today on 12/25/2023, patient is on 2 L nasal cannula, extubated yesterday at 4:35 PM, tolerated the extubation well. Patient is now on 2 L nasal cannula, he is on amiodarone at 0.5 mg/min, he is also on insulin at 1.5 units/h, IV fluid 0.9 normal saline at 50 cc/h. Patient is sitting at the bedside chair, awake oriented x 3, not in any distress, not requiring any pressors not requiring any inotropes. Cardiac output is 5.1 cardiac index is 2.7 PA pressure 29/12 CVP is 6 SVR is 1191. Mediastinal and left pleural chest tubes remain in place to low suction. No air leak noted and no evidence of pneumothorax on the chest x-ray, there is evidence however of right basilar atelectasis.WBC count is 6.6 hemoglobin 7.4. Basic metabolic profile is normal renal profile is normal Patient was evaluated today on 12/26/2023, patient is now postoperative day #2. Patient is receiving a unit of packed RBCs for low hemoglobin of 6.3, pulmonary casey does not seem to be in any distress, he is on 2 L nasal cannula and his O2 saturation is in the 90s. Chest x-ray is showing evidence of fluid overload/pulmonary edema and pleural effusions, hence the patient is receiving Lasix by thoracic surgery ordered today. Continues to have right internal jugular Cordis with right radial arterial line, mediastinal/left chest tubes remain in place. Clinically the patient is doing well, he is not requiring any inotropes or any pressors. Patient was evaluated today on 12/27/2023, patient is now postoperative day #3. Patient is comfortable, sitting in a bedside recliner, developed atrial fibr illation with RVR yesterday, and he was restarted on amiodarone, remained hemodynamically stable, patient also developed some mild pulmonary vascular congestion and he received Lasix by surgery. This morning he does not seem to be short of breath, he is on 2 L nasal cannula, not in any distress. Yesterday he did receive 1 unit of packed RBCs for low hemoglobin however his hemoglobin today is 7.3. Chest x-ray continues to show cardiomegaly, right lower lobe atelectasis and possibly a small pleural effusion on the right side Objective - Vital Signs Vital signs: Vital Signs Temp 98.5 F 12/27/23 08:00 Pulse 99 12/27/23 11:00 Resp 14 12/27/23 11:00 BP 107/78 12/27/23 10:00 Pulse Ox 99 12/27/23 09:00 FiO2 50 12/24/23 16:35 Intake & Output 12/26/23 12/27/23 12/27/23 18:59 06:59 18:59 Intake Total 1051.609 312 226 Output Total 1720 1215 700 Balance -668.391 -903 -474 Weight 88.9 kg Intake: IV 348 312 26 Pressure Bag (0.9 sodium 78 72 6 chloride Sodium Chloride 0.9% 1, 270 240 20 000 ml @ 20 mls/hr IV . Q24H [facility] Rx#:[id number] Intake, IV Titration 7.609 Amount Insulin Regular 100 unit 7.609 In Sodium Chloride 0.9% 100 ml @ Per Protocol IV .Q0M [facility] Rx#:[id number] Oral 336 200 Blood Product 310 Rc As-1 Unit 310 [id number] Other 50 Rc As-1 Unit 50 [id number] Output: Chest Tube Drainage 130 240 Chest Tube Left Anterior 120 240 Chest Chest Tube Mediastinal 10 Urine 1590 975 700 Other: Voiding Method Indwelling Catheter Urinal Urinal ABP, PAP, CO, CI - Last Documented Arterial Blood Pressure 98/53 Pulmonary Artery Pressure 41/7 Cardiac Output 4.4 Cardiac Index 2.3 - Exam CONSTITUTIONAL: 78-year-old in no apparent distress on 2 L nasal cannula HEENT: Right IJ Cordis noted in place. RESPIRATORY: Diminished breath sound bilaterally mostly at the right base. No crackles rhonchi or wheezes CARDIOVASCULAR: Regular normal S1-S2, 2/6 systolic murmur throughout the precordium GASTROINTESTINAL: Soft nontender no megaly no rebound no guarding. INTEGUMENTARY: No rashes NEUROLOGIC: Alert oriented x 3 no gross focal deficit MUSKULOSKELETAL: No deformities and no limitation range of motion PSYCHIATRIC: Normal mood affect and no mental status examination - Labs CBC & Chem 7: 12/27/23 04:25 12/27/23 04:25 Labs: Abnormal Lab Results - Last 24 Hours (Table) 12/26/23 12/26/23 12/27/23 Range/Units 16:28 20:21 04:25 RBC 2.33 L (4.30-5.90) m/uL Hgb 7.3 L (13.0-17.5) gm/dL Hct 20.8 L (39.0-53.0) % Plt Count 62 L (150-450) k/uL Neutrophils # 8.3 H (1.3-7.7) k/uL Lymphocytes # 0.7 L (1.0-4.8) k/uL Sodium (137-145) mmol/L BUN (9-20) mg/dL Glucose (74-99) mg/dL POC Glucose (mg/dL) 137 H 134 H (70-110) mg/dL Total Bilirubin (0.2-1.3) mg/dL Alkaline Phosphatase (38-126) U/L Total Protein (6.3-8.2) g/dL Albumin (3.5-5.0) g/dL 12/27/23 12/27/23 12/27/23 Range/Units 04:25 06:11 06:13 RBC (4.30-5.90) m/uL Hgb (13.0-17.5) gm/dL Hct (39.0-53.0) % Plt Count (150-450) k/uL Neutrophils # (1.3-7.7) k/uL Lymphocytes # (1.0-4.8) k/uL Sodium 128 L (137-145) mmol/L BUN 23 H (9-20) mg/dL Glucose 143 H (74-99) mg/dL POC Glucose (mg/dL) 54 L 164 H (70-110) mg/dL Total Bilirubin 3.3 H (0.2-1.3) mg/dL Alkaline Phosphatase 25 L (38-126) U/L Total Protein 4.8 L (6.3-8.2) g/dL Albumin 2.9 L (3.5-5.0) g/dL 12/27/23 Range/Units 11:05 RBC (4.30-5.90) m/uL Hgb (13.0-17.5) gm/dL Hct (39.0-53.0) % Plt Count (150-450) k/uL Neutrophils # (1.3-7.7) k/uL Lymphocytes # (1.0-4.8) k/uL Sodium (137-145) mmol/L BUN (9-20) mg/dL Glucose (74-99) mg/dL POC Glucose (mg/dL) 152 H (70-110) mg/dL Total Bilirubin (0.2-1.3) mg/dL Alkaline Phosphatase (38-126) U/L Total Protein (6.3-8.2) g/dL Albumin (3.5-5.0) g/dL Assessment and Plan Assessment: Impression: Severe aortic regurgitation status post aortic valve replacement with 27 mm Medtronic Avalus bovine pericardial valve prosthesis Coronary artery disease status post coronary artery bypass grafting x 2 vessels, left internal mammary artery to the left anterior descending coronary a rtery and a saphenous vein graft to the obtuse marginal coronary artery, postoperative day #2 Benign essential hypertension Dyslipidemia History of mild asthma with preoperative FEV1 of 75% BPH Non-smoker Postoperative atelectasis/expected Acute blood loss anemia requiring a unit of packed RBCs today Acute diastolic congestive heart failure requiring diuretics Postoperative atrial fibrillation with RVR, expected Recommendation: Continue maximal medical therapy including Plavix beta-aimee aspirin and statin Continue amiodarone Remittent diuresis Incentive spirometry Ambulate Will continue to follow Time with Patient: Less than 30
--- NOTE | 2023-12-27 14:05 | P.PN ---
Subjective Progress Note Date: 12/27/23 Hospital course 78-year-old male with medical history of CAD with previous PCI to the mid LAD, hypertension, hyperlipidemia, BPH, severe aortic regurgitation who underwent surgical aortic valve replacement with CABG. Medicine was consulted for medical management. Subjective Patient this morning was seen in the ICU. He was sitting in the chair. He had no acute complaints. Physical exam General examination - Alert and Oriented 3 in NAD Heart - + S1S2 no murmurs Lungs -bilateral lower lungs trace bilateral pitting edema Abdomen soft NT ND +ve BS Extremities - trace bilateral pitting edema SHOWER MAID - Moving all 4 extremities spontaneously Psych - Calm and cooperative Assessment and plan Diabetes with hyperglycemia Will continue with sliding scale insulin and Levemir 5 units Patient's hemoglobin A1c in November 2023 was 6.1 Will plan to discharge the patient on metformin 500 mg p.o. twice daily Blood glucose range is 134 to 181 Acute blood loss anemia This is expected from surgery Continue with iron supplement. Hemoglobin this morning is at 7.3 Transfuse for hemoglobin less than 7 hypervolemic hyponatremia likely from fluids given during the surgery Sodium this morning is 128 Patient started on IV Lasix 40 mg twice daily Coronary disease status post PCI and CABG Aortic regurgitation status post aortic valve replacement As per your CT surgery management Resume aspirin and Plavix Chronic conditions Hypertension Hyperlipidemia BPH -Continue with home medications DVT prophylaxis: Defer to primary team. Patient is on subcu heparin Objective - Vital Signs Vital signs: Vital Signs Temp 98.5 F 12/27/23 08:00 Pulse 99 12/27/23 11:00 Resp 14 12/27/23 11:00 BP 107/78 12/27/23 10:00 Pulse Ox 99 12/27/23 09:00 FiO2 50 12/24/23 16:35 Intake & Output 12/26/23 12/27/23 12/27/23 18:59 06:59 18:59 Intake Total 1051.609 312 226 Output Total 1720 1215 700 Balance -668.391 -903 -474 Weight 88.9 kg 88.9 kg Intake: IV 348 312 26 Pressure Bag (0.9 sodium 78 72 6 chloride Sodium Chloride 0.9% 1, 270 240 20 000 ml @ 20 mls/hr IV . Q24H [facility] Rx#:[id number] Intake, IV Titration 7.609 Amount Insulin Regular 100 unit 7.609 In Sodium Chloride 0.9% 100 ml @ Per Protocol IV .Q0M [facility] Rx#:[id number] Oral 336 200 Blood Product 310 Rc As-1 Unit 310 [id number] Other 50 Rc As-1 Unit 50 [id number] Output: Chest Tube Drainage 130 240 Chest Tube Left Anterior 120 240 Chest Chest Tube Mediastinal 10 Urine 1590 975 700 Other: Voiding Method Indwelling Catheter Urinal Urinal ABP, PAP, CO, CI - Last Documented Arterial Blood Pressure 98/53 Pulmonary Artery Pressure 41/7 Cardiac Output 4.4 Cardiac Index 2.3 - Labs CBC & Chem 7: 12/27/23 04:25 12/27/23 04:25 Labs: Abnormal Lab Results - Last 24 Hours (Table) 12/26/23 12/26/23 12/27/23 Range/Units 16:28 20:21 04:25 RBC 2.33 L (4.30-5.90) m/uL Hgb 7.3 L (13.0-17.5) gm/dL Hct 20.8 L (39.0-53.0) % Plt Count 62 L (150-450) k/uL Neutrophils # 8.3 H (1.3-7.7) k/uL Lymphocytes # 0.7 L (1.0-4.8) k/uL Sodium (137-145) mmol/L BUN (9-20) mg/dL Glucose (74-99) mg/dL POC Glucose (mg/dL) 137 H 134 H (70-110) mg/dL Total Bilirubin (0.2-1.3) mg/dL Alkaline Phosphatase (38-126) U/L Total Protein (6.3-8.2) g/dL Albumin (3.5-5.0) g/dL 12/27/23 12/27/23 12/27/23 Range/Units 04:25 06:11 06:13 RBC (4.30-5.90) m/uL Hgb (13.0-17.5) gm/dL Hct (39.0-53.0) % Plt Count (150-450) k/uL Neutrophils # (1.3-7.7) k/uL Lymphocytes # (1.0-4.8) k/uL Sodium 128 L (137-145) mmol/L BUN 23 H (9-20) mg/dL Glucose 143 H (74-99) mg/dL POC Glucose (mg/dL) 54 L 164 H (70-110) mg/dL Total Bilirubin 3.3 H (0.2-1.3) mg/dL Alkaline Phosphatase 25 L (38-126) U/L Total Protein 4.8 L (6.3-8.2) g/dL Albumin 2.9 L (3.5-5.0) g/dL 12/27/23 Range/Units 11:05 RBC (4.30-5.90) m/uL Hgb (13.0-17.5) gm/dL Hct (39.0-53.0) % Plt Count (150-450) k/uL Neutrophils # (1.3-7.7) k/uL Lymphocytes # (1.0-4.8) k/uL Sodium (137-145) mmol/L BUN (9-20) mg/dL Glucose (74-99) mg/dL POC Glucose (mg/dL) 152 H (70-110) mg/dL Total Bilirubin (0.2-1.3) mg/dL Alkaline Phosphatase (38-126) U/L Total Protein (6.3-8.2) g/dL Albumin (3.5-5.0) g/dL
[2023-12-27 16:17] LABS: Glucose,Whole Blood 130 mg/dL (70-110)
[2023-12-27] MEDS: METOPROLOL TARTRATE 12.5 MG TAB PO SCH (16:19)
[2023-12-27 19:57] LABS: Glucose,Whole Blood 152 mg/dL (70-110)
--- NOTE | 2023-12-27 21:49 | PN ---
PROGRESS NOTE SUBJECTIVE: Navjot is a 78-year-old gentleman, who is admitted to hospital for aortic valve replacement and bypass surgery. Today is postop day #3. The patient was significantly anemic secondary to postop blood loss and had been transfused. This morning, the hemoglobin is 7.3, platelet count remains low at 62, potassium is 4.6, and creatinine is 0.9. PHYSICAL EXAMINATION: VITAL SIGNS: Heart rate is 96 beats per minute, blood pressure is 107/78, respiratory rate 18. CHEST: Reveals diminished air entry at the bases. HEART: Reveals first and second heart sounds. No gallop. EXTREMITIES: Did not reveal any edema. IMAGING STUDIES: EKG today shows atrial fibrillation. EKG yesterday last night around 11:30 showed atrial fibrillation with rapid ventricular rate and changes probably related to pericarditis. MEDICATIONS: The patient is currently on; 1. Amiodarone. 2. Aspirin. 3. Lipitor. 4. Lasix. 5. Lopressor. ASSESSMENT AND PLAN: 1. Aortic regurgitation, status post aortic valve replacement. 2. Coronary artery disease, status post coronary artery bypass graft. 3. Blood loss anemia, status post blood transfusion. 4. Thrombocytopenia. 5. Postop atrial fibrillation. PLAN: Continue current measures. MMODL / IJN: [id number] /
--- NOTE | 2023-12-27 22:54 | XR ---
EXAMINATION TYPE: XR chest 1V portable DATE OF EXAM: 12/27/2023 COMPARISON: 12/26/2023 INDICATION: Post cardiac surgery TECHNIQUE: Single frontal view of the chest is obtained. FINDINGS: The heart size is enlarged. The pulmonary vasculature is normal. Small to moderate right pleural effusion is present. Left-sided chest tube is present. No pneumothorax is evident. IMPRESSION: 1. Cardiomegaly. 2. Left-sided chest tube. 3. [id number] right pleural effusion
[2023-12-28 05:41] LABS: African American GFR (CKD) >90 (>60 ml/min/1.73 sqM); Anion Gap 2 mmol/L; Blood Urea Nitrogen 32 mg/dL (9-20); Calcium 8.5 mg/dL (8.4-10.2); Carbon Dioxide 28 mmol/L (22-30); Chloride 97 mmol/L (98-107); Glucose 121 mg/dL (74-99); Magnesium 1.8 mg/dL (1.6-2.3); Non-African American GFR(CKD) 84 (>60 ml/min/1.73 sqM); Potassium 4.3 mmol/L (3.5-5.1); Sodium 127 mmol/L (137-145)
[2023-12-28 05:45] LABS: HCT 22.4 % (39.0-53.0); HGB 7.6 gm/dL (13.0-17.5); MCHC 33.9 g/dL (31.0-37.0); MCV 91.6 fL (80.0-100.0); Mean Platelet Volume 7.9; RBC 2.44 m/uL (4.30-5.90); RDW 14.3 % (11.5-15.5); WBC 7.3 k/uL (3.8-10.6)
[2023-12-28 05:50] LABS: Platelet Count 76 k/uL (150-450)
[2023-12-28 05:54] LABS: Glucose,Whole Blood 141 mg/dL (70-110)
[2023-12-28] MEDS: MAGNESIUM SULFATE-D5W PMX 1 GM in DEXTROSE/WATER 1 100ML.BAG IVPB ONE (06:46)
--- NOTE | 2023-12-28 08:29 | XR ---
EXAMINATION TYPE: XR chest 2V DATE OF EXAM: 12/28/2023 COMPARISON: 12/27/2023 INDICATION: Postcardiac surgery TECHNIQUE: Frontal and lateral views of the chest are obtained. FINDINGS: The heart size is prominent. The pulmonary vasculature is normal. There is a moderate right pleural effusion.. Sternotomy wires are present from cardiac surgery. IMPRESSION: 1. Large right pleural effusion
[2023-12-28] MEDS: FONDAPARINUX 2.5 MG/0.5 ML SYRINGE SQ SCH (08:49)
[2023-12-28] MEDS: METOPROLOL TARTRATE 25 MG TAB PO SCH (08:49)
--- NOTE | 2023-12-28 09:15 | P.PN ---
Subjective Progress Note Date: 12/28/23 Principal diagnosis: Aortic valvular insufficiency, coronary artery disease, declining left ventricular ejection fraction on serial echocardiography. Past medical history significant for coronary artery disease with previous PCI to the mid LAD in April 2020, hypertension, hyperlipidemia, asthma, benign prostatic hypertrophy, osteoarthritis, occasional marijuana use and is a lifetime non- smoker. POD #4 Aortic valve replacement with 27 mm Medtronic Avalus bovine pericardial valve prosthesis, CABG x 2 with GOETZ to LAD and saphenous vein graft to obtuse marginal, endovascular vein harvest greater saphenous vein from the left thigh, ligation of the left atrial appendage with 35mm AtriCure clip, [place] by anesthesia. Postoperative acute blood loss anemia and thrombocytopenia, expected given hemodilution, cardiopulmonary bypass and his preoperative thrombocytopenia. Paroxysmal atrial fibrillation, known common occurrence after open heart surgery, not a complication The patient was seen and examined in follow-up today December 28, 2023 at his bedside in the intensive care unit. He is currently sitting up to the bedside chair, is awake, alert, oriented x 3 and is in no acute apparent distress. He denies any complaints of shortness of breath at this time, and states his pain is well-controlled on his current pain medication regimen, currently rating his pain 1-2 out of 10 on the pain scale. Oxygen saturations are 97% on room air and he is achieving 1000 mL on his incentive spirometry with much encouragement. Bedside telemetry is showing atrial fibrillation with a heart rate of 97 bpm. He remains hemodynamically stable and is currently on no inotropic or pressor support. He did receive 1 unit of packed red blood cells on December 26, 2023 for hemoglobin of 6.3, hemoglobin today is 7.6. Atrial and ventricular epicardial pacemaker wires remain in place and connected to backup bedside pacemaker generator on a VVI 50 bpm. He remains on diuretics Lasix 40 mg IV twice daily. Chest x-ray and laboratory results reviewed. Objective - Vital Signs Vital signs: Vital Signs Temp 98.0 F 12/28/23 04:00 Pulse 101 H 12/28/23 08:00 Resp 19 12/28/23 08:00 BP 148/92 12/28/23 07:00 Pulse Ox 98 12/28/23 07:00 FiO2 50 12/24/23 16:35 Intake & Output 12/27/23 12/28/23 12/28/23 18:59 06:59 18:59 Intake Total 226 1590 100 Output Total 1100 800 0 Balance -874 790 100 Weight 88.9 kg 88.4 kg Intake: IV 26 Pressure Bag (0.9 sodium 6 chloride Sodium Chloride 0.9% 1, 20 000 ml @ 20 mls/hr IV . Q24H [facility] Rx#:[id number] Intake, IV Titration 100 Amount Magnesium Sulfate-D5w Pmx 100 1 gm In Dextrose/Water 1 100ml.bag @ 100 mls/hr IVPB ONCE ONE Rx#: [id number] Oral 200 1590 Output: Urine 1100 800 0 Other: Voiding Method Urinal Urinal Urinal # Voids 1 ABP, PAP, CO, CI - Last Documented Arterial Blood Pressure 98/53 Pulmonary Artery Pressure 41/7 Cardiac Output 4.4 Cardiac Index 2.3 - Exam CONSTITUTIONAL: Sitting up to the bedside chair in the intensive care unit, appe ars comfortable, cooperative, no apparent acute distress. HEENT: Neck is supple, no JVD, no lymphadenopathy. RESPIRATORY: Lungs sounds essentially clear throughout, diminished to his bilateral bases, right greater than left. Respirations are symmetrical and nonlabored. Currently on room air with oxygen saturations 97%. Able to achieve 1000 mL on his incentive spirometry. Strong cough. CARDIOVASCULAR: Regular rhythm and rate. S1 and S2 present, negative for S3, gallop or murmur. Bedside telemetry is showing atrial fibrillation heart rate 97 bpm. Sternum is stable. Palpable peripheral pulses bilaterally. No calf pain or tenderness noted. Heart hugger in place with patient demonstrating appropriate use. Knee-high FAITH hose and sequential compression devices in place to his bilateral lower extremities. GASTROINTESTINAL: Abdomen soft, nontender, nondistended. Active bowel sounds present 4 quadrants. Tolerating diet. Passing flatus. No guarding or rigidity. Bowel movement yesterday December 27, 2023. GENITOURINARY: Continues to void. Urine output 400 mL in the last 8 hours. INTEGUMENTARY: Skin is warm and dry with no evidence of clubbing or cyanosis. Midline sternal incision clean dry and well approximated, covered with dry intact dressing. Left lower extremity EVH sites well approximated without redness or drainage. NEUROLOGIC: Cranial nerves II through XII intact. No focal deficits. MUSKULOSKELETAL: Able to move all extremities, strength equal bilaterally, generalized weakness. PSYCHIATRIC: Alert and oriented to person place and time, appropriate affect, intact judgment and insight. INVASIVE LINES AND TUBES: Atrial and ventricular epicardial pacemaker wires present, connected to generator, VVI mode of 50 bpm. - Allied health notes Allied health notes reviewed: nursing - Labs CBC & Chem 7: 12/28/23 04:51 12/28/23 04:51 Labs: Abnormal Lab Results - Last 24 Hours (Table) 12/18/23 12/27/23 12/27/23 Range/Units 10:44 11:05 16:16 RBC (4.30-5.90) m/uL Hgb (13.0-17.5) gm/dL Hct (39.0-53.0) % Plt Count (150-450) k/uL Sodium (137-145) mmol/L Chloride (98-107) mmol/L BUN (9-20) mg/dL Glucose (74-99) mg/dL POC Glucose (mg/dL) 152 H 130 H (70-110) mg/dL Crossmatch See Detail 12/27/23 12/28/23 12/28/23 Range/Units 19:56 04:51 04:51 RBC 2.44 L (4.30-5.90) m/uL Hgb 7.6 L (13.0-17.5) gm/dL Hct 22.4 L (39.0-53.0) % Plt Count 76 L (150-450) k/uL Sodium 127 L (137-145) mmol/L Chloride 97 L (98-107) mmol/L BUN 32 H (9-20) mg/dL Glucose 121 H (74-99) mg/dL POC Glucose (mg/dL) 152 H (70-110) mg/dL Crossmatch 12/28/23 Range/Units 05:52 RBC (4.30-5.90) m/uL Hgb (13.0-17.5) gm/dL Hct (39.0-53.0) % Plt Count (150-450) k/uL Sodium (137-145) mmol/L Chloride (98-107) mmol/L BUN (9-20) mg/dL Glucose (74-99) mg/dL POC Glucose (mg/dL) 141 H (70-110) mg/dL Crossmatch - Imaging and Cardiology Chest x-ray: report reviewed, image reviewed Assessment and Plan Assessment: Severe aortic regurgitation status post aortic valve replacement with 27 mm Me dtronic Avalus bovine pericardial valve prosthesis Coronary artery disease with previous PCI to the mid LAD in April 2020, patent mid LAD stent and circumflex lesion in the range of 55% on today's heart catheterization, status post coronary artery bypass grafting x 2 vessels, left internal mammary artery to the left anterior descending coronary artery and a saphenous vein graft to the obtuse marginal coronary artery Hypertension Hyperlipidemia, treated preoperative LDL 49.1, HDL 54.0, cholesterol 118 Right internal carotid artery stenosis 50-79% Asthma, with a preoperative FEV1 2.05 75% of predicted value Benign prostatic hypertrophy Occasional marijuana use Lifelong non-smoker Postoperative acute blood loss anemia and thrombocytopenia, expected given hemodilution and cardiopulmonary bypass and preoperative thrombocytopenia Paroxysmal atrial fibrillation, status post ligation of the left atrial appendage Plan: Continue to maximize medical therapy with low-dose aspirin, statin, Plavix and beta-aimee. Will increase metoprolol to tartrate to 25 mg p.o. twice daily. Continue amiodarone 400 mg p.o. twice daily. No anticoagulation at this time until epicardial pacemaker wires are removed. Wean oxygen as tolerated. Encourage incentive spirometry 10 times every hour while awake. Bronchodilators per pulmonology. Increase activity, ambulate as tolerated. PT/OT/cardiac rehab following. Will monitor daily labs and chest x-rays. Electrolyte replacement per protocol. Continue Lasix 40 mg twice daily. No blood transfusion today. Continue ferrous sulfate and vitamin C. GI/DVT prophylaxis. Insulin management per internal medicine. The patient is a not diabetic, with a preoperative hemoglobin A1c 6.1% Pain control with current medication regimen. Continue to monitor strict accurate intake and output. Continue home dose of Flomax Keep epicardial pacer at backup rate 50 BPM Continue fluid restrictions. Sodium is 127 today. Keep in the intensive care unit for another 24 hours due to connection to the epicardial pacemaker More recommendations to follow based on patient's clinical course. Time with Patient: Greater than 30
--- NOTE | 2023-12-28 10:08 | US ---
EXAMINATION TYPE: US chest DATE OF EXAM: 12/28/2023 COMPARISON: X-ray 12/28/23 CLINICAL INDICATION: Male, 78 years old with history of Right pleural effusion; rt pleural effusion TECHNIQUE: Targeted ultrasound of the posterior lower right hemithorax EXAM MEASUREMENTS: Right Pleural Effusion pocket size: 4.8 cm Right skin surface to fluid distance: 3.1 cm Right side marked for possible thoracentesis outside the dept. Pulmonologists are able to review the images in the patient?s EMR. IMPRESSIONS: 1. Small right pleural effusion
[2023-12-28 12:21] LABS: Glucose,Whole Blood 171 mg/dL (70-110)
[2023-12-28] MEDS: ASCORBIC ACID 500 MG TAB PO SCH (12:39)
--- NOTE | 2023-12-28 13:31 | PN ---
PROGRESS NOTE SUBJECTIVE: Mr. Noriega is a 78-year-old gentleman, who was admitted to hospital for aortic valve replacement and bypass surgery. Today is postop day #4. His perioperative course is complicated by acute blood loss anemia and need for blood transfusion and also thrombocytopenia. He is in atrial fibrillation with poorly controlled ventricular rate and currently on amiodarone. He is not a candidate for anticoagulation. The patient is currently on amiodarone 400 b.i.d., Lasix 40 IV q.12, Lopressor 25 b.i.d. OBJECTIVE: VITAL SIGNS: Heart rate is 100 beats per minute, blood pressure is 110/70, respiratory rate is 18. CHEST: Reveals diminished air entry at the bases. HEART: Reveals first and second heart sounds. No gallop. No murmur. ABDOMEN: Soft, nontender. EXTREMITIES: Reveals mild edema. Peripheral pulses are felt. ASSESSMENT: 1. Coronary artery disease, status post coronary artery bypass graft. 2. Aortic regurgitation, status post aortic valve replacement. 3. Acute blood loss anemia, status post transfusion, hemoglobin is around 7.6, thrombocytopenia with increasing platelet count. 4. Persistent atrial fibrillation with poorly controlled ventricular rate. PLAN: We will continue the patient on his current medications. We will work on incentive spirometry. MMODL / IJN: [id number] /
--- NOTE | 2023-12-28 13:32 | P.PN ---
Subjective Progress Note Date: 12/28/23 Principal diagnosis: POD #4 aortic valve replacement with 27 mm Medtronic Avalus bovine pericardial valve prosthesis, CABG x 2 with GOETZ to LAD and saphenous vein graft to obtuse marginal, endovascular vein harvest greater saphenous vein from the left thigh, ligation of the left atrial appendage with 35mm AtriCure clip, [place] by anesthesia. This is a 78-year-old male patient with a known history of coronary artery disease with previous PCI to the mid LAD, hypertension, hyperlipidemia, benign prostatic hyperplasia, non-smoker. He was also recently found to have severe aortic regurgitation with moderate mitral regurgitation, coronary artery disease and declining left ventricular ejection fraction. He was brought in today electively for surgery. He had undergone aortic valve replacement with a Medtronic Avallis bovine pericardial valve prosthesis, CABG x 2 with a GOETZ to the LAD and SVG to the obtuse marginal. He is seen today in the postoperative period in the intensive care unit. He is not abated on the mechanical ventilator and assist-control mode at a rate of 12, tidal volume 400, FiO2 50% and a PEEP of 5. Arterial blood gases revealed a PaO2 of 267, pCO2 of 42 and a pH of 7.36 on 100% FiO2. White count 6.2. Hemoglobin 9.7. Platelets 86,000. Sodium 133. Potassium 4.4. Bicarb 22. BUN 10. Creatinine 0.69. Glucose 132. Albumin 2.5. He did receive albumin. He is on an insulin drip at 1.5 units/h. Nitroglycerin drip at 5 mcg/min and currently off propofol. He has been transitioned to pressure support of 5 and a PEEP of 5. Will plan for early extubation protocol as tolerated. PA pressures 32/14, CVP of 6 cardiac output 4.4. Cardiac index 2.3. Chest x-ray reveals streaky opacities in the left upper lung field likely atelectasis. Mild increased opacity in the right upper lung field. Vancourt-Jeremy catheter is present in the main pulmonary artery. Right- sided chest tube present. No evidence of pneumothorax. Mediastinal tube is p resent. Endotracheal tube and nasogastric tubes in position. Epicardial leads are present. Patient was evaluated today on 12/25/2023, patient is on 2 L nasal cannula, extubated yesterday at 4:35 PM, tolerated the extubation well. Patient is now on 2 L nasal cannula, he is on amiodarone at 0.5 mg/min, he is also on insulin at 1.5 units/h, IV fluid 0.9 normal saline at 50 cc/h. Patient is sitting at the bedside chair, awake oriented x 3, not in any distress, not requiring any pressors not requiring any inotropes. Cardiac output is 5.1 cardiac index is 2.7 PA pressure 29/12 CVP is 6 SVR is 1191. Mediastinal and left pleural chest tubes remain in place to low suction. No air leak noted and no evidence of pneumothorax on the chest x-ray, there is evidence however of right basilar atelectasis.WBC count is 6.6 hemoglobin 7.4. Basic metabolic profile is normal renal profile is normal Patient was evaluated today on 12/26/2023, patient is now postoperative day #2. Patient is receiving a unit of packed RBCs for low hemoglobin of 6.3, pulmonary casey does not seem to be in any distress, he is on 2 L nasal cannula and his O2 saturation is in the 90s. Chest x-ray is showing evidence of fluid overload/pulmonary edema and pleural effusions, hence the patient is receiving Lasix by thoracic surgery ordered today. Continues to have right internal jugular Cordis with right radial arterial line, mediastinal/left chest tubes remain in place. Clinically the patient is doing well, he is not requiring any inotropes or any pressors. Patient was evaluated today on 12/27/2023, patient is now postoperative day #3. Patient is comfortable, sitting in a bedside recliner, developed atrial fibr illation with RVR yesterday, and he was restarted on amiodarone, remained hemodynamically stable, patient also developed some mild pulmonary vascular congestion and he received Lasix by surgery. This morning he does not seem to be short of breath, he is on 2 L nasal cannula, not in any distress. Yesterday he did receive 1 unit of packed RBCs for low hemoglobin however his hemoglobin today is 7.3. Chest x-ray continues to show cardiomegaly, right lower lobe atelectasis and possibly a small pleural effusion on the right side Patient elevated today on 12/28/2023, patient is in a bedside recliner, doing fairly well, he has no active symptoms whatsoever. Denies any pain denies any shortness of breath, he had a chest x-ray this morning showing a small right- sided pleural effusion, ultrasound showed a 4.8 cm pocket, hence no plans to perform thoracentesis as the pocket of fluid seems to be relatively small. In the meantime the patient has been receiving diuretics, he is maintaining hemog lobin around 7.6, he did receive 1 unit of packed RBCs back on 12/25. Remains on Lasix 40 mg IV push twice daily, WBC 7.3 hemoglobin 7.6 sodium is a bit low at 127 potassium 4.3 BUN is 32 creatinine 0.87 his hyponatremia is felt to be most likely hypovolemic related hyponatremia Objective - Vital Signs Vital signs: Vital Signs Temp 97.6 F 12/28/23 08:00 Pulse 112 H 12/28/23 11:00 Resp 22 12/28/23 11:00 BP 107/66 12/28/23 11:00 Pulse Ox 93 L 12/28/23 10:00 FiO2 50 12/24/23 16:35 Intake & Output 12/27/23 12/28/23 12/28/23 18:59 06:59 18:59 Intake Total 226 1590 100 Output Total 1100 800 150 Balance -874 790 -50 Weight 88.9 kg 88.4 kg Intake: IV 26 Pressure Bag (0.9 sodium 6 chloride Sodium Chloride 0.9% 1, 20 000 ml @ 20 mls/hr IV . Q24H [facility] Rx#:[id number] Intake, IV Titration 100 Amount Magnesium Sulfate-D5w Pmx 100 1 gm In Dextrose/Water 1 100ml.bag @ 100 mls/hr IVPB ONCE ONE Rx#: [id number] Oral 200 1590 Output: Urine 1100 800 150 Other: Voiding Method Urinal Urinal Urinal # Voids 1 1 ABP, PAP, CO, CI - Last Documented Arterial Blood Pressure 98/53 Pulmonary Artery Pressure 41/7 Cardiac Output 4.4 Cardiac Index 2.3 - Exam CONSTITUTIONAL: 78-year-old in no apparent distress on room air HEENT: Right IJ Cordis noted in place. RESPIRATORY: Diminished breath sound bilaterally mostly at the right base. No crackles rhonchi or wheezes CARDIOVASCULAR: Regular normal S1-S2, 2/6 systolic murmur throughout the precordium GASTROINTESTINAL: Soft nontender no megaly no rebound no guarding. INTEGUMENTARY: No rashes NEUROLOGIC: Alert oriented x 3 no gross focal deficit MUSKULOSKELETAL: No deformities and no limitation range of motion PSYCHIATRIC: Normal mood affect and no mental status examination - Labs CBC & Chem 7: 12/28/23 04:51 12/28/23 04:51 Labs: Abnormal Lab Results - Last 24 Hours (Table) 12/18/23 12/27/23 12/27/23 Range/Units 10:44 16:16 19:56 RBC (4.30-5.90) m/uL Hgb (13.0-17.5) gm/dL Hct (39.0-53.0) % Plt Count (150-450) k/uL Sodium (137-145) mmol/L Chloride (98-107) mmol/L BUN (9-20) mg/dL Glucose (74-99) mg/dL POC Glucose (mg/dL) 130 H 152 H (70-110) mg/dL Crossmatch See Detail 12/28/23 12/28/23 12/28/23 Range/Units 04:51 04:51 05:52 RBC 2.44 L (4.30-5.90) m/uL Hgb 7.6 L (13.0-17.5) gm/dL Hct 22.4 L (39.0-53.0) % Plt Count 76 L (150-450) k/uL Sodium 127 L (137-145) mmol/L Chloride 97 L (98-107) mmol/L BUN 32 H (9-20) mg/dL Glucose 121 H (74-99) mg/dL POC Glucose (mg/dL) 141 H (70-110) mg/dL Crossmatch 12/28/23 Range/Units 12:19 RBC (4.30-5.90) m/uL Hgb (13.0-17.5) gm/dL Hct (39.0-53.0) % Plt Count (150-450) k/uL Sodium (137-145) mmol/L Chloride (98-107) mmol/L BUN (9-20) mg/dL Glucose (74-99) mg/dL POC Glucose (mg/dL) 171 H (70-110) mg/dL Crossmatch Assessment and Plan Assessment: Impression: Severe aortic regurgitation status post aortic valve replacement with 27 mm Medtronic Avalus bovine pericardial valve prosthesis Coronary artery disease status post coronary artery bypass grafting x 2 vessels, left internal mammary artery to the left anterior descending coronary artery and a saphenous vein graft to the obtuse marginal coronary artery, postoperative day #4 Benign essential hypertension Dyslipidemia History of mild asthma with preoperative FEV1 of 75% BPH Non-smoker Postoperative atelectasis/expected Acute blood loss anemia requiring a unit of packed RBCs today Acute diastolic congestive heart failure requiring diuretics Postoperative atrial fibrillation with RVR, expected Right-sided pleural effusion Hypervolemic hyponatremia Recommendation: Reviewed ultrasound of the chest, no need for thoracentesis at this point as the pocket seems to be relatively small Continue maximal medical therapy including Plavix beta-aimee aspirin and statin Continue amiodarone Remittent diuresis Incentive spirometry Ambulate Will continue to follow Time with Patient: Less than 30
--- NOTE | 2023-12-28 15:10 | CA ---
Transthoracic Echo Report Name: Navjot Noriega Age: 78 Gender: M : 1945 Exam Date: 12/27/2023 15:53 Exam Location: [facility] Ht (in): 67 Wt (lb): 195 Ordering Physician: Irina Puri Attending/Referring Phys: [id number], Khushi Senior Financial Portia Lagos RDCS Procedure CPT: Indications: LV function, S/P AVR Cardiac Hx: Technical Quality: Fair Contrast 1: Total Dose (mL): Contrast 2: Total Dose (mL): MEASUREMENTS (Male / Female) Normal Values 2D ECHO LV Diastolic Diameter PLAX 4.2 cm 4.2 - 5.9 / 3.9 - 5.3 cm LV Systolic Diameter PLAX 2.8 cm IVS Diastolic Thickness 1.8 cm 0.6 - 1.0 / 0.6 - 0.9 cm LVPW Diastolic Thickness 1.7 cm 0.6 - 1.0 / 0.6 - 0.9 cm LV Relative Wall Thickness 0.8 DOPPLER AV Peak Velocity 197.5 cm/s AV Peak Gradient 15.6 mmHg AV Mean Velocity 126.1 cm/s AV Mean Gradient 7.8 mmHg AV Velocity Time Integral 34.5 cm FINDINGS Left Ventricle Moderately increased left ventricular wall thickness. Abnormal (paradoxical) septal motion consistent with postoperative state. Left ventricular ejection fraction is estimated at 25-30 %. Right Ventricle Right Atrium Left Atrium Mitral Valve Aortic Valve Normally functioning bioprosthetic aortic valve without stenosis with a peak velocity of 2 m/s, peak gradient 16 mmHg, mean gradient 8 mmHg. No paravalvular aortic regurgitation. No central aortic regurgitation. Tricuspid Valve Pulmonic Valve Pericardium No pericardial effusion. Aorta CONCLUSIONS Paradoxical septal motion Left ventricular ejection fraction 25-30% Moderately increased left ventricular wall thickness Normally functioning bioprosthetic aortic valve Previewed by: Dr. Fantasma Zhang DO (Electronically Signed) Final Date: 28 December 2023 15:09
[2023-12-28 16:37] LABS: Glucose,Whole Blood 149 mg/dL (70-110)
[2023-12-28] MEDS: FUROSEMIDE 10 MG/ML 4 ML VIAL IV SCH (17:15)
--- NOTE | 2023-12-28 17:19 | P.PN ---
Subjective Progress Note Date: 12/28/23 Principal diagnosis: S/p cabg Patient feeling weak, denies any complaints of shortness of breath at this time, and states his pain is well-controlled on his current pain medication regimen, currently rating his pain 1-2 out of 10 on the pain scale. Went into atrial fibrillation with a rapid heart rate, BP ok. Objective - Vital Signs Vital signs: Vital Signs Temp 96.0 F L 12/28/23 12:18 Pulse 93 12/28/23 16:25 Resp 15 12/28/23 15:07 BP 103/61 12/28/23 15:07 Pulse Ox 97 12/28/23 15:58 FiO2 50 12/24/23 16:35 Intake & Output 12/27/23 12/28/23 12/28/23 18:59 06:59 18:59 Intake Total 226 1590 350 Output Total 1100 800 170 Balance -874 790 180 Weight 88.9 kg 88.4 kg 88.4 kg Intake: IV 26 Pressure Bag (0.9 sodium 6 chloride Sodium Chloride 0.9% 1, 20 000 ml @ 20 mls/hr IV . Q24H [facility] Rx#:[id number] Intake, IV Titration 100 Amount Magnesium Sulfate-D5w Pmx 100 1 gm In Dextrose/Water 1 100ml.bag @ 100 mls/hr IVPB ONCE ONE Rx#: [id number] Oral 200 1590 250 Output: Urine 1100 800 170 Other: Voiding Method Urinal Urinal Urinal # Voids 1 1 # Bowel Movements 1 ABP, PAP, CO, CI - Last Documented Arterial Blood Pressure 98/53 Pulmonary Artery Pressure 41/7 Cardiac Output 4.4 Cardiac Index 2.3 - Labs CBC & Chem 7: 12/28/23 04:51 12/28/23 04:51 Labs: Abnormal Lab Results - Last 24 Hours (Table) 12/18/23 12/27/23 12/28/23 Range/Units 10:44 19:56 04:51 RBC 2.44 L (4.30-5.90) m/uL Hgb 7.6 L (13.0-17.5) gm/dL Hct 22.4 L (39.0-53.0) % Plt Count 76 L (150-450) k/uL Sodium (137-145) mmol/L Chloride (98-107) mmol/L BUN (9-20) mg/dL Glucose (74-99) mg/dL POC Glucose (mg/dL) 152 H (70-110) mg/dL Crossmatch See Detail 12/28/23 12/28/23 12/28/23 Range/Units 04:51 05:52 12:19 RBC (4.30-5.90) m/uL Hgb (13.0-17.5) gm/dL Hct (39.0-53.0) % Plt Count (150-450) k/uL Sodium 127 L (137-145) mmol/L Chloride 97 L (98-107) mmol/L BUN 32 H (9-20) mg/dL Glucose 121 H (74-99) mg/dL POC Glucose (mg/dL) 141 H 171 H (70-110) mg/dL Crossmatch 12/28/23 Range/Units 16:35 RBC (4.30-5.90) m/uL Hgb (13.0-17.5) gm/dL Hct (39.0-53.0) % Plt Count (150-450) k/uL Sodium (137-145) mmol/L Chloride (98-107) mmol/L BUN (9-20) mg/dL Glucose (74-99) mg/dL POC Glucose (mg/dL) 149 H (70-110) mg/dL Crossmatch Assessment and Plan Plan: Diabetes with hyperglycemia Will continue with sliding scale insulin and Levemir 5 units Patient's hemoglobin A1c in November 2023 was 6.1 Will plan to discharge the patient on metformin 500 mg p.o. twice daily Blood glucose controlled Atrial fibrillation Expected outcome of surgery Started on amiodarone and lopressor Acute blood loss anemia This is expected from surgery He did receive 1 unit of packed red blood cells on December 26, 2023 for hemoglobin of 6.3, hemoglobin today is 7.6 Continue with iron supplement. hypervolemic hyponatremia likely from fluids given during the surgery Sodium this morning is 127 Patient started on IV Lasix 40 mg twice daily Coronary disease status post PCI and CABG Aortic regurgitation status post aortic valve replacement As per your CT surgery management Resume aspirin and Plavix Chronic conditions Hypertension Hyperlipidemia BPH -Continue with home medications DVT prophylaxis: Defer to primary team. Patient is on subcu heparin
[2023-12-28 19:55] LABS: Glucose,Whole Blood 165 mg/dL (70-110)
[2023-12-29 03:59] LABS: AST 87 U/L (17-59); African American GFR (CKD) 85 (>60 ml/min/1.73 sqM); Albumin 3.1 g/dL (3.5-5.0); Alkaline Phosphatase 32 U/L (38-126); Anion Gap 6 mmol/L; Basophils % (A) 0 %; Blood Urea Nitrogen 37 mg/dL (9-20); Calcium 8.9 mg/dL (8.4-10.2); Carbon Dioxide 27 mmol/L (22-30); Chloride 93 mmol/L (98-107); Eosinophils # (A) 0.1 k/uL (0-0.7); Eosinophils % (A) 2 %; Glucose 117 mg/dL (74-99); HCT 20.5 % (39.0-53.0); HGB 7.2 gm/dL (13.0-17.5); Lymphocytes # (A) 0.7 k/uL (1.0-4.8); Lymphocytes % (A) 12 %; MCH 31.6 pg (25.0-35.0); MCHC 35.2 g/dL (31.0-37.0); MCV 89.7 fL (80.0-100.0); Magnesium 1.9 mg/dL (1.6-2.3); Mean Platelet Volume 8.1; Monocytes # (A) 0.5 k/uL (0-1.0); Monocytes % (A) 8 %; Neutrophils # (A) 4.9 k/uL (1.3-7.7); Neutrophils % (A) 76 %; Non-African American GFR(CKD) 74 (>60 ml/min/1.73 sqM); RBC 2.29 m/uL (4.30-5.90); RDW 15.3 % (11.5-15.5); Sodium 126 mmol/L (137-145); Total Bilirubin 3.4 mg/dL (0.2-1.3); WBC 6.5 k/uL (3.8-10.6)
[2023-12-29 04:01] LABS: ALT 65 U/L (4-49); Platelet Count 85 k/uL (150-450); Potassium 3.9 mmol/L (3.5-5.1)
[2023-12-29 06:37] LABS: Glucose,Whole Blood 154 mg/dL (70-110)
[2023-12-29] MEDS: POTASSIUM BICARBONATE/CIT AC 20 MEQ TABLET.EFF NG-TUBE SCH (06:46)
--- NOTE | 2023-12-29 07:46 | P.PN ---
Subjective Progress Note Date: 12/29/23 Principal diagnosis: Aortic valvular insufficiency, coronary artery disease, declining left ventricular ejection fraction on serial echocardiography. Past medical history significant for coronary artery disease with previous PCI to the mid LAD in April 2020, hypertension, hyperlipidemia, asthma, benign prostatic hypertrophy, osteoarthritis, occasional marijuana use and is a lifetime non- smoker. POD #5 Aortic valve replacement with 27 mm Medtronic Avalus bovine pericardial valve prosthesis, CABG x 2 with GOETZ to LAD and saphenous vein graft to obtuse marginal, endovascular vein harvest greater saphenous vein from the left thigh, ligation of the left atrial appendage with 35mm AtriCure clip, [place] by anesthesia. Postoperative acute blood loss anemia and thrombocytopenia, expected given hemodilution, cardiopulmonary bypass and his preoperative thrombocytopenia. Paroxysmal atrial fibrillation, known common occurrence after open heart surgery, not a complication The patient was seen and examined in follow-up today December 29, 2023 at his bedside in the intensive care unit. He is currently sitting up to the bedside chair, is awake, alert, oriented x 3 and is in no acute apparent distress. Denies any complaints of pain at this time or shortness of breath. He is complaining of some generalized weakness and shortness of breath with activity and ambulation. Oxygen saturations are 96% on room air and he is achieving 1250 mL on his incentive spirometry with encouragement. The patient reports he was up ambulating in the intensive care unit hallway with standby assist from nursing and therapy staff yesterday and tolerated well although had to take several breaks due to his shortness of breath. He remains hemodynamically stable and is currently on no inotropic or pressor support. Bedside telemetry is showing atrial fibrillation heart rate 90 bpm. He remains on metoprolol to tartrate and amiodarone p.o. The patient reports he underwent his first post operative shower yesterday and tolerated well. Laboratory and chest x-ray results reviewed. Atrial and ventricular epicardial pacemaker wires remain in place and are connected to bedside backup pacemaker generator on a VVI of 50 bpm. Objective - Vital Signs Vital signs: Vital Signs Temp 98.3 F 12/29/23 04:00 Pulse 96 12/29/23 07:00 Resp 15 12/29/23 07:00 BP 134/91 12/29/23 07:00 Pulse Ox 98 12/29/23 07:00 FiO2 50 07/08/24 16:35 Intake & Output 12/28/23 12/29/23 12/29/23 18:59 06:59 18:59 Intake Total 350 Output Total 660 475 0 Balance -310 -475 0 Weight 88.4 kg 84.7 kg Intake: Intake, IV Titration 100 Amount Magnesium Sulfate-D5w Pmx 100 1 gm In Dextrose/Water 1 100ml.bag @ 100 mls/hr IVPB ONCE ONE Rx#: [id number] Oral 250 Output: Urine 660 475 0 Straight 475 Other: Voiding Method Urinal Urinal # Voids 1 # Bowel Movements 1 ABP, PAP, CO, CI - Last Documented Arterial Blood Pressure 98/53 Pulmonary Artery Pressure 41/7 Cardiac Output 4.4 Cardiac Index 2.3 - Exam CONSTITUTIONAL: Sitting up to the bedside chair in the intensive care unit, appears comfortable, cooperative, no apparent acute distress. HEENT: Neck is supple, no JVD, no lymphadenopathy. RESPIRATORY: Lungs sounds essentially clear throughout, diminished to his bilateral bases, right greater than left. Respirations are symmetrical and nonl abored. Currently on room air with oxygen saturations 96%. Able to achieve 1250 mL on his incentive spirometry. Strong cough. CARDIOVASCULAR: Regular rhythm and rate. S1 and S2 present, negative for S3, gallop or murmur. Bedside telemetry is showing atrial fibrillation heart rate 90 bpm. Sternum is stable. Palpable peripheral pulses bilaterally. No calf pain or tenderness noted. Heart hugger in place with patient demonstrating appropriate use. Knee-high FAITH hose and sequential compression devices in place to his bilateral lower extremities. GASTROINTESTINAL: Abdomen soft, nontender, nondistended. Active bowel sounds present 4 quadrants. Tolerating diet. Passing flatus. No guarding or rigidity. Bowel movement yesterday December 27, 2023. GENITOURINARY: Continues to void. Urine output 35 mL in the last 8 hours. INTEGUMENTARY: Skin is jaundiced, warm and dry with no evidence of clubbing or cyanosis. Midline sternal incision clean dry and well approximated, covered with dry intact dressing. Left lower extremity EVH sites well approximated without redness or drainage. NEUROLOGIC: Cranial nerves II through XII intact. No focal deficits. MUSKULOSKELETAL: Able to move all extremities, strength equal bilaterally, generalized weakness. PSYCHIATRIC: Alert and oriented to person place and time, appropriate affect, intact judgment and insight. INVASIVE LINES AND TUBES: Atrial and ventricular epicardial pacemaker wires present, connected to generator, VVI mode of 50 bpm. - Allied health notes Allied health notes reviewed: nursing - Labs CBC & Chem 7: 12/29/23 03:03 12/29/23 03:03 Labs: Abnormal Lab Results - Last 24 Hours (Table) 12/28/23 12/28/23 12/28/23 Range/Units 12:19 16:35 19:53 RBC (4.30-5.90) m/uL Hgb (13.0-17.5) gm/dL Hct (39.0-53.0) % Plt Count (150-450) k/uL Lymphocytes # (1.0-4.8) k/uL Sodium (137-145) mmol/L Chloride (98-107) mmol/L BUN (9-20) mg/dL Glucose (74-99) mg/dL POC Glucose (mg/dL) 171 H 149 H 165 H (70-110) mg/dL Total Bilirubin (0.2-1.3) mg/dL AST (17-59) U/L ALT (4-49) U/L Alkaline Phosphatase (38-126) U/L Total Protein (6.3-8.2) g/dL Albumin (3.5-5.0) g/dL 12/29/23 12/29/23 12/29/23 Range/Units 03:03 03:03 06:35 RBC 2.29 L (4.30-5.90) m/uL Hgb 7.2 L (13.0-17.5) gm/dL Hct 20.5 L (39.0-53.0) % Plt Count 85 L (150-450) k/uL Lymphocytes # 0.7 L (1.0-4.8) k/uL Sodium 126 L (137-145) mmol/L Chloride 93 L (98-107) mmol/L BUN 37 H (9-20) mg/dL Glucose 117 H (74-99) mg/dL POC Glucose (mg/dL) 154 H (70-110) mg/dL Total Bilirubin 3.4 H (0.2-1.3) mg/dL AST 87 H (17-59) U/L ALT 65 H (4-49) U/L Alkaline Phosphatase 32 L (38-126) U/L Total Protein 5.0 L (6.3-8.2) g/dL Albumin 3.1 L (3.5-5.0) g/dL - Imaging and Cardiology Chest x-ray: report reviewed, image reviewed Assessment and Plan Assessment: Severe aortic regurgitation status post aortic valve replacement with 27 mm Medtronic Avalus bovine pericardial valve prosthesis Coronary artery disease with previous PCI to the mid LAD in April 2020, patent mid LAD stent and circumflex lesion in the range of 55% on today's heart catheterization, status post coronary artery bypass grafting x 2 vessels, left internal mammary artery to the left anterior descending coronary artery and a saphenous vein graft to the obtuse marginal coronary artery Hypertension Hyperlipidemia, treated preoperative LDL 49.1, HDL 54.0, cholesterol 118 Right internal carotid artery stenosis 50-79% Asthma, with a preoperative FEV1 2.05 75% of predicted value Benign prostatic hypertrophy Occasional marijuana use Lifelong non-smoker Postoperative acute blood loss anemia and thrombocytopenia, expected given hemodilution and cardiopulmonary bypass and preoperative thrombocytopenia Paroxysmal atrial fibrillation, status post ligation of the left atrial appen dage Plan: Continue to maximize medical therapy with low-dose aspirin, statin, Plavix and beta-aimee. Will increase metoprolol tartrate to 50 mg p.o. twice daily. Continue amiodarone 400 mg p.o. twice daily. No anticoagulation at this time until epicardial pacemaker wires are removed. Wean oxygen as tolerated. Encourage incentive spirometry 10 times every hour while awake. Bronchodilators per pulmonology. Increase activity, ambulate as tolerated. PT/OT/cardiac rehab following. Will monitor daily labs and chest x-rays. Electrolyte replacement per protocol. Continue Lasix 40 mg twice daily. No blood transfusion today. Continue ferrous sulfate and vitamin C. GI/DVT prophylaxis. Insulin management per internal medicine. The patient is a not diabetic, with a preoperative hemoglobin A1c 6.1% Pain control with current medication regimen. Continue to monitor strict accurate intake and output. Continue home dose of Flomax. Keep epicardial pacer at backup rate 50 BPM Continue fluid restrictions. Sodium is 126 today. Keep in the intensive care unit for another 24 hours due to connection to the epicardial pacemaker More recommendations to follow based on patient's clinical course. Time with Patient: Greater than 30
--- NOTE | 2023-12-29 08:25 | XR ---
EXAMINATION TYPE: XR chest 2V DATE OF EXAM: 12/29/2023 COMPARISON: 12/28/2023 INDICATION: Post CABG TECHNIQUE: Single frontal view of the chest is obtained. FINDINGS: The heart size is enlarged. The pulmonary vasculature is normal. Moderate right pleural effusion is present. Minimal left pleural effusion is present. IMPRESSION: 1. Moderate minimal left pleural effusions. 2. Cardiomegaly.
[2023-12-29] MEDS: MAGNESIUM SULFATE-D5W PMX 1 GM in DEXTROSE/WATER 1 100ML.BAG IVPB ONE (09:26)
[2023-12-29] MEDS: METOPROLOL TARTRATE 50 MG TAB PO SCH (09:27)
[2023-12-29] MEDS: FUROSEMIDE 10 MG/ML 4 ML VIAL IV STA (09:28)
--- NOTE | 2023-12-29 11:18 | P.NPCON ---
History of Present Illness - Reason for Consult hyponatremia - History of Present Illness Patient reason for consultation: Hyponatremia History of present illness: Patient is a 78-year-old male seen in renal consultation for hyponatremia. Sodium level on admission December 24, 2023 was 133 and is now down to 126. Patient underwent aortic valve replacement as well as CABG on December 24, 2023. Patient's ejection fraction is noted to be 25 to 30%. He has been voiding but small amounts. He did require straight catheterization this admission. No vomiting or diarrhea. Oral intake is just fair. Does not like the food in the hospital. Does have history of prior cardiac stent placement. No gross hematuria or dysuria. Denies history of malignancy. Noted to have pleural effusions. Repeat ultrasound pending. Hemodynamically stable. Hemoglobin did drop down to 6.3 this admission for which she received a unit of blood. No active bleeding. Vital signs are stable. General: No acute distress. HEENT: Head exam is unremarkable. LUNGS: No audible rhonchi or wheezes. HEART: Rate and Rhythm are regular. ABDOMEN: Nontender. EXTREMITITES: No edema. Past Medical History Past Medical History: Coronary Artery Disease (CAD), COPD, Hyperlipidemia, Hypertension, Prostate Disorder Additional Past Medical History / Comment(s): Aortic Valve Regurgitation, BPH History of Any Multi-Drug Resistant Organisms: None Reported Past Surgical History: Heart Catheterization With Stent, Joint Replacement, Orthopedic Surgery Additional Past Surgical History / Comment(s): neisha shoulder rotator cuff, left knee replacement, rt knee arthrosocpy, one cardiac stent Past Anesthesia/Blood Transfusion Reactions: No Reported Reaction Additional Past Anesthesia/Blood Transfusion Reaction / Comment(s): no hx blood transfusions Date of Last Stent Placement:: 2019 Past Psychological History: No Psychological Hx Reported Smoking Status: Never smoker Past Alcohol Use History: Rare Past Drug Use History: Marijuana Additional Drug Use History / Comment(s): gummie occasionally, pt aware not to use 24 hr before procedure - Past Family History Mother Family Medical History: No Reported History Medications and Allergies Home Medications Medication Instructions Recorded Confirmed Type Aspirin [Adult Low Dose Aspirin EC] 81 mg PO DAILY 05/03/20 12/24/23 History Atorvastatin [Lipitor] 40 mg PO HS 05/03/20 12/24/23 History Cholecalciferol [Vitamin D3 (25 2,000 unit PO QAM 05/03/20 12/24/23 History Mcg = 1000 Iu)] Losartan [Cozaar] 25 mg PO HS 05/03/20 12/24/23 History Metoprolol Tartrate 12.5 mg PO BID 05/03/20 12/24/23 History Tamsulosin HCl [Flomax] 0.4 mg PO QAM 12/05/23 12/24/23 History Allergies Allergy/AdvReac Type Severity Reaction Status Date / Time No Known Allergies Allergy Verified 12/24/23 06:13 Physical Exam Vitals: Vital Signs Temp Pulse Pulse Resp BP Pulse Ox 12/29/23 10:00 107 H 11 L 106/88 92 L 12/29/23 09:41 114 H 12/29/23 09:30 114 H 12/29/23 09:00 96.3 F L 96 10 L 134/91 96 12/29/23 08:00 95 13 114/80 94 L 12/29/23 07:00 96 15 134/91 98 12/29/23 06:40 103 H 15 134/91 99 12/29/23 05:00 98 13 104/80 98 12/29/23 04:00 98.3 F 94 20 134/91 97 12/29/23 03:00 89 23 123/60 99 12/29/23 02:00 84 12 112/74 100 12/29/23 01:00 90 15 122/87 99 12/29/23 00:07 97 13 122/87 98 12/29/23 00:00 97.6 F 102 H 17 113/78 100 12/28/23 23:00 104 H 22 112/87 99 12/28/23 22:00 96 16 101/80 100 12/28/23 21:10 96 12/28/23 21:02 97 12/28/23 21:01 97 11 L 101/80 100 12/28/23 20:00 98.0 F 103 H 23 104/75 98 12/28/23 19:00 87 14 116/91 99 12/28/23 18:00 100 15 101/80 98 12/28/23 17:00 93 18 107/69 95 12/28/23 16:25 93 12/28/23 16:00 98.4 F 82 87 21 103/61 100 12/28/23 15:58 97 12/28/23 15:54 89 12/28/23 15:07 96 15 103/61 100 12/28/23 14:00 79 12 105/61 99 12/28/23 13:00 96 13 109/94 12/28/23 12:18 96.0 F L 106 H 14 103/61 Intake and Output 12/28/23 12/29/23 12/29/23 22:59 06:59 14:59 Intake Total 318 Output Total 615 350 50 Balance -615 -350 268 Intake: Oral 318 Output: Urine 615 350 50 Straight 475 Other: Voiding Method Urinal Urinal Weight 88.4 kg 84.7 kg Results - Lab Results Most recent lab results ABG pH 7.36 (7.35-7.45) 12/24/23 16:17 ABG pCO2 43 mmHg (35-45) 12/24/23 16:17 ABG pO2 107 mmHg (83-108) 12/24/23 16:17 ABG HCO3 24 mmol/L (21-25) 12/24/23 16:17 ABG O2 Saturation 98.8 % (94-97) H 12/24/23 16:17 Calcium 8.9 mg/dL (8.4-10.2) 12/29/23 03:03 Magnesium 1.9 mg/dL (1.6-2.3) 12/29/23 03:03 12/29/23 03:03 12/29/23 03:03 Assessment and Plan Plan: Assessment: 1. Hyponatremia, hypervolemic in view of pleural effusions. Sodium level 126 today. 2. Acute systolic CHF ejection fraction of 25 to 30%. 3. Coronary disease status post CABG and aortic valve replacement December 24, 2023. 4. Acute blood loss anemia status post blood transfusion this admission. Hemoglobin 7.2 today. Plan: Maintain IV Lasix. Maintain fluid restriction. Stop sodium chloride tabs. Check serum and urine osmolality and urine sodium level. Check TSH. Repeat labs in the morning. Thank you for the consultation. I will continue to follow the patient with you during his hospital stay.
--- NOTE | 2023-12-29 11:19 | P.PN ---
Subjective Progress Note Date: 12/29/23 Principal diagnosis: POD #5 aortic valve replacement with 27 mm Medtronic Avalus bovine pericardial valve prosthesis, CABG x 2 with GOETZ to LAD and saphenous vein graft to obtuse marginal, endovascular vein harvest greater saphenous vein from the left thigh, ligation of the left atrial appendage with 35mm AtriCure clip, [place] by anesthesia. This is a 78-year-old male patient with a known history of coronary artery disease with previous PCI to the mid LAD, hypertension, hyperlipidemia, benign prostatic hyperplasia, non-smoker. He was also recently found to have severe aortic regurgitation with moderate mitral regurgitation, coronary artery disease and declining left ventricular ejection fraction. He was brought in today electively for surgery. He had undergone aortic valve replacement with a Medtronic Avallis bovine pericardial valve prosthesis, CABG x 2 with a GOETZ to the LAD and SVG to the obtuse marginal. He is seen today in the postoperative period in the intensive care unit. He is not abated on the mechanical ventilator and assist-control mode at a rate of 12, tidal volume 400, FiO2 50% and a PEEP of 5. Arterial blood gases revealed a PaO2 of 267, pCO2 of 42 and a pH of 7.36 on 100% FiO2. White count 6.2. Hemoglobin 9.7. Platelets 86,000. Sodium 133. Potassium 4.4. Bicarb 22. BUN 10. Creatinine 0.69. Glucose 132. Albumin 2.5. He did receive albumin. He is on an insulin drip at 1.5 units/h. Nitroglycerin drip at 5 mcg/min and currently off propofol. He has been transitioned to pressure support of 5 and a PEEP of 5. Will plan for early extubation protocol as tolerated. PA pressures 32/14, CVP of 6 cardiac output 4.4. Cardiac index 2.3. Chest x-ray reveals streaky opacities in the left upper lung field likely atelectasis. Mild increased opacity in the right upper lung field. Tigrett-Jeremy catheter is present in the main pulmonary artery. Right- sided chest tube present. No evidence of pneumothorax. Mediastinal tube is p resent. Endotracheal tube and nasogastric tubes in position. Epicardial leads are present. Patient was evaluated today on 12/25/2023, patient is on 2 L nasal cannula, extubated yesterday at 4:35 PM, tolerated the extubation well. Patient is now on 2 L nasal cannula, he is on amiodarone at 0.5 mg/min, he is also on insulin at 1.5 units/h, IV fluid 0.9 normal saline at 50 cc/h. Patient is sitting at the bedside chair, awake oriented x 3, not in any distress, not requiring any pressors not requiring any inotropes. Cardiac output is 5.1 cardiac index is 2.7 PA pressure 29/12 CVP is 6 SVR is 1191. Mediastinal and left pleural chest tubes remain in place to low suction. No air leak noted and no evidence of pneumothorax on the chest x-ray, there is evidence however of right basilar atelectasis.WBC count is 6.6 hemoglobin 7.4. Basic metabolic profile is normal renal profile is normal Patient was evaluated today on 12/26/2023, patient is now postoperative day #2. Patient is receiving a unit of packed RBCs for low hemoglobin of 6.3, pulmonary casey does not seem to be in any distress, he is on 2 L nasal cannula and his O2 saturation is in the 90s. Chest x-ray is showing evidence of fluid overload/pulmonary edema and pleural effusions, hence the patient is receiving Lasix by thoracic surgery ordered today. Continues to have right internal jugular Cordis with right radial arterial line, mediastinal/left chest tubes remain in place. Clinically the patient is doing well, he is not requiring any inotropes or any pressors. Patient was evaluated today on 12/27/2023, patient is now postoperative day #3. Patient is comfortable, sitting in a bedside recliner, developed atrial fibr illation with RVR yesterday, and he was restarted on amiodarone, remained hemodynamically stable, patient also developed some mild pulmonary vascular congestion and he received Lasix by surgery. This morning he does not seem to be short of breath, he is on 2 L nasal cannula, not in any distress. Yesterday he did receive 1 unit of packed RBCs for low hemoglobin however his hemoglobin today is 7.3. Chest x-ray continues to show cardiomegaly, right lower lobe atelectasis and possibly a small pleural effusion on the right side Patient elevated today on 12/28/2023, patient is in a bedside recliner, doing fairly well, he has no active symptoms whatsoever. Denies any pain denies any shortness of breath, he had a chest x-ray this morning showing a small right- sided pleural effusion, ultrasound showed a 4.8 cm pocket, hence no plans to perform thoracentesis as the pocket of fluid seems to be relatively small. In the meantime the patient has been receiving diuretics, he is maintaining hemog lobin around 7.6, he did receive 1 unit of packed RBCs back on 12/25. Remains on Lasix 40 mg IV push twice daily, WBC 7.3 hemoglobin 7.6 sodium is a bit low at 127 potassium 4.3 BUN is 32 creatinine 0.87 his hyponatremia is felt to be most likely hypovolemic related hyponatremia Patient was evaluated today on 12/29/2023, doing well, relatively asymptomatic. Patient is receiving sodium tabs for his low sodium is also on fluid restriction 1200 cc/day, sodium today is 126 chest x-ray is basically about the same showing small right-sided pleural effusion not large enough to consider safe thoracen tesis WBC count is 6.5 hemoglobin 7.2 sodium 126 BUN 37 creatinine 0.99. Patient is generally weak. Achieving 1250 cc on his incentive spirometry. He is in atrial fibrillation with controlled rate 90 bpm. Objective - Vital Signs Vital signs: Vital Signs Temp 96.3 F L 12/29/23 09:00 Pulse 107 H 12/29/23 10:00 Resp 11 L 12/29/23 10:00 BP 106/88 12/29/23 10:00 Pulse Ox 92 L 12/29/23 10:00 FiO2 50 12/24/23 16:35 Intake & Output 12/28/23 12/29/23 12/29/23 18:59 06:59 18:59 Intake Total 350 318 Output Total 660 475 275 Balance -310 -475 43 Weight 88.4 kg 84.7 kg Intake: Intake, IV Titration 100 Amount Magnesium Sulfate-D5w Pmx 100 1 gm In Dextrose/Water 1 100ml.bag @ 100 mls/hr IVPB ONCE ONE Rx#: [id number] Oral 250 318 Output: Urine 660 475 275 Straight 475 Other: Voiding Method Urinal Urinal # Voids 1 3 # Bowel Movements 1 ABP, PAP, CO, CI - Last Documented Arterial Blood Pressure 98/53 Pulmonary Artery Pressure 41/7 Cardiac Output 4.4 Cardiac Index 2.3 - Exam CONSTITUTIONAL: 78-year-old in no apparent distress on room air HEENT: Right IJ Cordis noted in place. RESPIRATORY: Diminished breath sound bilaterally mostly at the right base. No crackles rhonchi or wheezes CARDIOVASCULAR: Regular normal S1-S2, 2/6 systolic murmur throughout the precordium GASTROINTESTINAL: Soft nontender no megaly no rebound no guarding. INTEGUMENTARY: No rashes NEUROLOGIC: Alert oriented x 3 no gross focal deficit MUSKULOSKELETAL: No deformities and no limitation range of motion PSYCHIATRIC: Normal mood affect and no mental status examination - Labs CBC & Chem 7: 12/29/23 03:03 12/29/23 03:03 Labs: Abnormal Lab Results - Last 24 Hours (Table) 12/28/23 12/28/23 12/28/23 Range/Units 12:19 16:35 19:53 RBC (4.30-5.90) m/uL Hgb (13.0-17.5) gm/dL Hct (39.0-53.0) % Plt Count (150-450) k/uL Lymphocytes # (1.0-4.8) k/uL Sodium (137-145) mmol/L Chloride (98-107) mmol/L BUN (9-20) mg/dL Glucose (74-99) mg/dL POC Glucose (mg/dL) 171 H 149 H 165 H (70-110) mg/dL Total Bilirubin (0.2-1.3) mg/dL AST (17-59) U/L ALT (4-49) U/L Alkaline Phosphatase (38-126) U/L Total Protein (6.3-8.2) g/dL Albumin (3.5-5.0) g/dL 12/29/23 12/29/23 12/29/23 Range/Units 03:03 03:03 06:35 RBC 2.29 L (4.30-5.90) m/uL Hgb 7.2 L (13.0-17.5) gm/dL Hct 20.5 L (39.0-53.0) % Plt Count 85 L (150-450) k/uL Lymphocytes # 0.7 L (1.0-4.8) k/uL Sodium 126 L (137-145) mmol/L Chloride 93 L (98-107) mmol/L BUN 37 H (9-20) mg/dL Glucose 117 H (74-99) mg/dL POC Glucose (mg/dL) 154 H (70-110) mg/dL Total Bilirubin 3.4 H (0.2-1.3) mg/dL AST 87 H (17-59) U/L ALT 65 H (4-49) U/L Alkaline Phosphatase 32 L (38-126) U/L Total Protein 5.0 L (6.3-8.2) g/dL Albumin 3.1 L (3.5-5.0) g/dL Assessment and Plan Assessment: Impression: Severe aortic regurgitation status post aortic valve replacement with 27 mm [email or web address] Avalus bovine pericardial valve prosthesis Coronary artery disease status post coronary artery bypass grafting x 2 vessels, left internal mammary artery to the left anterior descending coronary artery and a saphenous vein graft to the obtuse marginal coronary artery, postoperative day #5 Benign essential hypertension Dyslipidemia History of mild asthma with preoperative FEV1 of 75% BPH Non-smoker Postoperative atelectasis/expected Acute blood loss anemia requiring a unit of packed RBCs today Acute diastolic congestive heart failure requiring diuretics Postoperative atrial fibrillation with RVR, expected Right-sided pleural effusion Hypervolemic hyponatremia Recommendation: Chest x-ray was reviewed again, the pleural effusion is rather small Continue fluid restriction and sodium tablets Continue maximal medical therapy including Plavix beta-aimee aspirin and statin Continue amiodarone Remittent diuresis Incentive spirometry Ambulate Will continue to follow Time with Patient: Less than 30
[2023-12-29 11:56] LABS: Glucose,Whole Blood 160 mg/dL (70-110)
--- NOTE | 2023-12-29 13:07 | PN ---
PROGRESS NOTE SUBJECTIVE: This is a 78-year-old gentleman, who underwent aortic valve replacement for severe aortic regurgitation and bypass surgery. Today is postop day #5, remains in atrial fibrillation with poorly controlled ventricular rate and the metoprolol dose had been increased. Labs today show a hemoglobin of 7.2, platelet count is 85. Sodium is low at 126 and a creatinine of 0.9. CURRENT MEDICATIONS: Include, 1. Aspirin. 2. Lipitor. 3. Plavix 75 mg daily. 4. Insulin. 5. Lopressor 50 b.i.d. The patient is receiving amiodarone for CT surgery. OBJECTIVE: VITAL SIGNS: Remains in atrial fibrillation with a heart rate of around 95 beats per minute, blood pressure is 120/70, respiratory rate is 18. CHEST: Reveals diminished air entry at the bases. HEART: Reveals first and second heart sounds. Regular rhythm. EXTREMITIES: Did not reveal any edema. LABORATORY DATA: Labs show that the sodium is low. Total bilirubin is 3.4, AST and ALT are elevated. Hemoglobin remains low at 7.2, and the platelet count is 85. ASSESSMENT: Aortic regurgitation, status post aortic valve replacement. Coronary artery disease, status post bypass. Cardiomyopathy with worsening LV function postoperatively. His EF was around 35% on an echocardiogram in October. A limited echo repeated on this admission postoperatively shows an ejection fraction of 25%. PLAN: Continue the current measures. The patient had elevated BUN, elevated total bilirubin with mild elevation of AST, ALT. The CT surgery wishes to continue with the amiodarone that the patient is on. MMODL / IJN: [id number] /
[2023-12-29 14:54] LABS: African American GFR (CKD) 78 (>60 ml/min/1.73 sqM); Anion Gap 5 mmol/L; Blood Urea Nitrogen 38 mg/dL (9-20); Calcium 8.7 mg/dL (8.4-10.2); Carbon Dioxide 31 mmol/L (22-30); Chloride 91 mmol/L (98-107); Glucose 127 mg/dL (74-99); Non-African American GFR(CKD) 68 (>60 ml/min/1.73 sqM); Potassium 3.9 mmol/L (3.5-5.1); Sodium 127 mmol/L (137-145)
[2023-12-29 16:29] LABS: Glucose,Whole Blood 133 mg/dL (70-110)
--- NOTE | 2023-12-29 17:47 | P.PN ---
Subjective Progress Note Date: 12/29/23 Patient is a 78-year-old male status post aortic valve replacement. We are following for medical management. Patient seen and examined at bedside. Doing okay c/o dizziness, nausea, and f atigue. Still with some pain. Vital signs reviewed General: Nontoxic, no distress, appears at stated age, heart hugger in place. Cardiovascular: S1S2 reg, no murmur, positive posterior tibial pulse bilateral, Lungs: Decreased bs bilateral, no rhonchi, no rales, no accessory muscle use Abdominal: Soft, nontender to palpation, no guarding, no appreciable organomegaly Ext: No gross muscle atrophy, no edema b/l lower extremities, no contractures Neuro: CN II-XI grossly intact, no focal neuro deficits Psych: Alert, oriented, appropriate affect Assessment/Plan: 78-year-old male status post aortic valve replacement. -Pulmonary note reviewed: Small pleural effusion, maximal medical therapy - CT surgery note reviewed Hyponatremia, hypervolemic -Lasix increased to 40 mg IV twice daily on 12/27 - repeat sodium at 1200 today - will d/w CT surgery considering nephrology consult given lack of respoinse to diuresis - sodium chloride 1 tabe BID started on 12/25-- could be contributing to fluid overload -Nephrology consulted and note reviewed-continue IV Lasix, fluid restriction, stop sodium chloride, check serum and urine osmolality as well as urine sodium levels, check TSH Hyperglycemia without incidence of diabetes, prediabetic with A1c 6.1 on 12/07/23 - SSI - was on Levemir 5 units daily - BS well controlled will stop levemir P. A fib- occurrence after open heart HLD CAD HTN Right ICA stenosis -Aspirin 81 mg daily, Plavix 75 mg daily, metoprolol 50 mg twice daily, Lipitor 40 mg daily -Amiodarone 400 mg twice daily, no anticoagulation per cardiothoracic surgery until cardio pacemaker wires removed Chronic: Asthma BPH Acute blood loss anemia and thrombocytopenia, anticipated outcome - s/p 1 unit pRBC - Hgb and plt stable - follow CBC Imaging: CXR- right sided pleural effusion, relatively unchanged from yesterday Data Review: Labs reviewed from today are remarkable for hemoglobin 7.2, platelets 85, sodium 126, total bilirubin 3.4, AST 87, ALT 65 DVT prophylaxis: Roxann Thank you for allowing us to participate in the care of this pleasant patient. Do not hesitate to contact us with questions. Someone can be reached from the [facility] hospitalist group all hours of the day at [phone] or via perfect serve. This dictation was prepared using [employer] voice recognition software. Though every attempt is made to correct errors during dictation some may still exist. Objective - Vital Signs Vital signs: Vital Signs Temp 98.3 F 12/29/23 04:00 Pulse 96 12/29/23 07:00 Resp 15 12/29/23 07:00 BP 134/91 12/29/23 07:00 Pulse Ox 98 12/29/23 07:00 FiO2 50 12/24/23 16:35 Intake & Output 12/28/23 12/29/23 12/29/23 18:59 06:59 18:59 Intake Total 350 Output Total 660 475 0 Balance -310 -475 0 Weight 88.4 kg 84.7 kg Intake: Intake, IV Titration 100 Amount Magnesium Sulfate-D5w Pmx 100 1 gm In Dextrose/Water 1 100ml.bag @ 100 mls/hr IVPB ONCE ONE Rx#: [id number] Oral 250 Output: Urine 660 475 0 Straight 475 Other: Voiding Method Urinal Urinal # Voids 1 # Bowel Movements 1 ABP, PAP, CO, CI - Last Documented Arterial Blood Pressure 98/53 Pulmonary Artery Pressure 41/7 Cardiac Output 4.4 Cardiac Index 2.3 - Labs CBC & Chem 7: 12/29/23 03:03 12/29/23 14:21 Labs: Abnormal Lab Results - Last 24 Hours (Table) 12/28/23 12/28/23 12/28/23 Range/Units 12:19 16:35 19:53 RBC (4.30-5.90) m/uL Hgb (13.0-17.5) gm/dL Hct (39.0-53.0) % Plt Count (150-450) k/uL Lymphocytes # (1.0-4.8) k/uL Sodium (137-145) mmol/L Chloride (98-107) mmol/L BUN (9-20) mg/dL Glucose (74-99) mg/dL POC Glucose (mg/dL) 171 H 149 H 165 H (70-110) mg/dL Total Bilirubin (0.2-1.3) mg/dL AST (17-59) U/L ALT (4-49) U/L Alkaline Phosphatase (38-126) U/L Total Protein (6.3-8.2) g/dL Albumin (3.5-5.0) g/dL 12/29/23 12/29/23 12/29/23 Range/Units 03:03 03:03 06:35 RBC 2.29 L (4.30-5.90) m/uL Hgb 7.2 L (13.0-17.5) gm/dL Hct 20.5 L (39.0-53.0) % Plt Count 85 L (150-450) k/uL Lymphocytes # 0.7 L (1.0-4.8) k/uL Sodium 126 L (137-145) mmol/L Chloride 93 L (98-107) mmol/L BUN 37 H (9-20) mg/dL Glucose 117 H (74-99) mg/dL POC Glucose (mg/dL) 154 H (70-110) mg/dL Total Bilirubin 3.4 H (0.2-1.3) mg/dL AST 87 H (17-59) U/L ALT 65 H (4-49) U/L Alkaline Phosphatase 32 L (38-126) U/L Total Protein 5.0 L (6.3-8.2) g/dL Albumin 3.1 L (3.5-5.0) g/dL
[2023-12-29 20:13] LABS: Glucose,Whole Blood 142 mg/dL (70-110)
[2023-12-29] MEDS: KETOROLAC 15 MG/ML 1 ML VIAL IVP SCH (21:14)
[2023-12-29] MEDS: traZODone HCL 100 MG TAB PO PRN (21:32)
[2023-12-29] MEDS: ALBUMIN HUMAN 5% 500 ML IVPB ONE (23:31)
[2023-12-29] MEDS: ASPIRIN 325 MG TAB PO ONE (23:31)
[2023-12-29] MEDS: ALBUMIN HUMAN 25% 50 ML IV ONE (23:31)
[2023-12-29] MEDS: CALCIUM CHLORIDE 100 MG/ML 10 ML SYRINGE IV ONE (23:32)
[2023-12-29] MEDS: CHLORHEXIDINE GLUCONATE 15 ML CUP MUCOUS MEM ONE (23:32)
[2023-12-29] MEDS: CARDIOPLEGIC SOLN (K+ 16 MEQ/L 1,000 ML with SODIUM BICARB (1 MEQ/ML) 20 ML, LIDOCAINE ... PERFUSION ONE (23:32)
[2023-12-29] MEDS: ceFAZolin 1,000 MG in SODIUM CHLORIDE 0.9% IRRIGATIO 1,000 ML IRRIGATION ONE (23:32)
[2023-12-29] MEDS: ATORVASTATIN 10 MG TAB PO ONE (23:32)
[2023-12-29] MEDS: INSULIN REGULAR 100 UNIT in SODIUM CHLORIDE 0.9% 100 ML IV ONE (23:33)
[2023-12-29] MEDS: MANNITOL 25% 12.5 GM/50 ML VIAL IV ONE (23:33)
[2023-12-29] MEDS: HEPARIN SODIUM 1,000 UN/ML (10ML VL) IV ONE (23:33)
[2023-12-29] MEDS: MAGNESIUM SULFATE 16.24 MEQ in EMPTY SYRINGE 1 SYR IV ONE (23:33)
[2023-12-29] MEDS: HEPARIN SODIUM,PORCINE (1 ML) 5,000 UNIT in SODIUM CHLORIDE 0.9% 500 ML 500 ML IV ONE (23:33)
[2023-12-29] MEDS: CLEVIDIPINE BUTYRATE 25 MG in EMPTY BAG 1 BAG IV ONE (23:33)
[2023-12-29] MEDS: NITROGLYCERIN-D5W PMX 25 MG/250 ML BTL IV ONE (23:34)
[2023-12-29] MEDS: PHENYLEPHRINE 40 MG in SODIUM CHLORIDE 0.9% 250 ML IV ONE (23:34)
[2023-12-29] MEDS: PAPAVERINE 360 MG in SODIUM CHLORIDE 0.9% 90 ML IV ONE (23:34)
[2023-12-29] MEDS: PHENYLEPHRINE 10 MG/ML VIAL IV ONE (23:34)
[2023-12-29] MEDS: NITROGLYCERIN SL TABS 0.4 MG TAB SUBLINGUAL ONE (23:34)
[2023-12-29] MEDS: NITROGLYCERIN-D5W PMX 50 MG in DEXTROSE/WATER 1 250ML.BAG IV ONE (23:34)
[2023-12-29] MEDS: NOREPINEPHRINE 4 MG in SODIUM CHLORIDE 0.9% 250 ML IV ONE (23:34)
[2023-12-29] MEDS: METOPROLOL TARTRATE 12.5 MG TAB PO ONE (23:34)
[2023-12-29] MEDS: TRANEXAMIC ACID 2,000 MG in SODIUM CHLORIDE 0.9% 80 ML IV ONE ×2 (23:35→23:36)
[2023-12-29] MEDS: PROTAMINE SULFATE 10 MG/ML 25 ML VIAL IV ONE (23:35)
[2023-12-29] MEDS: SODIUM BICARB 8.4% 50 ML SYR (1 MEQ/ML) IV ONE (23:35)
[2023-12-29] MEDS: PROTAMINE SULFATE 250 MG in EMPTY BAG 1 BAG IV ONE (23:35)
[2023-12-29] MEDS: propofoL 1,000 MG/100 ML VIAL IV ONE (23:35)
[2023-12-29] MEDS: SODIUM CHLORIDE 0.9% 1,000 ML IV ONE (23:35)
[2023-12-29] MEDS: MUPIROCIN 2% OINT 22 GM TUBE NASAL ONE (23:36)
[2023-12-29] MEDS: NOREPINEPHRINE 4 MG in SODIUM CHLORIDE 0.9% 250 ML IV SCH (23:36)
[2023-12-30 05:26] LABS: HCT 21.4 % (39.0-53.0); HGB 7.3 gm/dL (13.0-17.5); MCH 31.3 pg (25.0-35.0); Mean Platelet Volume 7.6; Platelet Count 121 k/uL (150-450); Poikilocytosis Slight; RBC 2.32 m/uL (4.30-5.90); WBC 6.3 k/uL (3.8-10.6)
[2023-12-30 05:40] LABS: ALT 124 U/L (4-49); AST 123 U/L (17-59); African American GFR (CKD) 70 (>60 ml/min/1.73 sqM); Albumin 2.9 g/dL (3.5-5.0); Alkaline Phosphatase 38 U/L (38-126); Anion Gap 6 mmol/L; Blood Urea Nitrogen 45 mg/dL (9-20); Calcium 8.8 mg/dL (8.4-10.2); Carbon Dioxide 29 mmol/L (22-30); Chloride 92 mmol/L (98-107); Glucose 104 mg/dL (74-99); Magnesium 2.1 mg/dL (1.6-2.3); Non-African American GFR(CKD) 60 (>60 ml/min/1.73 sqM); Potassium 4.2 mmol/L (3.5-5.1); Sodium 127 mmol/L (137-145); Total Bilirubin 3.3 mg/dL (0.2-1.3)
[2023-12-30 06:17] LABS: Glucose,Whole Blood 121 mg/dL (70-110)
--- NOTE | 2023-12-30 07:46 | XR ---
EXAMINATION TYPE: XR chest 2V DATE OF EXAM: 12/30/2023 COMPARISON: 12/29/2023 HISTORY: Shortness of breath TECHNIQUE: Frontal and lateral views of the chest are obtained. FINDINGS: Right basilar effusion persists. Median sternotomy change. Left atrial appendage clip. Probable trace left effusion. No evidence for infiltrate. No evidence for atelectasis. Heart size is stable. Mediastinal structures are stable and grossly unremarkable. No evidence for hilar prominence. Degenerative changes dorsal spine. IMPRESSION: 1. Right basilar effusion persists. Median sternotomy change. Left atrial appendage clip. Probable tr latrell left effusion.
--- NOTE | 2023-12-30 08:09 | US ---
EXAMINATION TYPE: US liver DATE OF EXAM: 12/29/2023 Exam done portable in ICU COMPARISON: NONE CLINICAL INDICATION: Male, 78 years old with history of acute hepatitis; TECHNIQUE: Multiple sonographic images of the right upper quadrant are obtained. FINDINGS: EXAM MEASUREMENTS: Liver Length: 14.0 cm Gallbladder Wall: 0.2 cm CBD: 0.4 cm Right Kidney: 10.6 x 4.9 x 5.9 cm Difficult and limited study due to exam done with patient sitting in chair Pancreas: obscured by overlying midline bowel gas Liver: visualized portions appear mildly heterogeneous, limited by overlying bowel gas Gallbladder: sludge Evidence for sonographic Diaz's sign: no CBD: visualized portions wnl, limited by overlying bowel gas Right Kidney: visualized portions wnl, inferior pole limited by overlying bowel gas Right pleural effusion IMPRESSION: 1. Probable hepatic steatosis. 2. Gallbladder sludge.
--- NOTE | 2023-12-30 11:02 | P.PN ---
Subjective Patient is seen in follow-up for hyponatremia. Sodium level stable. Salt tabs discontinued December 30, 2023. Last dose of IV Lasix was given December 28. Denies chest pain or shortness of breath. Oral intake is fair. No vomiting or diarrhea. Vital signs are stable. General: No acute distress. HEENT: Head exam is unremarkable. LUNGS: No audible rhonchi or wheezes. HEART: Rate and Rhythm are regular. ABDOMEN: Nontender. EXTREMITITES: No edema. Objective - Vital Signs Vital signs: Vital Signs Temp 97.5 F L 12/30/23 08:00 Pulse 96 12/30/23 09:00 Resp 23 12/30/23 09:00 BP 100/77 12/30/23 10:00 Pulse Ox 93 L 12/30/23 09:00 FiO2 40 12/29/23 12:15 Intake & Output 12/29/23 12/30/23 12/30/23 18:59 06:59 18:59 Intake Total 776 240 200 Output Total 350 880 80 Balance 426 -640 120 Weight 86.1 kg Intake: IV 100 Magnesium Sulfate-D5w Pmx 100 1 gm In Dextrose/Water 1 100ml.bag @ 100 mls/hr IVPB ONCE ONE Rx#: [id number] Oral 676 240 200 Output: Urine 350 880 80 Other: Voiding Method Urinal Indwelling Catheter Indwelling Catheter # Voids 3 1 ABP, PAP, CO, CI - Last Documented Arterial Blood Pressure 98/53 Pulmonary Artery Pressure 41/7 Cardiac Output 4.4 Cardiac Index 2.3 - Labs CBC & Chem 7: 12/30/23 04:28 12/30/23 04:28 Labs: Abnormal Lab Results - Last 24 Hours (Table) 12/29/23 12/29/23 12/29/23 Range/Units 11:55 14:21 16:28 RBC (4.30-5.90) m/uL Hgb (13.0-17.5) gm/dL Hct (39.0-53.0) % Plt Count (150-450) k/uL Sodium 127 L (137-145) mmol/L Chloride 91 L (98-107) mmol/L Carbon Dioxide 31 H (22-30) mmol/L BUN 38 H (9-20) mg/dL Glucose 127 H (74-99) mg/dL POC Glucose (mg/dL) 160 H 133 H (70-110) mg/dL Total Bilirubin (0.2-1.3) mg/dL AST (17-59) U/L ALT (4-49) U/L Total Protein (6.3-8.2) g/dL Albumin (3.5-5.0) g/dL 12/29/23 12/30/23 12/30/23 Range/Units 20:11 04:28 04:28 RBC 2.32 L (4.30-5.90) m/uL Hgb 7.3 L (13.0-17.5) gm/dL Hct 21.4 L (39.0-53.0) % Plt Count 121 L (150-450) k/uL Sodium 127 L (137-145) mmol/L Chloride 92 L (98-107) mmol/L Carbon Dioxide (22-30) mmol/L BUN 45 H (9-20) mg/dL Glucose 104 H (74-99) mg/dL POC Glucose (mg/dL) 142 H (70-110) mg/dL Total Bilirubin 3.3 H (0.2-1.3) mg/dL AST 123 H (17-59) U/L ALT 124 H (4-49) U/L Total Protein 5.0 L (6.3-8.2) g/dL Albumin 2.9 L (3.5-5.0) g/dL 12/30/23 Range/Units 06:16 RBC (4.30-5.90) m/uL Hgb (13.0-17.5) gm/dL Hct (39.0-53.0) % Plt Count (150-450) k/uL Sodium (137-145) mmol/L Chloride (98-107) mmol/L Carbon Dioxide (22-30) mmol/L BUN (9-20) mg/dL Glucose (74-99) mg/dL POC Glucose (mg/dL) 121 H (70-110) mg/dL Total Bilirubin (0.2-1.3) mg/dL AST (17-59) U/L ALT (4-49) U/L Total Protein (6.3-8.2) g/dL Albumin (3.5-5.0) g/dL Assessment and Plan Plan: Assessment: 1. Hyponatremia, hypervolemic in view of pleural effusions. Sodium level 127 today. TSH normal. 2. Acute systolic CHF ejection fraction of 25 to 30%. 3. Coronary disease status post CABG and aortic valve replacement December 24, 2023. 4. Acute blood loss anemia status post blood transfusion this admission. Hemoglobin 7.3 today. Plan: Lasix 40 mg IV once today. Maintain fluid restriction. Salt tabs discontinued December 29, 2023. Check serum and urine osmolality and urine sodium level. Repeat sodium level this afternoon. If no improvement, will give a dose of Samsca. Patient also receiving Toradol. Consider alternative as NSAIDs can also induce hyponatremia.
[2023-12-30] MEDS: FUROSEMIDE 10 MG/ML 4 ML VIAL IV STA (11:04)
[2023-12-30 11:45] LABS: Glucose,Whole Blood 132 mg/dL (70-110)
[2023-12-30] MEDS: CITALOPRAM HYDROBROMIDE 10 MG TAB PO SCH (12:07)
--- NOTE | 2023-12-30 12:15 | P.PN ---
Subjective Progress Note Date: 12/30/23 Principal diagnosis: POD #6 aortic valve replacement with 27 mm Medtronic Avalus bovine pericardial valve prosthesis, CABG x 2 with GOETZ to LAD and saphenous vein graft to obtuse marginal, endovascular vein harvest greater saphenous vein from the left thigh, ligation of the left atrial appendage with 35mm AtriCure clip, [place] by anesthesia. This is a 78-year-old male patient with a known history of coronary artery disease with previous PCI to the mid LAD, hypertension, hyperlipidemia, benign prostatic hyperplasia, non-smoker. He was also recently found to have severe aortic regurgitation with moderate mitral regurgitation, coronary artery disease and declining left ventricular ejection fraction. He was brought in today electively for surgery. He had undergone aortic valve replacement with a Medtronic Avallis bovine pericardial valve prosthesis, CABG x 2 with a GOETZ to the LAD and SVG to the obtuse marginal. He is seen today in the postoperative period in the intensive care unit. He is not abated on the mechanical ventilator and assist-control mode at a rate of 12, tidal volume 400, FiO2 50% and a PEEP of 5. Arterial blood gases revealed a PaO2 of 267, pCO2 of 42 and a pH of 7.36 on 100% FiO2. White count 6.2. Hemoglobin 9.7. Platelets 86,000. Sodium 133. Potassium 4.4. Bicarb 22. BUN 10. Creatinine 0.69. Glucose 132. Albumin 2.5. He did receive albumin. He is on an insulin drip at 1.5 units/h. Nitroglycerin drip at 5 mcg/min and currently off propofol. He has been transitioned to pressure support of 5 and a PEEP of 5. Will plan for early extubation protocol as tolerated. PA pressures 32/14, CVP of 6 cardiac output 4.4. Cardiac index 2.3. Chest x-ray reveals streaky opacities in the left upper lung field likely atelectasis. Mild increased opacity in the right upper lung field. [place]y catheter is present in the main pulmonary artery. Right- sided chest tube present. No evidence of pneumothorax. Mediastinal tube is p resent. Endotracheal tube and nasogastric tubes in position. Epicardial leads are present. Patient was evaluated today on 12/25/2023, patient is on 2 L nasal cannula, extubated yesterday at 4:35 PM, tolerated the extubation well. Patient is now on 2 L nasal cannula, he is on amiodarone at 0.5 mg/min, he is also on insulin at 1.5 units/h, IV fluid 0.9 normal saline at 50 cc/h. Patient is sitting at the bedside chair, awake oriented x 3, not in any distress, not requiring any pressors not requiring any inotropes. Cardiac output is 5.1 cardiac index is 2.7 PA pressure 29/12 CVP is 6 SVR is 1191. Mediastinal and left pleural chest tubes remain in place to low suction. No air leak noted and no evidence of pneumothorax on the chest x-ray, there is evidence however of right basilar atelectasis.WBC count is 6.6 hemoglobin 7.4. Basic metabolic profile is normal renal profile is normal Patient was evaluated today on 12/26/2023, patient is now postoperative day #2. Patient is receiving a unit of packed RBCs for low hemoglobin of 6.3, pulmonary casey does not seem to be in any distress, he is on 2 L nasal cannula and his O2 saturation is in the 90s. Chest x-ray is showing evidence of fluid overload/pulmonary edema and pleural effusions, hence the patient is receiving Lasix by thoracic surgery ordered today. Continues to have right internal jugular Cordis with right radial arterial line, mediastinal/left chest tubes remain in place. Clinically the patient is doing well, he is not requiring any inotropes or any pressors. Patient was evaluated today on 12/27/2023, patient is now postoperative day #3. Patient is comfortable, sitting in a bedside recliner, developed atrial fibr illation with RVR yesterday, and he was restarted on amiodarone, remained hemodynamically stable, patient also developed some mild pulmonary vascular congestion and he received Lasix by surgery. This morning he does not seem to be short of breath, he is on 2 L nasal cannula, not in any distress. Yesterday he did receive 1 unit of packed RBCs for low hemoglobin however his hemoglobin today is 7.3. Chest x-ray continues to show cardiomegaly, right lower lobe atelectasis and possibly a small pleural effusion on the right side Patient elevated today on 12/28/2023, patient is in a bedside recliner, doing fairly well, he has no active symptoms whatsoever. Denies any pain denies any shortness of breath, he had a chest x-ray this morning showing a small right- sided pleural effusion, ultrasound showed a 4.8 cm pocket, hence no plans to perform thoracentesis as the pocket of fluid seems to be relatively small. In the meantime the patient has been receiving diuretics, he is maintaining hemog lobin around 7.6, he did receive 1 unit of packed RBCs back on 12/25. Remains on Lasix 40 mg IV push twice daily, WBC 7.3 hemoglobin 7.6 sodium is a bit low at 127 potassium 4.3 BUN is 32 creatinine 0.87 his hyponatremia is felt to be most likely hypovolemic related hyponatremia Patient was evaluated today on 12/29/2023, doing well, relatively asymptomatic. Patient is receiving sodium tabs for his low sodium is also on fluid restriction 1200 cc/day, sodium today is 126 chest x-ray is basically about the same showing small right-sided pleural effusion not large enough to consider safe thoracen tesis WBC count is 6.5 hemoglobin 7.2 sodium 126 BUN 37 creatinine 0.99. Patient is generally weak. Achieving 1250 cc on his incentive spirometry. He is in atrial fibrillation with controlled rate 90 bpm. Patient was evaluated today on 12/30/2023, remains in the ICU, patient is doing well, he is on room air, not in any distress, the plan is to possibly transfer the patient to 3 S. after pacer wires are out. No issues overnight, patient does not seem to be in any detail distress, chest x-ray continues to show small right-sided pleural effusion not large enough to consider thoracentesis. This was evaluated by ultrasound. Sodium today is 127 potassium 4.2 BUN is 45 creatinine 1.17. Hemoglobin is 7.3 Objective - Vital Signs Vital signs: Vital Signs Temp 97.5 F L 12/30/23 08:00 Pulse 100 12/30/23 11:34 Resp 21 12/30/23 11:00 BP 92/65 12/30/23 11:00 Pulse Ox 94 L 12/30/23 11:00 FiO2 40 12/29/23 12:15 Intake & Output 12/29/23 12/30/23 12/30/23 18:59 06:59 18:59 Intake Total 776 240 400 Output Total 350 880 130 Balance 426 -640 270 Weight 86.1 kg Intake: IV 100 Magnesium Sulfate-D5w Pmx 100 1 gm In Dextrose/Water 1 100ml.bag @ 100 mls/hr IVPB ONCE ONE Rx#: [id number] Oral 676 240 400 Output: Urine 350 880 130 Other: Voiding Method Urinal Indwelling Catheter Indwelling Catheter # Voids 3 1 ABP, PAP, CO, CI - Last Documented Arterial Blood Pressure 98/53 Pulmonary Artery Pressure 41/7 Cardiac Output 4.4 Cardiac Index 2.3 - Exam CONSTITUTIONAL: 78-year-old in no apparent distress on room air HEENT: Right IJ Cordis noted in place. RESPIRATORY: Diminished breath sound bilaterally mostly at the right base. No crackles rhonchi or wheezes CARDIOVASCULAR: Regular normal S1-S2, 2/6 systolic murmur throughout the precordium GASTROINTESTINAL: Soft nontender no megaly no rebound no guarding. INTEGUMENTARY: No rashes NEUROLOGIC: Alert oriented x 3 no gross focal deficit MUSKULOSKELETAL: No deformities and no limitation range of motion PSYCHIATRIC: Normal mood affect and no mental status examination - Labs CBC & Chem 7: 12/30/23 04:28 12/30/23 04:28 Labs: Abnormal Lab Results - Last 24 Hours (Table) 12/29/23 12/29/23 12/29/23 Range/Units 14:21 16:28 20:11 RBC (4.30-5.90) m/uL Hgb (13.0-17.5) gm/dL Hct (39.0-53.0) % Plt Count (150-450) k/uL Sodium 127 L (137-145) mmol/L Chloride 91 L (98-107) mmol/L Carbon Dioxide 31 H (22-30) mmol/L BUN 38 H (9-20) mg/dL Glucose 127 H (74-99) mg/dL POC Glucose (mg/dL) 133 H 142 H (70-110) mg/dL Total Bilirubin (0.2-1.3) mg/dL AST (17-59) U/L ALT (4-49) U/L Total Protein (6.3-8.2) g/dL Albumin (3.5-5.0) g/dL 12/30/23 12/30/23 12/30/23 Range/Units 04:28 04:28 06:16 RBC 2.32 L (4.30-5.90) m/uL Hgb 7.3 L (13.0-17.5) gm/dL Hct 21.4 L (39.0-53.0) % Plt Count 121 L (150-450) k/uL Sodium 127 L (137-145) mmol/L Chloride 92 L (98-107) mmol/L Carbon Dioxide (22-30) mmol/L BUN 45 H (9-20) mg/dL Glucose 104 H (74-99) mg/dL POC Glucose (mg/dL) 121 H (70-110) mg/dL Total Bilirubin 3.3 H (0.2-1.3) mg/dL AST 123 H (17-59) U/L ALT 124 H (4-49) U/L Total Protein 5.0 L (6.3-8.2) g/dL Albumin 2.9 L (3.5-5.0) g/dL 12/30/23 Range/Units 11:43 RBC (4.30-5.90) m/uL Hgb (13.0-17.5) gm/dL Hct (39.0-53.0) % Plt Count (150-450) k/uL Sodium (137-145) mmol/L Chloride (98-107) mmol/L Carbon Dioxide (22-30) mmol/L BUN (9-20) mg/dL Glucose (74-99) mg/dL POC Glucose (mg/dL) 132 H (70-110) mg/dL Total Bilirubin (0.2-1.3) mg/dL AST (17-59) U/L ALT (4-49) U/L Total Protein (6.3-8.2) g/dL Albumin (3.5-5.0) g/dL Assessment and Plan Assessment: Impression: Severe aortic regurgitation status post aortic valve replacement with 27 mm Medtronic Avalus bovine pericardial valve prosthesis Coronary artery disease status post coronary artery bypass grafting x 2 vessels, left internal mammary artery to the left anterior descending coronary artery and a saphenous vein graft to the obtuse marginal coronary artery, postoperative day #6 Benign essential hypertension Dyslipidemia History of mild asthma with preoperative FEV1 of 75% BPH Non-smoker Postoperative atelectasis/expected Acute blood loss anemia requiring a unit of packed RBCs today Acute diastolic congestive heart failure requiring diuretics Postoperative atrial fibrillation with RVR, expected Right-sided pleural effusion Hypervolemic hyponatremia Recommendation: Continue fluid restriction and sodium tablets Chest x-ray is relatively reassuring Continue maximal medical therapy including Plavix beta-aimee aspirin and statin Continue amiodarone Incentive spirometry Ambulate Will continue to follow Time with Patient: Less than 30
--- NOTE | 2023-12-30 12:17 | P.PN ---
Subjective Progress Note Date: 12/30/23 Principal diagnosis: Aortic valvular insufficiency, coronary artery disease, declining left ventricular ejection fraction on serial echocardiography. Past medical history significant for coronary artery disease with previous PCI to the mid LAD in April 2020, hypertension, hyperlipidemia, asthma, benign prostatic hypertrophy, osteoarthritis, occasional marijuana use and is a lifetime non- smoker. POD #6 Aortic valve replacement with 27 mm Medtronic Avalus bovine pericardial valve prosthesis, CABG x 2 with GOETZ to LAD and saphenous vein graft to obtuse marginal, endovascular vein harvest greater saphenous vein from the left thigh, ligation of the left atrial appendage with 35mm AtriCure clip, [place] by anesthesia. Postoperative acute blood loss anemia and thrombocytopenia, expected given hemodilution, cardiopulmonary bypass and his preoperative thrombocytopenia. Paroxysmal atrial fibrillation, known common occurrence after open heart surgery, not a complication. The patient was seen and examined in follow-up today December 30, 2023 at his bedside in the intensive care unit. He is currently sitting up to the bedside chair, is awake, alert, oriented x 3 and is in no acute apparent distress. He denies any complaints of pain or shortness of breath at this time. He is complaining of some generalized weakness and some episodes of dizziness with standing. He reports he is feeling "down in the dumps". He remains hemodynamically stable and is currently on no inotropic or pressor support. Oxygen saturations are 98% on room air and he is achieving 1500 mL on his incentive spirometry with encouragement. Bedside telemetry is showing atrial fibrillation heart rate 90 bpm. Atrial and ventricular epicardial pacemaker wires remain in place and are connected to bedside backup pacemaker generator on a VVI mode of 5 the patient reports he has been up ambulating in the intensive care unit hallway with standby assistance from nursing and therapy staff, he reports having to take several breaks during the walks due to episodes of shortness of breath and/or dizziness. He has been receiving daily showers. Laboratory and chest x-ray results reviewed. Objective - Vital Signs Vital signs: Vital Signs Temp 97.5 F L 12/30/23 08:00 Pulse 100 12/30/23 11:34 Resp 21 12/30/23 11:00 BP 92/65 12/30/23 11:00 Pulse Ox 94 L 12/30/23 11:00 FiO2 40 12/29/23 12:15 Intake & Output 12/29/23 12/30/2312/29/24 18:59 06:59 18:59 Intake Total 776 240 400 Output Total 350 880 130 Balance 426 -640 270 Weight 86.1 kg Intake: IV 100 Magnesium Sulfate-D5w Pmx 100 1 gm In Dextrose/Water 1 100ml.bag @ 100 mls/hr IVPB ONCE ONE Rx#: [id number] Oral 676 240 400 Output: Urine 350 880 130 Other: Voiding Method Urinal Indwelling Catheter Indwelling Catheter # Voids 3 1 ABP, PAP, CO, CI - Last Documented Arterial Blood Pressure 98/53 Pulmonary Artery Pressure 41/7 Cardiac Output 4.4 Cardiac Index 2.3 - Exam CONSTITUTIONAL: Sitting up to the bedside chair in the intensive care unit, appears comfortable, cooperative, no apparent acute distress. HEENT: Neck is supple, no JVD, no lymphadenopathy. RESPIRATORY: Lungs sounds essentially clear throughout, diminished to his bilateral bases, right greater than left. Respirations are symmetrical and nonlabored. Currently on room air with oxygen saturations 98%. Able to achieve 1500 mL on his incentive spirometry. Strong cough. CARDIOVASCULAR: Regular rhythm and rate. S1 and S2 present, negative for S3, gallop or murmur. Bedside telemetry is showing atrial fibrillation heart rate 90 bpm. Sternum is stable. Palpable peripheral pulses bilaterally. No calf pain or tenderness noted. Heart hugger in place with patient demonstrating appropriate use. Knee-high FAITH hose and sequential compression devices in place to his bilateral lower extremities. GASTROINTESTINAL: Abdomen soft, nontender, nondistended. Active bowel sounds present 4 quadrants. Tolerating diet. Passing flatus. No guarding or rigidity. Bowel movement yesterday December 29, 2023. GENITOURINARY: Continues to void. Urine output 260 mL in the last 8 hours. INTEGUMENTARY: Skin is pale and jaundiced, warm and dry with no evidence of clubbing or cyanosis. Midline sternal incision clean dry and well approximated, covered with dry intact dressing. Left lower extremity EVH sites well approximated without redness or drainage. NEUROLOGIC: Cranial nerves II through XII intact. No focal deficits. MUSKULOSKELETAL: Able to move all extremities, strength equal bilaterally, generalized weakness. PSYCHIATRIC: Alert and oriented to person place and time, appropriate affect, intact judgment and insight. INVASIVE LINES AND TUBES: Atrial and ventricular epicardial pacemaker wires present, connected to generator, VVI mode of 50 bpm. - Allied health notes Allied health notes reviewed: nursing - Labs CBC & Chem 7: 12/30/23 04:28 12/30/23 04:28 Labs: Abnormal Lab Results - Last 24 Hours (Table) 12/29/23 12/29/23 12/29/23 Range/Units 14:21 16:28 20:11 RBC (4.30-5.90) m/uL Hgb (13.0-17.5) gm/dL Hct (39.0-53.0) % Plt Count (150-450) k/uL Sodium 127 L (137-145) mmol/L Chloride 91 L (98-107) mmol/L Carbon Dioxide 31 H (22-30) mmol/L BUN 38 H (9-20) mg/dL Glucose 127 H (74-99) mg/dL POC Glucose (mg/dL) 133 H 142 H (70-110) mg/dL Total Bilirubin (0.2-1.3) mg/dL AST (17-59) U/L ALT (4-49) U/L Total Protein (6.3-8.2) g/dL Albumin (3.5-5.0) g/dL 12/30/23 12/30/23 12/30/23 Range/Units 04:28 04:28 06:16 RBC 2.32 L (4.30-5.90) m/uL Hgb 7.3 L (13.0-17.5) gm/dL Hct 21.4 L (39.0-53.0) % Plt Count 121 L (150-450) k/uL Sodium 127 L (137-145) mmol/L Chloride 92 L (98-107) mmol/L Carbon Dioxide (22-30) mmol/L BUN 45 H (9-20) mg/dL Glucose 104 H (74-99) mg/dL POC Glucose (mg/dL) 121 H (70-110) mg/dL Total Bilirubin 3.3 H (0.2-1.3) mg/dL AST 123 H (17-59) U/L ALT 124 H (4-49) U/L Total Protein 5.0 L (6.3-8.2) g/dL Albumin 2.9 L (3.5-5.0) g/dL 12/30/23 Range/Units 11:43 RBC (4.30-5.90) m/uL Hgb (13.0-17.5) gm/dL Hct (39.0-53.0) % Plt Count (150-450) k/uL Sodium (137-145) mmol/L Chloride (98-107) mmol/L Carbon Dioxide (22-30) mmol/L BUN (9-20) mg/dL Glucose (74-99) mg/dL POC Glucose (mg/dL) 132 H (70-110) mg/dL Total Bilirubin (0.2-1.3) mg/dL AST (17-59) U/L ALT (4-49) U/L Total Protein (6.3-8.2) g/dL Albumin (3.5-5.0) g/dL - Imaging and Cardiology Chest x-ray: report reviewed, image reviewed Assessment and Plan Assessment: Severe aortic regurgitation status post aortic valve replacement with 27 mm Medtronic Avalus bovine pericardial valve prosthesis Coronary artery disease with previous PCI to the mid LAD in April 2020, patent mid LAD stent and circumflex lesion in the range of 55% on today's heart catheterization, status post coronary artery bypass grafting x 2 vessels, left internal mammary artery to the left anterior descending coronary artery and a saphenous vein graft to the obtuse marginal coronary artery Hypertension Acute on chronic systolic congestive heart failure with an ejection fraction of 25 to 30% Hyperlipidemia, treated preoperative LDL 49.1, HDL 54.0, cholesterol 118 Right internal carotid artery stenosis 50-79% Asthma, with a preoperative FEV1 2.05 75% of predicted value Benign prostatic hypertrophy Occasional marijuana use Lifelong non-smoker Postoperative acute blood loss anemia and thrombocytopenia, expected given hemodilution and cardiopulmonary bypass and preoperative thrombocytopenia Paroxysmal atrial fibrillation, status post ligation of the left atrial appendage Hyponatremia, sodium 127 today Plan: Continue to maximize medical therapy with low-dose aspirin, statin, Plavix and beta-aimee. Will increase metoprolol tartrate as tolerated. Continue amiodarone 400 mg p.o. twice daily. No anticoagulation at this time until epicardial pacemaker wires are removed. Wean oxygen as tolerated. Encourage incentive spirometry 10 times every hour while awake. Bronchodilators per pulmonology. Increase activity, ambulate as tolerated. PT/OT/cardiac rehab following. Will monitor daily labs and chest x-rays. Electrolyte replacement per protocol. Per discussion with nephrology we will give Lasix 40 mg today, repeat a sodium level at 4 PM with the results called to Dr. Calderón. Continue ferrous sulfate and vitamin C. GI/DVT prophylaxis. Insulin management per internal medicine. The patient is a not diabetic, with a preoperative hemoglobin A1c 6.1% Pain control with current medication regimen. Lidoderm patch will be prescribed by internal medicine for complaints of lower back pain. Continue to monitor strict accurate intake and output. Continue home dose of Flomax. Urology has been consulted as the patient was having some urine retention, and has been followed by Dr. Rodrigez from urology in the past. Due to the urine retention the patient required replacement of Kramer catheter last evening. Keep epicardial pacer at backup rate 50 BPM Continue fluid restrictions. Sodium is 127 today. Keep in the intensive care unit for another 24 hours due to connection to the epicardial pacemaker Start Celexa [address] Rouse has been consulted for evaluation for inpatient rehab. More recommendations to follow based on patient's clinical course. Time with Patient: Greater than 30
[2023-12-30 16:15] LABS: Glucose,Whole Blood 164 mg/dL (70-110)
[2023-12-30 16:53] LABS: African American GFR (CKD) 61 (>60 ml/min/1.73 sqM); Anion Gap 8 mmol/L; Blood Urea Nitrogen 48 mg/dL (9-20); Calcium 8.9 mg/dL (8.4-10.2); Carbon Dioxide 28 mmol/L (22-30); Chloride 91 mmol/L (98-107); Glucose 120 mg/dL (74-99); Non-African American GFR(CKD) 53 (>60 ml/min/1.73 sqM); Potassium 3.8 mmol/L (3.5-5.1); Sodium 127 mmol/L (137-145)
--- NOTE | 2023-12-30 17:26 | P.PN ---
Subjective Progress Note Date: 12/30/23 (delayed charting seen at 1050) Patient is a 78-year-old male status post aortic valve replacement. We are following for medical management. Seen and examined at bedside with family present. He was having some back pain last night which is makes sleeping difficult. Still having some dizziness when standing today and was unable to work with therapy. Had some intermittent nausea which is better. Discussed with patient and family that they will need to follow-up with PCP for further monitoring of liver functions and inflammation in the liver seen on liver ultrasound. Vital signs reviewed General: Nontoxic, no distress, appears at stated age, heart hugger in place. Cardiovascular: S1S2 reg, no murmur, positive posterior tibial pulse bilateral, Lungs: Decreased bs bilateral, no rhonchi, no rales, no accessory muscle use Abdominal: Soft, nontender to palpation, no guarding, no appreciable organomegaly Ext: No gross muscle atrophy, no edema b/l lower extremities, no contractures Neuro: CN II-XI grossly intact, no focal neuro deficits Psych: Alert, oriented, appropriate affect Assessment/Plan: 78-year-old male status post aortic valve replacement. HFrF 32-25% with exacerbation P. A fib- occurrence after open heart HLD CAD HTN Right ICA stenosis -Aspirin 81 mg daily, Plavix 75 mg daily, metoprolol 50 mg twice daily, Lipitor 40 mg daily , ARB on hold, Lasix, Not on aldactone/SGLT2 at baseline -Amiodarone 400 mg twice daily, no anticoagulation per cardiothoracic surgery until cardio pacemaker wires removed -Pulmonary note reviewed: Small pleural effusion, maximal medical therapy - CT surgery note reviewed - Pulm note reviewed Hyponatremia, hypervolemic -Lasix increased to 40 mg IV twice daily - Nephrology consult reviewed, if Soidum not improved start samsca Hyperglycemia in a prediabetic with A1c 6.1 on 12/07/23 - SSI - stop levemir start farxia 10 mg daily - BS well controlled will stop levemir Transamintis -Hepatitis A, B and C are negative -Liver ultrasound reviewed on 12/29 with steatohepatitis -Outpatient follow-up with PCP to ensure liver enzymes returned to baseline Back pain -Add lidocaine patch as needed at night -Case discussed with cardiothoracic nurse practitioner. Want to avoid sedative medications, agreed with lidocaine patch -Encourage ambulation Urinary retention BPH - gray replaced on 12/30/23 - flomax - urology consult Acute blood loss anemia and thrombocytopenia, anticipated outcome, stable - s/p 1 unit pRBC - Hgb and plt stable - follow CBC Imaging: CXR- right sided pleural effusion, relatively unchanged from yesterday Data Review: Reviewed labs reviewed from today include CBC and CMP which are remarkable for hemoglobin of 7.3, platelets 121, sodium 127, bilirubin 3.3, AST 123, ALT 124, TSH normal at 2.430 DVT prophylaxis: Roxann Thank you for allowing us to participate in the care of this pleasant patient. Do not hesitate to contact us with questions. Someone can be reached from the [facility] [place] hospitalist group all hours of the day at [phone] or via [employer]. This dictation was prepared using [employer] voice recognition software. Though every attempt is made to correct errors during dictation some may still exist. Objective - Vital Signs Vital signs: Vital Signs Temp 97.8 F 12/30/23 16:00 Pulse 101 H 12/30/23 16:00 Resp 19 12/30/23 16:00 BP 101/67 12/30/23 16:00 Pulse Ox 93 L 12/30/23 16:00 FiO2 40 12/29/23 12:15 Intake & Output 12/29/23 12/30/23 12/30/23 18:59 06:59 18:59 Intake Total 776 240 600 Output Total 350 880 625 Balance 426 -640 -25 Weight 86.1 kg Intake: IV 100 Magnesium Sulfate-D5w Pmx 100 1 gm In Dextrose/Water 1 100ml.bag @ 100 mls/hr IVPB ONCE ONE Rx#: [id number] Oral 676 240 600 Output: Urine 350 880 625 Other: Voiding Method Urinal Indwelling Catheter Indwelling Catheter # Voids 3 1 ABP, PAP, CO, CI - Last Documented Arterial Blood Pressure 98/53 Pulmonary Artery Pressure 41/7 Cardiac Output 4.4 Cardiac Index 2.3 - Labs CBC & Chem 7: 12/30/23 04:28 12/30/23 16:23 Labs: Abnormal Lab Results - Last 24 Hours (Table) 12/29/23 12/30/23 12/30/23 Range/Units 20:11 04:28 04:28 RBC 2.32 L (4.30-5.90) m/uL Hgb 7.3 L (13.0-17.5) gm/dL Hct 21.4 L (39.0-53.0) % Plt Count 121 L (150-450) k/uL Sodium 127 L (137-145) mmol/L Chloride 92 L (98-107) mmol/L BUN 45 H (9-20) mg/dL Creatinine (0.66-1.25) mg/dL Glucose 104 H (74-99) mg/dL POC Glucose (mg/dL) 142 H (70-110) mg/dL Total Bilirubin 3.3 H (0.2-1.3) mg/dL AST 123 H (17-59) U/L ALT 124 H (4-49) U/L Total Protein 5.0 L (6.3-8.2) g/dL Albumin 2.9 L (3.5-5.0) g/dL 12/30/23 12/30/23 12/30/23 Range/Units 06:16 11:43 16:14 RBC (4.30-5.90) m/uL Hgb (13.0-17.5) gm/dL Hct (39.0-53.0) % Plt Count (150-450) k/uL Sodium (137-145) mmol/L Chloride (98-107) mmol/L BUN (9-20) mg/dL Creatinine (0.66-1.25) mg/dL Glucose (74-99) mg/dL POC Glucose (mg/dL) 121 H 132 H 164 H (70-110) mg/dL Total Bilirubin (0.2-1.3) mg/dL AST (17-59) U/L ALT (4-49) U/L Total Protein (6.3-8.2) g/dL Albumin (3.5-5.0) g/dL 12/30/23 Range/Units 16:23 RBC (4.30-5.90) m/uL Hgb (13.0-17.5) gm/dL Hct (39.0-53.0) % Plt Count (150-450) k/uL Sodium 127 L (137-145) mmol/L Chloride 91 L (98-107) mmol/L BUN 48 H (9-20) mg/dL Creatinine 1.30 H (0.66-1.25) mg/dL Glucose 120 H (74-99) mg/dL POC Glucose (mg/dL) (70-110) mg/dL Total Bilirubin (0.2-1.3) mg/dL AST (17-59) U/L ALT (4-49) U/L Total Protein (6.3-8.2) g/dL Albumin (3.5-5.0) g/dL
[2023-12-30] MEDS: TOLVAPTAN 15 MG TABLET PO ONE (18:19)
[2023-12-30 20:19] LABS: Glucose,Whole Blood 156 mg/dL (70-110)
[2023-12-30] MEDS: LIDOCAINE 4% PATCH TOPICAL PRN (20:20)
--- NOTE | 2023-12-30 23:55 | PN ---
PROGRESS NOTE SUBJECTIVE: Navjot is a 78-year-old gentleman who underwent aortic valve replacement and bypass surgery. He is having slow recovery. Remains in atrial fibrillation with better controlled ventricular rate. OBJECTIVE: VITAL SIGNS: Blood pressure is 100/77, respiratory rate is 18. CHEST: Reveals good air entry bilaterally. HEART: Reveals first and second heart sounds. No gallop. EXTREMITIES: Reveal mild edema. LABS: Show that the hemoglobin is 7.3, platelet count is 120, potassium is 4.2, and creatinine is 1.1. CURRENT MEDICATIONS: 1. Amiodarone. 2. Aspirin. 3. Lipitor. 4. Insulin. ASSESSMENT: 1. Aortic regurgitation, status post aortic valve replacement. 2. Blood loss anemia, status post transfusion. 3. Postoperative atrial fibrillation. PLAN: His hemoglobin remained stable. Platelet count is improving. Overall clinically he looks better today. MMODL / IJN: [id number] /
[2023-12-31 06:00] LABS: HCT 22.3 % (39.0-53.0); HGB 7.7 gm/dL (13.0-17.5); Hypochromasia Slight; MCH 31.8 pg (25.0-35.0); MCHC 34.4 g/dL (31.0-37.0); MCV 92.4 fL (80.0-100.0); Mean Platelet Volume 7.7; Platelet Count 156 k/uL (150-450); Poikilocytosis Slight; RBC 2.41 m/uL (4.30-5.90); RDW 15.3 % (11.5-15.5); WBC 6.5 k/uL (3.8-10.6)
[2023-12-31 06:17] LABS: Glucose,Whole Blood 142 mg/dL (70-110)
[2023-12-31 06:26] LABS: ALT 130 U/L (4-49); AST 103 U/L (17-59); African American GFR (CKD) 62 (>60 ml/min/1.73 sqM); Alkaline Phosphatase 40 U/L (38-126); Anion Gap 4 mmol/L; Blood Urea Nitrogen 41 mg/dL (9-20); Calcium 8.8 mg/dL (8.4-10.2); Carbon Dioxide 31 mmol/L (22-30); Chloride 94 mmol/L (98-107); Glucose 109 mg/dL (74-99); Non-African American GFR(CKD) 54 (>60 ml/min/1.73 sqM); Potassium 4.2 mmol/L (3.5-5.1); Sodium 129 mmol/L (137-145); Total Bilirubin 3.3 mg/dL (0.2-1.3); Total Protein 5.2 g/dL (6.3-8.2)
--- NOTE | 2023-12-31 07:29 | XR ---
EXAMINATION TYPE: XR chest 2V DATE OF EXAM: 12/31/2023 COMPARISON: 12/30/2023 INDICATION: Postop CABG TECHNIQUE: Frontal and lateral views of the chest are obtained. FINDINGS: The heart size is enlarged. The pulmonary vasculature is normal. Small to moderate right pleural effusion is present. Some mild bibasilar infiltrate may be atelectas is present IMPRESSION: 1. Small to moderate right pleural effusion. Some minimal bibasilar atelectasis may be present. Follo w-up is Recommend
[2023-12-31] MEDS: DAPAGLIFLOZIN PROPANEDIOL 10 MG TABLET PO SCH (08:33)
--- NOTE | 2023-12-31 09:48 | P.PN ---
Subjective Progress Note Date: 12/31/23 The patient is a 78-year-old male who underwent aortic valve replacement on December [address] Red. Postoperatively the patient had blood loss anemia as well as atrial fibrillation which is an expected course. Patient remains in rate controlled atrial fibrillation. He states he has been up ambulating to the chair. He denies any current pain. No difficulty breathing. GENERAL: Well-appearing, well-nourished and in no acute distress. NECK: Supple without JVD or thyromegaly. LUNGS: Breath sounds clear to auscultation bilaterally. Respiration equal and unlabored. Left lower lobe wheezing. HEART: Irregular rate and rhythm without murmurs, rubs or gallops. S1 and S2 heard. EXTREMITIES: Normal range of motion, no edema. No clubbing or cyanosis. Peripheral pulses intact and strong. TELEMETRY: Rate controlled atrial fibrillation LABS: WBC 6.5, hemoglobin 7.7, hematocrit 22.3, platelets 156, sodium 129, potassium 4.2, BUN 41, creatinine 1.29, AST 103, ALT 130 IMPRESSION: Aortic regurgitation Status post aortic valve replacement Postoperative blood loss anemia Postoperative atrial fibrillation Hyponatremia Elevated liver enzymes PLAN: Continue supportive treatment Aggressive pulmonary hygiene Encourage ambulation Further recommendations to be based upon clinical course I am dictating on behalf of Dr Theo Graff's history/physical and assessment/plan. Objective - Vital Signs Vital signs: Vital Signs Temp 98.2 F 12/31/23 08:00 Pulse 129 H 12/31/23 09:00 Resp 18 12/31/23 08:11 BP 114/87 12/31/23 09:00 Pulse Ox 92 L 12/31/23 08:00 FiO2 40 12/29/23 12:15 Intake & Output 12/30/23 12/31/23 12/31/23 18:59 06:59 18:59 Intake Total 600 Output Total 675 840 175 Balance -75 -840 -175 Weight 85.6 kg Intake: Oral 600 Output: Urine 675 840 175 Other: Voiding Method Indwelling Catheter Indwelling Catheter Indwelling Catheter ABP, PAP, CO, CI - Last Documented Arterial Blood Pressure 98/53 Pulmonary Artery Pressure 41/7 Cardiac Output 4.4 Cardiac Index 2.3 - Labs CBC & Chem 7: 12/31/23 05:33 12/31/23 05:33 Labs: Abnormal Lab Results - Last 24 Hours (Table) 12/30/23 12/30/23 12/30/23 Range/Units 11:15 11:43 16:14 RBC (4.30-5.90) m/uL Hgb (13.0-17.5) gm/dL Hct (39.0-53.0) % Sodium (137-145) mmol/L Chloride (98-107) mmol/L Carbon Dioxide (22-30) mmol/L BUN (9-20) mg/dL Creatinine (0.66-1.25) mg/dL Glucose (74-99) mg/dL POC Glucose (mg/dL) 132 H 164 H (70-110) mg/dL Total Bilirubin (0.2-1.3) mg/dL AST (17-59) U/L ALT (4-49) U/L Total Protein (6.3-8.2) g/dL Albumin (3.5-5.0) g/dL Ur Random Sodium <20 L (40-220) mmol/L 12/30/23 12/30/23 12/31/23 Range/Units 16:23 20:17 05:33 RBC 2.41 L (4.30-5.90) m/uL Hgb 7.7 L (13.0-17.5) gm/dL Hct 22.3 L (39.0-53.0) % Sodium 127 L (137-145) mmol/L Chloride 91 L (98-107) mmol/L Carbon Dioxide (22-30) mmol/L BUN 48 H (9-20) mg/dL Creatinine 1.30 H (0.66-1.25) mg/dL Glucose 120 H (74-99) mg/dL POC Glucose (mg/dL) 156 H (70-110) mg/dL Total Bilirubin (0.2-1.3) mg/dL AST (17-59) U/L ALT (4-49) U/L Total Protein (6.3-8.2) g/dL Albumin (3.5-5.0) g/dL Ur Random Sodium (40-220) mmol/L 12/31/23 12/31/23 Range/Units 05:33 06:16 RBC (4.30-5.90) m/uL Hgb (13.0-17.5) gm/dL Hct (39.0-53.0) % Sodium 129 L (137-145) mmol/L Chloride 94 L (98-107) mmol/L Carbon Dioxide 31 H (22-30) mmol/L BUN 41 H (9-20) mg/dL Creatinine 1.29 H (0.66-1.25) mg/dL Glucose 109 H (74-99) mg/dL POC Glucose (mg/dL) 142 H (70-110) mg/dL Total Bilirubin 3.3 H (0.2-1.3) mg/dL AST 103 H (17-59) U/L ALT 130 H (4-49) U/L Total Protein 5.2 L (6.3-8.2) g/dL Albumin 3.0 L (3.5-5.0) g/dL Ur Random Sodium (40-220) mmol/L
--- NOTE | 2023-12-31 10:50 | P.PN ---
Subjective Progress Note Date: 12/31/23 Principal diagnosis: Coronary artery disease, aortic stenosis. This is a 78-year-old male patient with a known history of coronary artery disease with previous PCI to the mid LAD, hypertension, hyperlipidemia, benign prostatic hyperplasia, non-smoker. He was also recently found to have severe aortic regurgitation with moderate mitral regurgitation, coronary artery disease and declining left ventricular ejection fraction. He was brought in today electively for surgery. He had undergone aortic valve replacement with a [employer]onic Avallis bovine pericardial valve prosthesis, CABG x 2 with a GOETZ to the LAD and SVG to the obtuse marginal. He is seen today in the postoperative period in the intensive care unit. He is not abated on the mechanical ventilator and assist-control mode at a rate of 12, tidal volume 400, FiO2 50% and a PEEP of 5. Arterial blood gases revealed a PaO2 of 267, pCO2 of 42 and a pH of 7.36 on 100% FiO2. White count 6.2. Hemoglobin 9.7. Platelets 86,000. Sodium 133. Potassium 4.4. Bicarb 22. BUN 10. Creatinine 0.69. Glucose 132. Albumin 2.5. He did receive albumin. He is on an insulin drip at 1.5 units/h. Nitroglycerin drip at 5 mcg/min and currently off propofol. He has been transitioned to pressure support of 5 and a PEEP of 5. Will plan for early extubation protocol as tolerated. PA pressures 32/14, CVP of 6 cardiac output 4.4. Cardiac index 2.3. Chest x-ray reveals streaky opacities in the left upper lung field likely atelectasis. Mild increased opacity in the right upper lung field. [place] catheter is present in the main pulmonary artery. Right- sided chest tube present. No evidence of pneumothorax. Mediastinal tube is present. Endotracheal tube and nasogastric tubes in position. Epicardial leads are present. Patient was evaluated today on 12/25/2023, patient is on 2 L nasal cannula, extubated yesterday at 4:35 PM, tolerated the extubation well. Patient is now on 2 L nasal cannula, he is on amiodarone at 0.5 mg/min, he is also on insulin at 1.5 units/h, IV fluid 0.9 normal saline at 50 cc/h. Patient is sitting at the bedside chair, awake oriented x 3, not in any distress, not requiring any pressors not requiring any inotropes. Cardiac output is 5.1 cardiac index is 2.7 PA pressure 29/12 CVP is 6 SVR is 1191. Mediastinal and left pleural chest tubes remain in place to low suction. No air leak noted and no evidence of pneumothorax on the chest x-ray, there is evidence however of right basilar atelectasis.WBC count is 6.6 hemoglobin 7.4. Basic metabolic profile is normal renal profile is normal Patient was evaluated today on 12/26/2023, patient is now postoperative day #2. Patient is receiving a unit of packed RBCs for low hemoglobin of 6.3, pulmonary casey does not seem to be in any distress, he is on 2 L nasal cannula and his O2 saturation is in the 90s. Chest x-ray is showing evidence of fluid overload/pulmonary edema and pleural effusions, hence the patient is receiving Lasix by thoracic surgery ordered today. Continues to have right internal jugular Cordis with right radial arterial line, mediastinal/left chest tubes remain in place. Clinically the patient is doing well, he is not requiring any inotropes or any pressors. Patient was evaluated today on 12/27/2023, patient is now postoperative day #3. Patient is comfortable, sitting in a bedside recliner, developed atrial fibrillation with RVR yesterday, and he was restarted on amiodarone, remained hemodynamically stable, patient also developed some mild pulmonary vascular congestion and he received Lasix by surgery. This morning he does not seem to be short of breath, he is on 2 L nasal cannula, not in any distress. Yesterday he did receive 1 unit of packed RBCs for low hemoglobin however his hemoglobin today is 7.3. Chest x-ray continues to show cardiomegaly, right lower lobe atelectasis and possibly a small pleural effusion on the right side Patient elevated today on 12/28/2023, patient is in a bedside recliner, doing fairly well, he has no active symptoms whatsoever. Denies any pain denies any shortness of breath, he had a chest x-ray this morning showing a small right- sided pleural effusion, ultrasound showed a 4.8 cm pocket, hence no plans to perform thoracentesis as the pocket of fluid seems to be relatively small. In the meantime the patient has been receiving diuretics, he is maintaining hemoglobin around 7.6, he did receive 1 unit of packed RBCs back on 12/25. Remains on Lasix 40 mg IV push twice daily, WBC 7.3 hemoglobin 7.6 sodium is a bit low at 127 potassium 4.3 BUN is 32 creatinine 0.87 his hyponatremia is felt to be most likely hypovolemic related hyponatremia Patient was evaluated today on 12/29/2023, doing well, relatively asymptomatic. Patient is receiving sodium tabs for his low sodium is also on fluid restriction 1200 cc/day, sodium today is 126 chest x-ray is basically about the same showing small right-sided pleural effusion not large enough to consider safe thoracentesis WBC count is 6.5 hemoglobin 7.2 sodium 126 BUN 37 creatinine 0.99. Patient is generally weak. Achieving 1250 cc on his incentive spirometry. He is in atrial fibrillation with controlled rate 90 bpm. Patient was evaluated today on 12/30/2023, remains in the ICU, patient is doing well, he is on room air, not in any distress, the plan is to possibly transfer the patient to [facility]. after pacer wires are out. No issues overnight, patient does not seem to be in any detail distress, chest x-ray continues to show small right-sided pleural effusion not large enough to consider thoracentesis. This was evaluated by ultrasound. Sodium today is 127 potassium 4.2 BUN is 45 crea tinine 1.17. Hemoglobin is 7.3 Progress note dated December 31, 2023. 78-year-old male postoperative day #7, status post two-vessel bypass surgery, and aortic valve replacement for severe aortic regurgitation.. Currently, the patient's not receiving any IV fluids. He is on room air. His chest x-ray shows a small right-sided pleural effusion. Current laboratory data includes a white count of 6.5, hemoglobin 7.7, hematocrit 22.3, and a platelet count of 156,000. Sodium 129, potassium 4.2, chloride 94, CO2 31, BUN 41, creatinine 1.29. Glucose 142. Total bilirubin 3.3. AST 103. ALT 130. Albumin is 3. Chest x-ray shows some basilar atelectasis, and a small to moderate right-sided pleural effusion. Objective - Vital Signs Vital signs: Vital Signs Temp 98.2 F 12/31/23 08:00 Pulse 111 H 12/31/23 10:38 Resp 16 12/31/23 10:38 BP 114/87 12/31/23 09:00 Pulse Ox 94 L 12/31/23 10:00 FiO2 40 12/29/23 12:15 Intake & Output 12/30/23 12/31/23 12/31/23 18:59 06:59 18:59 Intake Total 600 Output Total 675 840 325 Balance -75 -840 -325 Weight 85.6 kg Intake: Oral 600 Output: Urine 675 840 325 Other: Voiding Method Indwelling Catheter Indwelling Catheter Indwelling Catheter ABP, PAP, CO, CI - Last Documented Arterial Blood Pressure 98/53 Pulmonary Artery Pressure 41/7 Cardiac Output 4.4 Cardiac Index 2.3 - Exam No acute distress, oriented 3. Currently on room air. HEENT examination is grossly unremarkable. Mucous membranes are moist. No oral lesions. Neck supple. Full range of motion. No adenopathy thyromegaly or neck vein distention. Cardiovascular examination reveals regular rhythm rate. S1-S2 normal. No S3 or S4. No discernible murmur noted. Lungs reveal clear breath sounds. Breath sounds are equal bilaterally. No adventitious lung sounds including wheezes rhonchi or crackles. Abdomen soft bowel sounds are heard. No masses or tenderness. Extremities are intact. No cyanosis clubbing or edema. Skin is without rash or lesion. Neurologic examination is brief but nonfocal. - Labs CBC & Chem 7: 12/31/23 05:33 12/31/23 05:33 Labs: Abnormal Lab Results - Last 24 Hours (Table) 12/30/23 12/30/23 12/30/23 Range/Units 11:15 11:43 16:14 RBC (4.30-5.90) m/uL Hgb (13.0-17.5) gm/dL Hct (39.0-53.0) % Sodium (137-145) mmol/L Chloride (98-107) mmol/L Carbon Dioxide (22-30) mmol/L BUN (9-20) mg/dL Creatinine (0.66-1.25) mg/dL Glucose (74-99) mg/dL POC Glucose (mg/dL) 132 H 164 H (70-110) mg/dL Total Bilirubin (0.2-1.3) mg/dL AST (17-59) U/L ALT (4-49) U/L Total Protein (6.3-8.2) g/dL Albumin (3.5-5.0) g/dL Ur Random Sodium <20 L (40-220) mmol/L 12/30/23 12/30/23 12/31/23 Range/Units 16:23 20:17 05:33 RBC 2.41 L (4.30-5.90) m/uL Hgb 7.7 L (13.0-17.5) gm/dL Hct 22.3 L (39.0-53.0) % Sodium 127 L (137-145) mmol/L Chloride 91 L (98-107) mmol/L Carbon Dioxide (22-30) mmol/L BUN 48 H (9-20) mg/dL Creatinine 1.30 H (0.66-1.25) mg/dL Glucose 120 H (74-99) mg/dL POC Glucose (mg/dL) 156 H (70-110) mg/dL Total Bilirubin (0.2-1.3) mg/dL AST (17-59) U/L ALT (4-49) U/L Total Protein (6.3-8.2) g/dL Albumin (3.5-5.0) g/dL Ur Random Sodium (40-220) mmol/L 12/31/23 12/31/23 Range/Units 05:33 06:16 RBC (4.30-5.90) m/uL Hgb (13.0-17.5) gm/dL Hct (39.0-53.0) % Sodium 129 L (137-145) mmol/L Chloride 94 L (98-107) mmol/L Carbon Dioxide 31 H (22-30) mmol/L BUN 41 H (9-20) mg/dL Creatinine 1.29 H (0.66-1.25) mg/dL Glucose 109 H (74-99) mg/dL POC Glucose (mg/dL) 142 H (70-110) mg/dL Total Bilirubin 3.3 H (0.2-1.3) mg/dL AST 103 H (17-59) U/L ALT 130 H (4-49) U/L Total Protein 5.2 L (6.3-8.2) g/dL Albumin 3.0 L (3.5-5.0) g/dL Ur Random Sodium (40-220) mmol/L Assessment and Plan Assessment: Postoperative day #7, status post aortic valve replacement/two-vessel bypass surgery. Routine postoperative ventilator management. History of severe aortic regurgitation. Benign essential hypertension. Hyperlipidemia. History of mild asthma. BPH. Lifelong non-smoker. Postoperative atelectasis. Acute blood loss anemia. Acute diastolic CHF. Postoperative atrial fibrillation with RVR. Right-sided pleural effusion. Hypervolemic hyponatremia. Plan: Plan dated December 31, 2023. The patient is seen today in room 266. He is currently been weaned off of oxygen. He is not receiving any IV fluids. His chest x-ray shows some basilar atelectasis, and a small right-sided pleural effusion. Today is postoperative day #7, status post aortic valve replacement for severe aortic regurgitation, and two-vessel CABG procedure. We will continue to follow make recommendations along the way. Labs, x-rays, and all medications have been reviewed. Time with Patient: Greater than 30
--- NOTE | 2023-12-31 11:21 | P.PN ---
Subjective Patient is seen in follow-up for hyponatremia. Sodium level better. Denies chest pain or shortness of breath. Oral intake is fair. No vomiting or diarrhea. Vital signs are stable. General: No acute distress. HEENT: Head exam is unremarkable. LUNGS: No audible rhonchi or wheezes. HEART: Rate and Rhythm are regular. ABDOMEN: Nontender. EXTREMITITES: No edema. Objective - Vital Signs Vital signs: Vital Signs Temp 98.2 F 12/31/23 08:00 Pulse 112 H 12/31/23 10:48 Resp 18 12/31/23 10:48 BP 114/87 12/31/23 09:00 Pulse Ox 94 L 12/31/23 10:00 FiO2 40 12/29/23 12:15 Intake & Output 12/30/23 12/31/23 12/31/23 18:59 06:59 18:59 Intake Total 600 Output Total 675 840 325 Balance -75 -840 -325 Weight 85.6 kg Intake: Oral 600 Output: Urine 675 840 325 Other: Voiding Method Indwelling Catheter Indwelling Catheter Indwelling Catheter ABP, PAP, CO, CI - Last Documented Arterial Blood Pressure 98/53 Pulmonary Artery Pressure 41/7 Cardiac Output 4.4 Cardiac Index 2.3 - Labs CBC & Chem 7: 12/31/23 05:33 12/31/23 05:33 Labs: Abnormal Lab Results - Last 24 Hours (Table) 12/30/23 12/30/23 12/30/23 Range/Units 11:15 11:43 16:14 RBC (4.30-5.90) m/uL Hgb (13.0-17.5) gm/dL Hct (39.0-53.0) % Sodium (137-145) mmol/L Chloride (98-107) mmol/L Carbon Dioxide (22-30) mmol/L BUN (9-20) mg/dL Creatinine (0.66-1.25) mg/dL Glucose (74-99) mg/dL POC Glucose (mg/dL) 132 H 164 H (70-110) mg/dL Total Bilirubin (0.2-1.3) mg/dL AST (17-59) U/L ALT (4-49) U/L Total Protein (6.3-8.2) g/dL Albumin (3.5-5.0) g/dL Ur Random Sodium <20 L (40-220) mmol/L 12/30/23 12/30/23 12/31/23 Range/Units 16:23 20:17 05:33 RBC 2.41 L (4.30-5.90) m/uL Hgb 7.7 L (13.0-17.5) gm/dL Hct 22.3 L (39.0-53.0) % Sodium 127 L (137-145) mmol/L Chloride 91 L (98-107) mmol/L Carbon Dioxide (22-30) mmol/L BUN 48 H (9-20) mg/dL Creatinine 1.30 H (0.66-1.25) mg/dL Glucose 120 H (74-99) mg/dL POC Glucose (mg/dL) 156 H (70-110) mg/dL Total Bilirubin (0.2-1.3) mg/dL AST (17-59) U/L ALT (4-49) U/L Total Protein (6.3-8.2) g/dL Albumin (3.5-5.0) g/dL Ur Random Sodium (40-220) mmol/L 12/31/23 12/31/23 Range/Units 05:33 06:16 RBC (4.30-5.90) m/uL Hgb (13.0-17.5) gm/dL Hct (39.0-53.0) % Sodium 129 L (137-145) mmol/L Chloride 94 L (98-107) mmol/L Carbon Dioxide 31 H (22-30) mmol/L BUN 41 H (9-20) mg/dL Creatinine 1.29 H (0.66-1.25) mg/dL Glucose 109 H (74-99) mg/dL POC Glucose (mg/dL) 142 H (70-110) mg/dL Total Bilirubin 3.3 H (0.2-1.3) mg/dL AST 103 H (17-59) U/L ALT 130 H (4-49) U/L Total Protein 5.2 L (6.3-8.2) g/dL Albumin 3.0 L (3.5-5.0) g/dL Ur Random Sodium (40-220) mmol/L Assessment and Plan Plan: Assessment: 1. Hyponatremia, hypervolemic in view of pleural effusions. Sodium level 129 today. TSH normal. Urine sodium less than 20. 2. Acute systolic CHF ejection fraction of 25 to 30%. 3. Coronary disease status post CABG and aortic valve replacement December 24, 2023. 4. Acute blood loss anemia status post blood transfusion this admission. Hemoglobin 7.7 today. Plan: Status post IV Lasix and Samsca given December 30, 2023. Hold off on diuretics today. Maintain SGLT2 inhibitor. Maintain fluid restriction. Salt tabs discontinued December 29, 2023. Encouraged oral intake, particularly protein. Avoid NSAIDs.
--- NOTE | 2023-12-31 11:22 | P.CONS ---
History of Present Illness - Reason for Consult Consult date: 12/31/23 rehab recommendations - Chief Complaint Debility - History of Present Illness This is a 78-year-old male patient, right handed, , lives with his in a 1 story home with 3 RAY[address]. Independent for mobility, ADLS, driving [employer]. He does have a daughter and grandson who live nearby that can help if needed. Patient was admitted to the hospital on 12/24/23 for a planned Cardiac surgery. He has a known history of coronary artery disease with previous PCI to the mid LAD, hypertension, hyperlipidemia, benign prostatic hyperplasia. He was also recently found to have severe aortic regurgitation with moderate mitral regurgitation, coronary artery disease and declining left ventricular ejection fraction. He had CABG x 2 with a GOETZ to the LAD and SVG to the obtuse marginal. He tolerated extubation. Patient is receiving a unit of packed RBCs for low hemoglobin of 6.3, Chest x-ray is showing evidence of fluid overload/pulmonary edema and pleural effusions, hence the patient is receiving Lasix by thoracic surgery ordered today. He developed atrial fibrillation with RVR was restarted on amiodarone. 12/29/2023, Patient is receiving sodium tabs for his low sodium is also on fluid restriction 1200 cc/day, sodium today is 126 chest x-ray is basically about the same showing small right-sided pleural effusion not large enough to consider safe thoracentesis. 12/31/23: PM&R consulted for rehab recommendations. Patient has not been seen by OT as this time, PT from 12/28 Patient min assist with tranfers and gait for 75 ft with 2 rest breaks. Per patient and nursing, has been able to ambulate 1/[address] around floor, being limited by endurance, dyspnea on exertion. At this time, he notes is tired, has decreased endurance, a cough. Denies BANUELOS, CP, SOB at rest, abdominal pain or other issues. LBM this am. Review of Systems reviewed, negative unless stated above in HPI Past Medical History Past Medical History: Coronary Artery Disease (CAD), COPD, Hyperlipidemia, Hypertension, Prostate Disorder Additional Past Medical History / Comment(s): Aortic Valve Regurgitation, BPH History of Any Multi-Drug Resistant Organisms: None Reported Past Surgical History: Heart Catheterization With Stent, Joint Replacement, Orthopedic Surgery Additional Past Surgical History / Comment(s): neisha shoulder rotator cuff, left knee replacement, rt knee arthrosocpy, one cardiac stent Past Anesthesia/Blood Transfusion Reactions: No Reported Reaction Additional Past Anesthesia/Blood Transfusion Reaction / Comm: no hx blood transfusions Date of Last Stent Placement:: 2019 Past Psychological History: No Psychological Hx Reported Smoking Status: Never smoker Past Alcohol Use History: Rare Past Drug Use History: Marijuana Additional Drug Use History / Comment(s): gummie occasionally, pt aware not to use 24 hr before procedure - Past Family History Mother Family Medical History: No Reported History Medications and Allergies Home Medications Medication Instructions Recorded Confirmed Type Aspirin [Adult Low Dose Aspirin EC] 81 mg PO DAILY 05/03/20 12/24/23 History Atorvastatin [Lipitor] 40 mg PO HS 05/03/20 12/24/23 History Cholecalciferol [Vitamin D3 (25 2,000 unit PO QAM 05/03/20 12/24/23 History Mcg = 1000 Iu)] Losartan [Cozaar] 25 mg PO HS 05/03/20 12/24/23 History Metoprolol Tartrate 12.5 mg PO BID 05/03/20 12/24/23 History Tamsulosin HCl [Flomax] 0.4 mg PO QAM 12/05/23 12/24/23 History Allergies Allergy/AdvReac Type Severity Reaction Status Date / Time No Known Allergies Allergy Verified 12/24/23 06:13 Physical Exam Vitals: Vital Signs Temp Pulse Resp BP Pulse Ox 12/31/23 10:48 112 H 18 12/31/23 10:38 111 H 16 12/31/23 10:00 120 H 21 94 L 12/31/23 09:00 129 H 114/87 12/31/23 08:11 105 H 18 12/31/23 08:03 115 H 14 12/31/23 08:00 98.2 F 112 H 14 99/78 92 L 12/31/23 07:00 101 H 14 110/73 89 L 12/31/23 06:00 101 H 20 112/84 96 12/31/23 05:00 96 16 119/88 96 12/31/23 04:00 98.3 F 92 14 119/97 92 L 12/31/23 03:00 98 13 109/75 12/31/23 02:00 105 H 13 92/70 92 L 12/31/23 01:00 93 13 97/74 90 L 12/31/23 00:00 98.2 F 101 H 13 109/91 92 L 12/30/23 23:00 93 12 89/62 95 12/30/23 22:00 90 14 92/72 91 L 12/30/23 21:00 90 26 H 98/65 94 L 12/30/23 20:59 92 12/30/23 20:39 95 12/30/23 20:00 98.2 F 92 16 91/66 94 L 12/30/23 19:00 92 20 91/66 93 L 12/30/23 18:00 87 16 90/61 92 L 12/30/23 17:00 97 16 96/59 92 L 12/30/23 16:00 97.8 F 101 H 19 101/67 93 L 12/30/23 15:00 98 16 100/63 95 12/30/23 14:00 82 13 100/63 93 L 12/30/23 13:00 87 30 H 102/89 92 L 12/30/23 12:00 97.7 F 104 H 32 H 92/65 94 L 12/30/23 11:34 100 12/30/23 11:23 98 Intake and Output 12/30/23 12/31/23 12/31/23 22:59 06:59 14:59 Intake Total 200 Output Total 355 700 325 Balance -155 700 -325 Intake: Oral 200 Output: Urine 355 700 325 Other: Voiding Method Indwelling Catheter Indwelling Catheter Indwelling Catheter Weight 85.6 kg General: WDWN, male, NAD Head: Normocephalic, atraumatic. Eyes: Symmetric Ears: Symmetric. Hearing within normal limits. Mouth: Clear. Neck: Supple. Cardiac: Regular rate. Calves supple, non tender, no significant LE edema Lungs: Breathing comfortably on RA. Chest symmetric. Abdomen: Soft, nontender. : + gray Extremities: Arthritic changes consistent with age. Neurological: Alert and oriented x 4 Speech is clear and fluent without paraphasic errors Cranial nerves: CN II-XII: intact. Sensation: Intact and symmetrical limbs. Musculoskeletal: ROM WFL EXCEPT: shoulder not tested MMT UE Sh Abd EE EF FABD WE HG Right nt 5 5 5 5 5 Left nt 5 5 5 5 MMT LE HF KE DF EHL Right 5 5 5 5 Left 5 5 5 5 DTR symmetric, 2+ UE, 1+ LE Finger to nose, heel to olmos intact Skin: Skin intact where visible to head, neck, and bilateral upper and lower extremities EXCEPT: sternal incision c/d/i with steristrips Psych: Calm, cooperative Results CBC & Chem 7: 12/31/23 05:33 12/31/23 05:33 Labs: Abnormal Lab Results - Last 24 Hours (Table) 12/30/23 12/30/23 12/30/23 Range/Units 11:15 11:43 16:14 RBC (4.30-5.90) m/uL Hgb (13.0-17.5) gm/dL Hct (39.0-53.0) % Sodium (137-145) mmol/L Chloride (98-107) mmol/L Carbon Dioxide (22-30) mmol/L BUN (9-20) mg/dL Creatinine (0.66-1.25) mg/dL Glucose (74-99) mg/dL POC Glucose (mg/dL) 132 H 164 H (70-110) mg/dL Total Bilirubin (0.2-1.3) mg/dL AST (17-59) U/L ALT (4-49) U/L Total Protein (6.3-8.2) g/dL Albumin (3.5-5.0) g/dL Ur Random Sodium <20 L (40-220) mmol/L 12/30/23 12/30/23 12/31/23 Range/Units 16:23 20:17 05:33 RBC 2.41 L (4.30-5.90) m/uL Hgb 7.7 L (13.0-17.5) gm/dL Hct 22.3 L (39.0-53.0) % Sodium 127 L (137-145) mmol/L Chloride 91 L (98-107) mmol/L Carbon Dioxide (22-30) mmol/L BUN 48 H (9-20) mg/dL Creatinine 1.30 H (0.66-1.25) mg/dL Glucose 120 H (74-99) mg/dL POC Glucose (mg/dL) 156 H (70-110) mg/dL Total Bilirubin (0.2-1.3) mg/dL AST (17-59) U/L ALT (4-49) U/L Total Protein (6.3-8.2) g/dL Albumin (3.5-5.0) g/dL Ur Random Sodium (40-220) mmol/L 12/31/23 12/31/23 Range/Units 05:33 06:16 RBC (4.30-5.90) m/uL Hgb (13.0-17.5) gm/dL Hct (39.0-53.0) % Sodium 129 L (137-145) mmol/L Chloride 94 L (98-107) mmol/L Carbon Dioxide 31 H (22-30) mmol/L BUN 41 H (9-20) mg/dL Creatinine 1.29 H (0.66-1.25) mg/dL Glucose 109 H (74-99) mg/dL POC Glucose (mg/dL) 142 H (70-110) mg/dL Total Bilirubin 3.3 H (0.2-1.3) mg/dL AST 103 H (17-59) U/L ALT 130 H (4-49) U/L Total Protein 5.2 L (6.3-8.2) g/dL Albumin 3.0 L (3.5-5.0) g/dL Ur Random Sodium (40-220) mmol/L Assessment and Plan Assessment: # Cardiac debility status post two-vessel bypass surgery, and aortic valve replacement for severe aortic regurgitation -cardiac precautions - therapies # Pain secondary to above -Tylenol prn, lidocaine patch # Pleural effusion -monitoring # mood d/o -celexa # Bowel/Bladder -nursing to monitor # DVT Proph Eliquis #Comorbidities: BPH, HTN, COPD, HLD # your medical dx and management Dispo: Patient functionally needing assist with PT the other day, though was up in reed with nursing per report, limited by endurance. Needs new PT notes and to be seen by OT. Possible IPR candidate depending on new therapy evals and level of assist, but would need insurance authorization. If too high for IPR, and unable to go home with [facility], may be appropriate for [facility]. Patient seen and examined by Dr Espitia, note remotely prepped by Charla Vallejo PA-C Thank you for consulting our services
[2023-12-31 12:12] LABS: Glucose,Whole Blood 181 mg/dL (70-110)
--- NOTE | 2023-12-31 13:35 | P.PN ---
Subjective Progress Note Date: 12/31/23 Principal diagnosis: Aortic valvular insufficiency, coronary artery disease, declining left ventricular ejection fraction on serial echocardiography. Past medical history significant for coronary artery disease with previous PCI to the mid LAD in April 2020, hypertension, hyperlipidemia, asthma, benign prostatic hypertrophy, osteoarthritis, occasional marijuana use and is a lifetime non- smoker. POD #7 Aortic valve replacement with 27 mm Medtronic Avalus bovine pericardial valve prosthesis, CABG x 2 with GOETZ to LAD and saphenous vein graft to obtuse marginal, endovascular vein harvest greater saphenous vein from the left thigh, ligation of the left atrial appendage with 35mm AtriCure clip, [place]LL[place] by anesthesia. Postoperative acute blood loss anemia and thrombocytopenia, expected given hemodilution, cardiopulmonary bypass and his preoperative thrombocytopenia. Paroxysmal atrial fibrillation, known common occurrence after open heart surgery, not a complication. The patient was seen and examined in follow-up today December 31, 2023 at his bedside in the intensive care unit. He is currently sitting up to the bedside chair, is awake, alert, oriented x 3 and is in no acute apparent distress. He denies any complaints of pain or shortness of breath at this time, although he is states he feels like he is having episodes of wheezing at times and lacks some endurance. Oxygen saturations are 96% on room air and he is achieving 1500 mL on his incentive spirometry with encouragement. Bedside telemetry is showing atrial fibrillation heart rate 101 bpm. Atrial and ventricular epicardial pacemaker wires remain in place and are grounded. Chest x-ray continues to show a small to moderate right pleural effusion with some minimal basilar atelectasis. Laboratory results reviewed. Objective - Vital Signs Vital signs: Vital Signs Temp 98.3 F 12/31/23 04:00 Pulse 101 H 12/31/23 07:00 Resp 14 12/31/23 07:00 BP 110/73 12/31/23 07:00 Pulse Ox 89 L 12/31/23 07:00 FiO2 40 12/29/23 12:15 Intake & Output 12/30/23 12/31/23 12/31/23 18:59 06:59 18:59 Intake Total 600 Output Total 675 840 75 Balance -75 -840 -75 Weight 85.6 kg Intake: Oral 600 Output: Urine 675 840 75 Other: Voiding Method Indwelling Catheter Indwelling Catheter ABP, PAP, CO, CI - Last Documented Arterial Blood Pressure 98/53 Pulmonary Artery Pressure 41/7 Cardiac Output 4.4 Cardiac Index 2.3 - Exam CONSTITUTIONAL: Sitting up to the bedside chair in the intensive care unit, appears comfortable, cooperative, no apparent acute distress. HEENT: Neck is supple, no JVD, no lymphadenopathy. RESPIRATORY: Lungs sounds essentially clear throughout, diminished to his bilateral bases, right greater than left. Respirations are symmetrical and nonlabored. Currently on room air with oxygen saturations 96%. Able to achieve 1500 mL on his incentive spirometry. Strong cough. CARDIOVASCULAR: Regular rhythm and rate. S1 and S2 present, negative for S3, gallop or murmur. Bedside telemetry is showing atrial fibrillation heart rate 103 bpm. Sternum is stable. Palpable peripheral pulses bilaterally. No calf pain or tenderness noted. Heart hugger in place with patient demonstrating appropriate use. Knee-high FAITH hose and sequential compression devices in place to his bilateral lower extremities. GASTROINTESTINAL: Abdomen soft, nontender, nondistended. Active bowel sounds present 4 quadrants. Tolerating diet. Passing flatus. No guarding or rigidity. Bowel movement December 29, 2023. GENITOURINARY: Continues to void. Urine output 700 mL in the last 8 hours. INTEGUMENTARY: Skin warm and dry with no evidence of clubbing or cyanosis. Midline sternal incision clean dry and well approximated, covered with dry intact dressing. Left lower extremity EVH sites well approximated without redness or drainage. NEUROLOGIC: Cranial nerves II through XII intact. No focal deficits. MUSKULOSKELETAL: Able to move all extremities, strength equal bilaterally, generalized weakness. PSYCHIATRIC: Alert and oriented to person place and time, appropriate affect, intact judgment and insight. INVASIVE LINES AND TUBES: Atrial and ventricular epicardial pacemaker wires present, connected to generator, VVI mode of 50 bpm. - Allied health notes Allied health notes reviewed: nursing - Labs CBC & Chem 7: 12/31/23 05:33 12/31/23 05:33 Labs: Abnormal Lab Results - Last 24 Hours (Table) 12/30/23 12/30/23 12/30/23 Range/Units 11:15 11:43 16:14 RBC (4.30-5.90) m/uL Hgb (13.0-17.5) gm/dL Hct (39.0-53.0) % Sodium (137-145) mmol/L Chloride (98-107) mmol/L Carbon Dioxide (22-30) mmol/L BUN (9-20) mg/dL Creatinine (0.66-1.25) mg/dL Glucose (74-99) mg/dL POC Glucose (mg/dL) 132 H 164 H (70-110) mg/dL Total Bilirubin (0.2-1.3) mg/dL AST (17-59) U/L ALT (4-49) U/L Total Protein (6.3-8.2) g/dL Albumin (3.5-5.0) g/dL Ur Random Sodium <20 L (40-220) mmol/L 12/30/23 12/30/23 12/31/23 Range/Units 16:23 20:17 05:33 RBC 2.41 L (4.30-5.90) m/uL Hgb 7.7 L (13.0-17.5) gm/dL Hct 22.3 L (39.0-53.0) % Sodium 127 L (137-145) mmol/L Chloride 91 L (98-107) mmol/L Carbon Dioxide (22-30) mmol/L BUN 48 H (9-20) mg/dL Creatinine 1.30 H (0.66-1.25) mg/dL Glucose 120 H (74-99) mg/dL POC Glucose (mg/dL) 156 H (70-110) mg/dL Total Bilirubin (0.2-1.3) mg/dL AST (17-59) U/L ALT (4-49) U/L Total Protein (6.3-8.2) g/dL Albumin (3.5-5.0) g/dL Ur Random Sodium (40-220) mmol/L 12/31/23 12/31/23 Range/Units 05:33 06:16 RBC (4.30-5.90) m/uL Hgb (13.0-17.5) gm/dL Hct (39.0-53.0) % Sodium 129 L (137-145) mmol/L Chloride 94 L (98-107) mmol/L Carbon Dioxide 31 H (22-30) mmol/L BUN 41 H (9-20) mg/dL Creatinine 1.29 H (0.66-1.25) mg/dL Glucose 109 H (74-99) mg/dL POC Glucose (mg/dL) 142 H (70-110) mg/dL Total Bilirubin 3.3 H (0.2-1.3) mg/dL AST 103 H (17-59) U/L ALT 130 H (4-49) U/L Total Protein 5.2 L (6.3-8.2) g/dL Albumin 3.0 L (3.5-5.0) g/dL Ur Random Sodium (40-220) mmol/L - Imaging and Cardiology Chest x-ray: report reviewed, image reviewed Assessment and Plan Assessment: Severe aortic regurgitation status post aortic valve replacement with 27 mm Medtronic Avalus bovine pericardial valve prosthesis Coronary artery disease with previous PCI to the mid LAD in April 2020, patent mid LAD stent and circumflex lesion in the range of 55% on today's heart catheterization, status post coronary artery bypass grafting x 2 vessels, left internal mammary artery to the left anterior descending coronary artery and a saphenous vein graft to the obtuse marginal coronary artery Hypertension Acute on chronic systolic congestive heart failure with an ejection fraction of 25 to 30% Hyperlipidemia, treated preoperative LDL 49.1, HDL 54.0, cholesterol 118 Right internal carotid artery stenosis 50-79% Asthma, with a preoperative FEV1 2.05 75% of predicted value Benign prostatic hypertrophy Occasional marijuana use Lifelong non-smoker Postoperative acute blood loss anemia and thrombocytopenia, expected given hemodilution and cardiopulmonary bypass and preoperative thrombocytopenia Paroxysmal atrial fibrillation, status post ligation of the left atrial appen dage, not a complication, a known common occurrence after cardiac surgery Hyponatremia, sodium 129 today Medical debility Plan: Continue to maximize medical therapy with low-dose aspirin, statin, Plavix and beta-aimee. Will increase metoprolol tartrate as tolerated. Continue amiodarone 400 mg p.o. twice daily. Remove epicardial pacemaker wires today. Bedrest for 1 hour post pacemaker wire removal. Start Eliquis 5 mg p.o. twice daily for anticoagulation. Encourage incentive spirometry 10 times every hour while awake. Bronchodilators per pulmonology. Increase activity, ambulate as tolerated. PT/OT/cardiac rehab following. Will monitor daily labs and chest x-rays. Electrolyte replacement per protocol. Continue ferrous sulfate and vitamin C. GI/DVT prophylaxis. No diuresis today. Avoid nephrotoxic agents. Insulin management per internal medicine. The patient is a not diabetic, with a preoperative hemoglobin A1c 6.1% Pain control with current medication regimen. Lidoderm patch will be prescribed by internal medicine for complaints of lower back pain. Continue to monitor strict accurate intake and output. Continue home dose of Flomax. Urology has been consulted as the patient was having some urine retention, and has been followed by Dr. Rodrigez from urology in the past. Due to the urine retention the patient required replacement of Kramer catheter last evening. Continue fluid restrictions, can Leann go down to the can go to the stepdown sodium is 129 today. Start Celexa [address] Rouse has been consulted for evaluation for inpatient rehab. Anticipate discharge to inpatient rehab in the next 24 hours. More recommendations to follow based on patient's clinical course. Time with Patient: Greater than 30
--- NOTE | 2023-12-31 15:59 | P.PN ---
Subjective Progress Note Date: 12/31/23 78 year old M with PMH of CAD, HTN, HLD, BPH, CHF with EF 25-30% and severe AR with moderate MR presented to [facility] for elective surgery. He underwent CABG with AV replacement with Dr. Red on 12/23. [facility] was consulted for medical management of this patient. He was extubated successfully on 12/23. He received 1 unit PRBC for Hg of 6.3 on 12/25 along with Lasix IV for findings of pulmonary edema seen on CXR. His sodium downtrended to a low of 126 on 12/28. Sodium chloride tablets were added along with fluid restriction by cardiothoracic surgery on 12/27. His sodium remained low thus Nephrology was consulted. Salt tabs were discontinued, and patient was started on Lasix IV while maintaining fluid restriction. He was given a dose of Samsca and Lasix IV on 12/29. 12/30 Patient was seen and examined. No complaints. Nephrology recommends holding off diuretics today and maintaining fluid restriction while avoiding NSAIDS. CBC RBC 2.41, Hg 7.7, Hct 22.3. CMP Na 129, Cl 94, bicarb 31, BUN 41, Cr 1.29, glu 109, T. Bili 3.3, AST 103, ALT 130, alb 3. UOsm 633. Conner < 20. CXR shows small to moderate pleural effusion. General: non toxic, no distress, appears at stated age Derm: warm, dry Head: atraumatic, normocephalic, symmetric Eyes: EOMI, no lid lag, anicteric sclera Mouth: no lip lesion, mucus membranes moist Cardiovascular: S1S2 reg, no murmur, good distal perfusion in all 4 extremities Lungs: Breathing comfortably, decreased BS BL no accessory muscle use Ext: no gross muscle atrophy, no edema Psych: Alert, oriented, appropriate affect HFrF 32-25% with exacerbation: Metoprolol as below. Farxiga as below. No Lasix today per Nephrology. FELICITAS/ARB on hold. Cardiology on board. P. A fib: Occurrence after open heart. Amiodarone 400 mg PO BID. Eliquis 5 mg PO BID for AC. Metoprolol as below. HLD: Lipitor as below. Monitor liver enzymes. CAD: ASA 81 mg PO QD. Plavix 75 mg PO QD. Metoprolol 50 mg PO BID. Lipitor 40 mg PO QD. HTN: Metoprolol as above. Right ICA stenosis: ASA, statin and Plavix as above. Hyponatremia: Hypervolemic. Nephrology recommends holding IV Lasix today. Status post Samsca 12/29. Repeat BMP tomorrow. Nephrology on board. Hyperglycemia: A1c 6.1 on 12/07/23. ISS. Accuchecks ACHS. Hypoglycemic precautions. Farxiga 10 mg PO QD. Transamintis: Hepatitis A, B and C are negative. Liver ultrasound reviewed on 12/29 with steatohepatitis. Outpatient follow-up with PCP to ensure liver enzymes returned to baseline Back pain: Lidocaine patch as needed at night. Encourage ambulation. PT and OT on board. PRM consulted. Urinary retention with history of BPH: Kramer replaced on 12/30/23. Flomax 0.4 mg PO QD. Urology consulted. Acute blood loss anemia and thrombocytopenia: Expected result of surgery. Status post 1 PRBC. Daily CBC. CODE STATUS: FULL CODE DVT Prophylaxis: Eliquis GI Prophylaxis: Protonix Designated medical POA if patient is not able to make medical decisions for themselves: I have reviewed the following cardiology consultants notes: Nephrology, CT surgery, Cardiology, PMR. I have reviewed the results of the following tests: CBC, CMP I have ordered the following tests: I have discussed the care of this patient with the following independent histo briana: I have independently interpreted the following test below: CXR I have discussed the management of this patient with the following physician: Objective - Vital Signs Vital signs: Vital Signs Temp 98.2 F 12/31/23 12:00 Pulse 112 H 12/31/23 12:00 Resp 20 12/31/23 12:00 BP 102/92 12/31/23 12:00 Pulse Ox 93 L 12/31/23 12:00 FiO2 40 12/29/23 12:15 Intake & Output 12/30/23 12/31/23 12/31/23 18:59 06:59 18:59 Intake Total 600 Output Total 675 840 550 Balance -75 -840 -550 Weight 85.6 kg Intake: Oral 600 Output: Urine 675 840 550 Other: Voiding Method Indwelling Catheter Indwelling Catheter Indwelling Catheter ABP, PAP, CO, CI - Last Documented Arterial Blood Pressure 98/53 Pulmonary Artery Pressure 41/7 Cardiac Output 4.4 Cardiac Index 2.3 - Labs CBC & Chem 7: 12/31/23 05:33 12/31/23 05:33 Labs: Abnormal Lab Results - Last 24 Hours (Table) 12/30/23 12/30/23 12/30/23 Range/Units 11:15 16:14 16:23 RBC (4.30-5.90) m/uL Hgb (13.0-17.5) gm/dL Hct (39.0-53.0) % Sodium 127 L (137-145) mmol/L Chloride 91 L (98-107) mmol/L Carbon Dioxide (22-30) mmol/L BUN 48 H (9-20) mg/dL Creatinine 1.30 H (0.66-1.25) mg/dL Glucose 120 H (74-99) mg/dL POC Glucose (mg/dL) 164 H (70-110) mg/dL Total Bilirubin (0.2-1.3) mg/dL AST (17-59) U/L ALT (4-49) U/L Total Protein (6.3-8.2) g/dL Albumin (3.5-5.0) g/dL Ur Random Sodium <20 L (40-220) mmol/L 12/30/23 12/31/23 12/31/23 Range/Units 20:17 05:33 05:33 RBC 2.41 L (4.30-5.90) m/uL Hgb 7.7 L (13.0-17.5) gm/dL Hct 22.3 L (39.0-53.0) % Sodium 129 L (137-145) mmol/L Chloride 94 L (98-107) mmol/L Carbon Dioxide 31 H (22-30) mmol/L BUN 41 H (9-20) mg/dL Creatinine 1.29 H (0.66-1.25) mg/dL Glucose 109 H (74-99) mg/dL POC Glucose (mg/dL) 156 H (70-110) mg/dL Total Bilirubin 3.3 H (0.2-1.3) mg/dL AST 103 H (17-59) U/L ALT 130 H (4-49) U/L Total Protein 5.2 L (6.3-8.2) g/dL Albumin 3.0 L (3.5-5.0) g/dL Ur Random Sodium (40-220) mmol/L 12/31/23 12/31/23 Range/Units 06:16 12:11 RBC (4.30-5.90) m/uL Hgb (13.0-17.5) gm/dL Hct (39.0-53.0) % Sodium (137-145) mmol/L Chloride (98-107) mmol/L Carbon Dioxide (22-30) mmol/L BUN (9-20) mg/dL Creatinine (0.66-1.25) mg/dL Glucose (74-99) mg/dL POC Glucose (mg/dL) 142 H 181 H (70-110) mg/dL Total Bilirubin (0.2-1.3) mg/dL AST (17-59) U/L ALT (4-49) U/L Total Protein (6.3-8.2) g/dL Albumin (3.5-5.0) g/dL Ur Random Sodium (40-220) mmol/L
[2023-12-31 16:04] LABS: Glucose,Whole Blood 166 mg/dL (70-110)
--- NOTE | 2023-12-31 18:09 | P.GSCN ---
History of Present Illness Consult date: 12/31/23 Reason for Consult: Urinary retention History of present illness: This is a 78-year-old male that underwent to warrant aortic valve replacement, he is postop day #7. Urologist consulted for urinary retention. He is a known patient for Dr. Giron that follows up with him for BPH. Patient had difficulty voiding yesterday and subsequently had a Kramer catheter placed. At baseline he does have some obstructive urinary symptoms including a weak stream and some straining with urination. Denies any previous history of urinary retention, recurrent UTIs or kidney stones. No previous urological surgeries. Currently does have a Kramer catheter in place draining clear yellow urine. He is on Flomax at baseline. Review of Systems - Constitutional Denies fever, Denies weight loss - EENT Ears, nose, mouth and throat: Denies dysphagia - Cardiovascular Denies chest pain, Denies shortness of breath - Gastrointestinal Reports as per HPI - Genitourinary Denies dysuria, Denies flank pain, Denies hematuria Past Medical History Past Medical History: Coronary Artery Disease (CAD), COPD, Hyperlipidemia, Hypertension, Prostate Disorder Additional Past Medical History / Comment(s): Aortic Valve Regurgitation, BPH History of Any Multi-Drug Resistant Organisms: None Reported Past Surgical History: Heart Catheterization With Stent, Joint Replacement, Orthopedic Surgery Additional Past Surgical History / Comment(s): neisha shoulder rotator cuff, left knee replacement, rt knee arthrosocpy, one cardiac stent Past Anesthesia/Blood Transfusion Reactions: No Reported Reaction Additional Past Anesthesia/Blood Transfusion Reaction / Comm: no hx blood transfusions Date of Last Stent Placement:: 2019 Past Psychological History: No Psychological Hx Reported Smoking Status: Never smoker Past Alcohol Use History: Rare Past Drug Use History: Marijuana Additional Drug Use History / Comment(s): gummie occasionally, pt aware not to use 24 hr before procedure - Past Family History Mother Family Medical History: No Reported History Medications and Allergies Home Medications Medication Instructions Recorded Confirmed Type Aspirin [Adult Low Dose Aspirin EC] 81 mg PO DAILY 05/03/20 12/24/23 History Atorvastatin [Lipitor] 40 mg PO HS 05/03/20 12/24/23 History Cholecalciferol [Vitamin D3 (25 2,000 unit PO QAM 05/03/20 12/24/23 History Mcg = 1000 Iu)] Losartan [Cozaar] 25 mg PO HS 05/03/20 12/24/23 History Metoprolol Tartrate 12.5 mg PO BID 05/03/20 12/24/23 History Tamsulosin HCl [Flomax] 0.4 mg PO QAM 12/05/23 12/24/23 History Allergies Allergy/AdvReac Type Severity Reaction Status Date / Time No Known Allergies Allergy Verified 12/24/23 06:13 Surgical - Exam Vital Signs Temp Pulse Resp BP Pulse Ox 97.2 F L 62 16 182/82 98 12/24/23 07:00 12/24/23 07:00 12/24/23 07:00 12/24/23 07:00 12/24/23 07:00 - General no distress, no pain - Eyes normal ocular movement, no pale - ENT normal nares, normal mucosa - Respiratory normal expansion, normal respiratory effort - Abdomen Abdomen: soft, non tender Results - Labs 12/31/23 05:33 12/31/23 05:33 Abnormal Lab Results - Last 24 Hours (Table) 12/30/23 12/30/23 12/31/23 Range/Units 11:15 20:17 05:33 RBC 2.41 L (4.30-5.90) m/uL Hgb 7.7 L (13.0-17.5) gm/dL Hct 22.3 L (39.0-53.0) % Sodium (137-145) mmol/L Chloride (98-107) mmol/L Carbon Dioxide (22-30) mmol/L BUN (9-20) mg/dL Creatinine (0.66-1.25) mg/dL Glucose (74-99) mg/dL POC Glucose (mg/dL) 156 H (70-110) mg/dL Total Bilirubin (0.2-1.3) mg/dL AST (17-59) U/L ALT (4-49) U/L Total Protein (6.3-8.2) g/dL Albumin (3.5-5.0) g/dL Ur Random Sodium <20 L (40-220) mmol/L 12/31/23 12/31/23 12/31/23 Range/Units 05:33 06:16 12:11 RBC (4.30-5.90) m/uL Hgb (13.0-17.5) gm/dL Hct (39.0-53.0) % Sodium 129 L (137-145) mmol/L Chloride 94 L (98-107) mmol/L Carbon Dioxide 31 H (22-30) mmol/L BUN 41 H (9-20) mg/dL Creatinine 1.29 H (0.66-1.25) mg/dL Glucose 109 H (74-99) mg/dL POC Glucose (mg/dL) 142 H 181 H (70-110) mg/dL Total Bilirubin 3.3 H (0.2-1.3) mg/dL AST 103 H (17-59) U/L ALT 130 H (4-49) U/L Total Protein 5.2 L (6.3-8.2) g/dL Albumin 3.0 L (3.5-5.0) g/dL Ur Random Sodium (40-220) mmol/L 12/31/23 Range/Units 16:03 RBC (4.30-5.90) m/uL Hgb (13.0-17.5) gm/dL Hct (39.0-53.0) % Sodium (137-145) mmol/L Chloride (98-107) mmol/L Carbon Dioxide (22-30) mmol/L BUN (9-20) mg/dL Creatinine (0.66-1.25) mg/dL Glucose (74-99) mg/dL POC Glucose (mg/dL) 166 H (70-110) mg/dL Total Bilirubin (0.2-1.3) mg/dL AST (17-59) U/L ALT (4-49) U/L Total Protein (6.3-8.2) g/dL Albumin (3.5-5.0) g/dL Ur Random Sodium (40-220) mmol/L Diabetes panel 12/31/23 Range/Units 05:33 Sodium 129 L (137-145) mmol/L Potassium 4.2 (3.5-5.1) mmol/L Chloride 94 L (98-107) mmol/L Carbon Dioxide 31 H (22-30) mmol/L BUN 41 H (9-20) mg/dL Creatinine 1.29 H (0.66-1.25) mg/dL Glucose 109 H (74-99) mg/dL Calcium 8.8 (8.4-10.2) mg/dL AST 103 H (17-59) U/L ALT 130 H (4-49) U/L Alkaline Phosphatase 40 (38-126) U/L Total Protein 5.2 L (6.3-8.2) g/dL Albumin 3.0 L (3.5-5.0) g/dL Calcium panel 12/31/23 Range/Units 05:33 Calcium 8.8 (8.4-10.2) mg/dL Albumin 3.0 L (3.5-5.0) g/dL Pituitary panel 12/31/23 Range/Units 05:33 Sodium 129 L (137-145) mmol/L Potassium 4.2 (3.5-5.1) mmol/L Chloride 94 L (98-107) mmol/L Carbon Dioxide 31 H (22-30) mmol/L BUN 41 H (9-20) mg/dL Creatinine 1.29 H (0.66-1.25) mg/dL Glucose 109 H (74-99) mg/dL Calcium 8.8 (8.4-10.2) mg/dL Adrenal panel 12/31/23 Range/Units 05:33 Sodium 129 L (137-145) mmol/L Potassium 4.2 (3.5-5.1) mmol/L Chloride 94 L (98-107) mmol/L Carbon Dioxide 31 H (22-30) mmol/L BUN 41 H (9-20) mg/dL Creatinine 1.29 H (0.66-1.25) mg/dL Glucose 109 H (74-99) mg/dL Calcium 8.8 (8.4-10.2) mg/dL Total Bilirubin 3.3 H (0.2-1.3) mg/dL AST 103 H (17-59) U/L ALT 130 H (4-49) U/L Alkaline Phosphatase 40 (38-126) U/L Total Protein 5.2 L (6.3-8.2) g/dL Albumin 3.0 L (3.5-5.0) g/dL Assessment and Plan Assessment: 78-year-old male BPH, on Flomax at baseline. Developed postoperative urinary retention. Retention was seen secondary to his underlying BPH worsened by his recent deconditioning from his recent surgery. -Continue Flomax -Recommend repeat trial of void prior to discharge
[2023-12-31 20:00] LABS: Glucose,Whole Blood 140 mg/dL (70-110)
[2023-12-31] MEDS: APIXABAN 5 MG TAB PO SCH (20:04)
[2024-01-01 06:14] LABS: HCT 24.3 % (39.0-53.0); HGB 7.8 gm/dL (13.0-17.5); Hypochromasia Slight; MCH 30.6 pg (25.0-35.0); MCHC 32.1 g/dL (31.0-37.0); MCV 95.3 fL (80.0-100.0); Mean Platelet Volume 7.4; Platelet Count 187 k/uL (150-450); Poikilocytosis Slight; RBC 2.54 m/uL (4.30-5.90); RDW 15.9 % (11.5-15.5); WBC 8.4 k/uL (3.8-10.6)
[2024-01-01 06:25] LABS: Glucose,Whole Blood 132 mg/dL (70-110)
[2024-01-01 06:43] LABS: ALT 121 U/L (4-49); AST 83 U/L (17-59); African American GFR (CKD) 70 (>60 ml/min/1.73 sqM); Albumin 3.2 g/dL (3.5-5.0); Alkaline Phosphatase 44 U/L (38-126); Anion Gap 4 mmol/L; Blood Urea Nitrogen 34 mg/dL (9-20); Carbon Dioxide 30 mmol/L (22-30); Chloride 96 mmol/L (98-107); Glucose 117 mg/dL (74-99); Non-African American GFR(CKD) 60 (>60 ml/min/1.73 sqM); Potassium 4.3 mmol/L (3.5-5.1); Sodium 130 mmol/L (137-145); Total Bilirubin 3.2 mg/dL (0.2-1.3); Total Protein 5.4 g/dL (6.3-8.2)
[2024-01-01] MEDS: FUROSEMIDE 10 MG/ML 2 ML VIAL IV STA (08:43)
[2024-01-01] MEDS: POTASSIUM CHLORIDE ER 10 MEQ TAB.ER.PRT PO STA (08:44)
--- NOTE | 2024-01-01 08:59 | XR ---
EXAMINATION TYPE: XR chest 2V DATE OF EXAM: 01/01/2024 COMPARISON: 12/31/2023 INDICATION: Postop cardiac surgery TECHNIQUE: Frontal and lateral views of the chest are obtained. FINDINGS: The heart size is enlarged. The pulmonary vasculature is normal. Small bilateral pleural effusions are present. Some adjacent compressive atelectasis is likely presen t.. IMPRESSION: 1. Small bilateral pleural effusions, diminishing on the right.. Some adjacent compressive atelectasi s is present. 2. Cardiomegaly
--- NOTE | 2024-01-01 09:42 | P.PN ---
Subjective Progress Note Date: 01/01/24 The patient is a 78-year-old male who underwent aortic valve replacement on December [address] Red. Postoperatively the patient had blood loss anemia as well as atrial fibrillation which is an expected course. Patient remains in rate controlled atrial fibrillation. He states he has been up ambulating to the chair as well as walking the halls. He states he did get a little dizzy in the hallway yesterday. He denies any current pain. No difficulty breathing. GENERAL: Well-appearing, well-nourished and in no acute distress. NECK: Supple without JVD or thyromegaly. LUNGS: Breath sounds diminished to auscultation bilaterally. Respiration equal and unlabored. HEART: Irregular rate and rhythm without murmurs, rubs or gallops. S1 and S2 heard. Heart hugger in place. EXTREMITIES: Normal range of motion, no edema. No clubbing or cyanosis. Peripheral pulses intact and strong. TELEMETRY: Rate controlled atrial fibrillation LABS: WBC 8.4, hemoglobin 7.8, hematocrit 24.3, platelet 187, sodium 130, potassium 4.3, BUN 34, creatinine 1.17, AST 83, ALT 121 IMPRESSION: Aortic regurgitation Status post aortic valve replacement Postoperative blood loss anemia Postoperative atrial fibrillation Hyponatremia Elevated liver enzymes, improving PLAN: Continue supportive treatment Aggressive pulmonary hygiene and continue ambulation Follow-up with Dr. RADHA Ramos in 1 week I am dictating on behalf of Dr Theo Graff's history/physical and assessment/plan. Objective - Vital Signs Vital signs: Vital Signs Temp 97.6 F 01/01/24 08:00 Pulse 96 01/01/24 09:00 Resp 17 01/01/24 09:00 BP 92/73 01/01/24 09:00 Pulse Ox 94 L 01/01/24 09:00 FiO2 40 12/29/23 12:15 Intake & Output 12/31/23 01/01/24 01/01/24 18:59 06:59 18:59 Intake Total 180 Output Total 1180 1010 450 Balance -1180 -1010 -270 Weight 83.642 kg Intake: Oral 180 Output: Urine 1180 1010 450 Other: Voiding Method Indwelling Catheter Indwelling Catheter Indwelling Catheter # Bowel Movements 1 ABP, PAP, CO, CI - Last Documented Arterial Blood Pressure 98/53 Pulmonary Artery Pressure 41/7 Cardiac Output 4.4 Cardiac Index 2.3 - Labs CBC & Chem 7: 01/01/24 05:45 01/01/24 05:45 Labs: Abnormal Lab Results - Last 24 Hours (Table) 12/31/23 12/31/23 12/31/23 Range/Units 12:11 16:03 19:59 RBC (4.30-5.90) m/uL Hgb (13.0-17.5) gm/dL Hct (39.0-53.0) % RDW (11.5-15.5) % Sodium (137-145) mmol/L Chloride (98-107) mmol/L BUN (9-20) mg/dL Glucose (74-99) mg/dL POC Glucose (mg/dL) 181 H 166 H 140 H (70-110) mg/dL Total Bilirubin (0.2-1.3) mg/dL AST (17-59) U/L ALT (4-49) U/L Total Protein (6.3-8.2) g/dL Albumin (3.5-5.0) g/dL 01/01/24 01/01/24 01/01/24 Range/Units 05:45 05:45 06:24 RBC 2.54 L (4.30-5.90) m/uL Hgb 7.8 L (13.0-17.5) gm/dL Hct 24.3 L (39.0-53.0) % RDW 15.9 H (11.5-15.5) % Sodium 130 L (137-145) mmol/L Chloride 96 L (98-107) mmol/L BUN 34 H (9-20) mg/dL Glucose 117 H (74-99) mg/dL POC Glucose (mg/dL) 132 H (70-110) mg/dL Total Bilirubin 3.2 H (0.2-1.3) mg/dL AST 83 H (17-59) U/L ALT 121 H (4-49) U/L Total Protein 5.4 L (6.3-8.2) g/dL Albumin 3.2 L (3.5-5.0) g/dL
[2024-01-01 11:14] LABS: Glucose,Whole Blood 133 mg/dL (70-110)
--- NOTE | 2024-01-01 11:27 | P.PN ---
Subjective Progress Note Date: 01/01/24 Principal diagnosis: Coronary artery disease, aortic stenosis. This is a 78-year-old male patient with a known history of coronary artery disease with previous PCI to the mid LAD, hypertension, hyperlipidemia, benign prostatic hyperplasia, non-smoker. He was also recently found to have severe aortic regurgitation with moderate mitral regurgitation, coronary artery disease and declining left ventricular ejection fraction. He was brought in today electively for surgery. He had undergone aortic valve replacement with a [employer] Avallis bovine pericardial valve prosthesis, CABG x 2 with a GOETZ to the LAD and SVG to the obtuse marginal. He is seen today in the postoperative period in the intensive care unit. He is not abated on the mechanical ventilator and assist-control mode at a rate of 12, tidal volume 400, FiO2 50% and a PEEP of 5. Arterial blood gases revealed a PaO2 of 267, pCO2 of 42 and a pH of 7.36 on 100% FiO2. White count 6.2. Hemoglobin 9.7. Platelets 86,000. Sodium 133. Potassium 4.4. Bicarb 22. BUN 10. Creatinine 0.69. Glucose 132. Albumin 2.5. He did receive albumin. He is on an insulin drip at 1.5 units/h. Nitroglycerin drip at 5 mcg/min and currently off propofol. He has been transitioned to pressure support of 5 and a PEEP of 5. Will plan for early extubation protocol as tolerated. PA pressures 32/14, CVP of 6 cardiac output 4.4. Cardiac index 2.3. Chest x-ray reveals streaky opacities in the left upper lung field likely atelectasis. Mild increased opacity in the right upper lung field. Register-Jeremy catheter is present in the main pulmonary artery. Right- sided chest tube present. No evidence of pneumothorax. Mediastinal tube is present. Endotracheal tube and nasogastric tubes in position. Epicardial leads are present. Patient was evaluated today on 12/25/2023, patient is on 2 L nasal cannula, extubated yesterday at 4:35 PM, tolerated the extubation well. Patient is now on 2 L nasal cannula, he is on amiodarone at 0.5 mg/min, he is also on insulin at 1.5 units/h, IV fluid 0.9 normal saline at 50 cc/h. Patient is sitting at the bedside chair, awake oriented x 3, not in any distress, not requiring any pressors not requiring any inotropes. Cardiac output is 5.1 cardiac index is 2.7 PA pressure 29/12 CVP is 6 SVR is 1191. Mediastinal and left pleural chest tubes remain in place to low suction. No air leak noted and no evidence of pneumothorax on the chest x-ray, there is evidence however of right basilar atelectasis.WBC count is 6.6 hemoglobin 7.4. Basic metabolic profile is normal renal profile is normal Patient was evaluated today on 12/26/2023, patient is now postoperative day #2. Patient is receiving a unit of packed RBCs for low hemoglobin of 6.3, pulmonary casey does not seem to be in any distress, he is on 2 L nasal cannula and his O2 saturation is in the 90s. Chest x-ray is showing evidence of fluid overload/pulmonary edema and pleural effusions, hence the patient is receiving Lasix by thoracic surgery ordered today. Continues to have right internal jugular Cordis with right radial arterial line, mediastinal/left chest tubes remain in place. Clinically the patient is doing well, he is not requiring any inotropes or any pressors. Patient was evaluated today on 12/27/2023, patient is now postoperative day #3. Patient is comfortable, sitting in a bedside recliner, developed atrial fibrillation with RVR yesterday, and he was restarted on amiodarone, remained hemodynamically stable, patient also developed some mild pulmonary vascular congestion and he received Lasix by surgery. This morning he does not seem to be short of breath, he is on 2 L nasal cannula, not in any distress. Yesterday he did receive 1 unit of packed RBCs for low hemoglobin however his hemoglobin today is 7.3. Chest x-ray continues to show cardiomegaly, right lower lobe atelectasis and possibly a small pleural effusion on the right side Patient elevated today on 12/28/2023, patient is in a bedside recliner, doing fairly well, he has no active symptoms whatsoever. Denies any pain denies any shortness of breath, he had a chest x-ray this morning showing a small right- sided pleural effusion, ultrasound showed a 4.8 cm pocket, hence no plans to perform thoracentesis as the pocket of fluid seems to be relatively small. In the meantime the patient has been receiving diuretics, he is maintaining hemoglobin around 7.6, he did receive 1 unit of packed RBCs back on 12/25. Remains on Lasix 40 mg IV push twice daily, WBC 7.3 hemoglobin 7.6 sodium is a bit low at 127 potassium 4.3 BUN is 32 creatinine 0.87 his hyponatremia is felt to be most likely hypovolemic related hyponatremia Patient was evaluated today on 12/29/2023, doing well, relatively asymptomatic. Patient is receiving sodium tabs for his low sodium is also on fluid restriction 1200 cc/day, sodium today is 126 chest x-ray is basically about the same showing small right-sided pleural effusion not large enough to consider safe thoracentesis WBC count is 6.5 hemoglobin 7.2 sodium 126 BUN 37 creatinine 0.99. Patient is generally weak. Achieving 1250 cc on his incentive spirometry. He is in atrial fibrillation with controlled rate 90 bpm. Patient was evaluated today on 12/30/2023, remains in the ICU, patient is doing well, he is on room air, not in any distress, the plan is to possibly transfer the patient to [facility]. after pacer wires are out. No issues overnight, patient does not seem to be in any detail distress, chest x-ray continues to show small right-sided pleural effusion not large enough to consider thoracentesis. This was evaluated by ultrasound. Sodium today is 127 potassium 4.2 BUN is 45 crea tinine 1.17. Hemoglobin is 7.3 Progress note dated December 31, 2023. 78-year-old male postoperative day #7, status post two-vessel bypass surgery, and aortic valve replacement for severe aortic regurgitation.. Currently, the patient's not receiving any IV fluids. He is on room air. His chest x-ray shows a small right-sided pleural effusion. Current laboratory data includes a white count of 6.5, hemoglobin 7.7, hematocrit 22.3, and a platelet count of 156,000. Sodium 129, potassium 4.2, chloride 94, CO2 31, BUN 41, creatinine 1.29. Glucose 142. Total bilirubin 3.3. AST 103. ALT 130. Albumin is 3. Chest x-ray shows some basilar atelectasis, and a small to moderate right-sided pleural effusion. Progress note dated January 01, 2024. 78-year-old male postoperative day #8, status post two-vessel bypass surgery and aortic valve replacement for severe aortic regurgitation. Currently, the patient is seen in room 266. He is on room air. He is not receiving any IV fluids. The patient is coughing up thick yellow phlegm, and will send the sample to the laboratory for analysis. Other than that, the patient had a fairly uneventful night. Current labs include a white count 8.4, hemoglobin 7.8, hematocrit 24.3, and platelet count 187,000. Sodium 130, potassium 4.3, chloride 96, CO2 30, BUN 34, creatinine 1.17. Bilirubin is 3.2. AST is 83. ALT 121. Albumin 3.2. Chest x-ray is consistent with cardiomegaly, and small bilateral effusions. Objective - Vital Signs Vital signs: Vital Signs Temp 97.6 F 01/01/24 08:00 Pulse 104 H 01/01/24 10:00 Resp 18 01/01/24 10:00 BP 96/70 01/01/24 10:00 Pulse Ox 94 L 01/01/24 09:00 FiO2 40 12/29/23 12:15 Intake & Output 12/31/23 01/01/24 01/01/24 18:59 06:59 18:59 Intake Total 180 Output Total 1180 1010 700 Balance -1180 -1010 -520 Weight 83.642 kg Intake: Oral 180 Output: Urine 1180 1010 700 Other: Voiding Method Indwelling Catheter Indwelling Catheter Indwelling Catheter # Bowel Movements 1 ABP, PAP, CO, CI - Last Documented Arterial Blood Pressure 98/53 Pulmonary Artery Pressure 41/7 Cardiac Output 4.4 Cardiac Index 2.3 - Exam No acute distress, oriented 3. Currently on room air. HEENT examination is grossly unremarkable. Mucous membranes are moist. No oral lesions. Neck supple. Full range of motion. No adenopathy thyromegaly or neck vein distention. Cardiovascular examination reveals regular rhythm rate. S1-S2 normal. No S3 or S4. No discernible murmur noted. Lungs reveal clear breath sounds. Breath sounds are equal bilaterally. No adventitious lung sounds including wheezes rhonchi or crackles. Abdomen soft bowel sounds are heard. No masses or tenderness. Extremities are intact. No cyanosis clubbing or edema. Skin is without rash or lesion. Neurologic examination is brief but nonfocal. - Labs CBC & Chem 7: 01/01/24 05:45 01/01/24 05:45 Labs: Abnormal Lab Results - Last 24 Hours (Table) 12/31/23 12/31/23 12/31/23 Range/Units 12:11 16:03 19:59 RBC (4.30-5.90) m/uL Hgb (13.0-17.5) gm/dL Hct (39.0-53.0) % RDW (11.5-15.5) % Sodium (137-145) mmol/L Chloride (98-107) mmol/L BUN (9-20) mg/dL Glucose (74-99) mg/dL POC Glucose (mg/dL) 181 H 166 H 140 H (70-110) mg/dL Total Bilirubin (0.2-1.3) mg/dL AST (17-59) U/L ALT (4-49) U/L Total Protein (6.3-8.2) g/dL Albumin (3.5-5.0) g/dL 01/01/24 01/01/24 01/01/24 Range/Units 05:45 05:45 06:24 RBC 2.54 L (4.30-5.90) m/uL Hgb 7.8 L (13.0-17.5) gm/dL Hct 24.3 L (39.0-53.0) % RDW 15.9 H (11.5-15.5) % Sodium 130 L (137-145) mmol/L Chloride 96 L (98-107) mmol/L BUN 34 H (9-20) mg/dL Glucose 117 H (74-99) mg/dL POC Glucose (mg/dL) 132 H (70-110) mg/dL Total Bilirubin 3.2 H (0.2-1.3) mg/dL AST 83 H (17-59) U/L ALT 121 H (4-49) U/L Total Protein 5.4 L (6.3-8.2) g/dL Albumin 3.2 L (3.5-5.0) g/dL 01/01/24 Range/Units 11:13 RBC (4.30-5.90) m/uL Hgb (13.0-17.5) gm/dL Hct (39.0-53.0) % RDW (11.5-15.5) % Sodium (137-145) mmol/L Chloride (98-107) mmol/L BUN (9-20) mg/dL Glucose (74-99) mg/dL POC Glucose (mg/dL) 133 H (70-110) mg/dL Total Bilirubin (0.2-1.3) mg/dL AST (17-59) U/L ALT (4-49) U/L Total Protein (6.3-8.2) g/dL Albumin (3.5-5.0) g/dL Assessment and Plan Assessment: Postoperative day #8, status post aortic valve replacement/two-vessel bypass surgery. Routine postoperative ventilator management. History of severe aortic regurgitation. Benign essential hypertension. Hyperlipidemia. History of mild asthma. BPH. Lifelong non-smoker. Postoperative atelectasis. Acute blood loss anemia. Acute diastolic CHF. Postoperative atrial fibrillation with RVR. Right-sided pleural effusion. Hypervolemic hyponatremia. Plan: Plan dated December 31, 2023. The patient is seen today in room 266. He is currently been weaned off of oxygen. He is not receiving any IV fluids. His chest x-ray shows some basilar atelectasis, and a small right-sided pleural effusion. Today is postoperative day #7, status post aortic valve replacement for severe aortic regurgitation, and two-vessel CABG procedure. We will continue to follow make recommendations along the way. Labs, x-rays, and all medications have been reviewed. Plan dated January 01, 2024. The patient is seen today in room 266. The patient is currently on room air. He is not receiving any IV fluids. He is postoperative day #8, status post two- vessel bypass surgery, and aortic valve replacement, for severe aortic regurgitation. Labs, x-rays, and all medications are reviewed. The patient is doing well. He had an uneventful night. He denies any shortness of breath, cough, wheezing, chest tightness, chest pain, palpitations, or any other complaints for that matter. Time with Patient: Less than 30
[2024-01-01 11:33] VITALS: BMI 28.8
--- NOTE | 2024-01-01 12:40 | P.PN ---
Subjective Patient is seen in follow-up for hyponatremia. Sodium level 130. Received IV Lasix this morning. Denies chest pain or shortness of breath. Oral intake is fair. No vomiting or diarrhea. Vital signs are stable. General: No acute distress. HEENT: Head exam is unremarkable. LUNGS: No audible rhonchi or wheezes. HEART: Rate and Rhythm are regular. ABDOMEN: Nontender. EXTREMITITES: No edema. Objective - Vital Signs Vital signs: Vital Signs Temp 97.6 F 01/01/24 08:00 Pulse 108 H 01/01/24 11:08 Resp 25 H 01/01/24 11:08 BP 96/70 01/01/24 10:00 Pulse Ox 94 L 01/01/24 09:00 FiO2 40 12/29/23 12:15 Intake & Output 12/31/23 01/01/24 01/01/24 18:59 06:59 18:59 Intake Total 180 Output Total 1180 1010 700 Balance -1180 -1010 -520 Weight 83.642 kg 83.642 kg Intake: Oral 180 Output: Urine 1180 1010 700 Other: Voiding Method Indwelling Catheter Indwelling Catheter Indwelling Catheter # Bowel Movements 1 ABP, PAP, CO, CI - Last Documented Arterial Blood Pressure 98/53 Pulmonary Artery Pressure 41/7 Cardiac Output 4.4 Cardiac Index 2.3 - Labs CBC & Chem 7: 01/01/24 05:45 01/01/24 05:45 Labs: Abnormal Lab Results - Last 24 Hours (Table) 12/31/23 12/31/23 01/01/24 Range/Units 16:03 19:59 05:45 RBC 2.54 L (4.30-5.90) m/uL Hgb 7.8 L (13.0-17.5) gm/dL Hct 24.3 L (39.0-53.0) % RDW 15.9 H (11.5-15.5) % Sodium (137-145) mmol/L Chloride (98-107) mmol/L BUN (9-20) mg/dL Glucose (74-99) mg/dL POC Glucose (mg/dL) 166 H 140 H (70-110) mg/dL Total Bilirubin (0.2-1.3) mg/dL AST (17-59) U/L ALT (4-49) U/L Total Protein (6.3-8.2) g/dL Albumin (3.5-5.0) g/dL 01/01/24 01/01/24 01/01/24 Range/Units 05:45 06:24 11:13 RBC (4.30-5.90) m/uL Hgb (13.0-17.5) gm/dL Hct (39.0-53.0) % RDW (11.5-15.5) % Sodium 130 L (137-145) mmol/L Chloride 96 L (98-107) mmol/L BUN 34 H (9-20) mg/dL Glucose 117 H (74-99) mg/dL POC Glucose (mg/dL) 132 H 133 H (70-110) mg/dL Total Bilirubin 3.2 H (0.2-1.3) mg/dL AST 83 H (17-59) U/L ALT 121 H (4-49) U/L Total Protein 5.4 L (6.3-8.2) g/dL Albumin 3.2 L (3.5-5.0) g/dL Assessment and Plan Plan: Assessment: 1. Hyponatremia, hypervolemic in view of pleural effusions. Sodium level 130 today. TSH normal. Urine sodium less than 20. 2. Acute systolic CHF ejection fraction of 25 to 30%. 3. Coronary disease status post CABG and aortic valve replacement December 24, 2023. 4. Acute blood loss anemia status post blood transfusion this admission. Hemoglobin stable. Plan: Status post IV Lasix this morning. Maintain SGLT2 inhibitor. Maintain fluid restriction. Salt tabs discontinued December 29, 2023. Encouraged oral intake, particularly protein. Avoid NSAIDs.
--- NOTE | 2024-01-01 15:38 | P.PN ---
Subjective Progress Note Date: 01/01/24 Subjective: Patient seen and examined at bedside. No acute events overnight. Denies any new complaints. Ambulating with physical therapy Pertinent positives and negatives as discussed above, a complete review of systems was performed and all other systems are negative. Vitals Signs Reviewed. General: Nontoxic, no distress, appears at stated age Derm: Warm, dry, dressing clean, dry, intact Head: Atraumatic, normocephalic, symmetric Eyes: EOMI, no lid lag, anicteric sclera Mouth: No lip lesion, mucus membranes moist Cardiovascular: S1S2 reg, no murmur Lungs: CTA bilateral, no rhonchi, no rales, no accessory muscle use Abdominal: Soft, nontender to palpation, no guarding, no appreciable organomegaly Ext: No gross muscle atrophy, no edema, no contractures Neuro: CN II-XI grossly intact, no focal neuro deficits Psych: Alert, oriented, appropriate affect Data Reviewed Today: Pertinent Labs: Hemoglobin 7.8, platelet 187, sodium 130, potassium 4.3, creatinine 1.17, total bili 3.2, AST 83, ALT 121, ALP 44, blood sugars range between 1 17-1 40 Imaging: Chest x-ray independently interpreted, shows right pleural effusion, improved from yesterday Assessment and Plan: Acute HFrEF 25 to 30% with exacerbation Hypervolemic hyponatremia Pleural effusions -Nephrology note reviewed, status post Lasix 20 mg today -Continue to monitor urine output and electrolytes -Continue Farxiga 10 mg daily, on metoprolol 50 twice daily, consider FELICITAS inhibitor/ARB outpatient -Status post Samsca and salt tabs during this admission -On room air Pulmonology note reviewed, continue current therapy Status post CABG with AVR replacement CAD Dyslipidemia Right ICA stenosis -Continue aspirin 81 mg, atorvastatin 40 mg -Being followed by cardiothoracic surgery Paroxysmal atrial fibrillation -On amiodarone 400 twice daily, Eliquis 5 twice daily, metoprolol 50 twice daily Hyperglycemia, likely stress-induced Prediabetes, A1c 6.1 -Sliding scale insulin ACH S, monitor for hypoglycemia Transaminitis Hyperbilirubinemia -Acute hepatitis panel negative -Liver ultrasound shows steatohepatitis -Outpatient follow-up Back pain: Lidocaine patch as needed at night. Encourage ambulation. PT and OT o n board. Inpatient rehab consulted Urinary retention with history of BPH: Kramer replaced on 12/30/23. Flomax 0.4 mg PO QD. urology recommending trial of void prior to discharge Acute blood loss anemia and thrombocytopenia: Expected result of surgery. Status post 1 PRBC. Daily CBC, Currently stable Depression -On citalopram 10 mg daily GI prophylaxis -40 mg oral Protonix daily Thank you for allowing us to participate in the care of this pleasant patient. Do not hesitate to contact us with questions. Someone can be reached from the [facility] hospitalist group all hours of the day at [phone] or via [employer]. Objective - Vital Signs Vital signs: Vital Signs Temp 98.0 F 01/01/24 13:00 Pulse 99 01/01/24 15:00 Resp 21 01/01/24 15:00 BP 108/76 01/01/24 15:00 Pulse Ox 98 01/01/24 15:00 FiO2 40 12/29/23 12:15 Intake & Output 12/31/23 01/01/24 01/01/24 18:59 06:59 18:59 Intake Total 430 Output Total 1180 1010 900 Balance -1180 -1010 -470 Weight 83.642 kg 83.642 kg Intake: Oral 430 Output: Urine 1180 1010 900 Other: Voiding Method Indwelling Catheter Indwelling Catheter Indwelling Catheter # Bowel Movements 1 ABP, PAP, CO, CI - Last Documented Arterial Blood Pressure 98/53 Pulmonary Artery Pressure 41/7 Cardiac Output 4.4 Cardiac Index 2.3 - Labs CBC & Chem 7: 01/01/24 05:45 01/01/24 05:45 Labs: Abnormal Lab Results - Last 24 Hours (Table) 12/31/23 12/31/23 01/01/24 Range/Units 16:03 19:59 05:45 RBC 2.54 L (4.30-5.90) m/uL Hgb 7.8 L (13.0-17.5) gm/dL Hct 24.3 L (39.0-53.0) % RDW 15.9 H (11.5-15.5) % Sodium (137-145) mmol/L Chloride (98-107) mmol/L BUN (9-20) mg/dL Glucose (74-99) mg/dL POC Glucose (mg/dL) 166 H 140 H (70-110) mg/dL Total Bilirubin (0.2-1.3) mg/dL AST (17-59) U/L ALT (4-49) U/L Total Protein (6.3-8.2) g/dL Albumin (3.5-5.0) g/dL 01/01/24 01/01/24 01/01/24 Range/Units 05:45 06:24 11:13 RBC (4.30-5.90) m/uL Hgb (13.0-17.5) gm/dL Hct (39.0-53.0) % RDW (11.5-15.5) % Sodium 130 L (137-145) mmol/L Chloride 96 L (98-107) mmol/L BUN 34 H (9-20) mg/dL Glucose 117 H (74-99) mg/dL POC Glucose (mg/dL) 132 H 133 H (70-110) mg/dL Total Bilirubin 3.2 H (0.2-1.3) mg/dL AST 83 H (17-59) U/L ALT 121 H (4-49) U/L Total Protein 5.4 L (6.3-8.2) g/dL Albumin 3.2 L (3.5-5.0) g/dL
--- NOTE | 2024-01-01 16:02 | P.PN ---
Subjective Progress Note Date: 01/01/24 Principal diagnosis: Aortic valvular insufficiency, coronary artery disease, declining left ventricular ejection fraction on serial echocardiography. Past medical history significant for coronary artery disease with previous PCI to the mid LAD in April 2020, hypertension, hyperlipidemia, asthma, benign prostatic hypertrophy, osteoarthritis, occasional marijuana use and is a lifetime non- smoker. POD #8 Aortic valve replacement with 27 mm Medtronic Avalus bovine pericardial valve prosthesis, CABG x 2 with GOETZ to LAD and saphenous vein graft to obtuse marginal, endovascular vein harvest greater saphenous vein from the left thigh, ligation of the left atrial appendage with 35mm AtriCure clip, [place] by anesthesia. Postoperative acute blood loss anemia and thrombocytopenia, expected given hemodilution, cardiopulmonary bypass and his preoperative thrombocytopenia. Paroxysmal atrial fibrillation, known common occurrence after open heart surgery, not a complication. The patient was seen and examined in follow-up today January 01, 2024 at his bedside in the intensive care unit. Currently the patient is sitting up to the bedside chair, is awake, alert, oriented x 3 and is in no acute apparent distress. The patient at this time denies any complaints of shortness of breath or pain. He reports that his shortness of breath seems to be somewhat improved today, and reports when ambulating in the reed he did not have to take as many breaks as he usually does. Oxygen saturations are currently 95% on room air and he is achieving 1250 mL on his incentive spirometry with encouragement. Bedside telemetry is showing atrial fibrillation heart rate 95 bpm. His atrial and ventricular epicardial pacemaker wires were removed without incident yesterday. He has been up ambulating in the intensive care unit hallway with standby assistance from nursing and therapy staff. He is being evaluated for inpatient rehab. He remains hemodynamically stable and is currently on no inotropic or pressor support. Laboratory and chest x-ray results were reviewed. Objective - Vital Signs Vital signs: Vital Signs Temp 98.2 F 01/01/24 04:00 Pulse 104 H 01/01/24 07:54 Resp 18 01/01/24 07:54 BP 123/56 01/01/24 07:00 Pulse Ox 92 L 01/01/24 07:54 FiO2 40 12/29/23 12:15 Intake & Output 12/31/23 01/01/24 01/01/24 18:59 06:59 18:59 Output Total 1180 1010 50 Balance -1180 -1010 -50 Weight 83.642 kg Output: Urine 1180 1010 50 Other: Voiding Method Indwelling Catheter Indwelling Catheter # Bowel Movements 1 ABP, PAP, CO, CI - Last Documented Arterial Blood Pressure 98/53 Pulmonary Artery Pressure 41/7 Cardiac Output 4.4 Cardiac Index 2.3 - Exam CONSTITUTIONAL: Sitting up to the bedside chair in the intensive care unit, appears comfortable, cooperative, no apparent acute distress. HEENT: Neck is supple, no JVD, no lymphadenopathy. RESPIRATORY: Lungs sounds essentially clear throughout, diminished to his bilateral bases, right greater than left. Respirations are symmetrical and nonlabored. Currently on room air with oxygen saturations 95%. Able to achieve 1250 mL on his incentive spirometry. Strong cough. CARDIOVASCULAR: Regular rhythm and rate. S1 and S2 present, negative for S3, gallop or murmur. Bedside telemetry is showing atrial fibrillation heart rate 95 bpm. Sternum is stable. Palpable peripheral pulses bilaterally. No calf pain or tenderness noted. Heart hugger in place with patient demonstrating appropriate use. Knee-high FAITH hose and sequential compression devices in place to his bilateral lower extremities. GASTROINTESTINAL: Abdomen soft, nontender, nondistended. Active bowel sounds present 4 quadrants. Tolerating diet. Passing flatus. No guarding or rigidity. Bowel movement today January 01, 2024. GENITOURINARY: Continues to void. Urine output 700 mL in the last 8 hours. INTEGUMENTARY: Skin warm and dry with no evidence of clubbing or cyanosis. Jaundiced. Midline sternal incision clean dry and well approximated, covered with dry intact dressing. Left lower extremity EVH sites well approximated without redness or drainage. NEUROLOGIC: Cranial nerves II through XII intact. No focal deficits. MUSKULOSKELETAL: Able to move all extremities, strength equal bilaterally, generalized weakness. PSYCHIATRIC: Alert and oriented to person place and time, appropriate affect, intact judgment and insight. - Allied health notes Allied health notes reviewed: nursing - Labs CBC & Chem 7: 01/01/24 05:45 01/01/24 05:45 Labs: Abnormal Lab Results - Last 24 Hours (Table) 12/31/23 12/31/23 12/31/23 Range/Units 12:11 16:03 19:59 RBC (4.30-5.90) m/uL Hgb (13.0-17.5) gm/dL Hct (39.0-53.0) % RDW (11.5-15.5) % Sodium (137-145) mmol/L Chloride (98-107) mmol/L BUN (9-20) mg/dL Glucose (74-99) mg/dL POC Glucose (mg/dL) 181 H 166 H 140 H (70-110) mg/dL Total Bilirubin (0.2-1.3) mg/dL AST (17-59) U/L ALT (4-49) U/L Total Protein (6.3-8.2) g/dL Albumin (3.5-5.0) g/dL 01/01/24 01/01/24 01/01/24 Range/Units 05:45 05:45 06:24 RBC 2.54 L (4.30-5.90) m/uL Hgb 7.8 L (13.0-17.5) gm/dL Hct 24.3 L (39.0-53.0) % RDW 15.9 H (11.5-15.5) % Sodium 130 L (137-145) mmol/L Chloride 96 L (98-107) mmol/L BUN 34 H (9-20) mg/dL Glucose 117 H (74-99) mg/dL POC Glucose (mg/dL) 132 H (70-110) mg/dL Total Bilirubin 3.2 H (0.2-1.3) mg/dL AST 83 H (17-59) U/L ALT 121 H (4-49) U/L Total Protein 5.4 L (6.3-8.2) g/dL Albumin 3.2 L (3.5-5.0) g/dL - Imaging and Cardiology Chest x-ray: report reviewed, image reviewed Assessment and Plan Assessment: Severe aortic regurgitation status post aortic valve replacement with 27 mm Medtronic Avalus bovine pericardial valve prosthesis Coronary artery disease with previous PCI to the mid LAD in April 2020, patent mid LAD stent and circumflex lesion in the range of 55% on today's heart catheterization, status post coronary artery bypass grafting x 2 vessels, left internal mammary artery to the left anterior descending coronary artery and a saphenous vein graft to the obtuse marginal coronary artery Hypertension Acute on chronic systolic congestive heart failure with an ejection fraction of 25 to 30% Hyperlipidemia, treated preoperative LDL 49.1, HDL 54.0, cholesterol 118 Right internal carotid artery stenosis 50-79% Asthma, with a preoperative FEV1 2.05 75% of predicted value Benign prostatic hypertrophy Occasional marijuana use Lifelong non-smoker Postoperative acute blood loss anemia and thrombocytopenia, expected given hemodilution and cardiopulmonary bypass and preoperative thrombocytopenia Paroxysmal atrial fibrillation, status post ligation of the left atrial appendage, not a complication, a known common occurrence after cardiac surgery Hyponatremia, sodium 130 today Medical debility Plan: Continue to maximize medical therapy with low-dose aspirin, statin, Plavix and beta-aimee. Will increase metoprolol tartrate as tolerated. Continue amiodarone 400 mg p.o. twice daily. Continue Eliquis 5 mg p.o. twice daily for anticoagulation. Encourage incentive spirometry 10 times every hour while awake. Bronchodilators per pulmonology. Increase activity, ambulate as tolerated. PT/OT/cardiac rehab following. Will monitor daily labs and chest x-rays. Electrolyte replacement per protocol. Continue ferrous sulfate and vitamin C. GI/DVT prophylaxis. Lasix 20 mg IV x 1 today. Insulin management per internal medicine. The patient is a not diabetic, with a preoperative hemoglobin A1c 6.1% Pain control with current medication regimen. Lidoderm patch will be prescribed by internal medicine for complaints of lower back pain. Continue to monitor strict accurate intake and output. Continue home dose of Flomax. We will remove his Kramer catheter today and give a voiding trial prior to discharge.. Continue Celexa 10 mg p.o. daily. Anticipate discharge home with home health care tomorrow January 02, 2024. Transfer orders have been placed to the third floor cardiac stepdown unit. More recommendations to follow based on patient's clinical course. Time with Patient: Greater than 30
[2024-01-01 16:12] LABS: Glucose,Whole Blood 140 mg/dL (70-110)
[2024-01-01 19:52] LABS: Glucose,Whole Blood 155 mg/dL (70-110)
[2024-01-02 06:15] LABS: Glucose,Whole Blood 146 mg/dL (70-110)
--- NOTE | 2024-01-02 06:51 | XR ---
EXAMINATION TYPE: XR chest 2V DATE OF EXAM: 01/02/2024 COMPARISON: 01/01/2024 INDICATION: Post CABG TECHNIQUE: Frontal and lateral views of the chest are obtained. FINDINGS: The heart size is enlarged. The pulmonary vasculature is normal. Small bilateral pleural effusions are present. Some adjacent atelectasis may be present.. IMPRESSION: 1. Small bilateral pleural effusions with adjacent compressive atelectasis. Continued follow-up is re commended. 2. Cardiomegaly
[2024-01-02 09:07] LABS: Anisocytosis Slight; HCT 22.6 % (39.0-53.0); HGB 7.7 gm/dL (13.0-17.5); Hypochromasia Moderate; MCH 32.2 pg (25.0-35.0); MCHC 34.1 g/dL (31.0-37.0); MCV 94.5 fL (80.0-100.0); Macrocytosis Slight; Platelet Count 220 k/uL (150-450); Poikilocytosis Slight; RBC 2.39 m/uL (4.30-5.90); RDW 16.6 % (11.5-15.5); WBC 8.7 k/uL (3.8-10.6)
[2024-01-02 09:29] LABS: ALT 117 U/L (4-49); AST 80 U/L (17-59); African American GFR (CKD) 70 (>60 ml/min/1.73 sqM); Albumin 3.1 g/dL (3.5-5.0); Alkaline Phosphatase 44 U/L (38-126); Anion Gap 4 mmol/L; Blood Urea Nitrogen 35 mg/dL (9-20); Calcium 8.8 mg/dL (8.4-10.2); Carbon Dioxide 31 mmol/L (22-30); Chloride 95 mmol/L (98-107); Glucose 113 mg/dL (74-99); Magnesium 2.2 mg/dL (1.6-2.3); Non-African American GFR(CKD) 60 (>60 ml/min/1.73 sqM); Potassium 4.5 mmol/L (3.5-5.1); Sodium 130 mmol/L (137-145); Total Bilirubin 3.3 mg/dL (0.2-1.3); Total Protein 5.3 g/dL (6.3-8.2)
--- NOTE | 2024-01-02 10:40 | P.PN ---
Subjective Progress Note Date: 01/02/24 Principal diagnosis: Aortic valvular insufficiency, coronary artery disease, declining left ventricular ejection fraction on serial echocardiography. Previous medical history of coronary artery disease with previous PCI to the mid LAD in April 2020, hypertension, hyperlipidemia, asthma, benign prostatic hypertrophy, osteoarthritis, occasional marijuana use and lifetime non-smoker POD #9 Aortic valve replacement with 27 mm Medtronic Avalus bovine pericardial valve prosthesis, CABG x 2 with GOETZ to LAD and saphenous vein graft to obtuse marginal, endovascular vein harvest greater saphenous vein from the left thigh, ligation of the left atrial appendage with 35mm AtriCure clip, [place] by anesthesia. Postoperative acute blood loss anemia and thrombocytopenia, expected given hemodilution, cardiopulmonary bypass and his preoperative thrombocytopenia. Paroxysmal atrial fibrillation, known common occurrence after open heart surgery, not a complication The patient was seen and examined this morning with Dr. Navarrete sitting up in recliner on the cardiac stepdown unit in no acute distress. Denies significant pain or shortness of breath. Remains in controlled atrial fibrillation, hemodynamically stable. Remains on room air, able to achieve 1250 mL on his incentive spirometry. Patient has ambulated in the hallway multiple times, showered yesterday. Anticipate discharge to home this afternoon with home care. No other new concerns. Objective - Vital Signs Vital signs: Vital Signs Temp 97.1 F L 01/02/24 03:28 Pulse 87 01/02/24 08:01 Resp 16 01/02/24 03:28 BP 115/74 01/02/24 03:28 Pulse Ox 94 L 01/02/24 08:01 FiO2 21 01/02/24 08:01 Intake & Output 01/01/24 01/02/24 01/02/24 18:59 06:59 18:59 Intake Total 430 180 Output Total 1200 452 300 Balance -770 -452 -120 Weight 83.642 kg 84.4 kg Intake: Oral 430 180 Output: Urine 1200 300 300 Post Void Residual 152 Other: Voiding Method Indwelling Catheter Indwelling Catheter # Voids 2 ABP, PAP, CO, CI - Last Documented Arterial Blood Pressure 98/53 Pulmonary Artery Pressure 41/7 Cardiac Output 4.4 Cardiac Index 2.3 - Exam CONSTITUTIONAL: Appears comfortable, cooperative, no acute distress RESPIRATORY: Lungs sounds diminished in the bases bilaterally. Respirations even, nonlabored. Currently on room air with oxygen saturation 94%. Able to achieve 1250 mL on incentive spirometry. Strong nonproductive cough. CARDIOVASCULAR: S1, S2 present. Irregular rate and rhythm, controlled atrial fibrillation on telemetry. Sternum stable. Palpable peripheral pulses bilaterally. No edema present. No calf pain or tenderness noted. Heart hugger in place with patient demonstrating appropriate use. Antiembolism stockings, SCDs present. GASTROINTESTINAL: Abdomen soft, nontender, nondistended. Active bowel sounds present 4 quadrants. Tolerating diet. Positive bowel movement 12/31 GENITOURINARY: Voiding clear, yellow urine. Output 1500 mL in the last 24 hours INTEGUMENTARY: Skin is warm and dry with evidence of good perfusion. Anterior chest incision well approximated. Left lower extremity EVH site well approximated without redness or drainage. NEUROLOGIC: Cranial nerves II through XII intact MUSKULOSKELETAL: Able to move all extremities, strength equal bilaterally, gait normal PSYCHIATRIC: Alert and oriented to person place and time, appropriate affect, intact judgment and insight - Allied health notes Allied health notes reviewed: nursing - Labs CBC & Chem 7: 01/02/24 08:22 01/02/24 08:22 Labs: Abnormal Lab Results - Last 24 Hours (Table) 01/01/24 01/01/24 01/01/24 Range/Units 11:13 16:11 19:51 RBC (4.30-5.90) m/uL Hgb (13.0-17.5) gm/dL Hct (39.0-53.0) % RDW (11.5-15.5) % Sodium (137-145) mmol/L Chloride (98-107) mmol/L Carbon Dioxide (22-30) mmol/L BUN (9-20) mg/dL Glucose (74-99) mg/dL POC Glucose (mg/dL) 133 H 140 H 155 H (70-110) mg/dL Total Bilirubin (0.2-1.3) mg/dL AST (17-59) U/L ALT (4-49) U/L Total Protein (6.3-8.2) g/dL Albumin (3.5-5.0) g/dL 01/02/24 01/02/24 01/02/24 Range/Units 06:04 08:22 08:22 RBC 2.39 L (4.30-5.90) m/uL Hgb 7.7 L (13.0-17.5) gm/dL Hct 22.6 L (39.0-53.0) % RDW 16.6 H (11.5-15.5) % Sodium 130 L (137-145) mmol/L Chloride 95 L (98-107) mmol/L Carbon Dioxide 31 H (22-30) mmol/L BUN 35 H (9-20) mg/dL Glucose 113 H (74-99) mg/dL POC Glucose (mg/dL) 146 H (70-110) mg/dL Total Bilirubin 3.3 H (0.2-1.3) mg/dL AST 80 H (17-59) U/L ALT 117 H (4-49) U/L Total Protein 5.3 L (6.3-8.2) g/dL Albumin 3.1 L (3.5-5.0) g/dL - Imaging and Cardiology Chest x-ray: report reviewed, image reviewed Assessment and Plan Assessment: Severe aortic regurgitation, status post aortic valve replacement Coronary artery disease with previous PCI to the mid LAD in April 2020, status post 2V CABG Hypertension Hyperlipidemia, treated, preoperative LDL 49.1, HDL 54.0, cholesterol 118 Right internal carotid artery stenosis 50-79% Asthma, preoperative FEV1 75% of predicted value Benign prostatic hypertrophy Occasional marijuana use Lifelong non-smoker Postoperative acute blood loss anemia and thrombocytopenia, expected given hemodilution and cardiopulmonary bypass and preoperative thrombocytopenia Paroxysmal atrial fibrillation, status post ligation of the left atrial appendage Hyponatremia, sodium 130 today Plan: Continue to maximize medical therapy with low-dose aspirin, statin, and beta- aimee Continue amiodarone per protocol for atrial fibrillation prophylaxis, will taper weekly. Continue Eliquis for anticoagulation Encourage incentive spirometry 10x every hour while awake. Bronchodilators per pulmonology Increase activity, ambulate as tolerated. PT/OT/cardiac rehab consulted. Will monitor daily labs and chest x-rays. Electrolyte replacement per protocol. No Lasix today GI/DVT prophylaxis. Insulin management per internal medicine. The patient is a not diabetic, with a preoperative hemoglobin A1c 6.1% Pain control with current medication regimen. Continue to monitor strict accurate intake and output. Continue home dose of Flomax Continue fluid restrictions Anticipate discharge to home with home care this afternoon
--- NOTE | 2024-01-02 10:48 | P.PN ---
Subjective Progress Note Date: 01/02/24 The patient is a 78-year-old male who underwent aortic valve replacement on December [address] Red. Postoperatively the patient had blood loss anemia as well as atrial fibrillation which is an expected course. Patient remains in rate controlled atrial fibrillation. He states he has been up ambulating to the chair as well as walking the halls. He denies any current pain. No difficulty breathing. Blood pressure 115/74, heart rate 88, pulse ox 94% on room air. Patient is expecting discharge home l ater today. GENERAL: Well-appearing, well-nourished and in no acute distress. NECK: Supple without JVD or thyromegaly. LUNGS: Breath sounds diminished to auscultation bilaterally. Respiration equal a nd unlabored. HEART: Irregular rate and rhythm without murmurs, rubs or gallops. S1 and S2 heard. Heart hugger in place. EXTREMITIES: Normal range of motion, no edema. No clubbing or cyanosis. Per ipheral pulses intact and strong. TELEMETRY: Rate controlled atrial fibrillation, paroxysmal LABS: WBC 8.7, hemoglobin 7.7, hematocrit 24.3, platelet 220, sodium 130, potassium 4.5, BUN 35, creatinine 1.17, AST 80, ALT 117 IMPRESSION: Aortic regurgitation Status post aortic valve replacement Postoperative blood loss anemia Postoperative paroxysmal atrial fibrillation Hyponatremia Elevated liver enzymes, improving PLAN: Continue supportive treatment Aggressive pulmonary hygiene and continue ambulation Follow-up with Dr. RADHA Ramos in 1 week I am dictating on behalf of Dr Theo Graff's history/physical and assessment/plan. Objective - Vital Signs Vital signs: Vital Signs Temp 97.1 F L 01/02/24 03:28 Pulse 87 01/02/24 08:01 Resp 16 01/02/24 03:28 BP 115/74 01/02/24 03:28 Pulse Ox 94 L 01/02/24 08:01 FiO2 21 01/02/24 08:01 Intake & Output 01/01/24 01/02/24 01/02/24 18:59 06:59 18:59 Intake Total 430 180 Output Total 1200 452 300 Balance -770 -452 -120 Weight 83.642 kg 84.4 kg Intake: Oral 430 180 Output: Urine 1200 300 300 Post Void Residual 152 Other: Voiding Method Indwelling Catheter Indwelling Catheter # Voids 2 ABP, PAP, CO, CI - Last Documented Arterial Blood Pressure 98/53 Pulmonary Artery Pressure 41/7 Cardiac Output 4.4 Cardiac Index 2.3 - Labs CBC & Chem 7: 01/02/24 08:22 01/02/24 08:22 Labs: Abnormal Lab Results - Last 24 Hours (Table) 01/01/24 01/01/24 01/01/24 Range/Units 11:13 16:11 19:51 RBC (4.30-5.90) m/uL Hgb (13.0-17.5) gm/dL Hct (39.0-53.0) % RDW (11.5-15.5) % Sodium (137-145) mmol/L Chloride (98-107) mmol/L Carbon Dioxide (22-30) mmol/L BUN (9-20) mg/dL Glucose (74-99) mg/dL POC Glucose (mg/dL) 133 H 140 H 155 H (70-110) mg/dL Total Bilirubin (0.2-1.3) mg/dL AST (17-59) U/L ALT (4-49) U/L Total Protein (6.3-8.2) g/dL Albumin (3.5-5.0) g/dL 01/02/24 01/02/24 01/02/24 Range/Units 06:04 08:22 08:22 RBC 2.39 L (4.30-5.90) m/uL Hgb 7.7 L (13.0-17.5) gm/dL Hct 22.6 L (39.0-53.0) % RDW 16.6 H (11.5-15.5) % Sodium 130 L (137-145) mmol/L Chloride 95 L (98-107) mmol/L Carbon Dioxide 31 H (22-30) mmol/L BUN 35 H (9-20) mg/dL Glucose 113 H (74-99) mg/dL POC Glucose (mg/dL) 146 H (70-110) mg/dL Total Bilirubin 3.3 H (0.2-1.3) mg/dL AST 80 H (17-59) U/L ALT 117 H (4-49) U/L Total Protein 5.3 L (6.3-8.2) g/dL Albumin 3.1 L (3.5-5.0) g/dL
--- NOTE | 2024-01-02 11:01 | P.PN ---
Subjective Patient is seen in follow-up for hyponatremia. Sodium level stable at 130. Renal function also stable. Transferred out of the ICU. Denies chest pain or shortness of breath. Oral intake is fair. No vomiting or diarrhea. Vital signs are stable. General: No acute distress. HEENT: Head exam is unremarkable. LUNGS: No audible rhonchi or wheezes. HEART: Rate and Rhythm are regular. ABDOMEN: Nontender. EXTREMITITES: No edema. Objective - Vital Signs Vital signs: Vital Signs Temp 97.1 F L 01/02/24 03:28 Pulse 87 01/02/24 08:01 Resp 16 01/02/24 03:28 BP 115/74 01/02/24 03:28 Pulse Ox 94 L 01/02/24 08:01 FiO2 21 01/02/24 08:01 Intake & Output 01/01/24 01/02/24 01/02/24 18:59 06:59 18:59 Intake Total 430 180 Output Total 1200 452 300 Balance -770 -452 -120 Weight 83.642 kg 84.4 kg Intake: Oral 430 180 Output: Urine 1200 300 300 Post Void Residual 152 Other: Voiding Method Indwelling Catheter Indwelling Catheter # Voids 2 ABP, PAP, CO, CI - Last Documented Arterial Blood Pressure 98/53 Pulmonary Artery Pressure 41/7 Cardiac Output 4.4 Cardiac Index 2.3 - Labs CBC & Chem 7: 01/02/24 08:22 01/02/24 08:22 Labs: Abnormal Lab Results - Last 24 Hours (Table) 01/01/24 01/01/24 01/01/24 Range/Units 11:13 16:11 19:51 RBC (4.30-5.90) m/uL Hgb (13.0-17.5) gm/dL Hct (39.0-53.0) % RDW (11.5-15.5) % Sodium (137-145) mmol/L Chloride (98-107) mmol/L Carbon Dioxide (22-30) mmol/L BUN (9-20) mg/dL Glucose (74-99) mg/dL POC Glucose (mg/dL) 133 H 140 H 155 H (70-110) mg/dL Total Bilirubin (0.2-1.3) mg/dL AST (17-59) U/L ALT (4-49) U/L Total Protein (6.3-8.2) g/dL Albumin (3.5-5.0) g/dL 01/02/24 01/02/24 01/02/24 Range/Units 06:04 08:22 08:22 RBC 2.39 L (4.30-5.90) m/uL Hgb 7.7 L (13.0-17.5) gm/dL Hct 22.6 L (39.0-53.0) % RDW 16.6 H (11.5-15.5) % Sodium 130 L (137-145) mmol/L Chloride 95 L (98-107) mmol/L Carbon Dioxide 31 H (22-30) mmol/L BUN 35 H (9-20) mg/dL Glucose 113 H (74-99) mg/dL POC Glucose (mg/dL) 146 H (70-110) mg/dL Total Bilirubin 3.3 H (0.2-1.3) mg/dL AST 80 H (17-59) U/L ALT 117 H (4-49) U/L Total Protein 5.3 L (6.3-8.2) g/dL Albumin 3.1 L (3.5-5.0) g/dL Assessment and Plan Plan: Assessment: 1. Hyponatremia, hypervolemic in view of pleural effusions. Sodium level 130 today. TSH normal. Urine sodium less than 20. 2. Acute systolic CHF ejection fraction of 25 to 30%. 3. Coronary disease status post CABG and aortic valve replacement December 24, 2023. 4. Acute blood loss anemia status post blood transfusion this admission. Hemoglobin stable. Plan: Add oral Lasix 20 mg once daily. Maintain SGLT2 inhibitor. Maintain fluid restriction. Salt tabs discontinued December 29, 2023. Encouraged oral intake, particularly protein. Avoid NSAIDs.
[2024-01-02 11:38] LABS: Glucose,Whole Blood 194 mg/dL (70-110)
[2024-01-02] MEDS: FUROSEMIDE 20 MG TAB PO SCH (12:02)
[2024-01-02 13:04] VITALS: BP 111/71; PULSE 69; RESP 18; TEMP 97.5
--- NOTE | 2024-01-02 15:03 | P.PN ---
Subjective Progress Note Date: 01/02/24 Principal diagnosis: Coronary artery disease, aortic stenosis. This is a 78-year-old male patient with a known history of coronary artery disease with previous PCI to the mid LAD, hypertension, hyperlipidemia, benign prostatic hyperplasia, non-smoker. He was also recently found to have severe aortic regurgitation with moderate mitral regurgitation, coronary artery disease and declining left ventricular ejection fraction. He was brought in today electively for surgery. He had undergone aortic valve replacement with a [employer] Avallis bovine pericardial valve prosthesis, CABG x 2 with a GOETZ to the LAD and SVG to the obtuse marginal. He is seen today in the postoperative period in the intensive care unit. He is not abated on the mechanical ventilator and assist-control mode at a rate of 12, tidal volume 400, FiO2 50% and a PEEP of 5. Arterial blood gases revealed a PaO2 of 267, pCO2 of 42 and a pH of 7.36 on 100% FiO2. White count 6.2. Hemoglobin 9.7. Platelets 86,000. Sodium 133. Potassium 4.4. Bicarb 22. BUN 10. Creatinine 0.69. Glucose 132. Albumin 2.5. He did receive albumin. He is on an insulin drip at 1.5 units/h. Nitroglycerin drip at 5 mcg/min and currently off propofol. He has been transitioned to pressure support of 5 and a PEEP of 5. Will plan for early extubation protocol as tolerated. PA pressures 32/14, CVP of 6 cardiac output 4.4. Cardiac index 2.3. Chest x-ray reveals streaky opacities in the left upper lung field likely atelectasis. Mild increased opacity in the right upper lung field. Paris-Jeremy catheter is present in the main pulmonary artery. Right- sided chest tube present. No evidence of pneumothorax. Mediastinal tube is present. Endotracheal tube and nasogastric tubes in position. Epicardial leads are present. Patient was evaluated today on 12/25/2023, patient is on 2 L nasal cannula, extubated yesterday at 4:35 PM, tolerated the extubation well. Patient is now on 2 L nasal cannula, he is on amiodarone at 0.5 mg/min, he is also on insulin at 1.5 units/h, IV fluid 0.9 normal saline at 50 cc/h. Patient is sitting at the bedside chair, awake oriented x 3, not in any distress, not requiring any pressors not requiring any inotropes. Cardiac output is 5.1 cardiac index is 2.7 PA pressure 29/12 CVP is 6 SVR is 1191. Mediastinal and left pleural chest tubes remain in place to low suction. No air leak noted and no evidence of pneumothorax on the chest x-ray, there is evidence however of right basilar atelectasis.WBC count is 6.6 hemoglobin 7.4. Basic metabolic profile is normal renal profile is normal Patient was evaluated today on 12/26/2023, patient is now postoperative day #2. Patient is receiving a unit of packed RBCs for low hemoglobin of 6.3, pulmonary casey does not seem to be in any distress, he is on 2 L nasal cannula and his O2 saturation is in the 90s. Chest x-ray is showing evidence of fluid overload/pulmonary edema and pleural effusions, hence the patient is receiving Lasix by thoracic surgery ordered today. Continues to have right internal jugular Cordis with right radial arterial line, mediastinal/left chest tubes remain in place. Clinically the patient is doing well, he is not requiring any inotropes or any pressors. Patient was evaluated today on 12/27/2023, patient is now postoperative day #3. Patient is comfortable, sitting in a bedside recliner, developed atrial fibrillation with RVR yesterday, and he was restarted on amiodarone, remained hemodynamically stable, patient also developed some mild pulmonary vascular congestion and he received Lasix by surgery. This morning he does not seem to be short of breath, he is on 2 L nasal cannula, not in any distress. Yesterday he did receive 1 unit of packed RBCs for low hemoglobin however his hemoglobin today is 7.3. Chest x-ray continues to show cardiomegaly, right lower lobe atelectasis and possibly a small pleural effusion on the right side Patient elevated today on 12/28/2023, patient is in a bedside recliner, doing fairly well, he has no active symptoms whatsoever. Denies any pain denies any shortness of breath, he had a chest x-ray this morning showing a small right- sided pleural effusion, ultrasound showed a 4.8 cm pocket, hence no plans to perform thoracentesis as the pocket of fluid seems to be relatively small. In the meantime the patient has been receiving diuretics, he is maintaining hemoglobin around 7.6, he did receive 1 unit of packed RBCs back on 12/25. Remains on Lasix 40 mg IV push twice daily, WBC 7.3 hemoglobin 7.6 sodium is a bit low at 127 potassium 4.3 BUN is 32 creatinine 0.87 his hyponatremia is felt to be most likely hypovolemic related hyponatremia Patient was evaluated today on 12/29/2023, doing well, relatively asymptomatic. Patient is receiving sodium tabs for his low sodium is also on fluid restriction 1200 cc/day, sodium today is 126 chest x-ray is basically about the same showing small right-sided pleural effusion not large enough to consider safe thoracentesis WBC count is 6.5 hemoglobin 7.2 sodium 126 BUN 37 creatinine 0.99. Patient is generally weak. Achieving 1250 cc on his incentive spirometry. He is in atrial fibrillation with controlled rate 90 bpm. Patient was evaluated today on 12/30/2023, remains in the ICU, patient is doing well, he is on room air, not in any distress, the plan is to possibly transfer the patient to [facility]. after pacer wires are out. No issues overnight, patient does not seem to be in any detail distress, chest x-ray continues to show small right-sided pleural effusion not large enough to consider thoracentesis. This was evaluated by ultrasound. Sodium today is 127 potassium 4.2 BUN is 45 crea tinine 1.17. Hemoglobin is 7.3 Progress note dated December 31, 2023. 78-year-old male postoperative day #7, status post two-vessel bypass surgery, and aortic valve replacement for severe aortic regurgitation.. Currently, the patient's not receiving any IV fluids. He is on room air. His chest x-ray shows a small right-sided pleural effusion. Current laboratory data includes a white count of 6.5, hemoglobin 7.7, hematocrit 22.3, and a platelet count of 156,000. Sodium 129, potassium 4.2, chloride 94, CO2 31, BUN 41, creatinine 1.29. Glucose 142. Total bilirubin 3.3. AST 103. ALT 130. Albumin is 3. Chest x-ray shows some basilar atelectasis, and a small to moderate right-sided pleural effusion. Progress note dated January 01, 2024. 78-year-old male postoperative day #8, status post two-vessel bypass surgery and aortic valve replacement for severe aortic regurgitation. Currently, the patient is seen in room 266. He is on room air. He is not receiving any IV fluids. The patient is coughing up thick yellow phlegm, and will send the sample to the laboratory for analysis. Other than that, the patient had a fairly uneventful night. Current labs include a white count 8.4, hemoglobin 7.8, hematocrit 24.3, and platelet count 187,000. Sodium 130, potassium 4.3, chloride 96, CO2 30, BUN 34, creatinine 1.17. Bilirubin is 3.2. AST is 83. ALT 121. Albumin 3.2. Chest x-ray is consistent with cardiomegaly, and small bilateral effusions. Progress note dated January 02, 2024. 78-year-old male postop day #9, status post two-vessel bypass surgery and aortic valve replacement, for severe aortic regurgitation. The patient was transferred out of the intensive care unit, and is now in the cardiac unit. Currently, he is on room air. Is not receiving any IV fluids. He has no specific complaints. The patient is hoping to be discharged home today. Current labs include a w koko count 8.7, hemoglobin 7.7, hematocrit 22.6, and a platelet count of 220,000. Sodium 130, potassium 4.5, chlorides 95, CO2 31, BUN 35, creatinine 1.17. Glucose is 194. Chest x-ray shows small bilateral pleural effusions, and cardiomegaly. Objective - Vital Signs Vital signs: Vital Signs Temp 97.5 F L 01/02/24 08:00 Pulse 69 01/02/24 12:00 Resp 18 01/02/24 12:00 BP 111/71 01/02/24 12:00 Pulse Ox 91 L 01/02/24 12:00 FiO2 21 01/02/24 08:01 Intake & Output 01/01/24 01/02/24 01/02/24 18:59 06:59 18:59 Intake Total 430 180 Output Total 1200 452 600 Balance -770 -452 -420 Weight 83.642 kg 84.4 kg Intake: Oral 430 180 Output: Urine 1200 300 600 Post Void Residual 152 Other: Voiding Method Indwelling Catheter Indwelling Catheter Indwelling Catheter # Voids 2 ABP, PAP, CO, CI - Last Documented Arterial Blood Pressure 98/53 Pulmonary Artery Pressure 41/7 Cardiac Output 4.4 Cardiac Index 2.3 - Exam No acute distress, oriented 3. Currently on room air. HEENT examination is grossly unremarkable. Mucous membranes are moist. No oral lesions. Neck supple. Full range of motion. No adenopathy thyromegaly or neck vein distention. Cardiovascular examination reveals regular rhythm rate. S1-S2 normal. No S3 or S4. No discernible murmur noted. Lungs reveal clear breath sounds. Breath sounds are equal bilaterally. No adventitious lung sounds including wheezes rhonchi or crackles. Abdomen soft bowel sounds are heard. No masses or tenderness. Extremities are intact. No cyanosis clubbing or edema. Skin is without rash or lesion. Neurologic examination is brief but nonfocal. - Labs CBC & Chem 7: 01/02/24 08:22 01/02/24 08:22 Labs: Abnormal Lab Results - Last 24 Hours (Table) 01/01/24 01/01/24 01/02/24 Range/Units 16:11 19:51 06:04 RBC (4.30-5.90) m/uL Hgb (13.0-17.5) gm/dL Hct (39.0-53.0) % RDW (11.5-15.5) % Sodium (137-145) mmol/L Chloride (98-107) mmol/L Carbon Dioxide (22-30) mmol/L BUN (9-20) mg/dL Glucose (74-99) mg/dL POC Glucose (mg/dL) 140 H 155 H 146 H (70-110) mg/dL Total Bilirubin (0.2-1.3) mg/dL AST (17-59) U/L ALT (4-49) U/L Total Protein (6.3-8.2) g/dL Albumin (3.5-5.0) g/dL 01/02/24 01/02/24 01/02/24 Range/Units 08:22 08:22 11:36 RBC 2.39 L (4.30-5.90) m/uL Hgb 7.7 L (13.0-17.5) gm/dL Hct 22.6 L (39.0-53.0) % RDW 16.6 H (11.5-15.5) % Sodium 130 L (137-145) mmol/L Chloride 95 L (98-107) mmol/L Carbon Dioxide 31 H (22-30) mmol/L BUN 35 H (9-20) mg/dL Glucose 113 H (74-99) mg/dL POC Glucose (mg/dL) 194 H (70-110) mg/dL Total Bilirubin 3.3 H (0.2-1.3) mg/dL AST 80 H (17-59) U/L ALT 117 H (4-49) U/L Total Protein 5.3 L (6.3-8.2) g/dL Albumin 3.1 L (3.5-5.0) g/dL Assessment and Plan Assessment: Postoperative day #9, status post aortic valve replacement/two-vessel bypass surgery. Routine postoperative ventilator management. History of severe aortic regurgitation. Benign essential hypertension. Hyperlipidemia. History of mild asthma. BPH. Lifelong non-smoker. Postoperative atelectasis. Acute blood loss anemia. Acute diastolic CHF. Postoperative atrial fibrillation with RVR. Right-sided pleural effusion. Hypervolemic hyponatremia. Plan: Plan dated December 31, 2023. The patient is seen today in room 266. He is currently been weaned off of oxygen. He is not receiving any IV fluids. His chest x-ray shows some basilar atelectasis, and a small right-sided pleural effusion. Today is postoperative day #7, status post aortic valve replacement for severe aortic regurgitation, and two-vessel CABG procedure. We will continue to follow make recommendations along the way. Labs, x-rays, and all medications have been reviewed. Plan dated January 01, 2024. The patient is seen today in room 266. The patient is currently on room air. He is not receiving any IV fluids. He is postoperative day #8, status post two-vessel bypass surgery, and aortic valve replacement, for severe aortic regurgitation. Labs, x-rays, and all medications are reviewed. The patient is doing well. He had an uneventful night. He denies any shortness of breath, cough, wheezing, chest tightness, chest pain, palpitations, or any other com plaints for that matter. Plan dated January 02, 2024. The patient is seen today in room 370. Yesterday he was seen in the intensive care unit, and is postop day #9, status post two-vessel bypass grafting, and aortic valve replacement for severe aortic regurgitation. Labs, x-rays, and all medications are reviewed. The patient is hoping to be discharged home today. Clinically he is feeling well. We will continue to follow the patient, make recommendations along the way, should he not be discharged. Overall prognosis remains guarded. He denies any wheezing, shortness of breath, cough, or phlegm production. Time with Patient: Less than 30
--- NOTE | 2024-01-02 16:23 | P.PN ---
Subjective Progress Note Date: 01/02/24 Subjective: Patient seen and examined at bedside. No acute events overnight. Denies any new complaints. Ambulating with physical therapy. Pertinent positives and negatives as discussed above, a complete review of systems was performed and all other systems are negative. Vitals Signs Reviewed. General: Nontoxic, no distress, appears at stated age Derm: Warm, dry, dressing clean, dry, intact Head: Atraumatic, normocephalic, symmetric Eyes: EOMI, no lid lag, anicteric sclera Mouth: No lip lesion, mucus membranes moist Cardiovascular: S1S2 reg, no murmur Lungs: CTA bilateral, no rhonchi, no rales, no accessory muscle use Abdominal: Soft, nontender to palpation, no guarding, no appreciable organomegaly Ext: No gross muscle atrophy, no edema, no contractures Neuro: CN II-XI grossly intact, no focal neuro deficits Psych: Alert, oriented, appropriate affect Data Reviewed Today: Pertinent Labs: Hemoglobin 7.7, platelet 187, sodium 130, potassium 4.5, creatinine 1.17, total bili 3.2, AST 80 ALT 170 ALP 44, blood sugars range between 1 17-1 40 Imaging: Chest x-ray independently interpreted small bilateral pleural effusion with adjacent compressive atelectasis. Cardiomegaly Assessment and Plan: 78-year-old male with medical history of CAD with previous PCI to the mid LAD, hypertension, hyperlipidemia, BPH, severe aortic regurgitation who underwent surgical aortic valve replacement with CABG. patient is medically optimized for discharge. Acute HFrEF 25 to 30% with exacerbation Hypervolemic hyponatremia Pleural effusions -Nephrology note reviewed, oral Lasix 20 once daily commended -Continue to monitor urine output and electrolytes -Continue Farxiga 10 mg daily, on metoprolol 50 twice daily, consider FELICITAS inhibitor/ARB outpatient -Status post Samsca and salt tabs during this admission -On room air Pulmonology note reviewed, continue current therapy. Cleared by pulm Following up with cardiology outpatient Status post CABG with AVR replacement CAD Dyslipidemia Right ICA stenosis -Continue aspirin 81 mg, atorvastatin 40 mg -Being followed by cardiothoracic surgery Paroxysmal atrial fibrillation -On amiodarone 400 twice daily, Eliquis 5 twice daily, metoprolol 50 twice daily Hyperglycemia, likely stress-induced Prediabetes, A1c 6.1 -Sliding scale insulin ACH S, monitor for hypoglycemia Transaminitis Hyperbilirubinemia -Acute hepatitis panel negative -Liver ultrasound shows steatohepatitis -Outpatient follow-up Back pain: Lidocaine patch as needed at night. Encourage ambulation. PT and OT on board. Inpatient rehab consulted Urinary retention with history of BPH: Kramer replaced on 12/30/23. Flomax 0.4 mg PO QD. urology recommending trial of void prior to discharge, he had a voiding trial today, able to discontinue Kramer catheter Acute blood loss anemia and thrombocytopenia: Expected result of surgery. Status post 1 PRBC. Daily CBC, Currently stable Depression -On citalopram 10 mg daily GI prophylaxis -40 mg oral Protonix daily Patient is medically optimized for discharge Thank you for allowing us to participate in the care of this pleasant patient. Do not hesitate to contact us with questions. Someone can be reached from the [facility] hospitalist group all hours of the day at [phone] or via [employer]. I have seen and evaluated the patient today. Discussed with the resident and agree with the residents finding and plan as documented in the resident's note. Changes highlighted in blue font. Objective - Vital Signs Vital signs: Vital Signs Temp 97.1 F L 01/02/24 03:28 Pulse 88 01/02/24 03:28 Resp 16 01/02/24 03:28 BP 115/74 01/02/24 03:28 Pulse Ox 94 L 01/02/24 03:28 FiO2 40 12/29/23 12:15 Intake & Output 01/01/24 01/02/24 01/02/24 18:59 06:59 18:59 Intake Total 430 Output Total 1200 452 Balance -770 -452 Weight 83.642 kg 84.4 kg Intake: Oral 430 Output: Urine 1200 300 Post Void Residual 152 Other: Voiding Method Indwelling Catheter Indwelling Catheter # Voids 2 ABP, PAP, CO, CI - Last Documented Arterial Blood Pressure 98/53 Pulmonary Artery Pressure 41/7 Cardiac Output 4.4 Cardiac Index 2.3 - Labs CBC & Chem 7: 01/02/24 08:22 01/02/24 08:22 Labs: Abnormal Lab Results - Last 24 Hours (Table) 01/01/24 01/01/24 01/01/24 Range/Units 11:13 16:11 19:51 POC Glucose (mg/dL) 133 H 140 H 155 H (70-110) mg/dL 01/02/24 Range/Units 06:04 POC Glucose (mg/dL) 146 H (70-110) mg/dL
--- NOTE | 2024-01-03 15:11 | P.DS ---
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 Do you want consulting provider notified?: Yes 12/29/23 10:19 Consult Physician Routine Consulting Provider: David Calderón Consult Reason/Comments: Hyponatremia Do you want consulting provider notified?: Yes 12/30/23 09:36 Consult Physician Routine Consulting Provider: Vishnu Giron Consult Reason/Comments: Urinary retention Do you want consulting provider notified?: Yes 12/30/23 11:08 Consult Physician Routine Consulting Provider: Amauri Rouse Consult Reason/Comments: Eval for inpatient rehab Do you want consulting provider notified?: Yes Primary care physician: Juan Diego Saldivar [facility] Course: FINAL DIAGNOSIS: Severe aortic regurgitation Coronary artery disease with previous PCI to the mid LAD in April 2020, status post 2V CABG Hypertension Hyperlipidemia, treated, preoperative LDL 49.1, HDL 54.0, cholesterol 118 Right internal carotid artery stenosis 50-79% Asthma, preoperative FEV1 75% of predicted value Benign prostatic hypertrophy Occasional marijuana use Lifelong non-smoker Postoperative acute blood loss anemia and thrombocytopenia, expected given hemodilution and cardiopulmonary bypass and preoperative thrombocytopenia Paroxysmal atrial fibrillation, status post ligation of the left atrial appendage Hyponatremia PRINCIPAL PROCEDURE: Aortic valve replacement with 27 mm Medtronic Avalus bovine pericardial valve pr osthesis CABG x 2 with GOETZ to LAD and saphenous vein graft to obtuse marginal Endovascular vein harvest greater saphenous vein from the left thigh Ligation of the left atrial appendage with 35mm AtriCure clip WELLINGTON by anesthesia HISTORY OF PRESENT ILLNESS: This is a 78-year-old gentleman who follows with Dr. Saldivar for primary care and Dr. RADHA Ramos for cardiology. He was an active gentleman who had been experiencing exertional dyspnea, denies chest pain, denied dizziness or syncope. He had a transthoracic echocardiogram completed at [facility] in October 2023 demonstrating reduced left ventricular systolic function with EF 35 to 40%, grade 2 diastolic dysfunction, severe aortic regurgitation with enlarged aortic root (4.3 cm) and ascending aorta (3.9 cm), moderate mitral regurgitation with mild MAC, and moderate tricuspid regurgitation. Due to this finding he was recommended to undergo heart catheterization and WELLINGTON. Heart catheterization was completed by Dr. Ramos which revealed patent mid LAD stent, and circumflex lesion in the range of 55% which is unchanged from previous heart catheterization. Transthoracic echocardiogram was completed by Dr. Britt revealing impaired left ventricular systolic function with EF 40 to 45%, trileaflet aortic valve with evidence of failure of coaptation, severe aortic insufficiency with eccentric jet, evidence of reversal of flow in the descending aorta, thickened anterior and posterior mitral leaflet with moderate mitral regurgitation as well as moderate tricuspid regurgitation. Due to these findings consultation was placed to Dr. Red from cardiothoracic surgery for treatment recommendations. He was recommended to undergo aortic valve replacement and surgical myocardial revascularization. The usual perioperative course was discussed in detail with the patient and his family, all risks and benefits were explained, all questions were answered, and consent was obtained to proceed with surgery. The patient was discharged to home on maximal medical therapy to return as an outpatient for surgery after obtaining dental clearance. HOSPITAL COURSE: The patient was brought to the hospital on 12/24/23, taken to the preoperative area, prepared in the usual fashion, and subsequently taken to the operating room where Dr. Red performed aortic valve replacement as well as two-vessel CABG. Upon completion of surgery the patient was transferred to the cardiovascular intensive care unit where he was recovered and monitored hemodynamically. She was extubated, all lines, tubes, and drips were discontinued when appropriate. The patient did develop paroxysmal atrial fibrillation which was treated with amiodarone and Eliquis, he also developed hyponatremia which did recover by discharge. He was eventually transferred to [facility] cardiac stepdown unit for further monitoring and rehabilitation. His oxygen was titrated down, he continued to work with physical and occupational therapy, he was tolerating oral diet, his pain was controlled, and he was ready to be discharged to home with [facility] care on postoperative day #9. He received written and verbal instruction regarding his medications, activity restrictions, signs and symptoms requiring physician notification, and follow-up appointments. Patient Condition at Discharge: Stable Plan - Discharge Summary Discharge Rx Participant: No New Discharge Prescriptions: New Citalopram Hydrobromide [CeleXA] 10 mg PO DAILY #30 tab Amiodarone [Cordarone] 400 mg PO BID #27 tab Apixaban [Eliquis] 5 mg PO BID #60 tab Melatonin 5 mg PO HS PRN tab PRN Reason: Insomnia Pantoprazole [Protonix] 40 mg PO AC-BRKFST #30 tab Sennosides-Docusate Sodium [Senokot-S] 2 each PO HS PRN tab PRN Reason: Constipation Dapagliflozin Propanediol [Farxiga] 10 mg PO DAILY #30 tab Furosemide [Lasix] 20 mg PO DAILY #7 tab Acetaminophen Tab [Tylenol] 1,000 mg PO Q6HR PRN tab PRN Reason: Fever And/ Or Pain Continue Cholecalciferol [Vitamin D3 (25 Mcg = 1000 Iu)] 2,000 unit PO QAM Atorvastatin [Lipitor] 40 mg PO HS Aspirin [Adult Low Dose Aspirin EC] 81 mg PO DAILY Tamsulosin HCl [Flomax] 0.4 mg PO QAM Changed Metoprolol Tartrate 50 mg PO BID #60 tab Discontinued Losartan [Cozaar] 25 mg PO HS Discharge Medication List Aspirin [Adult Low Dose Aspirin EC] 81 mg PO DAILY 05/03/20 [History] Atorvastatin [Lipitor] 40 mg PO HS 05/03/20 [History] Cholecalciferol [Vitamin D3 (25 Mcg = 1000 Iu)] 2,000 unit PO QAM 05/03/20 [History] Tamsulosin HCl [Flomax] 0.4 mg PO QAM 12/05/23 [History] Acetaminophen Tab [Tylenol] 1,000 mg PO Q6HR PRN tab 01/02/24 [Rx] Amiodarone [Cordarone] 400 mg PO BID #27 tab 01/02/24 [Rx] Apixaban [Eliquis] 5 mg PO BID #60 tab 01/02/24 [Rx] Citalopram Hydrobromide [CeleXA] 10 mg PO DAILY #30 tab 01/02/24 [Rx] Dapagliflozin Propanediol [Farxiga] 10 mg PO DAILY #30 tab 01/02/24 [Rx] Furosemide [Lasix] 20 mg PO DAILY #7 tab 01/02/24 [Rx] Melatonin 5 mg PO HS PRN tab 01/02/24 [Rx] Metoprolol Tartrate 50 mg PO BID #60 tab 01/02/24 [Rx] Pantoprazole [Protonix] 40 mg PO AC-BRKFST #30 tab 01/02/24 [Rx] Sennosides-Docusate Sodium [Senokot-S] 2 each PO HS PRN tab 01/02/24 [Rx] Follow up Appointment(s)/Referral(s): Connie Fuentes MD [STAFF PHYSICIAN] - 01/31/24 1:30 pm Julisa Gonzalez NPC [Nurse Practitioner] - 01/09/24 10:00 am (You will be seen in the surgeon's office behind the hospital in [facility], [address] Office phone number is ) Keith Ramos MD [STAFF PHYSICIAN] - 01/09/24 10:30 am [facility] [NON-STAFF] - 4 Weeks (You will receive a phone call in approximately 4-6 weeks for evaluation for cardiac rehab) [facility] [[facility] - 1-2 Days ([facility] will call you to arrange a visit; you should be seen by a nurse the day after discharge, then 2-3 times per week until you start cardiac rehab) Darren Red MD [STAFF PHYSICIAN] - 01/24/24 2:00 pm Juan Diego Saldivar DO [Primary Care Provider] - 01/08/24 10:20 am Ambulatory/Diagnostic Orders: Complete Blood Count w/diff [LAB.AMB] Time Frame: 3 Days, Location: None Selected Comprehensive Metabolic Panel [LAB.AMB] Time Frame: 3 Days, Location: None Selected Activity/Diet/Wound Care/Special Instructions: DISCHARGE INSTRUCTIONS: 1. No driving for 4 weeks, or until physician gives their ok. 2. The patient should sleep in their own bed, no medical bed needed. 3. Stairs are not an issue. If the bedroom is upstairs, it is advised that the patient go up at night and down in the morning for the first week. Go slowly, using handrail and take 1 step at a time. 4. FAITH hose are to be worn for 30 days post surgery or until physician discontinues. 5. Heart hugger is to be worn 100% of the time until physician discontinues.(except when showering) 6. No lifting, pushing, or pulling more than 10 pounds for 12 weeks. The physician will advise of any restriction changes. 7. The patient is expected to continue the prescribed walking program. 8. Continue pain control per as needed orders. 9. Continue with incentive spirometry and splinting/heart hugger until otherwise directed by the physician. 10. Must shower daily using liquid antibacterial soap 11. Routine sternal incision care. No powders, lotions, ointments on incisions. No dressings are necessary on incisions unless they are draining. Dermabond tape is to remain on sternal incision until surgeon follow-up. 12. Please call surgeon/ECOLOGICAL MODELER for temp greater than 101 F or purulent drainage from incisions. 13. You should weigh yourself daily, record and bring log with you to follow up appointments. 14. All prescriptions given by surgeon for 30 days. Refills need to be filled through physical security manager/primary care physician. 15. A Red armband has been placed on the patient. It should be worn for 30 days post discharge from surgery and will be removed by the cardiac surgeons. If an ER visit is necessary, please make sure the number on the Red armband is called before going to ER. 16. You have been referred to and are expected to begin Cardiac Rehab in approximately 4-6 weeks. 17. Quitting smoking is the most important step you can take to improve your health. For additional information and assistance to quit smoking, please call the [place] tobacco quit line (3-310-PFXX-NOW/ ) or online: https://www.[place].gov/[facility]/asqq-ng-neznjtp/chronicdiseases/tobacco/how-to-qu it-tobacco HOME HEALTH SERVICES TO PROVIDE: RN SKILLED HOME CARE SERVICES FOR POST-OP SURGICAL PATIENTS WITH THE FOLLOWING: Coronary Artery Bypass Surgery (CABG), Mitral Valve Replacement/Repair ( MVR), Aortic Valve Replacement/Repair (AVR) RN TO CONTINUE EDUCATION FROM ``ROAD TO A HEALTH HEART PATIENT EDUCATION MANUAL (GIVEN TO PATIENT IN THE HOSPITAL) MEDICATION RECONCILIATION WITH EDUCATION NEEDED ON FIRST HOME VISIT EMPHASIZE IMPORTANCE OF WEARING BREAST SUPPORT/HEART HUGGER ENCOURAGE USE OF INCENTIVE SPIROMETER 10 X EVERY HOUR WHILE AWAKE ENCOURAGE UTILIZATION OF LOWER EXTREMITY COMPRESSION STOCKINGS/FAITH HOSE and ELEVATE LEGS ABOVE LEVEL OF HEART WHILE AT REST. ENCOURAGE AMBULATION 3-5x/day INCREASING TOLERATES, WHILE AVOIDING EXTREMES IN TEMPERATURE FREQUENCY: RN TO OPEN THE PATIENT WITHIN 24 HOURS OF DISCHARGE FROM THE HOSPITAL WITH TELEHEALTH INSTALLED AT [facility], RN TO VISIT 2-3 X A WEEK FOR 4 WEEKS ESTABLISHED BY PATIENT NEEDS. LABORATORY: CBC, CMP TO BE DRAWN ON THE THIRD DAY HOME, (RAN STAT) FAX RESULTS TO [phone]. TELEHEALTH PARAMETERS: WEIGHT: NOTIFY MD OF WEIGHT GAIN OF 2 LBS IN 24 HOURS OR 5 LBS IN ONE WEEK HR: NOTIFY MD OF HR <55 BPM OR HR>100 BPM BP: NOTIFY MD IF BP <90/55 OR BP>140/100 O2 SAT: NOTIFY MD IF PO2<93% ON ROOM AIR SEND TELEHEALTH REPORT TO BIOMETRICS SPECIALIST AND CARDIOVASCULAR SURGEON THE FIRST WEEK OF CARE AND THEN BI-WEEKLY. PLEASE ADDITIONALLY COMMUNICATE ANY ABNORMALS AND NEW FINDINGS TO THE SURGEONS OFFICE. Discharge Disposition: HOME WITH HOME HEALTH SERVICES
--- NOTE | 2024-01-03 20:38 | CDI ---
Documentation Clarification Form Date: 01/03/2024 08:16:53 PM From: Isa Gomez Phone: Admit Date: 12/24/2023 05:34:00 AM Patient Name: Navjot Noriega Visit Number: [id number] Discharge Date: 01/02/2024 03:08:00 PM ATTENTION: The Clinical Documentation Specialists (CDI) and [facility] Coding Staff appreciate your assistance in clarifying documentation. Please respond to the clarification below the line at the bottom and electronically sign. The CDI & [facility] Coding staff will review the response and follow-up if needed. Please note: Queries are made part of the Legal Health Record. If you have any questions, please contact the author of this message via ITS. Doctor/Provider: Darren Red Your patient has the documented diagnosis: Acute diastolic CHF per Progress Note 12/25 Acutesystolic CHFEF of 25 to 30% per Nephrology Consult 12/28 Acute on chronic systolic CHF with an EF of 25 to 30% per 12/29 Progress Note Clarification regarding the type and acuity of CHF is requested. History/Risk Factors: 78yo M, CADsp CABG, HTN, HLD, /AR, MR, TR, CM, BPH w LUTS, ABLA, CHF, hypervolemichyponatremia Clinical Indicators: VS/Pulse OX: 98-100 Echo Results: Paradoxical septal motion. LV EF 25-30%. Moderately increased left ventricular wall thickness. Normally functioning bioprosthetic aortic valve. His EF was around 35% on anechocardiogramin October. A limited echo repeated on this admission postop shows an EF of 25%. Chest X Ray: 12/23 Lines and catheters discussed above. StreakatelectasisLUL. Mildinfiltrateright suprahilar region. Correlate foratelectasisor developingpneumonia. Cardiomegaly Treatment: Maintain IV Lasix. Maintain fluidrestriction. Stop sodium chloride tabs. In your professional opinion, can you please clarify the type and acuity of CHF if known? [ ] Acute Systolic Heart Failure (reduced EF) [ x ] Acute on Chronic Systolic Heart Failure (reduced EF) [ ] Acute Diastolic Heart Failure (preserved EF) [ ] Acute Systolic & Diastolic Heart Failure [ ] Acute on Chronic Heart Failure Systolic & Diastolic Heart Failure [ ] Other, please specify [ ] Unable to determine (Template Last Revised: July 2020) MTDD
== END 2024-01-02 15:08 | disposition home health service (06) | DRG 219 ==
LOC: 2ORMAIN 05:34 → 2SICU 12:24 → 3SCARD 01-01 21:22
PROVIDERS: ADMIT Thoracic Surgery (Cardiothoracic Vascular Surgery); ATTEND Thoracic Surgery (Cardiothoracic Vascular Surgery)
PROC: 06BQ4ZZ Excision of Left Saphenous Vein, Percutaneous Endoscopic Approach (ICD-10-PCS; 2023-12-24)
PROC: 5A1221Z Performance of Cardiac Output, Continuous (ICD-10-PCS; 2023-12-24)
PROC: B24BZZ4 Ultrasonography of Heart with Aorta, Transesophageal (ICD-10-PCS; 2023-12-24)
PROC: 02L70CK Occlusion of Left Atrial Appendage with Extraluminal Device, Open Approach (ICD-10-PCS; 2023-12-24)
PROC: 02RF08Z Replacement of Aortic Valve with Zooplastic Tissue, Open Approach (ICD-10-PCS; principal; 2023-12-24 08:00)
PROC: 02100Z9 Bypass Coronary Artery, One Artery from Left Internal Mammary, Open Approach (ICD-10-PCS; 2023-12-24 08:00)
PROC: 0210093 Bypass Coronary Artery, One Artery from Coronary Artery with Autologous Venous Tissue, Open Approach (ICD-10-PCS; 2023-12-24 08:00)
PROC: 30233N1 Transfusion of Nonautologous Red Blood Cells into Peripheral Vein, Percutaneous Approach (ICD-10-PCS; 2023-12-26)
PROC: 30233J1 Transfusion of Nonautologous Serum Albumin into Peripheral Vein, Percutaneous Approach (ICD-10-PCS; 2023-12-26)
DX: I08.3 Combined rheumatic disorders of mitral, aortic and tricuspid valves (principal); I50.23 Acute on chronic systolic (congestive) heart failure; D62 Acute posthemorrhagic anemia; I48.19 Other persistent atrial fibrillation; E87.1 Hypo-osmolality and hyponatremia; I42.9 Cardiomyopathy, unspecified; I11.0 Hypertensive heart disease with heart failure; D69.6 Thrombocytopenia, unspecified; E11.65 Type 2 diabetes mellitus with hyperglycemia; K75.81 Nonalcoholic steatohepatitis (NASH); J44.89 Other specified chronic obstructive pulmonary disease; F32.A Depression, unspecified; I65.21 Occlusion and stenosis of right carotid artery; E86.1 Hypovolemia; I25.10 Atherosclerotic heart disease of native coronary artery without angina pectoris; E78.5 Hyperlipidemia, unspecified; N40.1 Benign prostatic hyperplasia with lower urinary tract symptoms; I44.0 Atrioventricular block, first degree; Z96.652 Presence of left artificial knee joint; R33.8 Other retention of urine; R74.8 Abnormal levels of other serum enzymes; R00.1 Bradycardia, unspecified; R39.12 Poor urinary stream; R39.16 Straining to void; Z95.5 Presence of coronary angioplasty implant and graft; Z79.82 Long term (current) use of aspirin; Z79.899 Other long term (current) drug therapy
CPT/HCPCS: 71045; 71046; 76604; 76705; 80048; 80053; 82330; 82805; 83735; 83930; 83935; 84132; 84300; 84443; 85025; 85027; 85610; 85730; 86022; 86850; 86891; 86900; 86901; 86920; 87070; 87205; 88305; 93308; 94640; 94760

== ENCOUNTER 2024-01-24 15:05 | Inpatient (IN) | payer MEDICARE ==
[~2024-01-24 15:05] MED LIST changes: -ALPRAZolam 0.25 MG TAB PO PRN; -ALPRAZolam 0.5 MG TAB PO PRN; -HEPARIN SODIUM,PORCINE (1 ML) 2,500 UNIT in SODIUM CHLORIDE 0.9% 250 ML IRRIGATION PRN; -HEPARIN SODIUM,PORCINE 10,000 UNIT in SODIUM CHLORIDE 0.9% 1,000 ML IRRIGATION PRN; +LIDOCAINE 1% INJ 10MG/ML (20 ML MDV) ONE; -NITROGLYCERIN SL TABS 0.4 MG TAB SUBLINGUAL PRN; -SODIUM CHLORIDE 0.9% 1,000 ML in EMPTY BAG 1 BAG IV SCH
[2024-01-24] MEDS ORDERED: FUROSEMIDE 10 MG/ML 4 ML VIAL ONE (18:45)
[2024-01-24] MEDS ORDERED: METOPROLOL TARTRATE 50 MG TAB ONE (23:24)
[2024-01-24] MEDS ORDERED: ATORVASTATIN 40 MG TAB ONE (23:24)
[2024-01-25] MEDS ORDERED: PANTOPRAZOLE 40 MG TABLET PO ONE ×2 (06:29→08:49)
[2024-01-25] MEDS ORDERED: CITALOPRAM HYDROBROMIDE 10 MG TAB PO ONE (08:52)
[2024-01-25] MEDS ORDERED: APIXABAN 5 MG TAB ONE (08:52)
[2024-01-25] MEDS ORDERED: ASPIRIN 81 MG ONE (08:54)
[2024-01-25] MEDS ORDERED: CHOLECALCIFEROL 125 MCG (5000 IU) TABLET ONE (08:55)
[2024-01-25] MEDS ORDERED: METOPROLOL TARTRATE 50 MG TAB ONE (08:55)
[2024-01-25] MEDS ORDERED: AMIODARONE 200 MG TAB ONE (09:01)
[2024-01-25] MEDS ORDERED: LOSARTAN 50 MG TAB ONE (09:01)
[2024-01-25] MEDS ORDERED: FUROSEMIDE 20 MG TAB ONE (09:01)
--- NOTE | 2024-02-11 14:04 | CT ---
EXAM: CT head without contrast. CT cervical spine without contrast. DATE OF EXAM: 01/24/2024 INDICATION: Patient age:MAYANK CISNEROS : 1945 Reason for study: Fall, abrasion over Right eye, WO contrast, DLP COMPARISON: None, please note PACS downtime occurred during the radiologist interpretation of these i mages with limited priors/reports.. TECHNIQUE: Multiple axial CT images of the brain were obtained without IV contrast. Axial CT images from the skull base to the inferior aspect of T2 we obtained without intravenous cont rast. Coronal and sagittal reformatted images were also reviewed. One or more CT dose reduction strategies were utilized during this examination. Total DLP administered was 1398.5 mGycm . FINDINGS: CT BRAIN: Extra-axial spaces: No abnormal extra-axial fluid collections. Ventricular system: Within normal limits Cerebral parenchyma: No acute intraparenchymal hemorrhage or mass effect. The mujica-white junction is well differentiated. Cerebellum: Unremarkable. Mass effect: No evidence of midline shift. Intracranial vasculature: unremarkable Soft tissues: Right cheek edema. Calvarium/osseous structures: No depressed skull fracture. Paranasal sinuses and mastoid air cells: Clear. Visualized orbits: Bilateral aphakia CT CERVICAL SPINE: Fracture: No spinal fracture. Acute fracture left first rib without displacement. Osseous structures: Multilevel degenerative disc disease changes with endplate spurring and disc oste ophyte complex's. Vertebral alignment: Within normal limits. Spinal canal/Neural Foramina: Disc osteophyte complexes at C4-C5 C5-C6 and C6-C7 with at least mild t o moderate spinal canal stenosis. No evidence of significant neural foramina narrowing. Neck soft tissues: Prevertebral soft tissues are within normal limits. Other: The airway is patent. Large right pleural effusion trace left pleural effusion. Atherosclerosi s of the carotid bifurcations. Partially visualized sternotomy wires. IMPRESSION: 1. No acute intracranial process. 2. Right cheek edema no evidence of fracture. 3. No evidence of cervical spine fracture. 4. Acute fracture of the left first rib without displacement. 5. Mild multilevel degenerative disc disease. 6. Large right pleural effusion. 7. Posterior osteophytes at multiple levels in the cervical spine with at least mild to moderate spi nal canal stenosis.
--- NOTE | 2024-02-28 09:18 | XR ---
Patient: Navjot Noriega R Ordering Physician: Unknown, Unknown ID: [id number] Phone, Pager: Phon e: N/A Pager: N/A : 1945 Age/Gender: 78Y, M Primary Location: N/A Procedure: XR chest 2V Stud y Date: 01/24/2024 12:09:32 PM EXAMINATION TYPE: XR chest 2V DATE OF EXAM: 02/10/2024 11:14 AM CLINICAL INDICATION: Fall shortness of breath COMPARISON: Chest radiographs from 01/02/2024. TECHNIQUE: XR chest 2V Frontal view of the chest. FINDINGS: Lungs/Pleura: Blunting right costophrenic angle associated atelectasis. There is no evidence of pleur al effusion, focal consolidation, or pneumothorax. Pulmonary vascularity: Unremarkable. Heart/mediastinum: Cardiomediastinal silhouette is enlarged. Left atrial appendage occlusion device i s present. Musculoskeletal: Degenerative changes of the shoulder joints. Midline sternotomy wires are noted. Other findings: None IMPRESSION: Cardiomegaly with moderate right pleural effusions
== END 2024-01-25 15:24 | disposition home or self-care (01) | DRG 640 ==
LOC: 3NCARDOBS 15:05 → UNDOADMIN 01-25 15:24
PROVIDERS: ADMIT Family Medicine; ATTEND Family Medicine
PROC: 0HQ1XZZ Repair Face Skin, External Approach (ICD-10-PCS; principal; 2024-01-24)
DX: E87.1 Hypo-osmolality and hyponatremia (principal); I50.43 Acute on chronic combined systolic (congestive) and diastolic (congestive) heart failure; J90 Pleural effusion, not elsewhere classified; S01.111A Laceration without foreign body of right eyelid and periocular area, initial encounter; E83.42 Hypomagnesemia; D64.9 Anemia, unspecified; I65.23 Occlusion and stenosis of bilateral carotid arteries; I48.0 Paroxysmal atrial fibrillation; I25.10 Atherosclerotic heart disease of native coronary artery without angina pectoris; Z95.1 Presence of aortocoronary bypass graft; Z95.2 Presence of prosthetic heart valve; W19.XXXA Unspecified fall, initial encounter; Z79.01 Long term (current) use of anticoagulants; Z98.49 Cataract extraction status, unspecified eye
CPT/HCPCS: 70450; 71046; 72125; 80053; 81003; 83735; 83880; 85025; 85730; 93005; 96374; 99285

== ENCOUNTER → 2024-01-29 | Outpatient (CLI) | payer MEDICARE ==
--- NOTE | 2024-02-23 19:12 | US ---
Site ID [facility] Patient Navjot Noriega ID [id number] 1945 Age/Gender: 78Y, N/A Order # N/A Procedure US chest Date 01/29/2024 11:51:00 AM EXAMINATION TYPE: US chest DATE OF EXAM: 02/10/2024 COMPARISON: NONE CLINICAL INDICATION: 78 year old with history of right pleural effusion. TECHNIQUE: Targeted ultrasound of the posterior lower right chest. EXAM MEASUREMENTS: Right Pleural Effusion pocket size: 12.2 cm Right skin surface to fluid distance: 3.1 cm Right side marked for possible thoracentesis outside the dept. Pulmonologists are able to review the images in the patient?s EMR. IMPRESSIONS: Large right pleural effusion.
== END | disposition home or self-care (01) ==
LOC: RADUSWWP 11:25
PROVIDERS: ATTEND Internal Medicine
DX: J90 Pleural effusion, not elsewhere classified (principal)
CPT/HCPCS: 76604

== ENCOUNTER → 2024-02-01 | Outpatient (CLI) | payer MEDICARE | END | disposition home or self-care (01) | LOC: LABPRL 13:10 | PROVIDERS: ATTEND Internal Medicine | DX: J90 Pleural effusion, not elsewhere classified (principal) | CPT/HCPCS: 82945; 83615; 84157; 87070; 87075; 87116; 87205; 87206; 89050 ==